=== PATIENT | female | born 1935 | race Caucasian/White ===

== ENCOUNTER 2016-12-17 12:31 | Inpatient (IN) | payer MEDICARE, BC ==
[2016-12-17] MEDS ORDERED: Nitroglycerin 0.4 MG Tab.SL SL PRN (12:59)
[2016-12-17] MEDS ORDERED: Lidocaine 2% 100 MG/5 ML Syringe IVPUSH PRN (12:59)
[2016-12-17] MEDS ORDERED: Atropine 0.1 MG/ML 10 ML Syringe IVPUSH PRN (12:59)
[2016-12-17] MEDS ORDERED: EPINEPHrine 1:10,000 1 MG/10 ML Syringe IVPUSH PRN (12:59)
[2016-12-17] MEDS ORDERED: Sodium Chloride 0.9% 5 ML Syringe FLUSH PRN (14:03)
[2016-12-17] MEDS ORDERED: Aspirin 81 MG Tab.Chew PO ONE (14:32)
[2016-12-17] MEDS ORDERED: Morphine 2 MG/ML Syringe IVPUSH PRN (14:33)
[2016-12-17] MEDS ORDERED: Sodium Chloride 0.9% 1,000 ML IV SCH ×2 (14:45→19:00)
[2016-12-17] MEDS ORDERED: Acetaminophen/HYDROcodone 325-5 MG Tab PO ONE (14:54)
[2016-12-17] MEDS ORDERED: Melatonin 3 MG Tab PO PRN (16:37)
[2016-12-17] MEDS ORDERED: Polyethylene Glycol 3350 Powder 17 GM Packet PO PRN (16:37)
[2016-12-17] MEDS: Acetaminophen/HYDROcodone 325-10 MG Tab PO PRN (18:31)
[2016-12-17] MEDS: Calcium Citrate/Vitamin D3 315 MG-250 Unit Tab PO SCH (18:31)
[2016-12-17] MEDS: predniSONE 5 MG Tab PO SCH (18:32)
[2016-12-17] MEDS: Mirtazapine 15 MG Tab PO SCH (21:06)
[2016-12-18] MEDS: Acetaminophen/HYDROcodone 325-10 MG Tab PO PRN ×4 (00:04→21:39)
[2016-12-18] MEDS: Levothyroxine 50 MCG Tab PO SCH (06:24)
[2016-12-18] MEDS: Omeprazole 20 MG Cap.CR PO SCH (06:24)
[2016-12-18] MEDS: Methylphenidate 5 MG Tab PO SCH (06:25)
[2016-12-18] MEDS: Aspirin 325 MG Tab.EC PO SCH (08:44)
[2016-12-18] MEDS: Phytonadione 100 MCG Tab PO SCH (09:31)
[2016-12-18] MEDS: B.Bifidum/B.Longum/L.Acidophilus/L.Rhamnosus (Probiotic) Cap PO SCH (09:31)
[2016-12-18] MEDS: Vitamin B6-pyridOXINE 50 MG Tab PO SCH (09:31)
[2016-12-18] MEDS: Cyanocobalamin (Vitamin B12) 500 MCG Tab PO SCH (09:31)
[2016-12-18] MEDS: Cholecalciferol (Vitamin D3) 1,000 Unit Tab PO SCH (09:31)
[2016-12-18] MEDS: Calcium Citrate/Vitamin D3 315 MG-250 Unit Tab PO SCH ×2 (09:31→17:37)
--- NOTE | 2016-12-18 13:40 | PN ---
12/18/2016 PATIENT NAME: ERNESTO HARO CHIEF COMPLAINT: Some mid anterior substernal chest pain about 2/10, that was present on admission per the patient report. BRIEF HISTORY: This elderly female 81 with multiple chronic medical conditions, was seen and evaluated yesterday at [facility]. She had some concerns of some feeling weak that she just really could not stand. She does have a history this. She has mild dysplastic syndrome requiring frequent transfusions. No other chronic medical conditions. She described her pain in chest as a pressure. She did not have any shortness of breath. No heart palpitations. No nausea. No radiating symptoms. Hemoglobin did show an 8.0, so she was admitted mainly for blood transfusions and a cardiac workup. LAB: This morning does have a white count of 20,000; hemoglobin 8.7; hematocrit 25.0; MCH 95, which is high; RDW significantly high 27. BNP 938. Troponin increased to 20.3. INR 2.5. REVIEW OF SYSTEMS: CONSTITUTIONAL: Appears weak, frail, elderly, sitting in bed, however, polite, no acute distress, lucid, able to cooperate and understand conversation. CHEST: She does have some ongoing chest pain. Nitroglycerin given and morphine. She has no nausea. No radiating symptoms. Does complain of some leg pain. PHYSICAL EXAMINATION: GENERAL: The patient is alert and oriented. VITAL SIGNS: Blood pressure right now is 116/61, heart rate is around 60, respiratory rate 14, O2 sats 96%. She is on 2 L. She is a full code right now. Weight is 115 pounds. NECK: No carotid bruits. CV: Grade 3/6 systolic murmur. S1 and S2. Regular rhythm. No carotid bruits noted. RESPIRATORY: Fibrotic crackles. This is chronic for her. Good distal pulses, radial and pedal. She has no edema. GI: Hypotonic bowel tones. DIAGNOSTICS: EKG this morning, Q-waves appear more inferior leads. Chest x-ray shows moderate cardiac enlargement, essentially unchanged. No overt CHF component. IMPRESSION/PLAN: Myocardial infarction, non-ST elevation myocardial infarction now. We will continue with aspirin. Maximum medical conservative treatment as the patient does have significant comorbidities. Not likely a candidate at this time for any invasive strategy. However, we will determine her ischemia demand. We will monitor her hemoglobin. She may need another transfusion in light of this. Monitor for any fluid overload. She may need beta-ashlyn. Long discussion with family and manager room on-call, and with the patient. The patient right now is in agreement to maximum medical conservative treatment for evolving myocardial infarction. We will trend her troponins. We will have to get echocardiogram at some point. She may have to be placed in swing bed status due to her significant weakness. We will determine that at a later point. Now, we will monitor for any reperfusion arrhythmias. While on telemetry, repeat EKG and troponins serialized. 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 OVERALL PLAN: Monitor ongoing evolving IA. May start beta-blockers. We will see what her blood pressure is today. Monitor for any reperfusion arrhythmias. Continue with aspirin. Keep her on telemetry today. On discussion with the family right now, she still wants to be full code. Risk versus benefit was explained to her in great detail. The family will still be in discussion on a day-by-day basis of this. I explained this all to her that she is not a candidate for any major interventions at this time. Family is in full cooperation and agreement with this plan. Dr. Siomara Mojica, informed. /[id number]/MODL
[2016-12-18] MEDS: predniSONE 5 MG Tab PO SCH (17:37)
[2016-12-18] MEDS: Sodium Chloride 0.9% 1,000 ML IV SCH (17:39)
[2016-12-18] MEDS: Warfarin 5 MG Tab PO SCH (17:52)
[2016-12-18] MEDS: Clopidogrel 75 MG Tab PO SCH (18:03)
[2016-12-18] MEDS ORDERED: Sodium Chloride 0.9% 1,000 ML IV SCH (20:00)
[2016-12-18] MEDS: Mirtazapine 15 MG Tab PO SCH (20:41)
[2016-12-19] MEDS: Acetaminophen/HYDROcodone 325-10 MG Tab PO PRN ×5 (01:34→18:23)
[2016-12-19] MEDS: Methylphenidate 5 MG Tab PO SCH (06:06)
[2016-12-19] MEDS: Omeprazole 20 MG Cap.CR PO SCH (06:06)
[2016-12-19] MEDS: Levothyroxine 50 MCG Tab PO SCH (06:06)
[2016-12-19] MEDS: Sodium Chloride 0.9% 1,000 ML IV SCH (07:38)
[2016-12-19] MEDS: Calcium Citrate/Vitamin D3 315 MG-250 Unit Tab PO SCH ×3 (09:12→18:23)
[2016-12-19] MEDS: Aspirin 325 MG Tab.EC PO SCH (09:12)
[2016-12-19] MEDS: Phytonadione 100 MCG Tab PO SCH (09:13)
[2016-12-19] MEDS: Vitamin B6-pyridOXINE 50 MG Tab PO SCH (09:13)
[2016-12-19] MEDS: Cholecalciferol (Vitamin D3) 1,000 Unit Tab PO SCH (09:13)
[2016-12-19] MEDS: Cyanocobalamin (Vitamin B12) 500 MCG Tab PO SCH (09:13)
[2016-12-19] MEDS: B.Bifidum/B.Longum/L.Acidophilus/L.Rhamnosus (Probiotic) Cap PO SCH (09:14)
[2016-12-19] MEDS: Potassium Chloride 10 MEQ Tab.ER PO SCH (09:14)
[2016-12-19] MEDS: Furosemide 40 MG Tab PO SCH (09:14)
[2016-12-19] MEDS: Clopidogrel 75 MG Tab PO SCH (09:21)
[2016-12-19] MEDS ORDERED: Furosemide 40 MG/4 ML VIAL IVPUSH ONE (10:01)
[2016-12-19] MEDS ORDERED: Aspirin 325 MG Tab.EC PO SCH (10:02)
[2016-12-19] MEDS ORDERED: Sodium Chloride 0.9% 5 ML Syringe FLUSH PRN (10:03)
[2016-12-19] MEDS: Metoprolol Tartrate 25 MG Tab PO SCH ×2 (10:31→20:49)
--- NOTE | 2016-12-19 10:56 | PN ---
12/19/2016 PATIENT NAME: ERNESTO HARO CHIEF COMPLAINT: Right lower lobe extremity pain with wound ulceration. However, she denies chest pain, denies shortness of breath, denies cough. Her denying chest pain is promising. HISTORY: This 81-year-old female, who does have multiple chronic medical conditions, was admitted for some weakness. It turned out she had a myocardial infarction, a quite severe troponin still around 20. Yesterday, she had a low- grade anterior substernal chest wall pain, nonradiating, it was relieved with nitroglycerin and morphine. PHYSICAL EXAMINATION: VITAL SIGNS: Temperature is 97.8, blood pressure 108/58, heart rate 60, respiratory rate 16 and O2 sats 93%, she is on 2 L. She is weighing 119, this is up approximately 4 pounds. NECK: She has no carotid bruits. No JVD. CV: Grade 3/6 systolic murmur. S1 and S2. She has a regular rhythm. RESPIRATORY: Fibrotic crackles, chronic for her. EXTREMITIES: Overall general skin condition is warm and perfusing well. She does have two ulcerations in her right lower extremity. I viewed the ulcers this morning that do have some soft slough noted with no purulent drainage, but serosanguineous. Partial thickness noted. The dressing type is a Hydrogel with an Aquacel Hydrofiber. No palpable cord in her right calf. Fair distal pulses. No edema noted. GI: Hypotonic bowel tones. Nontender. LABORATORY DATA: Troponin is 20.5, slightly up from yesterday. BNP was 938. Telemetry reports no ectopy noted. ASSESSMENT AND PLAN: 1. Myocardial infarction, now considered [id number] myocardial infarction. We will reduce aspirin from 325 to 81 and continue with Plavix 75. We will start low-dose beta-ashlyn, a tartrate, 12.5 mg to see how her blood pressure does and saline lock her fluids. She will continue on telemetry at this time. Continue with maximum medical conservative treatment. I do not believe she has any ischemia ongoing at this time. 2. Weakness. Hold off on any rehab right at this time or swing bed, but this was discussed with her. She may have to be placed in swing bed at a certain point. 3. Venous stasis ulcers, right lower extremity. These are getting debrided by Physical Therapy. SECONDARY ASSESSMENT: 1. Diastolic heart failure. We will have to assess her echocardiogram. She may need repeat since her myocardial infarction. 2. History of cellulitis, right lower extremity. 3. Bilateral pulmonary embolism history. She is on chronic anticoagulation. Therapeutic INR. 4. Major depression. 5. Anemia, which is chronic disease. 6. Thoracic back pain. She is on pain management contract. 7. Polymyalgia rheumatica. 8. History of thoracic aortic aneurysm. 9. History of giant cell arteritis. She has no headache at this time. 10.Hypertension history. Actually, the blood pressure is slightly low. We will start a beta-ashlyn. 11.Hyperlipidemia. In light of her myocardial infarction, we will start statin therapy independent of her cholesterol numbers as she made gain benefit from this. 12.Hypothyroidism. We will assess TSH level. OVERALL PLAN: Start statin therapy. Reduce aspirin. Saline lock fluids. 20 mg Lasix x1 this morning. Start a low-dose beta-ashlyn. Continue with telemetry. Discussion with family this morning, everybody is in agreement to the patient's plan. She is continuing to be full code status. /[id number]/MODL
[2016-12-19] MEDS: predniSONE 5 MG Tab PO SCH (18:24)
[2016-12-19] MEDS: Warfarin 5 MG Tab PO SCH (18:24)
[2016-12-19] MEDS: Mirtazapine 15 MG Tab PO SCH (20:47)
[2016-12-19] MEDS: cefTRIAXone 1 GM Vial IVPUSH SCH (20:51)
[2016-12-20] MEDS: Acetaminophen/HYDROcodone 325-10 MG Tab PO PRN ×3 (00:43→20:44)
[2016-12-20] MEDS: Methylphenidate 5 MG Tab PO SCH (06:21)
[2016-12-20] MEDS: Levothyroxine 50 MCG Tab PO SCH (06:21)
[2016-12-20] MEDS: Omeprazole 20 MG Cap.CR PO SCH (06:21)
[2016-12-20 08:15] LABS: CHLORIDE,CL 105 mmol/L (98-115); SODIUM,NA 140 mmol/L (136-145)
[2016-12-20] MEDS: Cyanocobalamin (Vitamin B12) 500 MCG Tab PO SCH (09:00)
[2016-12-20] MEDS: Clopidogrel 75 MG Tab PO SCH (09:00)
[2016-12-20] MEDS: Calcium Citrate/Vitamin D3 315 MG-250 Unit Tab PO SCH ×2 (09:00→17:21)
[2016-12-20] MEDS: B.Bifidum/B.Longum/L.Acidophilus/L.Rhamnosus (Probiotic) Cap PO SCH (09:00)
[2016-12-20] MEDS: Aspirin 81 MG Tab.EC PO SCH (09:04)
[2016-12-20] MEDS: Phytonadione 100 MCG Tab PO SCH (09:04)
[2016-12-20] MEDS: Cholecalciferol (Vitamin D3) 1,000 Unit Tab PO SCH (09:05)
[2016-12-20] MEDS: Vitamin B6-pyridOXINE 50 MG Tab PO SCH (09:05)
[2016-12-20] MEDS: Metoprolol Tartrate 25 MG Tab PO SCH ×2 (09:05→20:42)
[2016-12-20] MEDS ORDERED: Furosemide 40 MG/4 ML VIAL IVPUSH ONE (10:00)
--- NOTE | 2016-12-20 10:23 | PN ---
12/20/2016 PATIENT NAME: ERNESTO HARO CHIEF COMPLAINT: Today, overall progress. Feels good. Slightly weak. Denies any chest pain. No worsening shortness of breath. Her weight is up approximately 6 pounds since admission. Troponin is trending down. Overall much improvement. HISTORY: This 81-year-old female with multiple chronic medical conditions was admitted initially for weakness. She sustained a considerable myocardial infarction. Troponin was around 20, is now decreasing, so she was admitted for conservative maximal medical treatment of her myocardial infarction. The patient is full code. PHYSICAL EXAMINATION: VITAL SIGNS: Blood pressure 104/50; respiratory rate 19; O2 sats 95%, this is on 2 L; and temperature is 99.3. CONSTITUTIONAL: The patient is alert and oriented. Sitting in chair. Conversing with the family. NECK: Supple. No signs of JVD. No carotid bruits. CV: Grade 3/6 systolic murmur. Normal S1, S2. Irregular rhythm. RESPIRATORY: She has had ongoing chronic fibrotic crackles which are chronic for her. She is on Lasix every other day. GI: Nontender. Decent bowel tones. EXTREMITIES: Lower extremity; she does have a dressing intact, hydrofiber dressing to her right lower extremity due to stasis. Culture sensitive reports are back. She has no edema. LABORATORY DATA: INR is 2.6. Sodium 140, potassium 4.2, BUN 30, creatinine 0.78, troponin now is 12.9, and calcium 8.6. BNP of 938. Telemetry reports; nurses did not report any aberrancy or PVCs; however, they did hold last night's metoprolol tartrate due to hypotension, asymptomatic. ASSESSMENT AND PLAN: 1. Status post myocardial infarction. At this time [id number] myocardial infarction. She is to continue with aspirin 81 mg. Placed on Plavix on admission. Continue with low-dose beta-ashlyn tartrate 12.5 mg b.i.d. Holding parameters. Continue with telemetry. Echocardiogram, next week. She is fully coagulated with Coumadin. Starting statin therapy today. NICOLE risk score, elevated 6/7; however, we will continue with ischemia driven strategy, maximal medical treatment. 2. Weakness. Physical Therapy consultation has been placed. Most likely she could start physical therapy tomorrow; however, has ongoing wound debridement. 3. Venous stasis ulcers. Right lower extremities. Physical Therapy is doing dressing changes. Currently, she does have a hydrocele dressing. Wound culture was taken, Klebsiella oxytoca and Staph coagulase are negative. Sensitive to ceftriaxone. We will continue with ceftriaxone. SECONDARY ASSESSMENT: 1. Diastolic heart failure. Echocardiogram next week. 2. History of cellulitis. 3. Bilateral pulmonary embolism history. She is on chronic anticoagulation. Right now, she has a therapeutic INR. 4. Major depression. This seems stable. 5. Anemia of chronic disease. 6. Thoracic back pain. She is currently on a pain management contract. This is well controlled. 7. Polymyalgia rheumatica. 8. History of thoracic aortic aneurysm. 9. History of giant cell arteritis. 10.History of hypertension, currently it is slightly low; however, ongoing beta-blockers. 11.Hyperlipidemia. We will start statin therapy today as she could benefit due to recent myocardial infarction. 12.Hypothyroidism. TSH pending. OVERALL PLAN: Start statin therapy today. Lasix 40 mg x1. Continue with beta- ashlyn. Holding parameters. Continue with telemetry for 24 more hours. She is still a DNR; however, she is doing much better. We will get an echocardiogram next week, and most likely, we will place her in swing bed therapy tomorrow. /[id number]/MODL
[2016-12-20] MEDS ORDERED: Ondansetron 4 MG/2 ML SDV IVPUSH PRN (14:26)
[2016-12-20] MEDS: predniSONE 5 MG Tab PO SCH (17:22)
[2016-12-20] MEDS: Warfarin 5 MG Tab PO SCH (17:22)
[2016-12-20] MEDS: cefTRIAXone 1 GM Vial IVPUSH SCH (20:06)
[2016-12-20] MEDS: Mirtazapine 15 MG Tab PO SCH (20:43)
[2016-12-21] MEDS: Omeprazole 20 MG Cap.CR PO SCH (06:56)
[2016-12-21] MEDS: Levothyroxine 50 MCG Tab PO SCH (06:56)
[2016-12-21] MEDS: Acetaminophen/HYDROcodone 325-10 MG Tab PO PRN ×2 (07:53→12:07)
[2016-12-21] MEDS: Calcium Citrate/Vitamin D3 315 MG-250 Unit Tab PO SCH (07:55)
[2016-12-21] MEDS: Furosemide 40 MG Tab PO SCH (08:00)
[2016-12-21] MEDS: Aspirin 81 MG Tab.EC PO SCH (08:00)
[2016-12-21] MEDS: Potassium Chloride 10 MEQ Tab.ER PO SCH (08:00)
[2016-12-21] MEDS: Metoprolol Tartrate 25 MG Tab PO SCH (08:01)
[2016-12-21] MEDS: Cyanocobalamin (Vitamin B12) 500 MCG Tab PO SCH (08:02)
[2016-12-21] MEDS: Clopidogrel 75 MG Tab PO SCH (08:02)
[2016-12-21] MEDS: B.Bifidum/B.Longum/L.Acidophilus/L.Rhamnosus (Probiotic) Cap PO SCH (08:02)
[2016-12-21] MEDS: Vitamin B6-pyridOXINE 50 MG Tab PO SCH (08:03)
[2016-12-21] MEDS: Cholecalciferol (Vitamin D3) 1,000 Unit Tab PO SCH (08:03)
[2016-12-21] MEDS: Phytonadione 100 MCG Tab PO SCH (08:03)
[2016-12-21 11:20] VITALS: BP 97/43
--- NOTE | 2016-12-21 13:20 | PCM.DCSUM1 ---
Discharge Summary - Hospital Course Brief History: This 81-year-old female was admitted from the [facility] mainly due to weakness and low-grade substernal chest pain and it was noted that she did have a myocardial infarction while hospitalized. Her troponin level was quite high around 20 and she remained full code. Cardiology [place] [facility] call was notified and there was an agreement that she be treated with maximal medical conservative treatment. - Discharge Data Discharge Date: 12/21/16 Discharge Disposition: DC/Tfer W/I Hosp To Swing 61 Condition: Good - Patient Summary/Data Complications: Patient's complications included a quite significant myocardial infarction. Consults: Consultations 12/17/16 14:42 Consult to Physical Therapy [PT Evaluation and Treatment] [CONS] Routine Hospital Course: Patient's hospital course went fairly well although she did have a significant myocardial infarction, however do to comorbidities it was determined best to treat the patient for ischemia demand driven protocol with maximal medical conservative treatment and the family did agree with this. She did have a low blood pressure early on with troponin level of about 20. Beta blockers were started and this did improve her blood pressure. She did get quite weak during her hospital stay and a physical therapy consult was placed and the patient could benefit from strengthening and ambulation. She remained on telemetry and we had no reperfusion arrhythmias or PVCs noted. We continued aspirin, and Coumadin. Physical therapy did assist with venous stasis ulcer debridement and wound debridement. She did have Klebsiella oxytocin staph coagulase negative from her venous stasis ulcer right lower extremity and she was treated with sensitive to ceftriaxone. Statin therapy was started - Discharge Plan Home Medications: Home Meds Cholecalciferol (Vitamin D3) [Vitamin D3] 2,000 unit PO DAILY 08/28/13 [History] Cyanocobalamin (Vitamin B-12) [B-12 Dots] 500 mcg PO MOTUWETHFR@0900 08/28/13 [ History] Hydrocodone/Acetaminophen [Hydrocodon-Acetaminophn 10-325] 1 tab PO Q6H PRN [History] Omeprazole 20 mg PO ACBREAKFAST 08/28/13 [History] Warfarin [Coumadin] 5 mg PO DAILY@1800 05/04/15 [History] Polyethylene Glycol 3350 [MiraLAX] 1 packet PO DAILY PRN 06/01/15 [History] Calcium Carbonate/Vitamin D3 [Calcium 600-Vit D3 400 Tablet] 1 tab PO BIDMEALS 08/02/15 [History] Melatonin/Pyridoxine HCl (B6) [Melatonin 3 mg Tablet] 3 mg PO BEDTIME PRN [History] Mirtazapine [Remeron] 30 mg PO BEDTIME 12/30/15 [History] Phytonadione [Vitamin K] 100 mcg PO DAILY 12/30/15 [History] Pyridoxine HCl [Vitamin B-6] 100 mg PO DAILY 12/30/15 [History] Lactobacillus Acidophilus [Acidophilus] 1 tab PO DAILY 04/04/16 [History] predniSONE [Prednisone] 5 mg PO DAILY@1800 04/04/16 [History] Levothyroxine Sodium [Synthroid] 150 mcg PO ACBREAKFAST 09/21/16 [History] Methylphenidate HCl [Ritalin] 5 mg PO ACBREAKFAST 09/21/16 [History] Potassium Chloride [Klor-Con M20] 10 meq PO Q2D 11/24/16 [History] Denosumab [Prolia] 60 mg SUBCUT ASDIRECTED 12/17/16 [History] Epoetin Rivas [Procrit] 20,000 units SUBCUT Q7D 12/17/16 [History] Epoetin Rivas [Procrit] 40,000 unit IJ Q7D 12/17/16 [History] Filgrastim-Sndz [Zarxio] 300 mcg SUBCUT Q7D 12/17/16 [History] Furosemide [Lasix] 40 mg PO Q2D 12/17/16 [History] - Discharge Summary/Plan Comment DC Time >30 min.: Yes Discharge Summary/Plan Comment: FINAL DIAGNOSES Myocardial infarction, questionable initial STEMI versus NSTEMI, Diastolic heart failure, will get echocardiogram next week Myelodysplastic syndrome Venous stasis ulcer, right lower extremity, History of bilateral pulmonary embolism Chronic anticoagulation Anemia of chronic disease polymyalgia rheumatica Hyperlipidemia hypertension Hypothyroidism Thoracic back pain Opioid-induced constipation Depression - Patient Data Vitals - Most Recent: Last Vital Signs Temp 97.9 F 12/21/16 11:00 Pulse 56 L 12/21/16 11:00 Resp 20 12/21/16 11:00 BP 97/43 L 12/21/16 11:00 Pulse Ox 97 12/21/16 11:00 Weight - Most Recent: 119 lb 1.6 oz I&O - Last 24 hours: Intake & Output 12/20/16 12/21/16 12/21/16 22:59 06:59 14:59 Intake Total 270 50 Output Total 650 400 Balance -380 -350 Lab Results - Last 24 hrs: Laboratory Results - last 24 hr 12/21/16 12/21/16 12/21/16 Range/Units 07:00 07:00 07:00 WBC 4.1 L (5.0-10.0) 10^3/uL RBC 2.42 L (3.80-5.50) 10^6/uL Hgb 8.0 L (12.0-16.0) g/dL Hct 23.5 L (37.0-47.0) % MCV 96.8 H (82.0-92.0) fL MCH 33.1 H (27.0-31.0) pg MCHC 34.2 (32.0-36.0) g/dL RDW 27.3 H (11.5-14.5) % Plt Count 189 (150-300) 10^3/uL MPV 9.9 (7.4-10.4) fL Neut % (Auto) 43.5 L (50.0-70.0) % Lymph % (Auto) 36.5 (20.0-40.0) % Sully % (Auto) 9.5 H (2.0-8.0) % Eos % (Auto) 9.6 H (1.0-3.0) % Baso % (Auto) 0.9 (0.0-1.0) % Neut # (Auto) 1.8 L (2.5-7.0) 10^3/uL Lymph # (Auto) 1.5 (1.0-4.0) 10^3/uL Sully # (Auto) 0.4 (0.1-0.8) 10^3/uL Eos # (Auto) 0.4 H (0.1-0.3) 10^3/uL Baso # (Auto) 0.0 (0.0-0.1) 10^3/uL PT 23.2 H (8.9-11.4) SEC INR 2.2 H (0.9-1.1) Troponin I 8.19 H* (0.00-0.070) ng/mL Med Orders - Current: Current Medications Discontinued Medications Hydrocodone Bitart/Acetaminophen (Waddy 325-5 Mg) 1 tab PO ONETIME ONE Stop: 12/17/16 14:55 Last Admin: 12/17/16 15:07 Dose: 1 tab Hydrocodone Bitart/Acetaminophen (Waddy 325-10 Mg) 1 tab PO Q6H PRN PRN Reason: Pain Last Admin: 12/18/16 11:11 Dose: 1 tab Hydrocodone Bitart/Acetaminophen (Waddy 325-10 Mg) 1 tab PO Q4H PRN PRN Reason: Pain Last Admin: 12/21/16 12:07 Dose: 1 tab Aspirin (Aspirin) 324 mg PO ONETIME ONE Stop: 12/17/16 14:33 Last Admin: 12/17/16 14:43 Dose: 324 mg Aspirin (Ecotrin) 325 mg PO DAILY [facility] Last Admin: 12/19/16 09:12 Dose: Not Given Aspirin (Ecotrin) 81 mg PO DAILY [facility] Aspirin (Halfprin) 81 mg PO DAILY [facility] Last Admin: 12/21/16 08:00 Dose: 81 mg Atropine Sulfate (Atropine 0.1 Mg/Ml) 0 mg IVPUSH ASDIRECTED PRN PRN Reason: Heart Calcium Citrate (Calcium Citrate + D) 2 tab PO BIDMEALS [facility] Last Admin: 12/21/16 07:55 Dose: 2 tab Ceftriaxone Sodium (Rocephin) 1 gm IVPUSH Q24H [facility] Last Admin: 12/20/16 20:06 Dose: 1 gm Cholecalciferol (Vitamin D3) 2,000 units PO DAILY [facility] Last Admin: 12/21/16 08:03 Dose: 2,000 units Clopidogrel Bisulfate (Plavix) 75 mg PO DAILY [facility] Last Admin: 12/21/16 08:02 Dose: 75 mg Cyanocobalamin (Vitamin B12) 500 mcg PO MOTUWETHFR@0900 [facility] Last Admin: 12/21/16 08:02 Dose: 500 mcg Epinephrine HCl (Epinephrine 1:10,000) 1 mg IVPUSH ASDIRECTED PRN PRN Reason: Heart Furosemide (Lasix) 40 mg PO Q2D [facility] Last Admin: 12/21/16 08:00 Dose: 40 mg Furosemide (Lasix) 20 mg IVPUSH NOW ONE Stop: 12/19/16 10:02 Last Admin: 12/19/16 10:15 Dose: 20 mg Furosemide (Lasix) 40 mg IVPUSH NOW ONE Stop: 12/20/16 10:01 Last Admin: 12/20/16 11:05 Dose: 40 mg Sodium Chloride (Normal Saline) 1,000 mls @ 125 mls/hr IV ASDIRECTED ELVIS Stop: 12/17/16 17:00 Last Admin: 12/17/16 16:02 Dose: 125 mls/hr Sodium Chloride (Normal Saline) 1,000 mls @ 30 mls/hr IV ASDIRECTED [facility] Last Admin: 12/17/16 20:09 Dose: 30 mls/hr Sodium Chloride (Normal Saline) 1,000 mls @ 70 mls/hr IV ASDIRECTED [facility] Last Admin: 12/19/16 07:38 Dose: 70 mls/hr Lactobacillus Acidophilus/Rhamnosus (Multi-Tianna Plus) 1 cap PO DAILY [facility] Last Admin: 12/21/16 08:02 Dose: 1 cap Levothyroxine Sodium (Synthroid) 150 mcg PO ACBREAKFAST [facility] Last Admin: 12/21/16 06:56 Dose: 150 mcg Lidocaine HCl (Xylocaine 2%) 0 mg IVPUSH ASDIRECTED PRN PRN Reason: Heart Melatonin (Melatonin) 3 mg PO BEDTIME PRN PRN Reason: Insomnia Methylphenidate HCl (Ritalin) 5 mg PO ACBREAKFAST [facility] Last Admin: 12/20/16 06:21 Dose: 5 mg Metoprolol Tartrate (Lopressor) 12.5 mg PO BID [facility] Last Admin: 12/21/16 08:01 Dose: 12.5 mg Mirtazapine (Remeron) 30 mg PO BEDTIME [facility] Last Admin: 12/20/16 20:43 Dose: 30 mg Morphine Sulfate (Morphine) 1 mg IVPUSH Q2H PRN PRN Reason: Chest Pain Last Admin: 12/18/16 10:07 Dose: 1 mg Nitroglycerin (Nitrostat) 0.4 mg SL ASDIRECTED PRN PRN Reason: Heart Last Admin: 12/18/16 08:45 Dose: 0.4 mg Omeprazole (Omeprazole) 20 mg PO ACBREAKFAST [facility] Last Admin: 12/21/16 06:56 Dose: 20 mg Ondansetron HCl (Zofran) 4 mg IVPUSH Q4H PRN PRN Reason: Nausea/Vomiting Phytonadione (Vitamin K) 100 mcg PO DAILY [facility] Last Admin: 12/21/16 08:03 Dose: 100 mcg Polyethylene Glycol (Miralax) 17 gm PO DAILY PRN PRN Reason: Constipation Potassium Chloride (Klor-Con 10) 10 meq PO Q2D [facility] Last Admin: 12/21/16 08:00 Dose: 10 meq Prednisone (Prednisone) 5 mg PO DAILY@1800 [facility] Last Admin: 12/20/16 17:22 Dose: 5 mg Pyridoxine HCl (Vitamin B6-Pyridoxine) 100 mg PO DAILY [facility] Last Admin: 12/21/16 08:03 Dose: 100 mg Sodium Chloride (Syrex Flush) 5 ml FLUSH Q8HR PRN PRN Reason: Keep Vein Open Sodium Chloride (Syrex Flush) 5 ml FLUSH Q8HR PRN PRN Reason: Keep Vein Open Last Admin: 12/19/16 20:56 Dose: 5 ml Warfarin Sodium (Coumadin) 5 mg PO DAILY@1800 [facility] Last Admin: 12/20/16 17:22 Dose: 5 mg *Q Meaningful Use (DIS) - VTE *Q VTE Criteria *Q: - Stroke *Q Stroke Criteria *Q: - AMI *Q AMI Criteria *Q:
== END 2016-12-21 13:12 | disposition swing bed (61) | DRG 281 ==
LOC: INTOOBSV 12:58 → UNDOADMOB 12:58 → KA.MS 12:58 → OBSVTOIN 18:45 → KA.MS 18:45
PROVIDERS: ADMIT Physician Assistant; ATTEND Physician Assistant
PROC: 30233N1 Transfusion of Nonautologous Red Blood Cells into Peripheral Vein, Percutaneous Approach (ICD-10-PCS; principal; 2016-12-17)
DX: I51.7 Cardiomegaly (principal); D64.9 Anemia, unspecified; R07.89 Other chest pain; D46.9 Myelodysplastic syndrome, unspecified; I21.4 Non-ST elevation (NSTEMI) myocardial infarction; E78.00 Pure hypercholesterolemia, unspecified; L97.919 Non-pressure chronic ulcer of unspecified part of right lower leg with unspecified severity; I50.30 Unspecified diastolic (congestive) heart failure; L03.115 Cellulitis of right lower limb; R53.1 Weakness; I83.019 Varicose veins of right lower extremity with ulcer of unspecified site; B95.7 Other staphylococcus as the cause of diseases classified elsewhere; Z86.718 Personal history of other venous thrombosis and embolism; B96.89 Other specified bacterial agents as the cause of diseases classified elsewhere; F32.9 Major depressive disorder, single episode, unspecified; D63.8 Anemia in other chronic diseases classified elsewhere; M54.6 Pain in thoracic spine; M31.5 Giant cell arteritis with polymyalgia rheumatica; I10 Essential (primary) hypertension; E78.5 Hyperlipidemia, unspecified; E03.9 Hypothyroidism, unspecified; Z86.711 Personal history of pulmonary embolism; Z79.01 Long term (current) use of anticoagulants; Z79.4 Long term (current) use of insulin; Z79.899 Other long term (current) drug therapy; Z88.0 Allergy status to penicillin; Z88.8 Allergy status to other drugs, medicaments and biological substances
CPT/HCPCS: 36415; 36430; 84484; 86850; 86900; 86901; 86920; 86922; 87070; 87077 ×2; 87186; 97163; 97597; A9270 ×4; G0283; J7030; P9016; 80048; 83880; 84443; 85025; 85610; 93005; J0696; J1940; J2270

== ENCOUNTER 2016-12-21 09:10 | Inpatient (IN) | payer MEDICARE, BC ==
[2016-12-21] MEDS ORDERED: Ondansetron 4 MG/2 ML SDV IVPUSH PRN (12:58)
[2016-12-21] MEDS ORDERED: Polyethylene Glycol 3350 Powder 17 GM Packet PO PRN (12:58)
[2016-12-21] MEDS ORDERED: Sodium Chloride 0.9% 5 ML Syringe FLUSH PRN (12:58)
[2016-12-21] MEDS ORDERED: Morphine 2 MG/ML Syringe IVPUSH PRN (12:58)
--- NOTE | 2016-12-21 13:38 | PCM.HP ---
H&P History of Present Illness - General Date of Service: 12/21/16 Admit Problem/Dx: Admission Diagnosis/Problem Admission Diagnosis/Problem Weakness Source of Information: Patient, Old records, Provider, RN History Limitations: Reports: No limitations - History of Present Illness Initial Comments - Free Text/Narative: This 81-year-old female was initially admitted for chest pain and weakness and was determined for her to have a myocardial infarction quite significant. Due to her weakness status post AR she was placed in swing bed therapy. - Related Data Allergies/Adverse Reactions: Allergies Allergy/AdvReac Type Severity Reaction Status Date / Time erythromycin base Allergy Severe Vomiting Verified 12/17/16 16:42 [Erythromycin Base] Penicillins Allergy Unknown Hives Verified 12/17/16 16:42 Sulfa (Sulfonamide Allergy Other Verified 12/17/16 16:42 Antibiotics) sulfamethoxazole Allergy Other Verified 12/17/16 16:42 [From Bactrim] trimethoprim [From Bactrim] Allergy Other Verified 12/17/16 16:42 lenalidomide [From Revlimid] AdvReac Mild Rash Verified 12/17/16 16:42 Home Medications: Home Meds Cholecalciferol (Vitamin D3) [Vitamin D3] 2,000 unit PO DAILY 08/28/13 [History] Cyanocobalamin (Vitamin B-12) [B-12 Dots] 500 mcg PO MOTUWETHFR@0900 08/28/13 [ History] Hydrocodone/Acetaminophen [Hydrocodon-Acetaminophn 10-325] 1 tab PO Q6H PRN [History] Omeprazole 20 mg PO ACBREAKFAST 08/28/13 [History] Warfarin [Coumadin] 5 mg PO DAILY@1800 05/04/15 [History] Polyethylene Glycol 3350 [MiraLAX] 1 packet PO DAILY PRN 06/01/15 [History] Calcium Carbonate/Vitamin D3 [Calcium 600-Vit D3 400 Tablet] 1 tab PO BIDMEALS 08/02/15 [History] Melatonin/Pyridoxine HCl (B6) [Melatonin 3 mg Tablet] 3 mg PO BEDTIME PRN [History] Mirtazapine [Remeron] 30 mg PO BEDTIME 12/30/15 [History] Phytonadione [Vitamin K] 100 mcg PO DAILY 12/30/15 [History] Pyridoxine HCl [Vitamin B-6] 100 mg PO DAILY 12/30/15 [History] Lactobacillus Acidophilus [Acidophilus] 1 tab PO DAILY 04/04/16 [History] predniSONE [Prednisone] 5 mg PO DAILY@1800 04/04/16 [History] Levothyroxine Sodium [Synthroid] 150 mcg PO ACBREAKFAST 09/21/16 [History] Methylphenidate HCl [Ritalin] 5 mg PO ACBREAKFAST 09/21/16 [History] Potassium Chloride [Klor-Con M20] 10 meq PO Q2D 11/24/16 [History] Denosumab [Prolia] 60 mg SUBCUT ASDIRECTED 12/17/16 [History] Epoetin Rivas [Procrit] 20,000 units SUBCUT Q7D 12/17/16 [History] Epoetin Rivas [Procrit] 40,000 unit IJ Q7D 12/17/16 [History] Filgrastim-Sndz [Zarxio] 300 mcg SUBCUT Q7D 12/17/16 [History] Furosemide [Lasix] 40 mg PO Q2D 12/17/16 [History] Past Medical History HEENT History: Reports: Cataract, Hard of hearing, Impaired vision, Sinusitis Cardiovascular History: Reports: Blood clots/VTE/DVT, High cholesterol, PVD, SOB on exertion Respiratory History: Reports: Bronchitis, recurrent, PE, Pneumonia, recurrent, SOB, Other (see below) Other Respiratory History: Chronic use of oxygen Gastrointestinal History: Reports: Bowel obstruction, Chronic diarrhea, Fecal incontinence, GERD Genitourinary History: Reports: UTI, recurrent STOCK CHECKERER History: Reports: Endometriosis, Musculoskeletal History: Reports: Back pain, chronic, Fibromyalgia, Other (see below) Other Musculoskeletal History: POLYMYALGIA Neurological History: Reports: Vertigo Psychiatric History: Reports: None Endocrine/Metabolic History: Reports: Hypothyroidism, Osteopenia, Osteoporosis Hematologic History: Reports: Anemia, Blood transfusion(s) Immunologic History: Reports: None Oncologic (Cancer) History: Reports: None Dermatologic History: Reports: None - Infectious Disease History Infectious Disease History: Reports: Measles, Mumps - Past Surgical History HEENT Surgical History: Reports: Adenoidectomy, Cataract surgery, Tonsillectomy Cardiovascular Surgical History: Reports: None Respiratory Surgical History: Reports: None GI Surgical History: Reports: Appendectomy, Cholecystectomy, Colonoscopy, Other (see below) Other GI Surgeries/Procedures: bowel obstruction Female Surgical History: Reports: Hysterectomy Endocrine Surgical History: Reports: None Neurological Surgical History: Reports: None Musculoskeletal Surgical History: Reports: None Oncologic Surgical History: Reports: None Social & Family History - Family History Family Medical History: Noncontributory HEENT: Reports: None Cardiac: Reports: None Respiratory: Reports: None GI: Reports: None : Reports: Other (see below) (Mother with kidney disease unknown type ) OBGYN: Reports: None Musculoskeletal: Reports: None Neurological: Reports: None Psychiatric: Reports: None Endocrine/Metabolic: Reports: None Hematologic: Reports: None Immunologic: Reports: None Dermatologic: Reports: None Oncologic: Reports: Hodgkin's lymphoma - Tobacco Use Smoking Status *Q: Never Smoker Second Hand Smoke Exposure: No - Caffeine Use Caffeine Use: Reports: Coffee - Alcohol Use Days Per Week of Alcohol Use: 0 - Recreational Drug Use Recreational Drug Use: No H&P Review of Systems - Review of Systems: Review Of Systems: See Below General: Reports: weakness, fatigue, weight loss (Do to diuretic therapy) HEENT: Reports: no symptoms Pulmonary: Reports: Shortness of Breath. Denies: Cough, Sputum Cardiovascular: Reports: dyspnea on exertion. Denies: chest pain, edema, blood pressure problem Gastrointestinal: Reports: Constipation Genitourinary: Reports: no symptoms Musculoskeletal: Reports: leg pain (Leg pain due to wound much improved) Skin: Reports: wound (Right lower extremity) Psychiatric: Reports: no symptoms Neurological: Reports: Difficulty Walking, Weakness. Denies: Dizziness Hematologic/Lymphatic: Reports: anemia, easy bleeding Immunologic: Reports: no symptoms Exam - Exam Exam: See Below - Vital Signs Vital Signs: Last Vital Signs Temp 97.9 F 12/21/16 11:00 Pulse 56 L 12/21/16 11:00 Resp 20 12/21/16 11:00 BP 97/43 L 12/21/16 11:00 Pulse Ox 97 12/21/16 11:00 Weight: 119 lb 1.6 oz - Exam Quality Assessment: supplemental oxygen (Has been on chronic home oxygen for about 6 weeks) General: alert, oriented, cooperative. No: mild distress HEENT: PERRLA, Hearing intact, Mucosa moist & pink, Nares patent, Normal nasal septum, Posterior pharynx clear, Conjunctiva clear, EOMI, EACs clear, TMs clear Neck: supple, trachea midline. No: JVD Lungs: Crackles (Chronic fibrotic crackles). No: Rhonchi, Wheezing Cardiovascular: regular rate, regular rhythm, systolic murmur (3/6 systolic murmur). No: tachycardia Abdomen: hypoactive bowel sounds (Female) Exam: Deferred Rectal (Female) Exam: Deferred Back Exam: No: CVA tenderness (L), CVA tenderness (R) Extremities: normal pulses Peripheral Pulses: 2+: radial (L), radial (R) Skin: wound, incision (Healings venous stasis ulcer, requiring debridement little drainage) Neurological: reflexes equal bilateral, normal speech, sensation intact Neuro Extensive - Mental Status: alert, oriented x3, normal mood/affect, normal cognition Neuro Extensive - Motor, Sensory, Reflexes: CN II-XII intact. No: normal gait, ataxia, hemiplagia (L), hemiplagia (R) Psychiatric: alert, normal affect, normal mood *Q Meaningful Use (ADM) - VTE *Q VTE Criteria *Q: - Stroke *Q Stroke Criteria *Q: - AMI *Q AMI Criteria *Q: Problem List Initiated/Reviewed/Updated: Yes Orders Last 24hrs: Active Orders 24 hr Category Date Time Status Patient Status [ADT] Routine ADT 12/21/16 13:05 Ordered Communication Order [RC] DAILY Care 12/21/16 12:58 Active Communication Order [RC] Q8HR Care 12/21/16 12:58 Active Intake and Output [RC] 1400,2200,0600 Care 12/21/16 12:58 Active Oxygen Therapy [RC] PRN Care 12/21/16 12:58 Active RT Incentive Spirometry [RC] ASDIRECTED Care 12/21/16 12:58 Active Supplement (Dietary) [Dietary Supplements] [RC] 1400, Care 12/21/16 12:58 Active 2200 Up With Assistance [RC] ASDIRECTED Care 12/21/16 12:58 Active Consult to Physical Therapy [PT Evaluation and Cons 12/21/16 12:58 Active Treatment] [CONS] Routine Heart Healthy Diet [DIET] Diet 12/21/16 Lunch Active Acetaminophen/HYDROcodone [[place] 325-10 MG] Med 12/21/16 12:58 Ordered 1 tab PO Q4H PRN Aspirin [Halfprin] Med 12/22/16 09:00 Ordered 81 mg PO DAILY B.Bif/B.Long/L.Acidoph/L.Rhamn [Multi-Tianna Plus] Med 12/22/16 09:00 Ordered 1 cap PO DAILY Calcium Citrate/Vitamin D3 [Calcium Citrate + D] Med 12/21/16 18:00 Ordered 2 tab PO BIDMEALS Cholecalciferol (Vitamin D3) [Vitamin D3] Med 12/22/16 09:00 Ordered 2,000 units PO DAILY Clopidogrel [Plavix] Med 12/22/16 09:00 Ordered 75 mg PO DAILY Cyanocobalamin (Vitamin B12) [Vitamin B12] Med 12/24/16 09:00 Ordered 500 mcg PO MOTUWETHFR@0900 Furosemide [Lasix] Med 12/23/16 09:00 Ordered 40 mg PO Q2D Levothyroxine [Synthroid] Med 12/22/16 07:00 Ordered 150 mcg PO ACBREAKFAST Melatonin Med 12/21/16 12:58 Ordered 3 mg PO BEDTIME PRN Metoprolol Tartrate [Lopressor] Med 12/21/16 21:00 Ordered 12.5 mg PO BID Mirtazapine [Remeron] Med 12/21/16 21:00 Ordered 30 mg PO BEDTIME Morphine Med 12/21/16 12:58 Ordered 1 mg IVPUSH Q2H PRN Omeprazole Med 12/22/16 07:00 Ordered 20 mg PO ACBREAKFAST Ondansetron [Zofran] Med 12/21/16 12:58 Ordered 4 mg IVPUSH Q4H PRN Phytonadione [Vitamin K] Med 12/22/16 09:00 Ordered 100 mcg PO DAILY Polyethylene Glycol 3350 [MiraLAX] Med 12/21/16 12:58 Ordered 17 gm PO DAILY PRN Potassium Chloride [Klor-Con 10] Med 12/23/16 09:00 Ordered 10 meq PO Q2D Sodium Chloride 0.9% [Syrex Flush] Med 12/21/16 12:58 Ordered 5 ml FLUSH Q8HR PRN Vitamin B6-pyridOXINE Med 12/22/16 09:00 Ordered 100 mg PO DAILY Warfarin [Coumadin] Med 12/21/16 18:00 Ordered 5 mg PO DAILY@1800 cefTRIAXone [Rocephin] Med 12/21/16 20:15 Ordered 1 gm IVPUSH Q24H predniSONE Med 12/21/16 18:00 Ordered 5 mg PO DAILY@1800 Convert IV to Saline Lock [OM.PC] Routine Oth 12/21/16 12:58 Ordered Saline Lock Insert [OM.PC] Routine Oth 12/21/16 12:58 Ordered Resuscitation Status Routine Resus Stat 12/21/16 13:04 Ordered Medication Orders Hydrocodone Bitart/Acetaminophen ([place] 325-10 Mg) 1 tab PO Q4H PRN PRN Reason: Pain Aspirin (Halfprin) 81 mg PO DAILY [facility] Calcium Citrate (Calcium Citrate + D) 2 tab PO BIDMEALS [facility] Ceftriaxone Sodium (Rocephin) 1 gm IVPUSH Q24H [facility] Cholecalciferol (Vitamin D3) 2,000 units PO DAILY [facility] Clopidogrel Bisulfate (Plavix) 75 mg PO DAILY [facility] Cyanocobalamin (Vitamin B12) 500 mcg PO MOTUWETHFR@0900 [facility] Furosemide (Lasix) 40 mg PO Q2D [facility] Lactobacillus Acidophilus/Rhamnosus (Multi-Tianna Plus) 1 cap PO DAILY [facility] Levothyroxine Sodium (Synthroid) 150 mcg PO ACBREAKFAST [facility] Melatonin (Melatonin) 3 mg PO BEDTIME PRN PRN Reason: Insomnia Metoprolol Tartrate (Lopressor) 12.5 mg PO BID [facility] Mirtazapine (Remeron) 30 mg PO BEDTIME [facility] Morphine Sulfate (Morphine) 1 mg IVPUSH Q2H PRN PRN Reason: Chest Pain Omeprazole (Omeprazole) 20 mg PO ACBREAKFAST [facility] Ondansetron HCl (Zofran) 4 mg IVPUSH Q4H PRN PRN Reason: Nausea/Vomiting Phytonadione (Vitamin K) 100 mcg PO DAILY [facility] Polyethylene Glycol (Miralax) 17 gm PO DAILY PRN PRN Reason: Constipation Potassium Chloride (Klor-Con 10) 10 meq PO Q2D [facility] Prednisone (Prednisone) 5 mg PO DAILY@1800 [facility] Pyridoxine HCl (Vitamin B6-Pyridoxine) 100 mg PO DAILY [facility] Sodium Chloride (Syrex Flush) 5 ml FLUSH Q8HR PRN PRN Reason: Keep Vein Open Warfarin Sodium (Coumadin) 5 mg PO DAILY@1800 [facility] Assessment/Plan Comment:: Brief HISTORY OF PRESENT ILLNESS This 81-year-old female was initially admitted for chest pain and weakness and was determined for her to have a myocardial infarction quite significant. Due to her weakness status post AR she was placed in swing bed therapy. HOSPITAL COURSE WHILE ACUTE CARE STATUS Patient's hospital course went fairly well although she did have a significant myocardial infarction, however do to comorbidities it was determined best to treat the patient for ischemia demand driven protocol with maximal medical conservative treatment and the family did agree with this. She did have a low blood pressure early on with troponin level of about 20. Beta blockers were started and this did improve her blood pressure. She did get quite weak during her hospital stay and a physical therapy consult was placed and the patient could benefit from strengthening and ambulation. She remained on telemetry and we had no reperfusion arrhythmias or PVCs noted. We continued aspirin, and Coumadin. Physical therapy did assist with venous stasis ulcer debridement and wound debridement. She did have Klebsiella oxytocin staph coagulase negative from her venous stasis ulcer right lower extremity and she was treated with sensitive to ceftriaxone. Statin therapy was started. She did have some mild weight gain with slight fluid overload about 7 pounds gained however diuresis him gently this has come down quite a bit. CODE STATUS full code IMPRESSION/PLAN Myocardial infarction, post stabilization, on aspirin, anticoagulated with Coumadin due to history of PE. Started Plavix. NICOLE risk score 6/7. Started low- dose beta ashlyn tolerating well--holding parameters. Continue with telemetry. Echocardiogram scheduled next week--Tomi. Will consider ASHA inhibitor. Continue with diuresing--gentle. Do to him I could benefit from statin therapy- -seems to be tolerating new statin well Weakness, physical therapy consultation placed. Patient will benefit from swing bed therapy for gentle cardiac rehabilitation, ambulation and strength along with wound care Infection venous stasis ulcers, right lower extremity, definitive therapy with ceftriaxone due to Klebsiella oxytoca. Hypothyroidism, TSH pending CHRONIC MEDICAL PROBLEMS, History of cellulitis History of bilateral pulmonary embolism, on chronic anticoagulation--no complication Depression, seems stable anemia, chronic disease Thoracic back pain, currently on pain management contract, opioid use. No abuse Opioid-induced constipation, placed on MovanHypertension, placed on low-dose beta ashlyn, will titrate upwards toward blood pressure response Polymyalgia rheumatica History of giant cell arteritis
[2016-12-21] MEDS: Acetaminophen/HYDROcodone 325-10 MG Tab PO PRN ×2 (16:05→21:01)
[2016-12-21] MEDS: Naloxegol Oxalate 25 MG Tab PO SCH (16:29)
[2016-12-21] MEDS: Warfarin 5 MG Tab PO SCH (18:15)
[2016-12-21] MEDS: Calcium Citrate/Vitamin D3 315 MG-250 Unit Tab PO SCH (18:15)
[2016-12-21] MEDS: predniSONE 5 MG Tab PO SCH (18:16)
[2016-12-21] MEDS: Metoprolol Tartrate 25 MG Tab PO SCH (20:57)
[2016-12-21] MEDS: Mirtazapine 15 MG Tab PO SCH (20:59)
[2016-12-21] MEDS: cefTRIAXone 1 GM Vial IVPUSH SCH (21:02)
[2016-12-22] MEDS: Levothyroxine 50 MCG Tab PO SCH (06:01)
[2016-12-22] MEDS: Pantoprazole 40 MG Tab.CR PO SCH (06:02)
[2016-12-22] MEDS ORDERED: Omeprazole 20 MG Cap.CR PO SCH (07:00)
[2016-12-22] MEDS: Calcium Citrate/Vitamin D3 315 MG-250 Unit Tab PO SCH ×2 (08:41→17:25)
[2016-12-22] MEDS: Vitamin B6-pyridOXINE 50 MG Tab PO SCH (08:41)
[2016-12-22] MEDS: Metoprolol Tartrate 25 MG Tab PO SCH ×2 (08:43→20:55)
[2016-12-22] MEDS: Aspirin 81 MG Tab.EC PO SCH (08:44)
[2016-12-22] MEDS: Naloxegol Oxalate 25 MG Tab PO SCH (08:44)
[2016-12-22] MEDS: B.Bifidum/B.Longum/L.Acidophilus/L.Rhamnosus (Probiotic) Cap PO SCH (08:45)
[2016-12-22] MEDS: Phytonadione 100 MCG Tab PO SCH (08:45)
[2016-12-22] MEDS: Cholecalciferol (Vitamin D3) 1,000 Unit Tab PO SCH (08:45)
[2016-12-22] MEDS: Clopidogrel 75 MG Tab PO SCH (08:45)
[2016-12-22] MEDS: Acetaminophen/HYDROcodone 325-10 MG Tab PO PRN ×4 (09:10→20:57)
[2016-12-22] MEDS ORDERED: Sodium Chloride 0.9% 100 ML IV ONE (14:00)
--- NOTE | 2016-12-22 14:36 | PCM.PN ---
- General Info Date of Service: 12/22/16 Admission Dx/Problem (Free Text): Admission Diagnosis/Problem Admission Diagnosis/Problem Weakness History of present illness: Patient is an 81-year-old white female who was admitted to acute care secondary to chest pain and weakness-Patient sustained a myocardial infarction-quite significant. Do 2 or secondary weakness post acute [place] she was admitted to skilled care/swing bed for further rehabilitation. Patient's hospital course went fairly well-significant acute myocardial infarction but patient has significant comorbidities therefore patient treated for ischemia demand driven protocol with maximal medical conservative treatment and patient/family agreed with this treatment regimen. She did have lower blood pressures early on with troponin level of about 20. Beta blockers were started and this did help. She did get very weak during her hospital stay and a physical therapy consult was ordered for further strengthening and ambulation/ rehabilitation. Telemetry revealed no reperfusion arrhythmias or PVCs noted. Aspirin was continued as well as Coumadin. Physical therapy assisted with venous stasis ulcer debridement and wound debridement. She did have bacterial growth from her venous stasis ulcer right lower extremity and was treated with ceftriaxone. Statin therapy was started She did have some mild weight gain with slight fluid overload however diuresis resulted in decreasing the somewhat. Again, patient admitted to skilled care/swing bed for further close monitoring evaluation and treatment and physical therapy for strength building and rehabilitation. Patient noted to be quite anemic-received one blood transfusion on 12/21/16 Patient reports today: Very weak yet but does think she is getting a little stronger No real appetite Denied any chest pain, shortness breath, palpitations, abdominal pain Nurses report today: Need followup lab Functional Status: Reports: pain controlled, tolerating diet - Review of Systems General: Reports: Weakness, Fatigue, Malaise, Appetite (decreased). Denies: Fever, Chills HEENT: Reports: no symptoms Pulmonary: Reports: no symptoms Cardiovascular: Reports: No Symptoms Gastrointestinal: Reports: No symptoms Genitourinary: Reports: no symptoms Neurological: Reports: No Symptoms, Weakness (profound) Psychiatric: Reports: no symptoms - Patient Data Vitals - most recent: Last Vital Signs Temp 97.5 F 12/22/16 06:48 Pulse 100 12/22/16 08:43 Resp 20 12/22/16 06:48 BP 93/51 L 12/22/16 08:43 Pulse Ox 94 L 12/22/16 06:48 Weight - most recent: 119 lb 1.6 oz I&O - last 24 hours: Intake & Output 12/21/16 12/22/16 12/22/16 22:59 06:59 14:59 Intake Total 795 50 580 Output Total 200 1000 200 Balance 595 -950 380 Lab Results last 24 hrs: Laboratory Results - last 24 hr 12/21/16 Range/Units 07:00 Blood Type O NEGATIVE Gel Antibody Screen Negative Crossmatch See Detail Med Orders - Current: Current Medications Hydrocodone Bitart/Acetaminophen ([place] 325-10 Mg) 1 tab PO Q4H PRN PRN Reason: Pain Last Admin: 12/22/16 13:12 Dose: 1 tab Aspirin (Halfprin) 81 mg PO DAILY [facility] Last Admin: 12/22/16 08:44 Dose: 81 mg Calcium Citrate (Calcium Citrate + D) 2 tab PO BIDMEALS [facility] Last Admin: 12/22/16 08:41 Dose: 1 tab Ceftriaxone Sodium (Rocephin) 1 gm IVPUSH Q24H [facility] Last Admin: 12/21/16 21:02 Dose: 1 gm Cholecalciferol (Vitamin D3) 2,000 units PO DAILY [facility] Last Admin: 12/22/16 08:45 Dose: 2,000 units Clopidogrel Bisulfate (Plavix) 75 mg PO DAILY [facility] Last Admin: 12/22/16 08:45 Dose: 75 mg Cyanocobalamin (Vitamin B12) 500 mcg PO MOTUWETHFR@0900 [facility] Furosemide (Lasix) 40 mg PO Q2D [facility] Sodium Chloride (Normal Saline) 100 mls @ 20 mls/hr IV ONETIME@1400 ONE Stop: 12/22/16 18:59 Lactobacillus Acidophilus/Rhamnosus (Multi-Tianna Plus) 1 cap PO DAILY [facility] Last Admin: 12/22/16 08:45 Dose: 1 cap Levothyroxine Sodium (Synthroid) 150 mcg PO ACBREAKFAST [facility] Last Admin: 12/22/16 06:01 Dose: 150 mcg Melatonin (Melatonin) 3 mg PO BEDTIME PRN PRN Reason: Insomnia Metoprolol Tartrate (Lopressor) 12.5 mg PO BID [facility] Last Admin: 12/22/16 08:43 Dose: 12.5 mg Mirtazapine (Remeron) 30 mg PO BEDTIME [facility] Last Admin: 12/21/16 20:59 Dose: 30 mg Morphine Sulfate (Morphine) 1 mg IVPUSH Q2H PRN PRN Reason: Chest Pain Ondansetron HCl (Zofran) 4 mg IVPUSH Q4H PRN PRN Reason: Nausea/Vomiting [facility]op[facility]) [facility] Last Admin: 12/22/16 06:02 Dose: 40 mg Phytonadione (Vitamin K) 100 mcg PO DAILY [facility] Last Admin: 12/22/16 08:45 Dose: 100 mcg Polyethylene Glycol (Miralax) 17 gm PO DAILY PRN PRN Reason: Constipation Potassium Chloride (Klor-Con 10) 10 meq PO Q2D [facility] Prednisone (Prednisone) 5 mg PO DAILY@1800 [facility] Last Admin: 12/21/16 18:16 Dose: 5 mg Pyridoxine HCl (Vitamin B6-Pyridoxine) 100 mg PO DAILY [facility] Last Admin: 12/22/16 08:41 Dose: 100 mg Sodium Chloride (Syrex Flush) 5 ml FLUSH Q8HR PRN PRN Reason: Keep Vein Open Warfarin Sodium (Coumadin) 5 mg PO DAILY@1800 [facility] Last Admin: 12/21/16 18:15 Dose: 5 mg Discontinued Medications [facility]eprazole ([facility]ole) [facility] - Exam General: alert, oriented, cooperative, no acute distress, other (very weak, thin , pale) HEENT: Pupils equal, Pupils reactive, EOMI, Mucous membr. moist/pink, Other ( wears glasses) Neck: supple, trachea midline, no JVD, no thyromegaly. No: lymphadenopathy, thyromegaly Lungs: Normal respiratory effort, Decreased breath sounds, Crackles Cardiovascular: Regular Rhythm, Irregular Rhythm, Murmurs Abdomen: bowel sounds present, soft, no tenderness, no distension. No: rigidity , rebound, guarding, tenderness, distension Extremities: no edema Skin: warm, dry, intact Wound/Incisions: other (right lower extremity dressing intact--due for change Saturday) Neurological: no new focal deficit, other (profound generalized weakness) Psy/Mental Status: alert, normal affect, normal mood - Problem List Review Problem List Initiated/Reviewed/Updated: Yes - My Orders Last 24 Hours: My Active Orders 12/22/16 14:10 CBC WITH AUTO DIFF [HEME] Routine COMPREHENSIVE METABOLIC PN,CMP [CHEM] Routine - Assessment Assessment:: Assessment: Generalized weakness and need for strength building and rehabilitation secondary to below-profound weakness Acute myocardial infarction-clinically doing fairly well Chronic anticoagulation [id number] well Previous history of pulmonary embolus Hyperlipidemia Antilipemic therapy Venous stasis ulcers with secondary infection Cellulitis history Depression Anemia of chronic disease-await repeat lab Chronic back pain-especially thoracic Chronic [id number] Polymyalgia rheumatica Giant cell arteritis history Hypothyroidism - Plan Plan:: Plan: Reviewed present treatment regimen-continue same regimen except changes as listed below CBC, BMP today CBC in a.m. Continue physical therapy Talked with patient and family and he agree with this evaluation and treatment plan
[2016-12-22 15:24] LABS: CHLORIDE,CL 104 mmol/L (98-115); SODIUM,NA 139 mmol/L (136-145)
[2016-12-22] MEDS: predniSONE 5 MG Tab PO SCH (17:26)
[2016-12-22] MEDS: Warfarin 5 MG Tab PO SCH (17:27)
[2016-12-22] MEDS: cefTRIAXone 1 GM Vial IVPUSH SCH (20:55)
[2016-12-22] MEDS: Mirtazapine 15 MG Tab PO SCH (20:56)
[2016-12-23] MEDS: Pantoprazole 40 MG Tab.CR PO SCH (06:11)
[2016-12-23] MEDS: Acetaminophen/HYDROcodone 325-10 MG Tab PO PRN ×4 (06:11→20:35)
[2016-12-23] MEDS: Levothyroxine 50 MCG Tab PO SCH (06:11)
[2016-12-23] MEDS: Clopidogrel 75 MG Tab PO SCH (09:02)
[2016-12-23] MEDS: Cholecalciferol (Vitamin D3) 1,000 Unit Tab PO SCH (09:02)
[2016-12-23] MEDS: Aspirin 81 MG Tab.EC PO SCH (09:02)
[2016-12-23] MEDS: Naloxegol Oxalate 25 MG Tab PO SCH (09:02)
[2016-12-23] MEDS: Calcium Citrate/Vitamin D3 315 MG-250 Unit Tab PO SCH ×2 (09:02→18:02)
[2016-12-23] MEDS: Metoprolol Tartrate 25 MG Tab PO SCH ×2 (09:03→21:13)
[2016-12-23] MEDS: Vitamin B6-pyridOXINE 50 MG Tab PO SCH (09:03)
[2016-12-23] MEDS: Potassium Chloride 10 MEQ Tab.ER PO SCH (09:04)
[2016-12-23] MEDS: Furosemide 40 MG Tab PO SCH (09:04)
[2016-12-23] MEDS: B.Bifidum/B.Longum/L.Acidophilus/L.Rhamnosus (Probiotic) Cap PO SCH (09:06)
[2016-12-23] MEDS: Phytonadione 100 MCG Tab PO SCH (09:07)
[2016-12-23] MEDS: predniSONE 5 MG Tab PO SCH (18:02)
[2016-12-23] MEDS: Warfarin 5 MG Tab PO SCH (18:02)
[2016-12-23] MEDS: cefTRIAXone 1 GM Vial IVPUSH SCH (20:13)
[2016-12-23] MEDS: Mirtazapine 15 MG Tab PO SCH (21:13)
[2016-12-24] MEDS: Acetaminophen/HYDROcodone 325-10 MG Tab PO PRN ×3 (06:28→21:21)
[2016-12-24] MEDS: Levothyroxine 50 MCG Tab PO SCH (06:28)
[2016-12-24] MEDS: Pantoprazole 40 MG Tab.CR PO SCH (06:28)
[2016-12-24] MEDS: Cyanocobalamin (Vitamin B12) 500 MCG Tab PO SCH (09:10)
[2016-12-24] MEDS: Phytonadione 100 MCG Tab PO SCH (09:10)
[2016-12-24] MEDS: Aspirin 81 MG Tab.EC PO SCH (09:11)
[2016-12-24] MEDS: Vitamin B6-pyridOXINE 50 MG Tab PO SCH (09:11)
[2016-12-24] MEDS: Calcium Citrate/Vitamin D3 315 MG-250 Unit Tab PO SCH ×3 (09:11→18:07)
[2016-12-24] MEDS: Naloxegol Oxalate 25 MG Tab PO SCH (09:11)
[2016-12-24] MEDS: B.Bifidum/B.Longum/L.Acidophilus/L.Rhamnosus (Probiotic) Cap PO SCH (09:11)
[2016-12-24] MEDS: Clopidogrel 75 MG Tab PO SCH (09:11)
[2016-12-24] MEDS: Metoprolol Tartrate 25 MG Tab PO SCH ×2 (09:12→21:23)
[2016-12-24] MEDS: Cholecalciferol (Vitamin D3) 1,000 Unit Tab PO SCH (09:12)
[2016-12-24] MEDS: predniSONE 5 MG Tab PO SCH (18:03)
[2016-12-24] MEDS: Warfarin 5 MG Tab PO SCH (18:03)
[2016-12-24] MEDS: cefTRIAXone 1 GM Vial IVPUSH SCH (19:51)
[2016-12-24] MEDS: Mirtazapine 15 MG Tab PO SCH (21:24)
[2016-12-25] MEDS: Melatonin 3 MG Tab PO PRN (00:18)
[2016-12-25] MEDS: Levothyroxine 50 MCG Tab PO SCH (06:38)
[2016-12-25] MEDS: Metoprolol Tartrate 25 MG Tab PO SCH ×2 (08:25→21:13)
[2016-12-25] MEDS: Vitamin B6-pyridOXINE 50 MG Tab PO SCH (08:25)
[2016-12-25] MEDS: Cholecalciferol (Vitamin D3) 1,000 Unit Tab PO SCH (08:25)
[2016-12-25] MEDS: Cyanocobalamin (Vitamin B12) 500 MCG Tab PO SCH (08:25)
[2016-12-25] MEDS: Aspirin 81 MG Tab.EC PO SCH (08:26)
[2016-12-25] MEDS: Calcium Citrate/Vitamin D3 315 MG-250 Unit Tab PO SCH ×2 (08:26→16:59)
[2016-12-25] MEDS: Potassium Chloride 10 MEQ Tab.ER PO SCH (08:26)
[2016-12-25] MEDS: Clopidogrel 75 MG Tab PO SCH (08:27)
[2016-12-25] MEDS: Naloxegol Oxalate 25 MG Tab PO SCH (08:27)
[2016-12-25] MEDS: B.Bifidum/B.Longum/L.Acidophilus/L.Rhamnosus (Probiotic) Cap PO SCH (08:27)
[2016-12-25] MEDS: Pantoprazole 40 MG Tab.CR PO SCH (08:27)
[2016-12-25] MEDS: Furosemide 40 MG Tab PO SCH (08:27)
[2016-12-25] MEDS: Phytonadione 100 MCG Tab PO SCH (08:27)
[2016-12-25] MEDS: Acetaminophen/HYDROcodone 325-10 MG Tab PO PRN ×3 (10:36→21:14)
[2016-12-25] MEDS: Warfarin 5 MG Tab PO SCH (16:59)
[2016-12-25] MEDS: predniSONE 5 MG Tab PO SCH (16:59)
[2016-12-25] MEDS: cefTRIAXone 1 GM Vial IVPUSH SCH (20:10)
[2016-12-25] MEDS: Mirtazapine 15 MG Tab PO SCH (21:12)
[2016-12-26] MEDS: Melatonin 3 MG Tab PO PRN (01:30)
[2016-12-26] MEDS: Levothyroxine 50 MCG Tab PO SCH (06:06)
[2016-12-26] MEDS: Calcium Citrate/Vitamin D3 315 MG-250 Unit Tab PO SCH ×2 (09:09→18:52)
[2016-12-26] MEDS: Aspirin 81 MG Tab.EC PO SCH (09:09)
[2016-12-26] MEDS: Vitamin B6-pyridOXINE 50 MG Tab PO SCH (09:09)
[2016-12-26] MEDS: Cholecalciferol (Vitamin D3) 1,000 Unit Tab PO SCH (09:09)
[2016-12-26] MEDS: Metoprolol Tartrate 25 MG Tab PO SCH ×2 (09:10→20:33)
[2016-12-26] MEDS: Naloxegol Oxalate 25 MG Tab PO SCH (09:10)
[2016-12-26] MEDS: B.Bifidum/B.Longum/L.Acidophilus/L.Rhamnosus (Probiotic) Cap PO SCH (09:10)
[2016-12-26] MEDS: Cyanocobalamin (Vitamin B12) 500 MCG Tab PO SCH (09:11)
[2016-12-26] MEDS: Pantoprazole 40 MG Tab.CR PO SCH (09:11)
[2016-12-26] MEDS: Clopidogrel 75 MG Tab PO SCH (09:11)
[2016-12-26] MEDS: Phytonadione 100 MCG Tab PO SCH (09:11)
[2016-12-26] MEDS: Acetaminophen/HYDROcodone 325-10 MG Tab PO PRN ×2 (09:36→14:06)
--- NOTE | 2016-12-26 10:39 | PCM.PN ---
- General Info Date of Service: 12/26/16 - Review of Systems General: Reports: Weakness. Denies: Fever, Chills, Night Sweats HEENT: Reports: no symptoms Pulmonary: Denies: shortness of breath, cough, sputum Cardiovascular: Reports: Dyspnea on Exertion. Denies: Chest Pain, Edema Gastrointestinal: Reports: No symptoms Genitourinary: Reports: no symptoms Musculoskeletal: Reports: no symptoms Skin: Reports: pallor Neurological: Reports: Difficulty Walking (uses walker. ), Weakness, Gait Disturbance Psychiatric: Reports: no symptoms - Patient Data Vitals - most recent: Last Vital Signs Temp 96.7 F 12/26/16 06:10 Pulse 60 12/26/16 09:10 Resp 18 12/26/16 06:10 BP 114/54 L 12/26/16 09:10 Pulse Ox 95 12/26/16 08:45 Weight - most recent: 119 lb 1.6 oz I&O - last 24 hours: Intake & Output 12/25/16 12/26/16 12/26/16 22:59 06:59 14:59 Intake Total 450 100 Output Total 300 400 Balance 150 -300 Lab Results last 24 hrs: Laboratory Results - last 24 hr 12/24/16 12/26/16 Range/Units 09:05 07:05 PT 27.7 H (8.9-11.4) SEC INR 2.6 H (0.9-1.1) Blood Type Cancelled Gel Antibody Screen Cancelled Crossmatch See Detail Med Orders - Current: Current Medications Hydrocodone Bitart/Acetaminophen ([place] 325-10 Mg) 1 tab PO Q4H PRN PRN Reason: Pain Last Admin: 12/26/16 09:36 Dose: 1 tab Aspirin (Halfprin) 81 mg PO DAILY [facility] Last Admin: 12/26/16 09:09 Dose: 81 mg Calcium Citrate (Calcium Citrate + D) 1 tab PO BIDMEALS [facility] Last Admin: 12/26/16 09:09 Dose: 1 tab Ceftriaxone Sodium (Rocephin) 1 gm IVPUSH Q24H [facility] Last Admin: 12/25/16 20:10 Dose: 1 gm Cholecalciferol (Vitamin D3) 2,000 units PO DAILY [facility] Last Admin: 12/26/16 09:09 Dose: 2,000 units Clopidogrel Bisulfate (Plavix) 75 mg PO DAILY [facility] Last Admin: 12/26/16 09:11 Dose: 75 mg Cyanocobalamin (Vitamin B12) 500 mcg PO MOTUWETHFR@0900 [facility] Last Admin: 12/26/16 09:11 Dose: 500 mcg Furosemide (Lasix) 40 mg PO Q2D [facility] Last Admin: 12/25/16 08:27 Dose: 40 mg Lactobacillus Acidophilus/Rhamnosus (Multi-Tianna Plus) 1 cap PO DAILY [facility] Last Admin: 12/26/16 09:10 Dose: 1 cap Levothyroxine Sodium (Synthroid) 125 mcg PO ACBREAKFAST [facility] Last Admin: 12/26/16 06:06 Dose: 125 mcg Melatonin (Melatonin) 3 mg PO BEDTIME PRN PRN Reason: Insomnia Last Admin: 12/26/16 01:30 Dose: 3 mg Metoprolol Tartrate (Lopressor) 12.5 mg PO BID [facility] Last Admin: 12/26/16 09:10 Dose: 12.5 mg Mirtazapine (Remeron) 30 mg PO BEDTIME [facility] Last Admin: 12/25/16 21:12 Dose: 30 mg Morphine Sulfate (Morphine) 1 mg IVPUSH Q2H PRN PRN Reason: Chest Pain Ondansetron HCl (Zofran) 4 mg IVPUSH Q4H PRN PRN Reason: Nausea/Vomiting Pantoprazole Sodium (Protonix) 40 mg PO 0900 [facility] Last Admin: 12/26/16 09:11 Dose: 40 mg Phytonadione (Vitamin K) 100 mcg PO DAILY [facility] Last Admin: 12/26/16 09:11 Dose: 100 mcg Polyethylene Glycol (Miralax) 17 gm PO DAILY PRN PRN Reason: Constipation Potassium Chloride (Klor-Con 10) 10 meq PO Q2D [facility] Last Admin: 12/25/16 08:26 Dose: 10 meq Prednisone (Prednisone) 5 mg PO DAILY@1800 [facility] Last Admin: 12/25/16 16:59 Dose: 5 mg Pyridoxine HCl (Vitamin B6-Pyridoxine) 100 mg PO DAILY [facility] Last Admin: 12/26/16 09:09 Dose: 100 mg Sodium Chloride (Syrex Flush) 5 ml FLUSH Q8HR PRN PRN Reason: Keep Vein Open Last Admin: 12/25/16 20:17 Dose: 5 ml Discontinued Medications Calcium Citrate (Calcium Citrate + D) 2 tab PO BIDMEALS [facility] Last Admin: 12/24/16 18:07 Dose: 1 tab Sodium Chloride (Normal Saline) 100 mls @ 20 mls/hr IV ONETIME@1400 ONE Stop: 12/22/16 18:59 Last Admin: 12/22/16 20:56 Dose: Not Given Levothyroxine Sodium (Synthroid) 150 mcg PO ACBREAKFAST [facility] Last Admin: 12/25/16 06:38 Dose: 150 mcg Omeprazole (Omeprazole) 20 mg PO ACBREAKFAST [facility] Pantoprazole Sodium (Protonix) 40 mg PO ACBREAKFAST [facility] Last Admin: 12/24/16 06:28 Dose: 40 mg Warfarin Sodium (Coumadin) 5 mg PO DAILY@1800 [facility] Last Admin: 12/25/16 16:59 Dose: 5 mg - Exam Quality Assessment: supplemental oxygen General: alert, oriented, cooperative. No: no acute distress Neck: supple Lungs: Crackles (mild fibrotic, chronic for her. ) Cardiovascular: Regular Rate, Regular Rhythm, Murmurs. No: Tachycardia Abdomen: bowel sounds present, soft, no tenderness, no distension Back Exam: No: CVA tenderness (L), CVA tenderness (R) Extremities: no edema Neurological: no new focal deficit Psy/Mental Status: alert, normal affect, normal mood - Problem List Review Problem List Initiated/Reviewed/Updated: Yes - My Orders Last 24 Hours: My Active Orders 12/26/16 08:52 Echo Comp wo Cont [US] Routine 12/27/16 05:11 CBC WITH AUTO DIFF [HEME] Routine - Plan Plan:: Brief HISTORY OF PRESENT ILLNESS This 81-year-old female was initially admitted for chest pain and weakness and was determined for her to have a myocardial infarction quite significant. Due to her weakness status post [place] she was placed in swing bed therapy. HOSPITAL COURSE WHILE ACUTE CARE STATUS Patient's hospital course went fairly well although she did have a significant myocardial infarction, however do to comorbidities it was determined best to treat the patient for ischemia demand driven protocol with maximal medical conservative treatment and the family did agree with this. She did have a low blood pressure early on with troponin level of about 20. Beta blockers were started and this did improve her blood pressure. She did get quite weak during her hospital stay and a physical therapy consult was placed and the patient could benefit from strengthening and ambulation. She remained on telemetry and we had no reperfusion arrhythmias or PVCs noted. We continued aspirin, and Coumadin. Physical therapy did assist with venous stasis ulcer debridement and wound debridement. She did have Klebsiella oxytocin staph coagulase negative from her venous stasis ulcer right lower extremity and she was treated with sensitive to ceftriaxone. Statin therapy was started. She did have some mild weight gain with slight fluid overload about 7 pounds gained however diuresis him gently this has come down quite a bit. CODE STATUS full code IMPRESSION/PLAN Generalized weakness and need for strength building and rehabilitation secondary to below-profound weakness, also receiving wound therapy which she is responding well to. Myocardial infarction, post stabilization, on aspirin, anticoagulated with Coumadin due to history of PE. Started Plavix. NICOLE risk score 6/7. Started low- dose beta ashlyn tolerating well--holding parameters. Off telemetry. Echocardiogram today. Will consider ASHA inhibitor when BP improves. Continue with diuresing--gentle wt is now at baselind. started statin therapy. Infection venous stasis ulcers, right lower extremity, definitive therapy with ceftriaxone due to Klebsiella oxytoca--PT doing wound therapy--healing nicely. CHRONIC MEDICAL PROBLEMS, History of cellulitis History of bilateral pulmonary embolism, on chronic anticoagulation--no complication Depression, seems stable anemia, chronic disease Thoracic back pain, currently on pain management contract, opioid use. No abuse Opioid-induced constipation, placed on MovanHypertension, placed on low-dose beta ashlyn, will titrate upwards toward blood pressure response Polymyalgia rheumatica History of giant cell arteritis
[2016-12-26] MEDS ORDERED: Warfarin 5 MG Tab PO SCH (18:00)
[2016-12-26] MEDS: predniSONE 5 MG Tab PO SCH (18:52)
[2016-12-26] MEDS: cefTRIAXone 1 GM Vial IVPUSH SCH (20:30)
[2016-12-26] MEDS: Mirtazapine 15 MG Tab PO SCH (20:33)
[2016-12-27] MEDS: Melatonin 3 MG Tab PO PRN (02:54)
[2016-12-27] MEDS: Levothyroxine 50 MCG Tab PO SCH (06:10)
[2016-12-27] MEDS: Calcium Citrate/Vitamin D3 315 MG-250 Unit Tab PO SCH ×2 (08:47→18:15)
[2016-12-27] MEDS: Aspirin 81 MG Tab.EC PO SCH (08:47)
[2016-12-27] MEDS: Potassium Chloride 10 MEQ Tab.ER PO SCH (08:47)
[2016-12-27] MEDS: Furosemide 40 MG Tab PO SCH (08:48)
[2016-12-27] MEDS: Metoprolol Tartrate 25 MG Tab PO SCH ×2 (08:48→20:30)
[2016-12-27] MEDS: Naloxegol Oxalate 25 MG Tab PO SCH (08:48)
[2016-12-27] MEDS: Vitamin B6-pyridOXINE 50 MG Tab PO SCH (08:49)
[2016-12-27] MEDS: Pantoprazole 40 MG Tab.CR PO SCH (08:49)
[2016-12-27] MEDS: Cholecalciferol (Vitamin D3) 1,000 Unit Tab PO SCH (08:49)
[2016-12-27] MEDS: Cyanocobalamin (Vitamin B12) 500 MCG Tab PO SCH (08:49)
[2016-12-27] MEDS: Phytonadione 100 MCG Tab PO SCH (08:49)
[2016-12-27] MEDS: B.Bifidum/B.Longum/L.Acidophilus/L.Rhamnosus (Probiotic) Cap PO SCH (08:49)
[2016-12-27] MEDS: Clopidogrel 75 MG Tab PO SCH (08:49)
[2016-12-27] MEDS: Acetaminophen/HYDROcodone 325-10 MG Tab PO PRN ×3 (08:50→20:31)
[2016-12-27] MEDS ORDERED: Warfarin 5 MG Tab PO SCH (09:55)
[2016-12-27] MEDS: predniSONE 5 MG Tab PO SCH (18:15)
[2016-12-27] MEDS: Warfarin 2 MG Tab PO SCH (18:16)
[2016-12-27] MEDS: Mirtazapine 15 MG Tab PO SCH (20:31)
[2016-12-27] MEDS: cefTRIAXone 1 GM Vial IVPUSH SCH (20:31)
[2016-12-28] MEDS: Acetaminophen/HYDROcodone 325-10 MG Tab PO PRN ×3 (06:06→19:29)
[2016-12-28] MEDS: Levothyroxine 50 MCG Tab PO SCH (06:06)
[2016-12-28] MEDS: Aspirin 81 MG Tab.EC PO SCH (08:57)
[2016-12-28] MEDS: Calcium Citrate/Vitamin D3 315 MG-250 Unit Tab PO SCH ×2 (08:57→18:00)
[2016-12-28] MEDS: Phytonadione 100 MCG Tab PO SCH (08:59)
[2016-12-28] MEDS: Pantoprazole 40 MG Tab.CR PO SCH (08:59)
[2016-12-28] MEDS: Metoprolol Tartrate 25 MG Tab PO SCH ×2 (08:59→21:49)
[2016-12-28] MEDS: Clopidogrel 75 MG Tab PO SCH (08:59)
[2016-12-28] MEDS: Cyanocobalamin (Vitamin B12) 500 MCG Tab PO SCH (09:00)
[2016-12-28] MEDS: Vitamin B6-pyridOXINE 50 MG Tab PO SCH (09:00)
[2016-12-28] MEDS: B.Bifidum/B.Longum/L.Acidophilus/L.Rhamnosus (Probiotic) Cap PO SCH (09:00)
[2016-12-28] MEDS: Naloxegol Oxalate 25 MG Tab PO SCH (09:00)
[2016-12-28] MEDS: Cholecalciferol (Vitamin D3) 1,000 Unit Tab PO SCH (09:00)
[2016-12-28] MEDS: Warfarin 2 MG Tab PO SCH (18:00)
[2016-12-28] MEDS: predniSONE 5 MG Tab PO SCH (18:01)
[2016-12-28] MEDS: Mirtazapine 15 MG Tab PO SCH (21:50)
[2016-12-28] MEDS: Melatonin 3 MG Tab PO PRN (21:50)
[2016-12-29] MEDS: Acetaminophen/HYDROcodone 325-10 MG Tab PO PRN ×2 (07:45→21:08)
[2016-12-29] MEDS: Levothyroxine 50 MCG Tab PO SCH (07:46)
[2016-12-29] MEDS: B.Bifidum/B.Longum/L.Acidophilus/L.Rhamnosus (Probiotic) Cap PO SCH (08:35)
[2016-12-29] MEDS: Phytonadione 100 MCG Tab PO SCH (08:35)
[2016-12-29] MEDS: Clopidogrel 75 MG Tab PO SCH (08:35)
[2016-12-29] MEDS: Cholecalciferol (Vitamin D3) 1,000 Unit Tab PO SCH (08:35)
[2016-12-29] MEDS: Vitamin B6-pyridOXINE 50 MG Tab PO SCH (08:35)
[2016-12-29] MEDS: Pantoprazole 40 MG Tab.CR PO SCH (08:35)
[2016-12-29] MEDS: Potassium Chloride 10 MEQ Tab.ER PO SCH (08:36)
[2016-12-29] MEDS: Naloxegol Oxalate 25 MG Tab PO SCH (08:36)
[2016-12-29] MEDS: Metoprolol Tartrate 25 MG Tab PO SCH ×2 (08:36→21:09)
[2016-12-29] MEDS: Furosemide 40 MG Tab PO SCH (08:36)
[2016-12-29] MEDS: Aspirin 81 MG Tab.EC PO SCH (08:36)
[2016-12-29] MEDS: Calcium Citrate/Vitamin D3 315 MG-250 Unit Tab PO SCH ×2 (08:37→18:11)
[2016-12-29] MEDS: Warfarin 2 MG Tab PO SCH (18:09)
[2016-12-29] MEDS: predniSONE 5 MG Tab PO SCH (18:09)
[2016-12-29] MEDS: Mirtazapine 15 MG Tab PO SCH (21:11)
[2016-12-30] MEDS: Melatonin 3 MG Tab PO PRN ×2 (00:16→20:34)
[2016-12-30] MEDS: Acetaminophen/HYDROcodone 325-10 MG Tab PO PRN ×4 (03:40→20:38)
[2016-12-30] MEDS: Levothyroxine 50 MCG Tab PO SCH (06:17)
[2016-12-30] MEDS: Naloxegol Oxalate 25 MG Tab PO SCH (08:58)
[2016-12-30] MEDS: Pantoprazole 40 MG Tab.CR PO SCH (08:58)
[2016-12-30] MEDS: Calcium Citrate/Vitamin D3 315 MG-250 Unit Tab PO SCH ×2 (08:58→17:15)
[2016-12-30] MEDS: Cholecalciferol (Vitamin D3) 1,000 Unit Tab PO SCH (08:58)
[2016-12-30] MEDS: Phytonadione 100 MCG Tab PO SCH (08:58)
[2016-12-30] MEDS: B.Bifidum/B.Longum/L.Acidophilus/L.Rhamnosus (Probiotic) Cap PO SCH (08:58)
[2016-12-30] MEDS: Metoprolol Tartrate 25 MG Tab PO SCH ×2 (08:58→20:34)
[2016-12-30] MEDS: Vitamin B6-pyridOXINE 50 MG Tab PO SCH (08:58)
[2016-12-30] MEDS: Aspirin 81 MG Tab.EC PO SCH (09:01)
[2016-12-30] MEDS: Clopidogrel 75 MG Tab PO SCH (09:01)
[2016-12-30 10:46] LABS: CHLORIDE,CL 100 mmol/L (98-115); SODIUM,NA 135 mmol/L (136-145)
--- NOTE | 2016-12-30 15:11 | PN ---
12/30/2016 PATIENT NAME: ERNESTO HARO SUBJECTIVE: This is an 81-year-old female patient with a history of MDS, that had presented to the clinic with midsternal chest pain, and shortness of breath. She was admitted to the hospital for further evaluation and treatment. At that time, she was found to have an elevated troponin and non- STEMI OR. The patient was treated medically, she was not a candidate for cardiac stenting. The patient was placed in swing bed status. Today, she states that she is feeling fine, she has no chest pain, no shortness of breath. She says she feels really weak. She says the ulcer to her right leg is very painful when she touches it. Otherwise, she is doing pretty well. OBJECTIVE: VITAL SIGNS: Today, temperature is 97.0, pulse is 54, blood pressure is 112/61, respiratory rate is 16, oxygen saturations are 94% on 2 L nasal cannula. GENERAL: This is an elderly white female, in no acute distress. LUNGS: Sounds are diminished throughout. Clear in the upper lobes. HEART: Heart tones are regular rate and rhythm. ABDOMEN: Soft, nontender, and nondistended. Bowel sounds present x4. EXTREMITIES: Ulcer to right leg, shows no erythema, minimal drainage, appears to be healing well. LABORATORY DATA: The patient's lab work today, CBC shows a white count at 3.5, hemoglobin 10.0, platelet count at 209. The patient's chemistry panel; sodium 135, BUN 29, otherwise unremarkable. IMPRESSION AND PLAN: 1. Recent myocardial infarction. Plan, discussed with CardiologyTomi. We will continue the patient on Plavix 75 mg daily along with aspirin 81 mg daily, beta ashlyn, metoprolol tartrate 12.5 mg twice daily. We will continue with Lasix 40 mg every other day. Also, continue with Coumadin orally daily. The patient does have a history of a pulmonary embolism. The patient did have an echo obtained on 12/26/2016. Conclusion states the patient does have mild left ventricle hypertrophy. Ejection fraction was 58%. 2. Right leg ulcer. Plan: Continue with dressing change daily, per nursing staff, no infection noted, the patient has finished course of antibiotics. Healing slowly. Wound debridement per PT. 3. Chronic pain. Plan to continue with morphine 1 mg IV as needed. 4. History of hypothyroidism. Plan to continue with levothyroxine 125 mcg daily. 5. Insomnia. Plan to continue with Remeron 30 mg at bedtime, along with melatonin as needed. 6. Gastrointestinal motility and stress ulcer prophylaxis. Plan to continue with Movantik 25 mg daily for GI motility, along with Protonix 40 mg daily. 7. History of myelodysplastic syndrome. Plan to continue with prednisone 5 mg daily. /[id number]/MODL MTDD
[2016-12-30] MEDS: predniSONE 5 MG Tab PO SCH (17:15)
[2016-12-30] MEDS: Warfarin 2 MG Tab PO SCH (17:15)
[2016-12-30] MEDS: Mirtazapine 15 MG Tab PO SCH (20:37)
[2016-12-31] MEDS: Levothyroxine 50 MCG Tab PO SCH (06:24)
[2016-12-31] MEDS: Cholecalciferol (Vitamin D3) 1,000 Unit Tab PO SCH (08:42)
[2016-12-31] MEDS: Calcium Citrate/Vitamin D3 315 MG-250 Unit Tab PO SCH ×2 (08:42→18:03)
[2016-12-31] MEDS: Clopidogrel 75 MG Tab PO SCH (08:42)
[2016-12-31] MEDS: Pantoprazole 40 MG Tab.CR PO SCH (08:42)
[2016-12-31] MEDS: Potassium Chloride 10 MEQ Tab.ER PO SCH (08:42)
[2016-12-31] MEDS: Cyanocobalamin (Vitamin B12) 500 MCG Tab PO SCH (08:42)
[2016-12-31] MEDS: Aspirin 81 MG Tab.EC PO SCH (08:42)
[2016-12-31] MEDS: Metoprolol Tartrate 25 MG Tab PO SCH ×2 (08:42→20:57)
[2016-12-31] MEDS: Phytonadione 100 MCG Tab PO SCH (08:42)
[2016-12-31] MEDS: Naloxegol Oxalate 25 MG Tab PO SCH (08:42)
[2016-12-31] MEDS: Furosemide 40 MG Tab PO SCH (08:42)
[2016-12-31] MEDS: B.Bifidum/B.Longum/L.Acidophilus/L.Rhamnosus (Probiotic) Cap PO SCH (08:42)
[2016-12-31] MEDS: Vitamin B6-pyridOXINE 50 MG Tab PO SCH (08:42)
[2016-12-31] MEDS: Acetaminophen/HYDROcodone 325-10 MG Tab PO PRN ×3 (12:17→20:57)
[2016-12-31] MEDS: predniSONE 5 MG Tab PO SCH (18:03)
[2016-12-31] MEDS: Warfarin 2 MG Tab PO SCH (18:03)
[2016-12-31] MEDS: Mirtazapine 15 MG Tab PO SCH (20:58)
[2017-01-01] MEDS: Levothyroxine 50 MCG Tab PO SCH ×2 (05:11→06:41)
[2017-01-01] MEDS: Acetaminophen/HYDROcodone 325-10 MG Tab PO PRN ×3 (05:11→20:58)
[2017-01-01] MEDS: Pantoprazole 40 MG Tab.CR PO SCH (08:20)
[2017-01-01] MEDS: Clopidogrel 75 MG Tab PO SCH (08:20)
[2017-01-01] MEDS: Vitamin B6-pyridOXINE 50 MG Tab PO SCH (08:20)
[2017-01-01] MEDS: B.Bifidum/B.Longum/L.Acidophilus/L.Rhamnosus (Probiotic) Cap PO SCH (08:20)
[2017-01-01] MEDS: Aspirin 81 MG Tab.EC PO SCH (08:20)
[2017-01-01] MEDS: Metoprolol Tartrate 25 MG Tab PO SCH ×2 (08:20→20:59)
[2017-01-01] MEDS: Phytonadione 100 MCG Tab PO SCH (08:20)
[2017-01-01] MEDS: Cholecalciferol (Vitamin D3) 1,000 Unit Tab PO SCH (08:20)
[2017-01-01] MEDS: Calcium Citrate/Vitamin D3 315 MG-250 Unit Tab PO SCH ×2 (08:20→17:08)
[2017-01-01] MEDS: Naloxegol Oxalate 25 MG Tab PO SCH (08:20)
[2017-01-01] MEDS: Cyanocobalamin (Vitamin B12) 500 MCG Tab PO SCH (08:20)
[2017-01-01] MEDS: Warfarin 2 MG Tab PO SCH (17:08)
[2017-01-01] MEDS: predniSONE 5 MG Tab PO SCH (17:08)
[2017-01-01] MEDS: Melatonin 3 MG Tab PO PRN (20:58)
[2017-01-01] MEDS: Mirtazapine 15 MG Tab PO SCH (20:58)
[2017-01-02] MEDS: Acetaminophen/HYDROcodone 325-10 MG Tab PO PRN ×3 (02:24→21:04)
[2017-01-02] MEDS: Levothyroxine 50 MCG Tab PO SCH (06:14)
[2017-01-02] MEDS: Aspirin 81 MG Tab.EC PO SCH (08:35)
[2017-01-02] MEDS: Pantoprazole 40 MG Tab.CR PO SCH (08:35)
[2017-01-02] MEDS: Metoprolol Tartrate 25 MG Tab PO SCH ×2 (08:35→21:01)
[2017-01-02] MEDS: Naloxegol Oxalate 25 MG Tab PO SCH (08:35)
[2017-01-02] MEDS: B.Bifidum/B.Longum/L.Acidophilus/L.Rhamnosus (Probiotic) Cap PO SCH (08:35)
[2017-01-02] MEDS: Calcium Citrate/Vitamin D3 315 MG-250 Unit Tab PO SCH ×2 (08:35→17:46)
[2017-01-02] MEDS: Furosemide 40 MG Tab PO SCH (08:35)
[2017-01-02] MEDS: Potassium Chloride 10 MEQ Tab.ER PO SCH (08:35)
[2017-01-02] MEDS: Cholecalciferol (Vitamin D3) 1,000 Unit Tab PO SCH (08:38)
[2017-01-02] MEDS: Phytonadione 100 MCG Tab PO SCH (08:38)
[2017-01-02] MEDS: Cyanocobalamin (Vitamin B12) 500 MCG Tab PO SCH (08:38)
[2017-01-02] MEDS: Vitamin B6-pyridOXINE 50 MG Tab PO SCH (08:38)
[2017-01-02] MEDS: Clopidogrel 75 MG Tab PO SCH (08:38)
[2017-01-02] MEDS: Loperamide 2 MG Cap PO PRN ×5 (10:33→13:42)
[2017-01-02] MEDS: Warfarin 2 MG Tab PO SCH (17:46)
[2017-01-02] MEDS: predniSONE 5 MG Tab PO SCH (17:47)
[2017-01-02] MEDS: Mirtazapine 15 MG Tab PO SCH (21:04)
[2017-01-03] MEDS: Levothyroxine 50 MCG Tab PO SCH ×2 (04:30→05:59)
[2017-01-03] MEDS: Acetaminophen/HYDROcodone 325-10 MG Tab PO PRN ×3 (04:30→21:49)
[2017-01-03] MEDS: Calcium Citrate/Vitamin D3 315 MG-250 Unit Tab PO SCH ×2 (09:31→17:19)
[2017-01-03] MEDS: Aspirin 81 MG Tab.EC PO SCH (09:32)
[2017-01-03] MEDS: Vitamin B6-pyridOXINE 50 MG Tab PO SCH (09:33)
[2017-01-03] MEDS: Phytonadione 100 MCG Tab PO SCH (09:33)
[2017-01-03] MEDS: Naloxegol Oxalate 25 MG Tab PO SCH (09:33)
[2017-01-03] MEDS: Cyanocobalamin (Vitamin B12) 500 MCG Tab PO SCH (09:33)
[2017-01-03] MEDS: Cholecalciferol (Vitamin D3) 1,000 Unit Tab PO SCH (09:33)
[2017-01-03] MEDS: B.Bifidum/B.Longum/L.Acidophilus/L.Rhamnosus (Probiotic) Cap PO SCH (09:33)
[2017-01-03] MEDS: Metoprolol Tartrate 25 MG Tab PO SCH ×2 (09:34→21:50)
[2017-01-03] MEDS: Clopidogrel 75 MG Tab PO SCH (09:34)
[2017-01-03] MEDS: Pantoprazole 40 MG Tab.CR PO SCH (10:41)
[2017-01-03] MEDS: Warfarin 2 MG Tab PO SCH (17:19)
[2017-01-03] MEDS: predniSONE 5 MG Tab PO SCH (17:19)
[2017-01-03] MEDS: Mirtazapine 15 MG Tab PO SCH (21:49)
[2017-01-04] MEDS: Acetaminophen/HYDROcodone 325-10 MG Tab PO PRN ×2 (04:37→11:53)
[2017-01-04] MEDS: Levothyroxine 50 MCG Tab PO SCH ×2 (04:38→08:13)
[2017-01-04] MEDS: Loperamide 2 MG Cap PO PRN ×2 (04:45→11:53)
[2017-01-04 07:17] VITALS: BP 111/65
[2017-01-04] MEDS: Vitamin B6-pyridOXINE 50 MG Tab PO SCH (08:14)
[2017-01-04] MEDS: Clopidogrel 75 MG Tab PO SCH (08:14)
[2017-01-04] MEDS: Calcium Citrate/Vitamin D3 315 MG-250 Unit Tab PO SCH (08:14)
[2017-01-04] MEDS: Potassium Chloride 10 MEQ Tab.ER PO SCH (08:14)
[2017-01-04] MEDS: Naloxegol Oxalate 25 MG Tab PO SCH (08:14)
[2017-01-04] MEDS: Pantoprazole 40 MG Tab.CR PO SCH (08:15)
[2017-01-04] MEDS: Cholecalciferol (Vitamin D3) 1,000 Unit Tab PO SCH (08:15)
[2017-01-04] MEDS: Phytonadione 100 MCG Tab PO SCH (08:15)
[2017-01-04] MEDS: Cyanocobalamin (Vitamin B12) 500 MCG Tab PO SCH (08:15)
[2017-01-04] MEDS: Furosemide 40 MG Tab PO SCH (08:15)
[2017-01-04] MEDS: B.Bifidum/B.Longum/L.Acidophilus/L.Rhamnosus (Probiotic) Cap PO SCH (08:16)
[2017-01-04] MEDS: Aspirin 81 MG Tab.EC PO SCH (08:16)
[2017-01-04] MEDS: Metoprolol Tartrate 25 MG Tab PO SCH (08:16)
--- NOTE | 2017-01-04 10:45 | PCM.DCSUM1 ---
Discharge Summary - Hospital Course Brief History: This 81-year-old female was initially admitted into acute status do to a myocardial infarction. However after his stabilization the patient became quite weak requiring physical therapy and ongoing wound debridement with physical therapy. - Discharge Data Discharge Date: 01/04/17 Discharge Disposition: Home, Self-Care 01 Condition: Good - Patient Summary/Data Complications: Patient had no complications while in swing bed however she did suffer a myocardial infarction while in acute care. hospital course while in acute care; went fairly well although she did have a significant myocardial infarction, however do to comorbidities it was determined best to treat the patient for ischemia demand driven protocol with maximal medical conservative treatment and the family did agree with this. She did have a low blood pressure early on with troponin level of about 20. Beta blockers were started and this did improve her blood pressure. She did get quite weak during her hospital stay and a physical therapy consult was placed and the patient could benefit from strengthening and ambulation. She remained on telemetry and we had no reperfusion arrhythmias or PVCs noted. We continued aspirin, and Coumadin. Physical therapy did assist with venous stasis ulcer debridement and wound debridement. She did have Klebsiella oxytocin staph coagulase negative from her venous stasis ulcer right lower extremity and she was treated with sensitive to ceftriaxone. Statin therapy was started. She did have some mild weight gain with slight fluid overload about 7 pounds gained however she did diureses well. We did place her on Plavix, aspirin and beta ashlyn. Her thyroid was normal. She did well through physical therapy treatments. Her wounds improved greatly with e-stim to the wounds with a negative continuous HV current during debridement for pain reduction. Physical therapy notes indicated that she cleaned wound with sterile water. Completed sharps debridement to both right LE wounds with scalpel and forceps, removing <0.75 sq cm slough from medial wound and 1 sq cm of slough from larger wound. Large wound measures 3.0 cm x 2.4 cm x 0.3 cm with increased epithelial tissue. Smaller wound is 50% epithelial/10% slough/40% granulating with measurements of 1.0 cm x 0.6 cm x0.1 cm. Used lidocaine gel to reduce pain associated with debridement. Recleansed wound with sterile water and placed Aquacel Ag on woundbed, covered with Kerlex roll and completed ASHA bandage to LE for compression. Consults: Consultations 12/21/16 12:58 Consult to Physical Therapy [PT Evaluation and Treatment] [CONS] Routine Hospital Course: hospital course while in acute care; went fairly well although she did have a significant myocardial infarction, however do to comorbidities it was determined best to treat the patient for ischemia demand driven protocol with maximal medical conservative treatment and the family did agree with this. She did have a low blood pressure early on with troponin level of about 20. Beta blockers were started and this did improve her blood pressure. She did get quite weak during her hospital stay and a physical therapy consult was placed and the patient could benefit from strengthening and ambulation. She remained on telemetry and we had no reperfusion arrhythmias or PVCs noted. We continued aspirin, and Coumadin. Physical therapy did assist with venous stasis ulcer debridement and wound debridement. She did have Klebsiella oxytocin staph coagulase negative from her venous stasis ulcer right lower extremity and she was treated with sensitive to ceftriaxone. Statin therapy was started. She did have some mild weight gain with slight fluid overload about 7 pounds gained however she did diureses well. We did place her on Plavix, aspirin and beta ashlyn. Her thyroid was normal. She did well through physical therapy treatments. Her wounds improved greatly with e-stim to the wounds with a negative continuous HV current during debridement for pain reduction. Eventually she was placed in swing bed status and rehabilitated very well with physical therapy. Physical therapy notes indicated that she cleaned wound with sterile water. Completed sharps debridement to both right LE wounds with scalpel and forceps, removing <0.75 sq cm slough from medial wound and 1 sq cm of slough from larger wound. Large wound measures 3.0 cm x 2.4 cm x 0.3 cm with increased epithelial tissue. Smaller wound is 50% epithelial/10% slough/40% granulating with measurements of 1.0 cm x 0.6 cm x0.1 cm. Used lidocaine gel to reduce pain associated with debridement. Recleansed wound with sterile water and placed Aquacel Ag on woundbed, covered with Kerlex roll and completed ASHA bandage to LE for compression. - Patient Instructions Diet: Usual Diet as Tolerated Activity: As Tolerated Driving: Do Not Drive Showering/Bathing: May Shower Notify Provider of: Fever, Swelling and Redness, Drainage, Nausea and/or Vomiting Other/Special Instructions: Report any chest pain, dizziness or shortness of breath - Discharge Plan Prescriptions/Med Rec: Metoprolol Tartrate [Lopressor] 12.5 mg PO Q12HR #60 tablet Aspirin [Halfprin] 81 mg PO DAILY #90 tab.ec Clopidogrel [Plavix] 75 mg PO DAILY #90 tablet Home Medications: Home Meds Cholecalciferol (Vitamin D3) [Vitamin D3] 2,000 unit PO DAILY 08/28/13 [History] Cyanocobalamin (Vitamin B-12) [B-12 Dots] 500 mcg PO MOTUWETHFR@0900 08/28/13 [ History] Hydrocodone/Acetaminophen [Hydrocodon-Acetaminophn 10-325] 1 tab PO Q6H PRN [History] Omeprazole 20 mg PO ACBREAKFAST 08/28/13 [History] Warfarin [Coumadin] 5 mg PO DAILY@1800 05/04/15 [History] Polyethylene Glycol 3350 [MiraLAX] 1 packet PO DAILY PRN 06/01/15 [History] Calcium Carbonate/Vitamin D3 [Calcium 600-Vit D3 400 Tablet] 1 tab PO BIDMEALS 08/02/15 [History] Mirtazapine [Remeron] 30 mg PO BEDTIME 12/30/15 [History] Phytonadione [Vitamin K] 100 mcg PO DAILY 12/30/15 [History] Pyridoxine HCl [Vitamin B-6] 100 mg PO DAILY 12/30/15 [History] predniSONE [Prednisone] 5 mg PO DAILY@1800 04/04/16 [History] Levothyroxine Sodium [Synthroid] 150 mcg PO ACBREAKFAST 09/21/16 [History] Methylphenidate HCl [Ritalin] 5 mg PO ACBREAKFAST 09/21/16 [History] Potassium Chloride [Klor-Con M20] 10 meq PO Q2D 11/24/16 [History] Furosemide [Lasix] 40 mg PO Q2D 12/17/16 [History] Aspirin [Halfprin] 81 mg PO DAILY #90 tab.ec 01/04/17 [Rx] Clopidogrel [Plavix] 75 mg PO DAILY #90 tablet 01/04/17 [Rx] Metoprolol Tartrate [Lopressor] 12.5 mg PO BID #0 tablet 01/04/17 [Rx] Metoprolol Tartrate [Lopressor] 12.5 mg PO Q12HR #60 tablet 01/04/17 [Rx] Referrals: [facility] [Outside] Baljit Tracey [employer] EXEC[employer]IVE DIRECTOR [Nurse Practitioner] - 01/11/17 - Discharge Summary/Plan Comment DC Time >30 min.: Yes Discharge Summary/Plan Comment: FINAL DIAGNOSIS Weakness, much improved Myocardial infarction, metoprolol, Plavix, aspirin, Infection venous stasis ulcers Hypothyroidism CHRONIC MEDICAL PROBLEMS, Hyperlipidemia, started on statin therapy History of cellulitis History of bilateral pulmonary embolism, on chronic anticoagulation--no complication Depression, seems stable anemia, chronic disease Thoracic back pain, currently on pain management contract, opioid use. No abuse Opioid-induced constipation, placed on MovanHypertension, placed on low-dose beta ashlyn, will titrate upwards toward blood pressure response Polymyalgia rheumatica History of giant cell arteritis - Patient Data Vitals - Most Recent: Last Vital Signs Temp 97.3 F 01/04/17 07:00 Pulse 69 01/04/17 08:16 Resp 16 01/04/17 07:00 BP 111/65 01/04/17 08:16 Pulse Ox 93 L 01/04/17 07:39 Weight - Most Recent: 116 lb 12.8 oz I&O - Last 24 hours: Intake & Output 01/03/17 01/04/17 01/04/17 22:59 06:59 14:59 Intake Total 280 200 Balance 280 200 Med Orders - Current: Current Medications Hydrocodone Bitart/Acetaminophen ([place] 325-10 Mg) 1 tab PO Q4H PRN PRN Reason: Pain Last Admin: 01/04/17 04:37 Dose: 1 tab Aspirin (Halfprin) 81 mg PO DAILY [facility] Last Admin: 01/04/17 08:16 Dose: 81 mg Calcium Citrate (Calcium Citrate + D) 1 tab PO BIDMEALS [facility] Last Admin: 01/04/17 08:14 Dose: 1 tab Cholecalciferol (Vitamin D3) 2,000 units PO DAILY [facility] Last Admin: 01/04/17 08:15 Dose: 2,000 units Clopidogrel Bisulfate (Plavix) 75 mg PO DAILY [facility] Last Admin: 01/04/17 08:14 Dose: 75 mg Cyanocobalamin (Vitamin B12) 500 mcg PO MOTUWETHFR@0900 [facility] Last Admin: 01/04/17 08:15 Dose: 500 mcg Furosemide (Lasix) 40 mg PO Q2D [facility] Last Admin: 01/04/17 08:15 Dose: 40 mg Lactobacillus Acidophilus/Rhamnosus (Multi-Tianna Plus) 1 cap PO DAILY [facility] Last Admin: 01/04/17 08:16 Dose: 1 cap Levothyroxine Sodium (Synthroid) 125 mcg PO ACBREAKFAST [facility] Last Admin: 01/04/17 08:13 Dose: Not Given Loperamide HCl (Imodium) 2 mg PO ASDIRECTED PRN PRN Reason: Diarrhea Last Admin: 01/04/17 04:45 Dose: 4 mg Melatonin (Melatonin) 3 mg PO BEDTIME PRN PRN Reason: Insomnia Last Admin: 01/01/17 20:58 Dose: 3 mg Metoprolol Tartrate (Lopressor) 12.5 mg PO BID [facility] Last Admin: 01/04/17 08:16 Dose: 12.5 mg Mirtazapine (Remeron) 30 mg PO BEDTIME [facility] Last Admin: 01/03/17 21:49 Dose: 30 mg Morphine Sulfate (Morphine) 1 mg IVPUSH Q2H PRN PRN Reason: Chest Pain Ondansetron HCl (Zofran) 4 mg IVPUSH Q4H PRN PRN Reason: Nausea/Vomiting Pantoprazole Sodium (Protonix) 40 mg PO 0900 [facility] Last Admin: 01/04/17 08:15 Dose: 40 mg Phytonadione (Vitamin K) 100 mcg PO DAILY [facility] Last Admin: 01/04/17 08:15 Dose: 100 mcg Polyethylene Glycol (Miralax) 17 gm PO DAILY PRN PRN Reason: Constipation Potassium Chloride (Klor-Con 10) 10 meq PO Q2D [facility] Last Admin: 01/04/17 08:14 Dose: 10 meq Prednisone (Prednisone) 5 mg PO DAILY@1800 [facility] Last Admin: 01/03/17 17:19 Dose: 5 mg Pyridoxine HCl (Vitamin B6-Pyridoxine) 100 mg PO DAILY [facility] Last Admin: 01/04/17 08:14 Dose: 100 mg Sodium Chloride (Syrex Flush) 5 ml FLUSH Q8HR PRN PRN Reason: Keep Vein Open Last Admin: 12/25/16 20:17 Dose: 5 ml Warfarin Sodium (Coumadin) 4 mg PO DAILY@1800 [facility] Last Admin: 01/03/17 17:19 Dose: 4 mg Discontinued Medications Calcium Citrate (Calcium Citrate + D) 2 tab PO BIDMEALS [facility] Last Admin: 12/24/16 18:07 Dose: 1 tab Ceftriaxone Sodium (Rocephin) 1 gm IVPUSH Q24H [facility] Stop: 12/29/16 20:30 Last Admin: 12/27/16 20:31 Dose: 1 gm Sodium Chloride (Normal Saline) 100 mls @ 20 mls/hr IV ONETIME@1400 ONE Stop: 12/22/16 18:59 Last Admin: 12/22/16 20:56 Dose: Not Given Levothyroxine Sodium (Synthroid) 150 mcg PO ACBREAKFAST [facility] Last Admin: 12/25/16 06:38 Dose: 150 mcg Omeprazole (Omeprazole) 20 mg PO ACBREAKFAST [facility] Pantoprazole Sodium (Protonix) 40 mg PO ACBREAKFAST [facility] Last Admin: 12/24/16 06:28 Dose: 40 mg Warfarin Sodium (Coumadin) 5 mg PO DAILY@1800 [facility] Last Admin: 12/25/16 16:59 Dose: 5 mg Warfarin Sodium (Coumadin) 5 mg PO DAILY@1800 [facility] Last Admin: 12/26/16 21:37 Dose: 5 mg Warfarin Sodium (Coumadin) 4 mg PO DAILY@1800 [facility] - Exam Quality Assessment: Reports: supplemental oxygen General: Reports: alert, oriented Neck: Reports: supple Lungs: Reports: Clear to auscultation, Normal respiratory effort Cardiovascular: Reports: Regular Rate, Regular Rhythm Wound/Incisions: Reports: healing well, dressing dry and intact Neurological: Reports: no new focal deficit Psy/Mental Status: Reports: alert, normal affect, normal mood *Q Meaningful Use (DIS) - VTE *Q VTE Criteria *Q: - Stroke *Q Stroke Criteria *Q: - AMI *Q AMI Criteria *Q:
== END 2017-01-04 14:15 | disposition home or self-care (01) | DRG 947 ==
LOC: KA.MS 13:12
PROVIDERS: ADMIT Nurse Practitioner Family; ATTEND Nurse Practitioner Family
PROC: 30233N1 Transfusion of Nonautologous Red Blood Cells into Peripheral Vein, Percutaneous Approach (ICD-10-PCS; principal; 2016-12-27)
DX: R53.1 Weakness (principal); I21.3 ST elevation (STEMI) myocardial infarction of unspecified site; I83.218 Varicose veins of right lower extremity with both ulcer of other part of lower extremity and inflammation; B96.89 Other specified bacterial agents as the cause of diseases classified elsewhere; E03.9 Hypothyroidism, unspecified; E78.5 Hyperlipidemia, unspecified; F32.9 Major depressive disorder, single episode, unspecified; D64.9 Anemia, unspecified; M54.6 Pain in thoracic spine; K59.03 Drug induced constipation; T40.2X5A Adverse effect of other opioids, initial encounter; M31.5 Giant cell arteritis with polymyalgia rheumatica; Z79.899 Other long term (current) drug therapy; Z86.711 Personal history of pulmonary embolism; Z79.01 Long term (current) use of anticoagulants; Z99.81 Dependence on supplemental oxygen
CPT/HCPCS: 36415; 36416; 36430; 80053; 85018; 85025; 85610; 86850; 86900; 86901; 86920; 86922; 93306; 97110-GP; 97163-GP; 97597-GP; A9270-GY; G0283-GP; J0696; P9016

== ENCOUNTER 2017-01-08 16:16 | Inpatient (IN) | payer MEDICARE, BC ==
[2017-01-08] MEDS ORDERED: Sodium Chloride 0.9% 5 ML Syringe FLUSH PRN (17:42)
[2017-01-08] MEDS ORDERED: Ondansetron 4 MG Tab.DIS PO PRN (17:42)
[2017-01-08] MEDS ORDERED: Sodium Chloride 0.9% 300 ML IV ONE (17:48)
[2017-01-08] MEDS ORDERED: Melatonin 3 MG Tab PO PRN (21:05)
[2017-01-08] MEDS ORDERED: Potassium Chloride 20 MEQ Tab.ER PO SCH (21:15)
[2017-01-08] MEDS ORDERED: Metoprolol Tartrate 25 MG Tab ONE (22:40)
[2017-01-08] MEDS ORDERED: predniSONE 5 MG Tab ONE (22:40)
[2017-01-08] MEDS ORDERED: Warfarin 5 MG Tab ONE (22:41)
[2017-01-09] MEDS: Acetaminophen/HYDROcodone 325-10 MG Tab PO PRN ×3 (01:20→13:37)
[2017-01-09] MEDS: Sodium Chloride 0.9% 1,000 ML IV SCH (06:19)
[2017-01-09] MEDS: Levothyroxine 100 MCG Tab PO SCH (07:03)
[2017-01-09] MEDS: Levothyroxine 25 MCG Tab PO SCH (07:03)
[2017-01-09] MEDS: Omeprazole 20 MG Cap.CR PO SCH (07:03)
[2017-01-09] MEDS ORDERED: Calcium Citrate/Vitamin D3 315 MG-250 Unit Tab PO SCH (08:00)
[2017-01-09] MEDS: Aspirin 81 MG Tab.EC PO SCH (08:36)
[2017-01-09] MEDS: Metoprolol Tartrate 25 MG Tab PO SCH ×2 (08:36→20:29)
[2017-01-09] MEDS: Cyanocobalamin (Vitamin B12) 500 MCG Tab PO SCH (08:38)
[2017-01-09] MEDS: Clopidogrel 75 MG Tab PO SCH (08:38)
[2017-01-09] MEDS: Cholecalciferol (Vitamin D3) 1,000 Unit Tab PO SCH (08:38)
[2017-01-09] MEDS ORDERED: Loperamide 2 MG Cap PO PRN (10:01)
--- NOTE | 2017-01-09 12:40 | PN ---
01/09/2017 PATIENT NAME: ERNESTO HARO CHIEF COMPLAINT: Does feel better, still somewhat weak, pallor skin, her hemoglobin dropped to 7.4 today. HISTORY: I had seen this 81-year-old frail patient yesterday in the [facility]. She was brought in by her daughter. She had just recently been discharged from the hospital after suffering a myocardial infarction with a lengthy swing bed placement and stay due to weakness, receiving physical therapy also for wound debridement and E-stim to her wound. She was discharged. Few days later, she stated she started to get weak, actually started complaining of some diarrhea. 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 We have been holding her Procrit due to significant myocardial infarction. She sustained probably most likely will not start up on this for another couple weeks. She is being followed by Oncology, Dr. Richter. So, she was basically admitted for weakness, IV fluids, and more surveillance of her diarrhea and ultimately hope to be placed in a long-term care facility. LABS: Hemoglobin 7.4, this is down; white count 3.2; RBC is 2.33. Sodium 139, potassium normal 4.1, BUN 54, with a creatinine of 1.25, BUN creatinine ratio 35:1 likely prerenal as she does has some diarrhea. Calcium high 11.4. Troponin slightly elevated at 0.10. PHYSICAL EXAMINATION: VITAL SIGNS: Blood pressure 114/63, heart rate 60, temperature 97.5, she is on 2 L nasal cannula, O2 sats 96%, respiratory rate 18. GENERAL: The patient alert and oriented. She does look improved today. She is lucid. LUNGS: Fibrotic crackles left base. CV: Regular rate and rhythm. 3/6 pansystolic murmur. Good bowel tones. Good radial pulses. No edema. She does have a right leg ulcer. I examined this yesterday to her right medial aspect of her ankle. Dressing clean, dry, and intact. IMPRESSION AND PLAN: 1. Anemia refractory due to myelodysplastic syndrome. We will transfuse 2 units of packed red blood cells today very slowly. Lasix in between each unit due to her myelodysplastic syndrome and she is off her Procrit due to her history of myocardial infarction. She will need to have maintain hemoglobin above 9. 2. Dehydration, likely prerenal, contributing to her elevated calcium level. She will get some fluid today, gentle fluids, monitor for any fluid overload status. 3. Dehydration. BUN creatinine ratio 35:1, see plan below. 4. Hypercalcemia 11.4, mild likely due to dehydration. However, she does have myelodysplastic syndrome and some metabolic disorders that predisposes her probably most likely due to dehydration. We will assess PTH level asymptomatic right now, although she is quite fatigued. We will place on tele today. 5. Hypothyroidism on thyroid replacement therapy. 6. Infection venous stasis ulcers, right lower extremity. She is receiving E- stim therapy through physical therapy. 7. Recent myocardial infarction. She is post stabilization. She is on aspirin. She is also on Coumadin due to history of PA. We did start Plavix on last admission. Her troponin is elevated today; however, this is likely sequela of previous myocardial infarction. She did have a recent echocardiogram previous admission, which shows a mildly reduced ejection fraction with some mild diastolic dysfunction. However, not too bad. Does not equate with a significant troponin level she had at previous admission. Other chronic medical problems include history of cellulitis; history of pulmonary embolism, which she is on chronic anticoagulation; depression, which seems to be stable; thoracic back pain with history of opioid-induced constipation; polymyalgia rheumatica; history of giant-cell arteritis. OVERALL PLAN: Today, gentle fluids, watch for fluid overload. Add a parathyroid hormone to this morning labs. Monitor for electrolyte disturbance, placed on telemetry today, Lasix in between, the units of blood. We will push oral fluids. Likely she could be placed in long-term care tomorrow. She has agreed to this. Code status has been addressed with the patient. She is currently a full code. /[id number]/MODL
[2017-01-09] MEDS: Phytonadione 100 MCG Tab PO SCH (13:40)
[2017-01-09] MEDS: predniSONE 5 MG Tab PO SCH (18:26)
[2017-01-09] MEDS: Warfarin 5 MG Tab PO SCH (18:27)
[2017-01-09] MEDS: Mirtazapine 15 MG Tab PO SCH (20:31)
[2017-01-10] MEDS: Sodium Chloride 0.9% 1,000 ML IV SCH (01:05)
[2017-01-10] MEDS: Omeprazole 20 MG Cap.CR PO SCH (06:02)
[2017-01-10] MEDS: Levothyroxine 100 MCG Tab PO SCH (06:02)
[2017-01-10] MEDS: Levothyroxine 25 MCG Tab PO SCH (06:02)
[2017-01-10 07:51] LABS: CHLORIDE,CL 108 mmol/L (98-115); SODIUM,NA 143 mmol/L (136-145)
[2017-01-10] MEDS: Aspirin 81 MG Tab.EC PO SCH (08:34)
[2017-01-10] MEDS: Metoprolol Tartrate 25 MG Tab PO SCH ×2 (08:36→21:18)
[2017-01-10] MEDS: B.Bifidum/B.Longum/L.Acidophilus/L.Rhamnosus (Probiotic) Cap PO SCH (08:36)
[2017-01-10] MEDS: Clopidogrel 75 MG Tab PO SCH (08:37)
[2017-01-10] MEDS: Cholecalciferol (Vitamin D3) 1,000 Unit Tab PO SCH (08:38)
[2017-01-10] MEDS: Cyanocobalamin (Vitamin B12) 500 MCG Tab PO SCH (08:38)
[2017-01-10] MEDS: Phytonadione 100 MCG Tab PO SCH (08:38)
[2017-01-10] MEDS: Vitamin B6-pyridOXINE 50 MG Tab PO SCH (08:38)
[2017-01-10] MEDS: Acetaminophen/HYDROcodone 325-10 MG Tab PO PRN ×2 (13:35→20:00)
--- NOTE | 2017-01-10 15:30 | PN ---
01/10/2017 PATIENT NAME: ERNESTO HARO CHIEF COMPLAINT: Diarrhea has stopped. Overall the patient is doing better. Hemoglobin did come up more than expected after the first unit of blood transfusion, it is 9.7, we will hold off on 2nd transfusion. Otherwise, she does feel better. Less pallor to her skin. She has more color. HISTORY: This 81-year-old female, who is very frail, I had admitted her. She was brought in by her daughter for just severe weakness and diarrhea. She had suffered a myocardial infarction on the previous admission with a lengthy stay in swing bed placement, also getting wound care therapy with E-stim by Physical therapy on her right lower medial leg that appears to be doing well. She has significant chronic medical issues that have placed her in an immunocompromised state with frequent blood transfusions. We have been holding her Procrit due to recent CO, somewhat relative contraindication soon hopefully we can start that back up in a couple of weeks, so she has required some blood transfusions. LABS: Today again hemoglobin is improved from 7.4 on admission to 9.6, status post 1 unit of packed red blood cells. Sodium 143, potassium 4.5, BUN is improved to 29, and now creatinine is normal. This was elevated yesterday likely due to prerenal indices. Calcium is now improved to 10.1, it was 11.4 yesterday although I did perform a parathyroid hormone. Most likely this was a dehydration state. Troponin is 0.10, likely trending down due to previous CO and renal insufficiency, prerenal. PHYSICAL EXAMINATION: VITAL SIGNS: Temperature is normal. Blood pressure 140/78; heart rate, O2 sats are normal, she is on 2 L. LUNGS: Were fibrotic crackles. This is chronic for her. CV: 3/6 holosystolic murmur. Regular rate and rhythm though. : Good bowel tones. No distal edema. Though she does have a right leg ulcer, this is a clean, dry and dressing is intact, no longer infected. She is getting periodic E-stim treatment by physical therapy for this. She will continue with this when she gets placed in long-term care facility. IMPRESSION AND PLAN: 1. Anemia refractory due to myelodysplastic syndrome. We are holding off Procrit for another couple of weeks. She did receive 1 unit of transfusion yesterday. Hemoglobin now 9.7. I did hold Lasix yesterday due to a prerenal state. 2. Dehydration likely prerenal. This is much improved. Calcium is now normalized. She is more euvolemic. BUN creatinine ratio is almost normalized, much improved, yesterday it was 35:1. 3. Hypercalcemia. This is now normal likely due to dehydration; however, I did assess for a parathyroid level hormone that is pending. 4. Hypothyroidism. She is on thyroid replacement therapy. 5. Infectious with venous stasis ulcers. No antibiotics are needed. This is more of a debridement and E-stim, healing well. She will continue to receive physical therapy treatment at long-term care facility. 6. Recent myocardial infarction. This is post stabilization. We have her on Coumadin due to history of pulmonary embolism. Her troponin is still slightly elevated, but however, we feel this is just trending down, likely sequela from previous CO. OVERALL PLAN: She is doing well today. I could actually discharge her today, however, most likely we will discharge her tomorrow to long-term care facility. I do not anticipate more than a month needed. She is in agreement with this plan. Currently I have addressed her code status. She still wants to be a full code. She will need extensive physical therapy and occupational therapy at [facility] due to extreme weakness which has improved; however, she still has gait instability and the need for E-stim wound care to her right lower extremity. /[id number]/MODL
[2017-01-10] MEDS: Warfarin 5 MG Tab PO SCH (18:23)
[2017-01-10] MEDS: predniSONE 5 MG Tab PO SCH (18:24)
[2017-01-10] MEDS: Mirtazapine 15 MG Tab PO SCH (21:19)
[2017-01-11] MEDS: Acetaminophen/HYDROcodone 325-10 MG Tab PO PRN (01:58)
[2017-01-11] MEDS: Omeprazole 20 MG Cap.CR PO SCH (06:20)
[2017-01-11] MEDS: Levothyroxine 25 MCG Tab PO SCH (06:20)
[2017-01-11] MEDS: Levothyroxine 100 MCG Tab PO SCH (06:20)
[2017-01-11 06:49] VITALS: BP 137/73
[2017-01-11] MEDS: Aspirin 81 MG Tab.EC PO SCH (08:38)
[2017-01-11] MEDS: Metoprolol Tartrate 25 MG Tab PO SCH (08:38)
[2017-01-11] MEDS: Vitamin B6-pyridOXINE 50 MG Tab PO SCH (08:39)
[2017-01-11] MEDS: Cyanocobalamin (Vitamin B12) 500 MCG Tab PO SCH (08:39)
[2017-01-11] MEDS: Clopidogrel 75 MG Tab PO SCH (08:39)
[2017-01-11] MEDS: B.Bifidum/B.Longum/L.Acidophilus/L.Rhamnosus (Probiotic) Cap PO SCH (08:39)
[2017-01-11] MEDS: Phytonadione 100 MCG Tab PO SCH (08:40)
[2017-01-11] MEDS: Cholecalciferol (Vitamin D3) 1,000 Unit Tab PO SCH (08:40)
--- NOTE | 2017-01-14 08:22 | DISCH ---
FINAL DIAGNOSES: 1. Weakness with anemia refractory to myelodysplastic syndrome. Continue holding Procrit for the next couple of weeks until Oncology appointment at [facility]. 2. Status post 1 unit of blood transfusion. Hemoglobin 9.7 on discharge. 3. Dehydration, prerenal, much improved. 4. Hypercalcemia likely prerenal. Parathyroid hormone level normal. Calcium 11.4 on admission, normal on discharge. 5. Hypothyroidism. She is on thyroid replacement therapy. 6. Infectious venous stasis ulcers, however much improved. No antibiotics. She has completed antibiotics. She continues with debridement and E-Stim for PT. 7. Recent myocardial infarction. She is in post-stabilization phase. Troponin was 20. Recent echocardiograms showed only mildly reduced EF with only mild hypokinesia, otherwise doing well. Placed on metoprolol 12.5 mg p.o. b.i.d., she is to continue with baby aspirin. 8. History of deep venous thrombosis. She is on Coumadin also. 9. Diarrhea, improved; however, will start Lomotil. HISTORY: This 81-year-old female, very frail, she had recently been discharged from [facility] after suffering from a myocardial infarction. There she was subsequently placed in a swing bed, spent several days in a swing bed therapy for recuperation and rehabilitation, and due to her weakness and also for wound therapy. She was eventually felt like she was quite optimized; however, shortly after she went home as the day is progressed she become significantly weak, had quite a bit of diarrhea. When she had seen me at the [facility] she was quite weak, due to the diarrhea she was quite dehydrated, so we subsequently admitted her into acute care. I had spoken with her and the family, stating most likely she would have to be placed in the long-term care, so she can have more PT and OT due to her significant medical issues. The patient does have myelodysplastic syndrome, that she is requiring frequent blood transfusions. Since her WI she has been taken off Procrit as this is a relative contraindication surrounding an WI, hopefully this will be started back in a couple weeks, so she would not need so many transfusions, it is best to keep her hemoglobin above 9. HOSPITAL COURSE: The patient did receive 1 unit of packed red blood cells. Her hemoglobin on admission was 7.4, on discharge it was 9.7. She had more color to her face. She regained her strength quite rapidly. She did require IV fluids. I held her Lasix which she normally gets every other day. I also held her potassium, her diarrhea had much improved; however, she did have one mild setback with diarrhea, doubtful if it was infectious. Had a negative C. diff toxin. Appetite started picking up. She has a fall risk, she was ambulatory with a four-wheeled walker, she did quite well with this. She remains on chronic oxygen. She never became hemodynamically unstable. We will continue with her beta-ashlyn and her aspirin. She did have an elevated calcium level greater than 11 on admission, doubtful if it was primary or secondary hyperparathyroidism, PTH was pending; however, with IV fluids this was normalized. I did assess her troponin, it was slightly high at 0.10; however, that was likely trending down due to previous WI and renal insufficiency. MEDICATIONS: 1. Lomotil one tablet up to t.i.d. p.r.n. for diarrhea (newly added). 2. Lasix (on hold until provider sees the patient next week.). 3. Potassium, hold until provider sees next week. The patient can continue on all other home medications that include aspirin, Plavix, prednisone, and Coumadin. LABORATORY DATA: RBC 2.33, hemoglobin 9.6, percent of neutrophils 37%. Sodium 143, potassium 4.5, BUN 26, creatinine 0.73. GFR greater than 60. Estimated creatinine clearance around 50. Troponin is 0.10. Normal AST and ALT. Normal albumin. Normal protein. Weight on discharge 114 pounds. Temperature 97, blood pressure 137/73, heart rate 94, and O2 sats 98% on 2 L. DISPOSITION: The patient will be discharged from [facility] from acute care status. She will be transferred to a long-term care center. She will receive physical therapy, occupational therapy. She will require home oxygen. She will have to be seen with a provider next week. Labs will include CBC, BMP, also INR. RECOMMENDATIONS AT FOLLOWUP: Consider starting potassium and Lasix, diarrhea. Follow up on PTH level. MEDICAL DECISION MAKIN minutes spent on this discharge planning process, pharmacy consultation, and coordination of care. /[id number]/MODL MTDD
== END 2017-01-11 11:25 | DRG 812 ==
LOC: KA.MS 16:35
PROVIDERS: ADMIT Nurse Practitioner Family; ATTEND Nurse Practitioner Family
PROC: 30233N1 Transfusion of Nonautologous Red Blood Cells into Peripheral Vein, Percutaneous Approach (ICD-10-PCS; principal; 2017-01-09)
DX: D46.4 Refractory anemia, unspecified (principal); I50.30 Unspecified diastolic (congestive) heart failure; E86.0 Dehydration; R19.7 Diarrhea, unspecified; E83.52 Hypercalcemia; M31.5 Giant cell arteritis with polymyalgia rheumatica; E78.00 Pure hypercholesterolemia, unspecified; E03.9 Hypothyroidism, unspecified; I83.019 Varicose veins of right lower extremity with ulcer of unspecified site; Z86.711 Personal history of pulmonary embolism; I11.0 Hypertensive heart disease with heart failure; R53.82 Chronic fatigue, unspecified; M79.7 Fibromyalgia; M81.0 Age-related osteoporosis without current pathological fracture; E78.5 Hyperlipidemia, unspecified; Z86.718 Personal history of other venous thrombosis and embolism; Z88.0 Allergy status to penicillin; Z88.1 Allergy status to other antibiotic agents; Z88.8 Allergy status to other drugs, medicaments and biological substances; Z79.01 Long term (current) use of anticoagulants; Z79.82 Long term (current) use of aspirin; Z79.899 Other long term (current) drug therapy; I25.2 Old myocardial infarction; R53.1 Weakness
CPT/HCPCS: 36415; 36430; 80048; 80053; 82310; 83970; 84484; 85018; 85025; 86850; 86900; 86901; 86920; 86922; 87324; 97162-GP; 97597-GP; A9270-GY; J7030; P9016

== ENCOUNTER 2017-02-03 18:50 | Inpatient (IN) | payer MEDICARE, BC ==
[2017-02-03] MEDS ORDERED: Sodium Chloride 0.9% 1,000 ML IV ONE (18:55)
[2017-02-03] MEDS ORDERED: Ondansetron 4 MG/2 ML SDV IVPUSH ONE (18:55)
[2017-02-03] MEDS ORDERED: Sodium Chloride 0.9% 5 ML Syringe FLUSH PRN ×2 (18:55→19:10)
[2017-02-03] MEDS ORDERED: Acetaminophen 650 MG Supp RECTAL ONE (19:02)
--- NOTE | 2017-02-03 19:02 | EDM.PDOC ---
ED HPI GENERAL MEDICAL PROBLEM - General Chief Complaint: General Stated Complaint: FEVER Time Seen by Provider: 02/03/17 18:50 Source of Information: Reports: Patient, EMS, Residential Records - History of Present Illness INITIAL COMMENTS - FREE TEXT/NARRATIVE: 81 yo WF presents to ER with fever and lethagy which began today. Pt is alert but responding slowly to commands. Pt has history of MDS- Myelodysplastic syndrome. Pt without any recent illness per daughter. No cough, congestion. Pt denies any chest pain or shortness of breath. Pt had 1 episode of vomiting earlier today. Pt with chills at this time. Pt answers all questions appropriately but slow to respnd on exam Duration: Day(s): (1) Location: Reports: Generalized Severity: Moderate Improves with: Reports: None Worsens with: Reports: None Associated Symptoms: Reports: Fever/Chills, Nausea/Vomiting, Weakness. Denies: Chest Pain, Cough, cough w sputum, Rash, Seizure, Shortness of Breath, Syncope - Related Data Allergies Allergy/AdvReac Type Severity Reaction Status Date / Time erythromycin base Allergy Severe Vomiting Verified 02/03/17 19:20 [Erythromycin Base] Penicillins Allergy Unknown Hives Verified 02/03/17 19:20 Sulfa (Sulfonamide Allergy Other Verified 02/03/17 19:20 Antibiotics) sulfamethoxazole Allergy Other Verified 02/03/17 19:20 [From Bactrim] trimethoprim [From Bactrim] Allergy Other Verified 02/03/17 19:20 lenalidomide [From Revlimid] AdvReac Mild Rash Verified 02/03/17 19:20 Home Meds: Home Meds Cholecalciferol (Vitamin D3) [Vitamin D3] 2,000 unit PO DAILY 08/28/13 [History] Cyanocobalamin (Vitamin B-12) [B-12 Dots] 500 mcg PO MOTUWETHFR@0900 08/28/13 [ History] Hydrocodone/Acetaminophen [Hydrocodon-Acetaminophn 10-325] 1 tab PO Q6H PRN [History] Omeprazole 20 mg PO ACBREAKFAST 08/28/13 [History] Warfarin [Coumadin] 5 mg PO DAILY@1800 05/04/15 [History] Polyethylene Glycol 3350 [MiraLAX] 1 packet PO DAILY PRN 06/01/15 [History] Calcium Carbonate/Vitamin D3 [Calcium 600-Vit D3 400 Tablet] 1 tab PO BIDMEALS 08/02/15 [History] Mirtazapine [Remeron] 30 mg PO BEDTIME 12/30/15 [History] Phytonadione [Vitamin K] 100 mcg PO DAILY 12/30/15 [History] Pyridoxine HCl [Vitamin B-6] 100 mg PO DAILY 12/30/15 [History] predniSONE [Prednisone] 5 mg PO DAILY@1800 04/04/16 [History] Aspirin [Halfprin] 81 mg PO DAILY #90 tab.ec 01/04/17 [Rx] Clopidogrel [Plavix] 75 mg PO DAILY #90 tablet 01/04/17 [Rx] Metoprolol Tartrate [Lopressor] 12.5 mg PO BID #0 tablet 01/04/17 [Rx] Lactobacillus Acidophilus [Acidophilus Lactobacillus] 1 cap PO DAILY 01/08/17 [ History] Levothyroxine Sodium [Synthroid] 125 mcg PO ACBREAKFAST 01/08/17 [History] Loperamide [Imodium] 1 tab PO ASDIRECTED PRN 01/08/17 [History] Melatonin/Pyridoxine HCl (B6) [Melatonin 3 mg Tablet] 1 tab PO BEDTIME PRN 01/08 [History] Atropine/Diphenoxylate [Lomotil 0.025-2.5 MG] 1 tab PO TID PRN #21 tablet [Rx] Furosemide [Lasix] 40 mg PO Q2D #0 01/11/17 [Rx] Potassium Chloride [Klor-Con M20] 10 meq PO Q2D #0 01/11/17 [Rx] Past Medical History HEENT History: Reports: Cataract, Hard of Hearing, Impaired Vision, Sinusitis Cardiovascular History: Reports: Blood Clots/VTE/DVT, High Cholesterol, PVD, SOB on Exertion Respiratory History: Reports: Bronchitis, Recurrent, PE, Pneumonia, Recurrent, SOB, Other (See Below) Other Respiratory History: Chronic use of oxygen Gastrointestinal History: Reports: Bowel Obstruction, Chronic Diarrhea, Fecal Incontinence, GERD Genitourinary History: Reports: UTI, Recurrent TRAFFIC ANALYST History: Reports: Endometriosis, Musculoskeletal History: Reports: Back Pain, Chronic, Fibromyalgia, Other (See Below) Other Musculoskeletal History: POLYMYALGIA Neurological History: Reports: Vertigo Psychiatric History: Reports: None Endocrine/Metabolic History: Reports: Hypothyroidism, Osteopenia, Osteoporosis Hematologic History: Reports: Anemia, Blood Transfusion(s) Immunologic History: Reports: None Oncologic (Cancer) History: Reports: None Dermatologic History: Reports: None - Infectious Disease History Infectious Disease History: Reports: Other (See Below) Other Infectious Disease History: Unable to assess. - Past Surgical History Head Surgeries/Procedures: Reports: None HEENT Surgical History: Reports: Adenoidectomy, Cataract Surgery, Tonsillectomy GI Surgical History: Reports: Appendectomy, Cholecystectomy, Colonoscopy, Other (See Below) Endocrine Surgical History: Reports: None Neurological Surgical History: Reports: None Oncologic Surgical History: Reports: None Social & Family History - Family History Family Medical History: Noncontributory HEENT: Reports: None Cardiac: Reports: None Respiratory: Reports: None GI: Reports: None : Reports: Other (See Below) OBGYN: Reports: None Musculoskeletal: Reports: None Neurological: Reports: None Psychiatric: Reports: None Endocrine/Metabolic: Reports: None Hematologic: Reports: None Immunologic: Reports: None Dermatologic: Reports: None Oncologic: Reports: Hodgkin's Lymphoma - Tobacco Use Smoking Status *Q: Never Smoker Second Hand Smoke Exposure: No - Caffeine Use Caffeine Use: Reports: Coffee - Alcohol Use Days Per Week of Alcohol Use: 0 - Recreational Drug Use Recreational Drug Use: No ED ROS GENERAL - Review of Systems Review Of Systems: See Below Constitutional: Reports: Fever, Chills, Malaise, Weakness HEENT: Reports: No Symptoms Respiratory: Reports: No Symptoms Cardiovascular: Reports: No Symptoms Endocrine: Reports: No Symptoms GI/Abdominal: Reports: Nausea, Vomiting : Reports: No Symptoms Musculoskeletal: Reports: No Symptoms Skin: Reports: No Symptoms Neurological: Reports: No Symptoms Psychiatric: Reports: No Symptoms Hematologic/Lymphatic: Reports: No Symptoms Immunologic: Reports: No Symptoms ED EXAM, GENERAL - Physical Exam Exam: See Below Exam Limited By: No Limitations General Appearance: Alert, WD/WN, No Apparent Distress Eye Exam: Bilateral Eye: EOMI, PERRL Ears: Normal External Exam, Normal Canal, Hearing Grossly Normal, Normal TMs Ear Exam: Bilateral Ear: Auricle Normal, Canal Normal, TM normal Nose: Normal Inspection, Normal Mucosa, No Blood Throat/Mouth: Normal Inspection, Normal Lips, Normal Teeth, Normal Gums, Normal Oropharynx, Normal Voice, No Airway Compromise Head: Atraumatic, Normocephalic Neck: Normal Inspection, Supple, Non-Tender, Full Range of Motion Respiratory/Chest: No Respiratory Distress, Lungs Clear, Normal Breath Sounds, No Accessory Muscle Use, Chest Non-Tender Cardiovascular: Normal Peripheral Pulses, Regular Rate, Rhythm, No Edema, No Gallop, No JVD, No Murmur, No Rub GI/Abdominal: Normal Bowel Sounds, Soft, Non-Tender, No Organomegaly, No Distention, No Abnormal Bruit, No Mass Back Exam: Normal Inspection, Full Range of Motion, NT Extremities: Normal Inspection, Normal Range of Motion, Non-Tender, Normal Capillary Refill, No Pedal Edema Neurological: Alert, Oriented, CN II-XII Intact, Normal Reflexes, No Motor/ Sensory Deficits, Slow to Respond Psychiatric: Normal Affect, Normal Mood Skin Exam: Warm, Dry, Intact, Normal Color, No Rash Lymphatic: No Adenopathy Course - Vital Signs Last Recorded V/S: Last Vital Signs Temp 38.7 C H 02/03/17 19:23 Pulse Resp BP Pulse Ox - Orders/Labs/Meds Orders: Active Orders 24 hr Category Date Time Status Peripheral IV Care [RC] . DIRECTED Care 02/03/17 18:56 Active Chest 1V Frontal [CR] Stat Exams 02/03/17 18:55 Taken CULTURE BLOOD [BC] Stat Lab 02/03/17 19:21 Received CULTURE BLOOD [BC] Stat Lab 02/03/17 19:46 Received Sodium Chloride 0.9% [Syrex Flush] Med 02/03/17 18:55 Active 5 ml FLUSH Q8HR PRN Blood Culture x2 Reflex Set [OM.PC] Stat Oth 02/03/17 18:55 Ordered Peripheral IV Insertion Adult [OM.PC] Routine Oth 02/03/17 18:55 Ordered Medication Orders Sodium Chloride (Syrex Flush) 5 ml FLUSH Q8HR PRN PRN Reason: Keep Vein Open Labs: Laboratory Tests 02/03/17 02/03/17 02/03/17 Range/Units 18:57 18:57 19:15 WBC 7.0 (5.0-10.0) 10^3/uL RBC 3.09 L (3.80-5.50) 10^6/uL Hgb 9.3 L (12.0-16.0) g/dL Hct 27.7 L (37.0-47.0) % MCV 89.6 (82.0-92.0) fL MCH 30.1 (27.0-31.0) pg MCHC 33.6 (32.0-36.0) g/dL RDW 16.1 H (11.5-14.5) % Plt Count 264 (150-300) 10^3/uL MPV 8.3 (7.4-10.4) fL Neut % (Auto) 80.4 H (50.0-70.0) % Lymph % (Auto) 16.2 L (20.0-40.0) % Bond % (Auto) 2.1 (2.0-8.0) % Eos % (Auto) 1.1 (1.0-3.0) % Baso % (Auto) 0.2 (0.0-1.0) % Neut # (Auto) 5.7 (2.5-7.0) 10^3/uL Lymph # (Auto) 1.1 (1.0-4.0) 10^3/uL Bond # (Auto) 0.1 (0.1-0.8) 10^3/uL Eos # (Auto) 0.1 (0.1-0.3) 10^3/uL Baso # (Auto) 0.0 (0.0-0.1) 10^3/uL Sodium 138 (136-145) mmol/L Potassium 3.9 (3.3-5.3) mmol/L Chloride 103 (98-115) mmol/L Carbon Dioxide 29.6 (21.0-32.0) mmol/L BUN 28 H (6-25) mg/dL Creatinine 1.00 (0.51-1.17) mg/dL Est Cr Clr Drug Dosing 35.41 mL/min Estimated GFR (MDRD) 53 mL/min Glucose 133 H (70-110) mg/dL Lactic Acid (0.4-2.0) mmol/L Calcium 10.3 (8.7-10.3) mg/dL Total Bilirubin 1.0 (0.2-1.0) mg/dL AST 23 (15-37) U/L ALT 43 (12-78) U/L Alkaline Phosphatase 64 (46-116) IU/L Total Protein 6.3 L (6.4-8.2) g/dL Albumin 2.96 L (3.00-4.80) g/dL Specimen Type [place] Urine Color Yellow (YELLOW) Urine Appearance Clear (CLEAR) Urine pH 7.0 (5.0-9.0) Ur Specific [place] 1.015 (1.005-1.030) Urine Protein Negative (NEGATIVE) mg/dL Urine Glucose (UA) Negative (NEGATIVE) mg/dL Urine Ketones Negative (NEGATIVE) mg/dL Urine Occult Blood Negative (NEGATIVE) Urine Nitrite Negative (NEGATIVE) Urine Bilirubin Negative (NEGATIVE) Urine Urobilinogen 0.2 (0.2-1.0) E.U./dL Ur Leukocyte Esterase Negative (NEGATIVE) Urine RBC 0-5 /HPF Urine WBC Not seen /HPF Ur Epithelial Cells Not seen /LPF Urine Bacteria Not seen (NONE TO FEW) /HPF 02/03/17 Range/Units 19:21 WBC (5.0-10.0) 10^3/uL RBC (3.80-5.50) 10^6/uL Hgb (12.0-16.0) g/dL Hct (37.0-47.0) % MCV (82.0-92.0) fL MCH (27.0-31.0) pg MCHC (32.0-36.0) g/dL RDW (11.5-14.5) % Plt Count (150-300) 10^3/uL MPV (7.4-10.4) fL Neut % (Auto) (50.0-70.0) % Lymph % (Auto) (20.0-40.0) % Bond % (Auto) (2.0-8.0) % Eos % (Auto) (1.0-3.0) % Baso % (Auto) (0.0-1.0) % Neut # (Auto) (2.5-7.0) 10^3/uL Lymph # (Auto) (1.0-4.0) 10^3/uL Bond # (Auto) (0.1-0.8) 10^3/uL Eos # (Auto) (0.1-0.3) 10^3/uL Baso # (Auto) (0.0-0.1) 10^3/uL Sodium (136-145) mmol/L Potassium (3.3-5.3) mmol/L Chloride (98-115) mmol/L Carbon Dioxide (21.0-32.0) mmol/L BUN (6-25) mg/dL Creatinine (0.51-1.17) mg/dL Est Cr Clr Drug Dosing mL/min Estimated GFR (MDRD) mL/min Glucose (70-110) mg/dL Lactic Acid 1.5 (0.4-2.0) mmol/L Calcium (8.7-10.3) mg/dL Total Bilirubin (0.2-1.0) mg/dL AST (15-37) U/L ALT (12-78) U/L Alkaline Phosphatase (46-116) IU/L Total Protein (6.4-8.2) g/dL Albumin (3.00-4.80) g/dL Specimen Type Urine Color (YELLOW) Urine Appearance (CLEAR) Urine pH (5.0-9.0) Ur Specific [place] (1.005-1.030) Urine Protein (NEGATIVE) mg/dL Urine Glucose (UA) (NEGATIVE) mg/dL Urine Ketones (NEGATIVE) mg/dL Urine Occult Blood (NEGATIVE) Urine Nitrite (NEGATIVE) Urine Bilirubin (NEGATIVE) Urine Urobilinogen (0.2-1.0) E.U./dL Ur Leukocyte Esterase (NEGATIVE) Urine RBC /HPF Urine WBC /HPF Ur Epithelial Cells /LPF Urine Bacteria (NONE TO FEW) /HPF Meds: Medications Generic Name Dose Route Start Last Admin Trade Name Freq PRN Reason Stop Dose Admin Sodium Chloride 5 ml 02/03/17 18:55 Syrex Flush FLUSH Q8HR PRN Keep Vein Open Discontinued Medications Generic Name Dose Route Start Last Admin Trade Name Freq PRN Reason Stop Dose Admin Acetaminophen 975 mg 02/03/17 19:02 02/03/17 19:23 Tylenol RECTAL 02/03/17 19:03 975 mg NOW ONE Administration Sodium Chloride 1,000 mls @ 999 mls/hr 02/03/17 18:55 02/03/17 19:10 Normal Saline IV 02/03/17 19:55 999 mls/hr .BOLUS ONE Administration Ondansetron HCl 4 mg 02/03/17 18:55 02/03/17 19:22 Zofran IVPUSH 02/03/17 18:56 4 mg ONETIME ONE Administration - Radiology Interpretation Free Text/Narrative:: CXR- NAD Departure - Departure Time of Disposition: 20:23 Disposition: Admitted As Inpatient 65 Condition: fair Clinical Impression: Bacteremia, Myelodysplastic syndrome Fever Qualifiers: Fever type: unspecified Qualified Code(s): R50.9 - Fever, unspecified - Discharge Information - My Orders Last 24 Hours: My Active Orders 02/03/17 18:55 Chest 1V Frontal [CR] Stat Sodium Chloride 0.9% [Syrex Flush] 5 ml FLUSH Q8HR PRN Blood Culture x2 Reflex Set [OM.PC] Stat Peripheral IV Insertion Adult [OM.PC] Routine 02/03/17 18:56 Peripheral IV Care [RC] . DIRECTED 02/03/17 19:21 CULTURE BLOOD [BC] Stat 02/03/17 19:46 CULTURE BLOOD [BC] Stat - Assessment/Plan Last 24 Hours: My Active Orders 02/03/17 18:55 Chest 1V Frontal [CR] Stat Sodium Chloride 0.9% [Syrex Flush] 5 ml FLUSH Q8HR PRN Blood Culture x2 Reflex Set [OM.PC] Stat Peripheral IV Insertion Adult [OM.PC] Routine 02/03/17 18:56 Peripheral IV Care [RC] . DIRECTED 02/03/17 19:21 CULTURE BLOOD [BC] Stat 02/03/17 19:46 CULTURE BLOOD [BC] Stat Assessment:: 1. fever 2. rigors 3. rule out bacteremia 4. myelodysplastic syndrome Plan: 1. admit for rule out bacteremia 2. fever 3. supportive care
[2017-02-03] MEDS ORDERED: Acetaminophen 325 MG Tab PO PRN (20:25)
[2017-02-03] MEDS ORDERED: Ondansetron 4 MG/2 ML SDV IV PRN (20:25)
[2017-02-03] MEDS ORDERED: Piperacillin/Tazobactam 4.5 GM in Sodium Chloride 0.9% 100 ML IV SCH (20:30)
[2017-02-03] MEDS: Sodium Chloride 0.9% 1,000 ML IV SCH (21:47)
[2017-02-04] MEDS: Piperacillin/Tazobactam/Dext 3.375 GM in Premix Bag 1 BAG IV SCH ×5 (00:07→23:47)
[2017-02-04] MEDS: Mupirocin Oint 22 GM Tube TOP SCH ×2 (09:35→16:08)
[2017-02-04] MEDS ORDERED: Atropine/Diphenoxylate 0.025-2.5 MG Tab PO PRN (12:21)
[2017-02-04] MEDS ORDERED: Melatonin 3 MG Tab PO PRN (12:21)
[2017-02-04] MEDS: Sodium Chloride 0.9% 1,000 ML IV SCH (13:59)
[2017-02-04] MEDS ORDERED: Acetaminophen 325 MG Tab PO PRN (14:18)
[2017-02-04] MEDS: Clopidogrel 75 MG Tab PO SCH (16:12)
[2017-02-04] MEDS: Aspirin 81 MG Tab.EC PO SCH (16:12)
[2017-02-04] MEDS: Calcium Citrate/Vitamin D3 315 MG-250 Unit Tab PO SCH (18:04)
[2017-02-04] MEDS: predniSONE 5 MG Tab PO SCH (18:04)
[2017-02-04] MEDS: Warfarin 5 MG Tab PO SCH (18:04)
[2017-02-04] MEDS: Levothyroxine 50 MCG Tab PO SCH (18:04)
[2017-02-04] MEDS: B.Bifidum/B.Longum/L.Acidophilus/L.Rhamnosus (Probiotic) Cap PO SCH (18:04)
[2017-02-04] MEDS: Metoprolol Tartrate 25 MG Tab PO SCH (20:21)
[2017-02-04] MEDS: prednisoLONE Acetate 1% Ophth Susp 5 ML Bottle EYEBOTH SCH (20:21)
[2017-02-04] MEDS: Mirtazapine 15 MG Tab PO SCH (20:21)
--- NOTE | 2017-02-04 20:58 | HP ---
CHIEF COMPLAINT/HISTORY OF PRESENT ILLNESS: This is an 81-year-old female patient, who presented to the ER with fever and just feeling weak and very lethargic. The patient stated that the symptoms just started today. She feels very weak. She has a long history of MDS. Her daughter stated that she was having a fever at home. The patient denied any cough or congestion or chest pain or shortness of breath. She did have one episode of throwing up earlier in the day. The patient presents to clinic with chills, rigors, fever, just not feeling well. PAST MEDICAL HISTORY: Hypothyroidism, right leg wounds, MDS, hypertension, insomnia, anticoagulation therapy. HOME MEDICATIONS: She does take prednisolone or Pred Forte 1% eyedrops, both eyes daily; prednisone 5 mg daily; Coumadin 5 mg daily; vitamin B6 100 mg daily; potassium chloride 10 mEq every other day; vitamin K 100 mcg daily; Protonix 1 tab daily; Remeron 30 mg at bedtime; metoprolol tartrate 12.5 mg twice a day; melatonin as needed at bedtime; Synthroid 125 mcg daily; hydrocodone with acetaminophen 10/325 one tab every six hours as needed; Lasix 40 mg every other day; doxycycline 100 mg twice a day; Lomotil as needed; Jadenu 360 mg daily; vitamin B12 500 mg every Saturday, Saturday, Saturday; Plavix 75 mg daily; vitamin D3; aspirin 81 mg daily. ALLERGIES: Erythromycin, penicillin, sulfa, and Revlimid. SOCIAL/PERSONAL HISTORY: The patient is retired. She denies any alcohol or tobacco. She does currently live at [facility]. REVIEW OF SYSTEMS: CONSTITUTIONAL: The patient complains of fever, chills, rigors, very weak, tired, poor appetite, fatigue. EYES: No recent visual changes. ENT: No sinus congestion or hoarseness. CARDIOVASCULAR: No chest pain or palpitations. RESPIRATORY: No cough. No shortness of breath. GI: No vomiting, diarrhea or melena. : No dysuria or hematuria. MUSCULOSKELETAL: No new bone pain or joint swelling. INTEGUMENTARY: No rash or pruritus. NEUROLOGIC/PSYCHIATRIC: No recent headache or focal weakness. No depressive symptoms. ENDOCRINE: No heat or cold intolerances or polydipsia. HEMATOLOGIC/LYMPHATIC: No excessive bruising or lymph node swelling. ALLERGIC/IMMUNOLOGIC: No hives or recurrent infections. PHYSICAL EXAMINATION: GENERAL: This is an elderly white female, in no acute distress. She appears very weak and lethargic at this time. VITAL SIGNS: Temperature is 101.2, blood pressure is 103/43, respiratory rate is 20, oxygen saturation is 91% on 3 L. HEENT: Head is normocephalic. EOMs are intact. Pupils are equal, round, reactive to light, and accommodation. Nose is clear. No pharyngeal erythema noted. NECK: Supple. No JVD. Trachea midline. LUNGS: Sounds are clear throughout lung negron. Slightly diminished at bilateral bases. CARDIAC: Heart tones are regular, but the patient has a very loud harsh murmur on auscultation. ABDOMEN: Soft, nontender, nondistended. Bowel sounds present x4. EXTREMITIES: No joint effusions. Full range of motion. NEUROLOGIC: Grossly intact. DIAGNOSTIC: The patient's chest x-ray that was obtained on admission shows no acute diagnosis. The patient's lab work that was obtained today which is 02/04/2017, CBC shows a white count that is 6.0, hemoglobin is low at 8.0, the patient's platelet count is 213. The patient's INR today is 1.5. Chemistry panel is unremarkable. The patient's GFR is 56. Urinalysis that was obtained yesterday was unremarkable. IMPRESSION/PLAN: 1. Fever of unknown origin with rigors. Plan: We will continue with Zosyn IV every six hours along with vancomycin IV to pharmacy to dose. Continue with IV fluids of normal saline at 75 mL/h. Blood cultures pending. 2. Hypothyroidism. Plan: Continue with levothyroxine 125 mg daily. 3. Right leg ulcer/wound. Plan: We will start patient putting some Bactroban three times a day on the wound. Dressing change per nursing staff. 4. Recent nausea. Plan: She can have Zofran as needed. We will continue with Protonix in the morning daily. 5. History of MDS. Plan: Continue with prednisone 5 mg daily. Jadenu 350 mg daily. 6. History of hypertension. Plan: Continue with Lasix 40 mg every other day. Metoprolol 12.5 mg twice a day. 7. History of insomnia. Plan: Continue with Remeron 30 mg at bedtime. 8. History of anticoagulation therapy. Plan: Continue with Coumadin as ordered. The patient's INR is 1.5. 9. Anemia. Plan: The patient's hemoglobin is low at 8.0. Transfuse 1 unit PRBCs. We will repeat a CBC in the morning. /[id number]/MODL MTDD
[2017-02-04] MEDS: Acetaminophen/HYDROcodone 325-10 MG Tab PO PRN (22:27)
[2017-02-05] MEDS: Piperacillin/Tazobactam/Dext 3.375 GM in Premix Bag 1 BAG IV SCH ×4 (05:09→22:02)
[2017-02-05] MEDS: Pantoprazole 40 MG Tab.CR PO SCH ×2 (05:10→06:07)
[2017-02-05] MEDS: Levothyroxine 50 MCG Tab PO SCH ×2 (05:11→06:07)
[2017-02-05] MEDS ORDERED: DEFERASIROX PO SCH (09:00)
[2017-02-05] MEDS ORDERED: prednisoLONE Acetate 1% Ophth Susp 5 ML Bottle EYEBOTH SCH (09:00)
[2017-02-05] MEDS: Aspirin 81 MG Tab.EC PO SCH (09:19)
[2017-02-05] MEDS: Mupirocin Oint 22 GM Tube TOP SCH (09:19)
[2017-02-05] MEDS: Potassium Chloride 10 MEQ Tab.ER PO SCH (09:20)
[2017-02-05] MEDS: Furosemide 40 MG Tab PO SCH (09:20)
[2017-02-05] MEDS: prednisoLONE Acetate 1% Ophth Susp 5 ML Bottle EYEBOTH SCH ×2 (09:21→20:41)
[2017-02-05] MEDS: Clopidogrel 75 MG Tab PO SCH (09:21)
[2017-02-05] MEDS: Cholecalciferol (Vitamin D3) 1,000 Unit Tab PO SCH (09:22)
[2017-02-05] MEDS: Cyanocobalamin (Vitamin B12) 500 MCG Tab PO SCH (09:22)
[2017-02-05] MEDS: Metoprolol Tartrate 25 MG Tab PO SCH ×2 (09:22→20:42)
[2017-02-05] MEDS: Phytonadione 100 MCG Tab PO SCH (09:22)
[2017-02-05] MEDS: Vitamin B6-pyridOXINE 50 MG Tab PO SCH (09:24)
[2017-02-05] MEDS: Acetaminophen/HYDROcodone 325-10 MG Tab PO PRN ×2 (09:24→22:08)
[2017-02-05] MEDS ORDERED: Sodium Chloride 0.9% 1,000 ML IV SCH (10:00)
[2017-02-05] MEDS: Calcium Citrate/Vitamin D3 315 MG-250 Unit Tab PO SCH ×2 (11:46→17:32)
--- NOTE | 2017-02-05 11:56 | PN ---
02/05/2017 PATIENT NAME: ERNESTO HARO SUBJECTIVE: The patient states she is still not feeling the best. She has not had any more fevers with rigors, but she just feels wiped out. She just does not feel well at all. OBJECTIVE: VITAL SIGNS: Today, temperature is 97.8, pulse is 65, blood pressure is 126/67, respiratory rate is 20, oxygen saturations on 2 L nasal cannula is 96%. GENERAL: This is an elderly white female in no acute distress. She does appear very weak and fatigued. HEART: Heart tones, she does have a very loud harsh murmur on exam. LUNGS: Sounds are clear in upper lobes, diminished at bilateral bases. ABDOMEN: Soft, nontender, nondistended. Bowel sounds present x4. EXTREMITIES: No pedal edema noted on exam. LABORATORY DATA: The patient's lab work that was obtained today. CBC shows a white count low at 3.9, hemoglobin 9.3. Chemistry panel is unremarkable. GFR stable at 58. Total protein is low at 5.4. Albumin is low at 2.35. Otherwise, everything is within normal range. IMPRESSION AND PLAN: 1. Recent fever of unknown origin with rigors. Plan: We are going to continue patient on IV antibiotic therapy of Zosyn IV every 6 hours along with vancomycin IV. Pharmacy will dose the vancomycin. We are going to decrease the patient's IV fluids slightly today. She has been receiving normal saline at 75 mL an hour, and I will decrease that to 50 mL an hour. Blood cultures are pending, no growth at this point. The patient's white count has come down to 3.9, which is improvement. 2. Hypothyroidism. Plan: Continue with levothyroxine 125 mcg daily. 3. Right leg ulcer wound to her right hernandez. Plan: We are going to discontinue the patient's doxycycline. There is no surrounding erythema. We will continue with Bactroban ointment just once a day to the wound with dressing change per nursing staff. 4. Recent nausea. Plan: Much improved. She has had no episodes of emesis. We will continue with Zofran as needed along with some Protonix, she takes in the morning daily. 5. History of myelodysplastic syndromes. Plan: We will continue with prednisone 5 mg daily. Her Jadenu is on hold at this time. 6. History of hypertension. Plan: Continue with Lasix 40 mg every other day. She does take metoprolol tartrate 12.5 mg twice a day. Blood pressure has been stable. 7. History of insomnia. Plan: Continue with Remeron 30 mg at bedtime. 8. History of deep venous thrombosis/blood clots. Plan: We will continue with Coumadin as ordered. Her INR was slightly low yesterday at 1.5. We will recheck an INR tomorrow morning. We will continue with Coumadin at current dosing. 9. Anemia. Plan: The patient's hemoglobin yesterday was low at 8.0. We transfused 1 unit of packed RBCs yesterday. Her CBC today showed improvement that her hemoglobin is up to 9.3. 10.Hypokalemia. Plan: The patient's potassium level today is low at 3.5. I am going to give her one time dose of potassium chloride 20 mEq p.o. We will recheck a basic metabolic panel tomorrow morning along with a CBC. /[id number]/MODL
[2017-02-05] MEDS ORDERED: Potassium Chloride 20 MEQ Tab.ER PO ONE (12:00)
[2017-02-05] MEDS: Sodium Chloride 0.9% 1,000 ML IV SCH (13:21)
[2017-02-05] MEDS: Warfarin 5 MG Tab PO SCH (17:32)
[2017-02-05] MEDS: predniSONE 5 MG Tab PO SCH (17:33)
[2017-02-05] MEDS: B.Bifidum/B.Longum/L.Acidophilus/L.Rhamnosus (Probiotic) Cap PO SCH (17:33)
[2017-02-05] MEDS: Mirtazapine 15 MG Tab PO SCH (20:41)
[2017-02-06] MEDS: Piperacillin/Tazobactam/Dext 3.375 GM in Premix Bag 1 BAG IV SCH ×4 (05:18→22:38)
[2017-02-06] MEDS: Pantoprazole 40 MG Tab.CR PO SCH (06:20)
[2017-02-06] MEDS: Levothyroxine 50 MCG Tab PO SCH (06:20)
[2017-02-06] MEDS: Acetaminophen/HYDROcodone 325-10 MG Tab PO PRN ×3 (07:28→22:38)
[2017-02-06] MEDS: Aspirin 81 MG Tab.EC PO SCH (08:59)
[2017-02-06] MEDS: Mupirocin Oint 22 GM Tube TOP SCH (08:59)
[2017-02-06] MEDS: Clopidogrel 75 MG Tab PO SCH (09:00)
[2017-02-06] MEDS: prednisoLONE Acetate 1% Ophth Susp 5 ML Bottle EYEBOTH SCH (09:00)
[2017-02-06] MEDS: Cyanocobalamin (Vitamin B12) 500 MCG Tab PO SCH (09:00)
[2017-02-06] MEDS: Metoprolol Tartrate 25 MG Tab PO SCH ×2 (09:01→20:21)
[2017-02-06] MEDS: Phytonadione 100 MCG Tab PO SCH (09:01)
[2017-02-06] MEDS: Cholecalciferol (Vitamin D3) 1,000 Unit Tab PO SCH (09:01)
[2017-02-06] MEDS: Vitamin B6-pyridOXINE 50 MG Tab PO SCH (09:01)
[2017-02-06] MEDS: Calcium Citrate/Vitamin D3 315 MG-250 Unit Tab PO SCH ×3 (11:01→17:41)
--- NOTE | 2017-02-06 11:31 | PCM.PN ---
- General Info Date of Service: 02/06/17 Functional Status: Reports: pain controlled, tolerating diet, ambulating, urinating. Denies: new symptoms - Review of Systems General: Reports: Weakness, Fatigue, Malaise, Appetite (Improving). Denies: Fever, Chills Pulmonary: Reports: cough (more of a tickle). Denies: shortness of breath, sputum Cardiovascular: Reports: Edema. Denies: Chest Pain Gastrointestinal: Denies: Abdominal pain, Decreased appetite, Nausea - Patient Data Vitals - most recent: Last Vital Signs Temp 96.6 F 02/06/17 06:46 Pulse 64 02/06/17 09:01 Resp 20 02/06/17 06:46 BP 134/78 02/06/17 09:01 Pulse Ox 96 02/06/17 06:46 Weight - most recent: 117 lb 3 oz I&O - last 24 hours: Intake & Output 02/05/17 02/06/17 02/06/17 22:59 06:59 14:59 Intake Total 1208 470 232 Balance 1208 470 232 Lab Results last 24 hrs: Laboratory Results - last 24 hr 02/06/17 02/06/17 02/06/17 Range/Units 07:20 07:20 07:20 WBC 3.5 L (5.0-10.0) 10^3/uL RBC 3.27 L (3.80-5.50) 10^6/uL Hgb 9.5 L (12.0-16.0) g/dL Hct 28.8 L (37.0-47.0) % MCV 88.3 (82.0-92.0) fL MCH 29.1 (27.0-31.0) pg MCHC 33.0 (32.0-36.0) g/dL RDW 15.5 H (11.5-14.5) % Plt Count 159 (150-300) 10^3/uL MPV 8.7 (7.4-10.4) fL Neut % (Auto) 49.2 L (50.0-70.0) % Lymph % (Auto) 35.9 (20.0-40.0) % Rabun % (Auto) 6.5 (2.0-8.0) % Eos % (Auto) 7.9 H (1.0-3.0) % Baso % (Auto) 0.5 (0.0-1.0) % Neut # (Auto) 1.7 L (2.5-7.0) 10^3/uL Lymph # (Auto) 1.3 (1.0-4.0) 10^3/uL Rabun # (Auto) 0.2 (0.1-0.8) 10^3/uL Eos # (Auto) 0.3 (0.1-0.3) 10^3/uL Baso # (Auto) 0.0 (0.0-0.1) 10^3/uL PT 22.8 H (8.9-11.4) SEC INR 2.2 H (0.9-1.1) Sodium 146 H (136-145) mmol/L Potassium 3.5 (3.3-5.3) mmol/L Chloride 111 (98-115) mmol/L Carbon Dioxide 25.0 (21.0-32.0) mmol/L BUN 17 (6-25) mg/dL Creatinine 0.90 (0.51-1.17) mg/dL Est Cr Clr Drug Dosing 40.44 mL/min Estimated GFR (MDRD) 60 mL/min Glucose 82 (70-110) mg/dL Calcium 8.7 (8.7-10.3) mg/dL Med Orders - Current: Current Medications Acetaminophen (Tylenol) 650 mg PO Q6H PRN PRN Reason: Pain (Mild 1-3)/fever Hydrocodone Bitart/Acetaminophen ([place] 325-10 Mg) 1 tab PO Q6H PRN PRN Reason: Pain Last Admin: 02/06/17 07:28 Dose: 1 tab Aspirin (Halfprin) 81 mg PO DAILY [facility] Last Admin: 02/06/17 08:59 Dose: 81 mg Calcium Citrate (Calcium Citrate + D) 2 tab PO BID@1200,1800 [facility] Last Admin: 02/06/17 11:01 Dose: 2 tab Cholecalciferol (Vitamin D3) 2,000 units PO DAILY [facility] Last Admin: 02/06/17 09:01 Dose: 2,000 units Clopidogrel Bisulfate (Plavix) 75 mg PO DAILY [facility] Last Admin: 02/06/17 09:00 Dose: 75 mg Cyanocobalamin (Vitamin B12) 500 mcg PO MOTUWETHFR@0900 [facility] Last Admin: 02/06/17 09:00 Dose: 500 mcg Diphenoxylate HCl/Atropine (Lomotil 0.025-2.5 Mg) 1 tab PO TID PRN PRN Reason: Diarrhea Furosemide (Lasix) 40 mg PO Q2D [facility] Last Admin: 02/05/17 09:20 Dose: 40 mg Piperacillin/Tazobactam/ (Dextrose 3.375 gm/ Premix) 50 mls @ 100 mls/hr IV Q6H [facility] Last Admin: 02/06/17 11:01 Dose: 100 mls/hr Vancomycin HCl 0.75 gm/ Sodium (Chloride) 250 mls @ 166.667 mls/hr IV Q24H [facility] Last Admin: 02/05/17 19:46 Dose: 166.667 mls/hr Lactobacillus Acidophilus/Rhamnosus (Multi-Tianna Plus) 1 cap PO DAILY@1800 [facility] Last Admin: 02/05/17 17:33 Dose: 1 cap Levothyroxine Sodium (Synthroid) 125 mcg PO ACBREAKFAST [facility] Last Admin: 02/06/17 06:20 Dose: 125 mcg Melatonin (Melatonin) 3 mg PO BEDTIME PRN PRN Reason: Insomnia Metoprolol Tartrate (Lopressor) 12.5 mg PO BID [facility] Last Admin: 02/06/17 09:01 Dose: 12.5 mg Mirtazapine (Remeron) 30 mg PO BEDTIME [facility] Last Admin: 02/05/17 20:41 Dose: 30 mg Mupirocin (Bactroban Oint) 0 gm TOP DAILY [facility] Last Admin: 02/06/17 08:59 Dose: Not Given Ondansetron HCl (Zofran) 4 mg IV Q6H PRN PRN Reason: Nausea/Vomiting Pantoprazole Sodium (Protonix) 40 mg PO ACBREAKFAST [facility] Last Admin: 02/06/17 06:20 Dose: 40 mg Phytonadione (Vitamin K) 100 mcg PO DAILY [facility] Last Admin: 02/06/17 09:01 Dose: 100 mcg Potassium Chloride (Klor-Con 10) 10 meq PO Q2D [facility] Last Admin: 02/05/17 09:20 Dose: 10 meq Prednisolone Acetate (Pred Forte 1% Ophth Susp) 0 ml EYEBOTH DAILY [facility] Stop: 02/12/17 09:01 Last Admin: 02/06/17 09:00 Dose: 1 drop Prednisone (Prednisone) 5 mg PO DAILY@1800 [facility] Last Admin: 02/05/17 17:33 Dose: 5 mg Pyridoxine HCl (Vitamin B6-Pyridoxine) 100 mg PO DAILY [facility] Last Admin: 02/06/17 09:01 Dose: 100 mg Sodium Chloride (Syrex Flush) 5 ml FLUSH Q8HR PRN PRN Reason: Keep Vein Open Vancomycin HCl (Pharmacy To Dose - Vancomycin) 1 dose .XX ASDIRECTED [facility] Warfarin Sodium (Coumadin) 5 mg PO DAILY@1800 [facility] Last Admin: 02/05/17 17:32 Dose: 5 mg Discontinued Medications Acetaminophen (Tylenol) 975 mg RECTAL NOW ONE Stop: 02/03/17 19:03 Last Admin: 02/03/17 19:23 Dose: 975 mg Acetaminophen (Tylenol) 650 mg PO Q4H PRN PRN Reason: Pain (Mild 1-3)/fever Last Admin: 02/04/17 09:54 Dose: 650 mg Doxycycline Hyclate (Vibramycin) 100 mg PO BID [facility] Stop: 02/05/17 09:01 Last Admin: 02/04/17 20:21 Dose: 100 mg Sodium Chloride (Normal Saline) 1,000 mls @ 999 mls/hr IV .BOLUS ONE Stop: 02/03/17 19:55 Last Admin: 02/03/17 19:10 Dose: 999 mls/hr Piperacillin Sod/Tazobactam (Sod 4.5 gm/ Sodium Chloride) 100 mls @ 200 mls/hr IV Q6H [facility] Last Admin: 02/03/17 22:34 Dose: Not Given Vancomycin HCl 1 gm/ Sodium (Chloride) 250 mls @ 167 mls/hr IV ONETIME ONE Stop: 02/03/17 21:56 Last Admin: 02/03/17 21:46 Dose: 167 mls/hr Sodium Chloride (Normal Saline) 1,000 mls @ 50 mls/hr IV ASDIRECTED [facility] Last Admin: 02/05/17 13:21 Dose: 50 mls/hr Sodium Chloride (Normal Saline) 1,000 mls @ 50 mls/hr IV ASDIRECTED [facility] Mupirocin (Bactroban Oint) 0 gm TOP TID [facility] Last Admin: 02/04/17 16:08 Dose: Not Given Ondansetron HCl (Zofran) 4 mg IVPUSH ONETIME ONE Stop: 02/03/17 18:56 Last Admin: 02/03/17 19:22 Dose: 4 mg Potassium Chloride (Klor-Con M20) 20 meq PO ONETIME ONE Stop: 02/05/17 12:01 Last Admin: 02/05/17 11:50 Dose: 20 meq Prednisolone Acetate (Pred Forte 1% Ophth Susp) 0 ml EYEBOTH DAILY [facility] Prednisolone Acetate (Pred Forte 1% Ophth Susp) 0 ml EYEBOTH BID [facility] Stop: 02/05/17 21:01 Last Admin: 02/05/17 20:41 Dose: 1 drop Sodium Chloride (Syrex Flush) 5 ml FLUSH Q8HR PRN PRN Reason: Keep Vein Open Vancomycin HCl (Pharmacy To Dose - Vancomycin) 1 dose .XX ASDIRECTED [facility] - Exam Quality Assessment: supplemental oxygen (2 liters nasal cannula), DVT prophylaxis (Warfarin) General: alert, oriented, cooperative, no acute distress Lungs: Normal respiratory effort, Crackles (Faint crackles to left lower lobes- clears with cough), Other (All other lung negron clear throughout except LLL) Cardiovascular: Regular Rate, Regular Rhythm Abdomen: bowel sounds present, soft, no tenderness, no distension Extremities: edema (trace edema to BLE) Skin: warm, dry Neurological: normal speech Psy/Mental Status: alert, normal affect, normal mood - Problem List Review Problem List Initiated/Reviewed/Updated: Yes - Plan Plan:: PRIMARY ASSESSMENT/PLAN: Fever of unknown origin, resolving. Blood cultures x 2 negative. Urine culture negative. Chest x-ray shows no acute process. WBC improving to 3.5 which is nearing patient's baseline. Continue IV zosyn and vancomycin. Discontinue IV fluids as patient is tolerating oral fluids well. Right lower leg wound. Continue bactroban ointment daily with dressing change. Doxycycline has been discontinued. Nausea, resolved. Generalized weakness and deconditioning. Patient is to be up moving around today with assistance. Depression in remission. PHQ9 score of 7 and JOMAR score of 1. Discussion with patient reveals no feelings of depression. Family reviewed PHQ9 with patient recently and score was 4. Patient is on remeron, but this is for insomnia. 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 Hgb 9.5. She has received 1 unit of PRBCs since admission. Repeat CBC in AM. Hypokalemia, resolved. K 3.5. She is on oral potassium every 2 days. BMP in AM. SECONDARY ASSESSMENT/PLAN: Hypothyroidism. Continue levothyroxine. Myelodysplastic syndrome. Continue prednisone. Continue holding Jadenu. Hypertension, stable. Continue lopressor BID. History of combined congestive heart failure. Ejection fraction 75% with normal left ventricle size, hyperdynamic systolic function, and mild diastolic dysfunction on ECHO March 2015. Continue lasix every other day. CAD. Continue plavix. History of hypercholestrolemia. Insomnia. Continue remeron. History of DVT and PE. Continue coumadin. INR improved to 2.2. Repeat INR in AM. GERD. Continue protonix. Polymalgia rheumatica. Chronic fatigue. Chronic back pain, on pain contract agreement. DVT prophylaxis. On coumadin, INR 2.2. Overall plan: Discontinue IV fluids. Continue IV antibiotics as source of infection not known. She could benefit from 3-4 more days of antibiotics. Increase physical activity today.
[2017-02-06] MEDS: B.Bifidum/B.Longum/L.Acidophilus/L.Rhamnosus (Probiotic) Cap PO SCH (17:39)
[2017-02-06] MEDS: Warfarin 5 MG Tab PO SCH (17:39)
[2017-02-06] MEDS: predniSONE 5 MG Tab PO SCH (17:39)
[2017-02-06] MEDS: Mirtazapine 15 MG Tab PO SCH (20:25)
[2017-02-07] MEDS: Levothyroxine 50 MCG Tab PO SCH ×2 (05:42→06:13)
[2017-02-07] MEDS: Pantoprazole 40 MG Tab.CR PO SCH ×2 (05:42→06:13)
[2017-02-07] MEDS: Piperacillin/Tazobactam/Dext 3.375 GM in Premix Bag 1 BAG IV SCH ×2 (05:42→10:10)
[2017-02-07 06:12] VITALS: BP 143/69
[2017-02-07 08:08] LABS: CHLORIDE,CL 109 mmol/L (98-115); SODIUM,NA 144 mmol/L (136-145)
[2017-02-07] MEDS: Acetaminophen/HYDROcodone 325-10 MG Tab PO PRN (08:40)
[2017-02-07] MEDS: Potassium Chloride 10 MEQ Tab.ER PO SCH (08:41)
[2017-02-07] MEDS: Aspirin 81 MG Tab.EC PO SCH (08:41)
[2017-02-07] MEDS: Furosemide 40 MG Tab PO SCH (08:42)
[2017-02-07] MEDS: Metoprolol Tartrate 25 MG Tab PO SCH (08:42)
[2017-02-07] MEDS: Clopidogrel 75 MG Tab PO SCH (08:43)
[2017-02-07] MEDS: prednisoLONE Acetate 1% Ophth Susp 5 ML Bottle EYEBOTH SCH (08:43)
[2017-02-07] MEDS: Vitamin B6-pyridOXINE 50 MG Tab PO SCH (08:44)
[2017-02-07] MEDS: Cyanocobalamin (Vitamin B12) 500 MCG Tab PO SCH (08:44)
[2017-02-07] MEDS: Mupirocin Oint 22 GM Tube TOP SCH (08:44)
[2017-02-07] MEDS: Cholecalciferol (Vitamin D3) 1,000 Unit Tab PO SCH (08:45)
[2017-02-07] MEDS: Phytonadione 100 MCG Tab PO SCH (08:46)
[2017-02-07] MEDS: Calcium Citrate/Vitamin D3 315 MG-250 Unit Tab PO SCH (11:46)
--- NOTE | 2017-02-07 15:57 | DISCH ---
02/07/2017PATIENT NAME: ERNESTO HARO SUBJECTIVE: This is an 81-year-old female patient from [facility], who was admitted to the hospital on 02/03/2017 because of complaints of fever, lethargy, and not responding, and responding very slowly to commands. She has a previous history of myelodysplastic syndrome. She had been doing fairly well at home. She denied having a cough or congestion. No chest pain or shortness of breath. She had one episode of vomiting earlier in the day. She did have some chills at the time of admission. She answers all questions appropriately at the time of admission. PAST MEDICAL HISTORY: Positive for cataract extraction, DVT, high cholesterol levels, peripheral vascular disease, chronic ulcer of the right lower extremity as a consequence of PVD and venous insufficiency, shortness of breath, recurrent bronchitis, recurrent PE, and chronic use of oxygen. She also has had a history of adenoidectomy, cataract surgery, tonsillectomy, appendectomy, cholecystectomy, colonoscopy, etc. The patient has history of hypothyroidism, osteopenia, osteoporosis, and myelodysplastic syndrome requiring frequent blood transfusions as often as every two weeks. She has a history of recent AK as well as recurrent pneumonia, and chronic diarrhea without obstruction, GERD, and polymyalgia rheumatica. Her medication list has been reviewed. OBJECTIVE: The patient is admitted to the hospital and treated with IV vancomycin and Zosyn. Her condition improved. Temperature remained normal. Pulse is good. Vital signs are stable. Pain was improved. Diarrhea is getting better. Fatigue and malaise also improved. Her edema of the lower extremities improved. The ulcer of the right lower leg also was improving. On 02/07/2017, the patient's current medical condition had improved quite nicely. She was ready for discharge to the care home. LABORATORY DATA: Her lab data initially; white count on admission was 6000. Today it was 3.6, hemoglobin was 8 on admission. On discharge was 9.7 with 1 unit of packed cells being given during her admission here. Platelet count was 178 on discharge. 213 on admission. Her electrolytes remained normal. Kidney functions remained normal. Her vital signs also remained normal. Intake/output is also good. MEDICATIONS: The patient is being discharged today on the following medications; Tylenol 650 mg q.8 hours on a p.r.n. basis; hydrocodone with acetaminophen 325, 10 mg q.6 hours on a p.r.n. basis; enteric coated aspirin 81 mg daily; calcium citrate 2 tablets b.i.d.; vitamin D3 2000 units daily; Plavix 75 mg daily; B12 500 mcg daily; Lomotil 1 tablet up to three times a day as necessary for diarrhea; Lasix to 40 mg every other day; probiotic one capsule daily; Synthroid 125 mcg daily; melatonin 3 mg at bedtime on a p.r.n. basis; metoprolol 12.5 mg once a day; mirtazapine which is the Remeron 15 mg at bedtime; Zofran 4 mg on a p.r.n. basis p.o.; pantoprazole 40 mg daily; vitamin K 100 mcg daily; prednisolone acetate 1% eye drops, both eyes once a day; prednisone 5 mg daily; pyridoxine B6 100 mg daily. OVERALL PLAN: The patient will be seen in followup in one week. Continued follow up will be advised. The patient's condition is precarious and rehab potential is poor. The patient will also take levofloxacin 250 mg daily for five days. /[id number]/MODL
--- NOTE | 2017-03-11 07:52 | PN ---
03/08/2017PATIENT NAME: ERNESTO HARO ADDENDUM: FINAL DIAGNOSES: 1. Fever, improved. 2. Lethargy, improved. 3. History of myelodysplastic syndrome, stable. 4. History of hypercholesteremia, stable. 5. History of anemia, stable. 6. History of peripheral vascular disease, stable. 7. History of chronic ulcer of the right lower extremity. 8. History of venous insufficiency. 9. History of recurrent bronchitis and recurrent pulmonary embolism. 10.Chronic use of oxygen for hypoxemia. 11.Status post adenoidectomy, cataract surgery, tonsillectomy, appendectomy, cholecystectomy, and colonoscopy. 12.History of hypothyroidism. 13.History of osteopenia. 14.History of osteoporosis. 15.History of polymyalgia rheumatica. /[id number]/MODL
== END 2017-02-07 12:00 | DRG 593 ==
LOC: KA.ED 18:50 → OBSVTOIN 20:24 → KA.MS 20:24 → INTOOBSV 20:24
PROVIDERS: ADMIT Physician Assistant Medical; ATTEND Physician Assistant
PROC: 30253N1 (ICD-10-PCS; principal; 2017-02-04)
DX: R78.81 Bacteremia (principal); L97.919 Non-pressure chronic ulcer of unspecified part of right lower leg with unspecified severity; I50.42 Chronic combined systolic (congestive) and diastolic (congestive) heart failure; D46.9 Myelodysplastic syndrome, unspecified; E78.00 Pure hypercholesterolemia, unspecified; I73.9 Peripheral vascular disease, unspecified; Z99.81 Dependence on supplemental oxygen; Z86.711 Personal history of pulmonary embolism; M85.80 Other specified disorders of bone density and structure, unspecified site; M81.0 Age-related osteoporosis without current pathological fracture; I25.2 Old myocardial infarction; K21.9 Gastro-esophageal reflux disease without esophagitis; M35.3 Polymyalgia rheumatica; E03.9 Hypothyroidism, unspecified; Z79.899 Other long term (current) drug therapy; G47.00 Insomnia, unspecified; F32.9 Major depressive disorder, single episode, unspecified; D46.4 Refractory anemia, unspecified; I11.0 Hypertensive heart disease with heart failure; Z86.718 Personal history of other venous thrombosis and embolism; Z79.01 Long term (current) use of anticoagulants; M54.9 Dorsalgia, unspecified; G89.29 Other chronic pain; R11.0 Nausea
CPT/HCPCS: 36415; 71010; 80053; 81001; 83605; 85025; 87040 ×2; 87086; 96361; 96374; 99285; A9270; J2405; J7030; 36430; 80048; 80202; 85610; 85730; 86850; 86900; 86901; 86920; 86922; 87324; J2543; J3370; J7050; P9016

== ENCOUNTER 2017-03-21 17:28 | Inpatient (IN) | payer MEDICARE, BC ==
[2017-03-21] MEDS ORDERED: Sodium Chloride 0.9% 1,000 ML IV ONE ×2 (17:52→17:53)
[2017-03-21] MEDS ORDERED: Sodium Chloride 0.9% 5 ML Syringe FLUSH PRN ×2 (17:53→19:55)
[2017-03-21] MEDS ORDERED: Ondansetron 4 MG/2 ML SDV IVPUSH ONE (17:53)
--- NOTE | 2017-03-21 18:09 | EDM.PDOC ---
ED HPI GENERAL MEDICAL PROBLEM - General Chief Complaint: General Stated Complaint: DEHYDRATED??? Time Seen by Provider: 03/21/17 17:45 Source of Information: Reports: Patient History Limitations: Reports: No Limitations - History of Present Illness INITIAL COMMENTS - FREE TEXT/NARRATIVE: 81 YO WF with PMH or myelodysplastic disorder who presents to ER feeling weak with associated nausea/vomiting. Pt was sitting outside today for approximately 1 hour and when she came inside she began to feel bad. Pt was found to have low grade fever 100 here in ER. Pt denies any chest pain, shortness of breath, cough or congestion. Pt has had history of UTI but currently denies dysuria or urinary frequency. Onset: Today Onset Date: 03/21/17 Onset Time: 15:00 Location: Reports: Generalized Severity: Mild Improves with: Reports: None Worsens with: Reports: None Associated Symptoms: Reports: Fever/Chills, Loss of Appetite, Malaise, Nausea/ Vomiting. Denies: Confusion, Chest Pain, Cough, cough w sputum, Headaches, Rash , Seizure, Shortness of Breath, Syncope - Related Data Allergies Allergy/AdvReac Type Severity Reaction Status Date / Time erythromycin base Allergy Severe Vomiting Verified 03/21/17 19:59 [Erythromycin Base] Penicillins Allergy Unknown Hives Verified 03/21/17 19:59 Sulfa (Sulfonamide Allergy Other Verified 03/21/17 19:59 Antibiotics) sulfamethoxazole Allergy Other Verified 03/21/17 19:59 [From Bactrim] trimethoprim [From Bactrim] Allergy Other Verified 03/21/17 19:59 lenalidomide [From Revlimid] AdvReac Mild Rash Verified 03/21/17 19:59 Home Meds: Home Meds Cholecalciferol (Vitamin D3) [Vitamin D3] 2,000 unit PO DAILY 08/28/13 [History] Cyanocobalamin (Vitamin B-12) [B-12 Dots] 500 mcg PO MOTUWETHFR 08/28/13 [ History] Hydrocodone/Acetaminophen [Hydrocodon-Acetaminophn 10-325] 1 tab PO Q4H PRN [History] Warfarin [Coumadin] 5 mg PO ASDIRECTED 05/04/15 [History] Calcium Carbonate/Vitamin D3 [Calcium 600-Vit D3 400 Tablet] 1 tab PO BIDMEALS 08/02/15 [History] Mirtazapine [Remeron] 15 mg PO BEDTIME 12/30/15 [History] Phytonadione [Vitamin K] 100 mcg PO DAILY 12/30/15 [History] Pyridoxine HCl [Vitamin B-6] 100 mg PO DAILY 12/30/15 [History] Aspirin [Halfprin] 81 mg PO DAILY #90 tab.ec 01/04/17 [Rx] Lactobacillus Acidophilus [Acidophilus Lactobacillus] 1 cap PO DAILY 01/08/17 [ History] Levothyroxine Sodium [Synthroid] 125 mcg PO ACBREAKFAST 01/08/17 [History] Melatonin/Pyridoxine HCl (B6) [Melatonin 3 mg Tablet] 1 tab PO BEDTIME PRN 01/08 [History] Furosemide [Lasix] 40 mg PO Q2D #0 01/11/17 [Rx] Potassium Chloride [Klor-Con M20] 10 meq PO Q2D #0 01/11/17 [Rx] Deferasirox [Jadenu] 500 mg PO DAILY 02/03/17 [History] Pantoprazole Sodium [Protonix] 20 mg PO ACBREAKFAST 02/03/17 [History] Atropine/Diphenoxylate [Lomotil 0.025-2.5 MG] 1 tab PO ASDIRECTED PRN 02/21/17 [ History] Metoprolol Tartrate [Lopressor] 12.5 mg PO DAILY 02/21/17 [History] Warfarin [Coumadin] 7.5 mg PO ASDIRECTED 02/21/17 [History] Non-Formulary Medication [NF Drug] 1 drop EYEBOTH DAILY 03/21/17 [History] predniSONE [Nolvia] 4 mg PO DAILY 03/21/17 [History] Past Medical History HEENT History: Reports: Cataract, Hard of Hearing, Impaired Vision, Sinusitis Cardiovascular History: Reports: Blood Clots/VTE/DVT, High Cholesterol, PVD, SOB on Exertion Respiratory History: Reports: Bronchitis, Recurrent, PE, Pneumonia, Recurrent, SOB, Other (See Below) Other Respiratory History: Chronic use of oxygen Gastrointestinal History: Reports: Bowel Obstruction, Chronic Diarrhea, Fecal Incontinence, GERD Genitourinary History: Reports: UTI, Recurrent MOHEL History: Reports: Endometriosis, Musculoskeletal History: Reports: Back Pain, Chronic, Fibromyalgia, Other (See Below) Other Musculoskeletal History: POLYMYALGIA Neurological History: Reports: Vertigo Psychiatric History: Reports: None Endocrine/Metabolic History: Reports: Hypothyroidism, Osteopenia, Osteoporosis Hematologic History: Reports: Anemia, Blood Transfusion(s) Immunologic History: Reports: None Oncologic (Cancer) History: Reports: None Dermatologic History: Reports: None - Infectious Disease History Infectious Disease History: Reports: Other (See Below) Other Infectious Disease History: Unable to assess. - Past Surgical History Head Surgeries/Procedures: Reports: None HEENT Surgical History: Reports: Adenoidectomy, Cataract Surgery, Tonsillectomy GI Surgical History: Reports: Appendectomy, Cholecystectomy, Colonoscopy, Other (See Below) Endocrine Surgical History: Reports: None Neurological Surgical History: Reports: None Oncologic Surgical History: Reports: None Social & Family History - Family History Family Medical History: Noncontributory HEENT: Reports: None Cardiac: Reports: None Respiratory: Reports: None GI: Reports: None : Reports: Other (See Below) OBGYN: Reports: None Musculoskeletal: Reports: None Neurological: Reports: None Psychiatric: Reports: None Endocrine/Metabolic: Reports: None Hematologic: Reports: None Immunologic: Reports: None Dermatologic: Reports: None Oncologic: Reports: Hodgkin's Lymphoma - Tobacco Use Smoking Status *Q: Never Smoker Second Hand Smoke Exposure: No - Caffeine Use Caffeine Use: Reports: Coffee - Alcohol Use Days Per Week of Alcohol Use: 0 - Recreational Drug Use Recreational Drug Use: No ED ROS GENERAL - Review of Systems Review Of Systems: See Below Constitutional: Reports: Fever, Chills, Malaise HEENT: Reports: No Symptoms Respiratory: Reports: No Symptoms Cardiovascular: Reports: No Symptoms Endocrine: Reports: No Symptoms GI/Abdominal: Reports: No Symptoms : Reports: No Symptoms Musculoskeletal: Reports: No Symptoms Skin: Reports: No Symptoms Neurological: Reports: No Symptoms Psychiatric: Reports: No Symptoms Hematologic/Lymphatic: Reports: No Symptoms Immunologic: Reports: No Symptoms ED EXAM, GENERAL - Physical Exam Exam: See Below Exam Limited By: No Limitations General Appearance: Alert, WD/WN, No Apparent Distress Nose: Normal Inspection, Normal Mucosa, No Blood Throat/Mouth: Normal Inspection, Normal Lips, Normal Teeth, Normal Gums, Normal Oropharynx, Normal Voice, No Airway Compromise Head: Atraumatic, Normocephalic Neck: Normal Inspection, Supple, Non-Tender, Full Range of Motion Respiratory/Chest: No Respiratory Distress, Lungs Clear, Normal Breath Sounds, No Accessory Muscle Use, Chest Non-Tender Cardiovascular: Normal Peripheral Pulses, Regular Rate, Rhythm, No Edema, No Gallop, No JVD, No Murmur, No Rub GI/Abdominal: Normal Bowel Sounds, Soft, Non-Tender, No Organomegaly, No Distention, No Abnormal Bruit, No Mass Back Exam: Normal Inspection Extremities: Normal Inspection, Normal Range of Motion, Non-Tender, Normal Capillary Refill, No Pedal Edema Neurological: Alert, Oriented, CN II-XII Intact, Normal Cognition, Normal Gait, Normal Reflexes, No Motor/Sensory Deficits Psychiatric: Normal Affect, Normal Mood Lymphatic: No Adenopathy EKG INTERPRETATION EKG Date: 03/21/17 Time: 18:12 Rhythm: NSR Rate (Beats/Min): 96 [place]: Normal P-Wave: Present QRS: Normal ST-T: Normal QT: Normal Comparison: NA - No Prior EKG Course - Vital Signs Last Recorded V/S: Last Vital Signs Temp 37.7 C 03/21/17 19:52 Pulse 84 03/21/17 19:52 Resp 24 H 03/21/17 19:52 BP 101/59 L 03/21/17 19:52 Pulse Ox 95 03/21/17 19:55 - Orders/Labs/Meds Orders: Active Orders 24 hr Category Date Time Status EKG Documentation Completion [RC] ASDIRECTED Care 03/21/17 17:54 Inactive Peripheral IV Care [RC] . DIRECTED Care 03/21/17 17:54 Inactive Chest 1V Frontal [CR] Stat Exams 03/21/17 17:53 Taken CULTURE BLOOD [BC] Stat Lab 03/21/17 17:55 Received CULTURE BLOOD [BC] Stat Lab 03/21/17 18:30 Received Medication Orders Acetaminophen (Tylenol) 650 mg PO Q4H PRN PRN Reason: Pain (Mild 1-3)/fever Levofloxacin/Dextrose 500 mg/ (Premix) 100 mls @ 100 mls/hr IV Q24H [facility] Last Admin: 03/21/17 20:11 Dose: 100 mls/hr Sodium Chloride (Normal Saline) 1,000 mls @ 75 mls/hr IV ASDIRECTED [facility] Last Admin: 03/21/17 20:11 Dose: 75 mls/hr Ondansetron HCl (Zofran) 4 mg IV Q6H PRN PRN Reason: Nausea/Vomiting Sodium Chloride (Syrex Flush) 5 ml FLUSH Q8HR PRN PRN Reason: Keep Vein Open Labs: Laboratory Tests 03/21/17 03/21/17 03/21/17 Range/Units 17:55 17:55 17:55 WBC 5.6 (5.0-10.0) 10^3/uL RBC 3.14 L (3.80-5.50) 10^6/uL Hgb 9.3 L (12.0-16.0) g/dL Hct 27.0 L (37.0-47.0) % MCV 86.1 (82.0-92.0) fL MCH 29.7 (27.0-31.0) pg MCHC 34.5 (32.0-36.0) g/dL RDW 16.7 H (11.5-14.5) % Plt Count 223 (150-300) 10^3/uL MPV 8.8 (7.4-10.4) fL Neut % (Auto) 84.7 H (50.0-70.0) % Lymph % (Auto) 8.4 L (20.0-40.0) % [place] % (Auto) 1.2 L (2.0-8.0) % Eos % (Auto) 5.4 H (1.0-3.0) % Baso % (Auto) 0.3 (0.0-1.0) % Neut # (Auto) 4.7 (2.5-7.0) 10^3/uL Lymph # (Auto) 0.5 L (1.0-4.0) 10^3/uL [place] # (Auto) 0.1 (0.1-0.8) 10^3/uL Eos # (Auto) 0.3 (0.1-0.3) 10^3/uL Baso # (Auto) 0.0 (0.0-0.1) 10^3/uL PT 33.1 H (8.9-11.4) SEC INR 3.1 H (0.9-1.1) APTT 37.4 H (20.8-31.2) SEC Sodium 137 (136-145) mmol/L Potassium 4.6 (3.3-5.3) mmol/L Chloride 102 (98-115) mmol/L Carbon Dioxide 26.9 (21.0-32.0) mmol/L BUN 26 H (6-25) mg/dL Creatinine 0.79 (0.51-1.17) mg/dL Est Cr Clr Drug Dosing 44.03 mL/min Estimated GFR (MDRD) > 60 mL/min Glucose 144 H (70-110) mg/dL Calcium 9.1 (8.7-10.3) mg/dL Total Bilirubin 1.8 H (0.2-1.0) mg/dL AST 76 H (15-37) U/L ALT 160 H (12-78) U/L Alkaline Phosphatase 318 H (46-116) IU/L Creatine Kinase 13 L (26-276) U/L CK-MB (CK-2) < 0.50 (0.00-4.30) ng/mL Troponin I 0.05 (0.00-0.070) ng/mL Total Protein 6.9 (6.4-8.2) g/dL Albumin 2.93 L (3.00-4.80) g/dL Lipase 113 (73-393) U/L Specimen Type Urine Color (YELLOW) Urine Appearance (CLEAR) Urine pH (5.0-9.0) Ur Specific [place] (1.005-1.030) Urine Protein (NEGATIVE) mg/dL Urine Glucose (UA) (NEGATIVE) mg/dL Urine Ketones (NEGATIVE) mg/dL Urine Occult Blood (NEGATIVE) Urine Nitrite (NEGATIVE) Urine Bilirubin (NEGATIVE) Urine Urobilinogen (0.2-1.0) E.U./dL Ur Leukocyte Esterase (NEGATIVE) Urine RBC /HPF Urine WBC /HPF Ur Epithelial Cells /LPF Urine Bacteria (NONE TO FEW) /HPF 03/21/17 Range/Units 18:25 WBC (5.0-10.0) 10^3/uL RBC (3.80-5.50) 10^6/uL Hgb (12.0-16.0) g/dL Hct (37.0-47.0) % MCV (82.0-92.0) fL MCH (27.0-31.0) pg MCHC (32.0-36.0) g/dL RDW (11.5-14.5) % Plt Count (150-300) 10^3/uL MPV (7.4-10.4) fL Neut % (Auto) (50.0-70.0) % Lymph % (Auto) (20.0-40.0) % [place] % (Auto) (2.0-8.0) % Eos % (Auto) (1.0-3.0) % Baso % (Auto) (0.0-1.0) % Neut # (Auto) (2.5-7.0) 10^3/uL Lymph # (Auto) (1.0-4.0) 10^3/uL [place] # (Auto) (0.1-0.8) 10^3/uL Eos # (Auto) (0.1-0.3) 10^3/uL Baso # (Auto) (0.0-0.1) 10^3/uL PT (8.9-11.4) SEC INR (0.9-1.1) APTT (20.8-31.2) SEC Sodium (136-145) mmol/L Potassium (3.3-5.3) mmol/L Chloride (98-115) mmol/L Carbon Dioxide (21.0-32.0) mmol/L BUN (6-25) mg/dL Creatinine (0.51-1.17) mg/dL Est Cr Clr Drug Dosing mL/min Estimated GFR (MDRD) mL/min Glucose (70-110) mg/dL Calcium (8.7-10.3) mg/dL Total Bilirubin (0.2-1.0) mg/dL AST (15-37) U/L ALT (12-78) U/L Alkaline Phosphatase (46-116) IU/L Creatine Kinase (26-276) U/L CK-MB (CK-2) (0.00-4.30) ng/mL Troponin I (0.00-0.070) ng/mL Total Protein (6.4-8.2) g/dL Albumin (3.00-4.80) g/dL Lipase (73-393) U/L Specimen Type Urincc Urine Color Yellow (YELLOW) Urine Appearance Clear (CLEAR) Urine pH 6.0 (5.0-9.0) Ur Specific [place] 1.015 (1.005-1.030) Urine Protein 30 H (NEGATIVE) mg/dL Urine Glucose (UA) Negative (NEGATIVE) mg/dL Urine Ketones Negative (NEGATIVE) mg/dL Urine Occult Blood Trace-intact H (NEGATIVE) Urine Nitrite Negative (NEGATIVE) Urine Bilirubin Negative (NEGATIVE) Urine Urobilinogen 0.2 (0.2-1.0) E.U./dL Ur Leukocyte Esterase Negative (NEGATIVE) Urine RBC 0-5 /HPF Urine WBC 0-5 /HPF Ur Epithelial Cells Few /LPF Urine Bacteria Few (NONE TO FEW) /HPF Meds: Medications Generic Name Dose Route Start Last Admin Trade Name Eleanor PRN Reason Stop Dose Admin Acetaminophen 650 mg 03/21/17 19:55 Tylenol PO Q4H PRN Pain (Mild 1-3)/fever Levofloxacin/Dextrose 500 mg/ 100 mls @ 100 mls/hr 03/21/17 20:00 03/21/17 20 :11 Premix IV 100 mls/hr Q24H ELVIS Administration Sodium Chloride 1,000 mls @ 75 mls/hr 03/21/17 20:00 03/21/17 20:11 Normal Saline IV 75 mls/hr ASDIRECTED ELVIS Administration Ondansetron HCl 4 mg 03/21/17 19:55 Zofran IV Q6H PRN Nausea/Vomiting Sodium Chloride 5 ml 03/21/17 19:55 Syrex Flush FLUSH Q8HR PRN Keep Vein Open Discontinued Medications Generic Name Dose Route Start Last Admin Trade Name Eleanor PRN Reason Stop Dose Admin Acetaminophen 1,000 mg 03/21/17 18:13 03/21/17 18:38 Tylenol Extra Strength PO 03/21/17 18:14 1,000 mg ONETIME ONE Administration Sodium Chloride 1,000 mls @ 999 mls/hr 03/21/17 17:52 03/21/17 18:10 Normal Saline IV 03/21/17 18:52 999 mls/hr .BOLUS ONE Administration Sodium Chloride 1,000 mls @ 999 mls/hr 03/21/17 17:53 Normal Saline IV 03/21/17 18:53 .BOLUS ONE Ondansetron HCl 4 mg 03/21/17 17:53 03/21/17 18:09 Zofran IVPUSH 03/21/17 17:54 4 mg ONETIME ONE Administration Sodium Chloride 5 ml 03/21/17 17:53 Syrex Flush FLUSH Q8HR PRN Keep Vein Open - Radiology Interpretation Free Text/Narrative:: CXR- NAD Departure - Departure Time of Disposition: 20:42 Disposition: Admitted As Inpatient 65 Condition: Good Clinical Impression: Urinary tract infection Qualifiers: Urinary tract infection type: acute cystitis Hematuria presence: without hematuria Qualified Code(s): N30.00 - Acute cystitis without hematuria Fever Qualifiers: Fever type: unspecified Qualified Code(s): R50.9 - Fever, unspecified - Discharge Information - My Orders Last 24 Hours: My Active Orders 03/21/17 17:53 Chest 1V Frontal [CR] Stat 03/21/17 17:54 EKG Documentation Completion [RC] ASDIRECTED Peripheral IV Care [RC] . DIRECTED 03/21/17 17:55 CULTURE BLOOD [BC] Stat 03/21/17 18:30 CULTURE BLOOD [BC] Stat - Assessment/Plan Last 24 Hours: My Active Orders 03/21/17 17:53 Chest 1V Frontal [CR] Stat 03/21/17 17:54 EKG Documentation Completion [RC] ASDIRECTED Peripheral IV Care [RC] . DIRECTED 03/21/17 17:55 CULTURE BLOOD [BC] Stat 03/21/17 18:30 CULTURE BLOOD [BC] Stat Assessment:: 1. vomiting 2. urinary tract infection 3. malaise
[2017-03-21] MEDS ORDERED: Acetaminophen 500 MG Tab PO ONE (18:13)
[2017-03-21 18:34] LABS: CHLORIDE,CL 102 mmol/L (98-115); SODIUM,NA 137 mmol/L (136-145)
[2017-03-21] MEDS ORDERED: Ondansetron 4 MG/2 ML SDV IV PRN (19:55)
[2017-03-21] MEDS ORDERED: Sodium Chloride 0.9% 1,000 ML IV SCH (20:00)
[2017-03-21] MEDS: Levofloxacin/Dextrose 5%-Water 500 MG in Premix Bag 1 BAG IV SCH (20:11)
[2017-03-21] MEDS ORDERED: Mirtazapine 15 MG Tab ONE (22:17)
[2017-03-21] MEDS: Mirtazapine 15 MG Tab PO SCH (22:18)
[2017-03-21] MEDS: Acetaminophen/HYDROcodone 325-10 MG Tab PO PRN (22:18)
[2017-03-21] MEDS: Melatonin 3 MG Tab PO PRN (22:18)
[2017-03-22] MEDS: Acetaminophen 325 MG Tab PO PRN ×2 (06:45→17:11)
[2017-03-22 08:05] LABS: CHLORIDE,CL 103 mmol/L (98-115); SODIUM,NA 135 mmol/L (136-145)
[2017-03-22] MEDS ORDERED: Atropine/Diphenoxylate 0.025-2.5 MG Tab PO PRN (08:43)
[2017-03-22] MEDS ORDERED: Furosemide 40 MG/4 ML VIAL IVPUSH SCH (08:49)
[2017-03-22] MEDS ORDERED: EXJADE 500 MG PO SCH ×2 (09:00→11:30)
[2017-03-22] MEDS: PREDNISOLONE ACETATE 1% EYEBOTH SCH (09:33)
[2017-03-22] MEDS: B.Bifidum/B.Longum/L.Acidophilus/L.Rhamnosus (Probiotic) Cap PO SCH (09:33)
[2017-03-22] MEDS: Cyanocobalamin (Vitamin B12) 500 MCG Tab PO SCH (09:33)
[2017-03-22] MEDS: Omeprazole 20 MG Cap.CR PO SCH (09:34)
[2017-03-22] MEDS: Aspirin 81 MG Tab.EC PO SCH (09:34)
[2017-03-22] MEDS: Cholecalciferol (Vitamin D3) 1,000 Unit Tab PO SCH (09:34)
[2017-03-22] MEDS: Metoprolol Tartrate 25 MG Tab PO SCH (09:37)
[2017-03-22] MEDS ORDERED: Levothyroxine 100 MCG Tab PO SCH (10:00)
[2017-03-22] MEDS: Albuterol/Ipratropium 3.0-0.5 MG/3 ML Neb Soln NEB SCH ×3 (10:32→22:12)
[2017-03-22] MEDS: Levothyroxine 25 MCG Tab PO SCH (11:41)
[2017-03-22] MEDS: Vitamin B6-pyridOXINE 50 MG Tab PO SCH (11:41)
[2017-03-22] MEDS: Phytonadione 100 MCG Tab PO SCH (11:42)
[2017-03-22] MEDS: Levothyroxine 100 MCG Tab PO SCH (11:44)
[2017-03-22] MEDS: Calcium Citrate/Vitamin D3 315 MG-250 Unit Tab PO SCH ×2 (11:44→18:15)
--- NOTE | 2017-03-22 15:10 | HP ---
CHIEF COMPLAINT: Malaise, nausea, vomiting, fever. HISTORY OF PRESENT ILLNESS: The patient was sitting outside in the sun for about an hour. When she came back inside, she started feeling sick and she was nauseated, she ended up throwing up. She felt warm. She just was not feeling well. She was brought to the emergency room for further evaluation and treatment at that time. Urinalysis was unremarkable. Chest x-ray did show a possible right basilar infiltrate. The patient was given IV fluids in the emergency room and admitted at that time. PAST MEDICAL HISTORY: The patient does have a history of MDS, CHF, hypothyroidism, hypertension, insomnia, paroxysmal atrial fibrillation. MEDICATIONS: The patient takes Tylenol as needed. She has DuoNeb as needed, aspirin 81 mg daily. She takes a calcium citrate with vitamin D daily, vitamin D3 tablet daily. She takes vitamin B12 of 500 mcg Saturday through Saturday. She also has Lomotil as needed for diarrhea. She takes Lasix 40 mg every other day. She takes some hydrocodone as needed. She also takes probiotics one capsule daily. She takes levothyroxine 125 mcg daily. She takes 3 mg melatonin at bedtime for sleep. She takes metoprolol tartrate 12.5 mg daily. She takes Remeron 15 mg at bedtime. She takes omeprazole 20 mg daily prior to breakfast, Zofran as needed, vitamin K 100 mcg daily, potassium chloride 10 mEq every other day, prednisone 4 mg daily, vitamin B6 of 100 mg daily, and Coumadin dose depending on INR Clinic. ALLERGIES: Erythromycin, penicillin, sulfa, and Revlimid. SOCIAL/PERSONAL HISTORY: The patient does currently live at the group home here in [place]. She is . She does not smoke tobacco products or drink alcohol beverages. REVIEW OF SYSTEMS: CONSTITUTIONAL: The patient complains of weakness, fatigue, poor appetite, fever. EYES: No recent visual changes. ENT: No sinus congestion or hoarseness. CARDIOVASCULAR: No chest pain or palpitations. RESPIRATORY: No cough. No shortness of breath. GI: No vomiting, diarrhea or melena. : No dysuria or hematuria. MUSCULOSKELETAL: No new bone pain or joint swelling. INTEGUMENTARY: No rash or pruritus. NEUROLOGIC/PSYCHIATRIC: No recent headache or focal weakness. No depressive symptoms. ENDOCRINE: No heat or cold intolerances or polydipsia. HEMATOLOGIC/LYMPHATIC: No excessive bruising or lymph node swelling. ALLERGIC/IMMUNOLOGIC: No hives or recurrent infections. PHYSICAL EXAMINATION: GENERAL: This is an elderly white female, in no acute distress. She does look pale in appearance. VITAL SIGNS: Stable. Temperature is 99.0, pulse is 85, blood pressure is 98/44, respiratory rate 24, oxygen saturation on 2 L nasal cannula is 95%. HEENT: Head is normocephalic. EOMs are intact. Pupils are equal, round, reactive to light and accommodation. Bilateral tympanic membranes are intact. Nose is clear. No pharyngeal erythema. NECK: Supple. No JVD. Trachea midline. LUNGS: Clear on the left. Diminished at the left base. She does have fine crackles to the right mid lung down to the base of the right lung. CARDIAC: The patient has a loud murmur. ABDOMEN: Soft, nontender, nondistended. Bowel sounds present x4. EXTREMITIES: The patient is somewhat stiff with range of motion, but she does have limited range of motion all four extremities. No joint effusions noted. NEUROLOGIC: Grossly intact. She is forgetful someone at time. DIAGNOSTIC: Lab work that was obtained in the emergency room. CBC showed white count of 5.6, hemoglobin 9.3. The patient's PT was 33.1, INR 3.1, PTT 37.4. Chemistry panel showed BUN slightly elevated at 26. AST 76, ALT 160, alkaline phosphatase 318. The patient's troponin was negative. Albumin was low at 2.93. Lipase within normal range at 113. Total protein within normal range at 6.9. CK-MB was also negative. Urine showed few bacteria, trace of blood, some protein, otherwise unremarkable. The patient's chest x-ray report reads impression: Bibasilar atelectasis and possible right base infiltrate. IMPRESSION/PLAN: 1. Possible right lower lobe infiltrate with bibasilar atelectasis. Plan: We are going to have the patient on IV antibiotic therapy of Levaquin 500 mg IV daily along with DuoNeb every 6 hours. Oxygen as needed. 2. 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 Plan: The patient's hemoglobin today on repeat lab work shows hemoglobin low at 7.2. We then transfuse the patient 1 unit of packed RBCs today. Repeat a CBC in the morning. 3. Nausea and vomiting. Plan: This is improved. She does have Zofran IV ordered as needed. The patient did receive IV fluids 2 L boluses of normal saline in the emergency room. 4. Elevated LFTs. The patient's liver function tests were elevated. We are going to repeat those labs today. The patient's AST was 76, ALT 160, and alkaline phosphatase was 318. CHRONIC CONDITIONS: 1. MDS. Plan: Continue with prednisone 4 mg daily. The patient was also taken Jadenu 500 mg daily at home. We will also continue daily. 2. Congestive heart failure. Plan: Continue with Lasix 40 mg orally every other day. We will give the patient Lasix 20 mg IV after her unit of blood today. The patient's troponin was negative along with her CK-MB was also negative. 3. Hypothyroidism. Plan, continue with levothyroxine 100 mcg daily. 4. Hypertension. Plan: Continue with metoprolol tartrate 12.5 mg daily. 5. Insomnia. Plan: Continue with melatonin 3 mg at bedtime along with Remeron 15 mg at bedtime. 6. Paroxysmal atrial fibrillation. Plan: Continue with Coumadin as ordered. The patient's INR today is 2.2. 7. Scabbed wound to left lower extremity. Plan: Wound appears to be healing well. We will leave it open to air. /[id number]/MODL
[2017-03-22] MEDS ORDERED: predniSONE 1 MG Tab PO SCH (18:00)
[2017-03-22] MEDS: Warfarin 5 MG Tab PO SCH (18:15)
[2017-03-22] MEDS: Levofloxacin/Dextrose 5%-Water 500 MG in Premix Bag 1 BAG IV SCH (20:43)
[2017-03-22] MEDS: Mirtazapine 15 MG Tab PO SCH (20:44)
[2017-03-22] MEDS: Melatonin 3 MG Tab PO PRN (22:09)
[2017-03-22] MEDS: Acetaminophen/HYDROcodone 325-10 MG Tab PO PRN (22:09)
[2017-03-23] MEDS: Levothyroxine 25 MCG Tab PO SCH (06:17)
[2017-03-23] MEDS: Omeprazole 20 MG Cap.CR PO SCH (06:17)
[2017-03-23] MEDS: Levothyroxine 100 MCG Tab PO SCH (06:17)
[2017-03-23] MEDS: Albuterol/Ipratropium 3.0-0.5 MG/3 ML Neb Soln NEB SCH ×4 (06:18→22:14)
[2017-03-23] MEDS: Acetaminophen/HYDROcodone 325-10 MG Tab PO PRN ×2 (06:30→22:25)
[2017-03-23 08:10] LABS: CHLORIDE,CL 103 mmol/L (98-115); SODIUM,NA 136 mmol/L (136-145)
[2017-03-23] MEDS: B.Bifidum/B.Longum/L.Acidophilus/L.Rhamnosus (Probiotic) Cap PO SCH (09:46)
[2017-03-23] MEDS: Potassium Chloride 10 MEQ Tab.ER PO SCH (09:46)
[2017-03-23] MEDS: Aspirin 81 MG Tab.EC PO SCH (09:46)
[2017-03-23] MEDS: Cholecalciferol (Vitamin D3) 1,000 Unit Tab PO SCH (09:47)
[2017-03-23] MEDS: Metoprolol Tartrate 25 MG Tab PO SCH (09:47)
[2017-03-23] MEDS: Phytonadione 100 MCG Tab PO SCH (09:47)
[2017-03-23] MEDS: Furosemide 40 MG Tab PO SCH (09:47)
[2017-03-23] MEDS: Vitamin B6-pyridOXINE 50 MG Tab PO SCH (09:47)
[2017-03-23] MEDS: PREDNISOLONE ACETATE 1% EYEBOTH SCH (09:52)
--- NOTE | 2017-03-23 12:28 | PN ---
03/23/2017 PATIENT NAME: ERNESTO HARO SUBJECTIVE: This is an 81-year-old female patient who has a long history of MDS, who was at home, she was sitting outside for about an hour in the sun and the heat and the humidity, and she went back inside, she just was not feeling well. She felt like she had a fever. She just felt nauseated and that she did have a small emesis. She was brought to the emergency room for further evaluation and treatment. At that time, the patient was found to be febrile. She had a fever of 101.7, so she was admitted at that time. Her chest x-ray did show possible right lower lobe infiltrate. Today, she states that she is feeling much better. She denies any shortness of breath or cough. She says she is slowly getting a little appetite back. She is able the eat. She states she has not thrown up since she has been in the hospital. She is up with standby assist, walking with a walker in the room. The patient does appear little bit to be slightly jaundiced on appearance. OBJECTIVE: VITAL SIGNS: Today, temperature is 98.6, pulse is 67, blood pressure is 133/72, respiratory rate is 18, oxygen saturations on 2 L nasal cannula is 95%. GENERAL: This is an elderly white female, in no acute distress. She does appear slightly jaundiced on appearance. HEART: Heart tones are distant. Slightly irregular pulse at times. LUNGS: Sounds are clear in the upper lobes, diminished at bilateral bases. Right lower lobe is more diminished than the left, and she does have some rhonchi to her right lower lobe. ABDOMEN: Soft, nontender, nondistended. Bowel sounds present x4. EXTREMITIES: No pedal edema noted on exam. LABORATORY DATA: The patient's lab work that was obtained today. CBC shows a white count within normal range at 5.0, hemoglobin is up today to 8.7, platelet count is 159. The patient's INR today is 2.0. The patient's chemistry panel is unremarkable except for total bilirubin that is elevated at 3.2. Liver function tests were elevated. Her AST is 59, ALT is 125, and alkaline phosphatase is 242. The patient's total protein is low at 5.6 and albumin is low at 2.45. IMPRESSION AND PLAN: 1. Right lower lobe infiltrate with bibasilar atelectasis, per Radiology. Plan: We are going to continue the patient on Levaquin 500 mg IV daily. She has been afebrile since she was seen originally in the emergency room. We will continue with DuoNebs every 6 hours. Oxygen as needed. The patient's white count today is 5.0. 2. 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 Plan: The patient's hemoglobin yesterday was low at 7.2. We did transfuse her with 1 unit of packed RBCs. Today, her hemoglobin is at 8.7. She seems to be feeling better. We will repeat a CBC in the morning. 3. Nausea and vomiting. Plan: The patient, she does have Zofran ordered. She has had no further nausea or vomiting since she has been admitted. She has some Zofran IV ordered as needed. 4. Elevated liver function tests along with elevated bilirubin. Plan: The patient's liver function tests have been elevated. They are slightly improving. She is slightly jaundiced with an elevated bilirubin. We are going to obtain an abdominal and pelvic CAT scan today with contrast for further evaluation and treatment of the patient's elevated liver function tests. CHRONIC CONDITIONS: 1. Myelodysplastic syndrome. Plan: We will continue with prednisone. We will decrease it today from 4 mg to 3 mg daily, to see if this helps with her liver function tests. We are still holding the patient's Jadenu at this time. 2. Congestive heart failure. Plan: Continue with Lasix 40 mg orally every other day. The patient's troponins have come back negative. CK-MB was also negative. 3. Hypothyroidism. Plan: Continue with levothyroxine 100 mcg daily. 4. Hypertension. Plan: Continue with metoprolol tartrate 12.5 mg daily. 5. Insomnia. Plan: Continue with melatonin 3 mg at bedtime along with Remeron 15 mg at bedtime. 6. Paroxysmal atrial fibrillation. Plan: Continue with Coumadin as ordered. The patient's INR today was 2.3. 7. Scab wound to left lower extremity. Plan: Wounds appears to be healing well. It is scabbed over. We will leave the wound open to air. /[id number]/MODL MTDD
[2017-03-23] MEDS: Calcium Citrate/Vitamin D3 315 MG-250 Unit Tab PO SCH ×2 (13:12→17:30)
[2017-03-23] MEDS ORDERED: Iopamidol 612 MG/ML 75 ML Bottle IV ONE (15:03)
[2017-03-23] MEDS ORDERED: Sodium Chloride 0.9% 50 ML SDV FLUSH SCH (15:15)
[2017-03-23] MEDS: Warfarin 5 MG Tab PO SCH (17:29)
[2017-03-23] MEDS: Levofloxacin/Dextrose 5%-Water 500 MG in Premix Bag 1 BAG IV SCH (19:59)
[2017-03-23] MEDS: Mirtazapine 15 MG Tab PO SCH (21:17)
[2017-03-23] MEDS: Melatonin 3 MG Tab PO PRN (22:25)
[2017-03-24] MEDS: Albuterol/Ipratropium 3.0-0.5 MG/3 ML Neb Soln NEB SCH ×5 (06:02→22:05)
[2017-03-24] MEDS: Levothyroxine 25 MCG Tab PO SCH (06:14)
[2017-03-24] MEDS: Levothyroxine 100 MCG Tab PO SCH (06:14)
[2017-03-24] MEDS: Omeprazole 20 MG Cap.CR PO SCH (06:14)
[2017-03-24 08:03] LABS: CHLORIDE,CL 101 mmol/L (98-115); SODIUM,NA 137 mmol/L (136-145)
[2017-03-24] MEDS: Aspirin 81 MG Tab.EC PO SCH (08:48)
[2017-03-24] MEDS: Phytonadione 100 MCG Tab PO SCH (08:48)
[2017-03-24] MEDS: B.Bifidum/B.Longum/L.Acidophilus/L.Rhamnosus (Probiotic) Cap PO SCH (08:48)
[2017-03-24] MEDS: Vitamin B6-pyridOXINE 50 MG Tab PO SCH (08:48)
[2017-03-24] MEDS: Metoprolol Tartrate 25 MG Tab PO SCH (08:49)
[2017-03-24] MEDS: Cholecalciferol (Vitamin D3) 1,000 Unit Tab PO SCH (08:50)
[2017-03-24] MEDS: PREDNISOLONE ACETATE 1% EYEBOTH SCH (08:51)
[2017-03-24] MEDS: Calcium Citrate/Vitamin D3 315 MG-250 Unit Tab PO SCH ×2 (11:49→17:36)
--- NOTE | 2017-03-24 13:04 | PN ---
03/24/2017 PATIENT NAME: ERNESTO HARO SUBJECTIVE: This is an 81-year-old female patient with a long history of MDS, who was brought to the emergency room with concerns about fever, nausea, vomiting, just not feeling well. X-ray revealed that the patient did have a right lower lobe infiltrate per Radiology. The patient also had elevated liver function tests. Today now, she states that her appetite is a little better. She is eating her breakfast. She denies any nausea, vomiting, or abdominal pain. She denies any cough. She states that she is a little tired today. OBJECTIVE: VITAL SIGNS: Today, temperature is 97.9, pulse is 70, blood pressure is 133/74, respiratory rate is 18, oxygen saturations are 95% on 2 L nasal cannula. ABDOMEN: Soft, nontender, and nondistended. Bowel sounds present x4. HEART: Tones are regular rate and rhythm. No murmurs identified. LUNGS: Sounds are clear in the upper lobes and diminished at bilateral bases. She does have some fine crackles with some rhonchi in her right lower base. EXTREMITIES: No pedal edema noted. DIAGNOSTICS: The patient's lab work that was obtained today, the patient's CBC shows a white count at 4.5, hemoglobin 8.7, platelet count at 170. The patient's INR today is 2.1. Chemistry panel is unremarkable, except for the patient's total bilirubin is 3.2, AST is 58, ALT is 124, alk phos is 264, albumin is low at 2.36, and total protein low at 6.0. The patient had a CT of her abdomen and pelvis performed yesterday to further evaluate the patient's elevated LFTs, the impression reads per Radiology: Portal mesenteric venous hypertension. Development of moderate splenomegaly since last exam. No discrete liver abnormality. No liver lesions. No extrahepatic biliary obstruction. Minimal periportal edema. Bilateral nephrolithiasis. Bladder calculus. Early aneurysmal dilation of abdominal aorta. Diffuse atheromatous calcifications. This was read by Dr. Alfonso Rose. IMPRESSION AND PLAN: 1. Right lower lobe infiltrate with bibasilar atelectasis per Radiology. Plan, we are going to continue the patient on Levaquin 500 mg IV daily. She had been afebrile since admission. We will continue with DuoNeb every 6 hours and oxygen as needed. 2. 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 Plan, the patient's hemoglobin today is 8.7, we are going to transfuse one more unit of packed RBCs. It is recommended by Dr. Richter in Oncology to keep her hemoglobin greater than 9. We will repeat a CBC in the morning. 3. Nausea and vomiting upon admission. Plan, this has been resolved since admission. She does have some Zofran ordered that she can take as needed. 4. Portal mesenteric venous hypertension with elevated LFTs and bilirubin. Plan, the patient's CAT scan yesterday did show portal mesenteric venous hypertension. The patient is slightly jaundiced on exam. We will continue the patient on prednisone 3 mg daily to help with bilirubin. Also, she is on beta-ashlyn, metoprolol tartrate 12.5 mg daily. We will continue to hold patient's Jadenu at this time. CHRONIC CONDITIONS: 1. Myelodysplastic syndrome. Plan, we will continue with the patient's prednisone 3 mg daily. We will continue to hold the Jadenu at this time. We are going to transfuse 1 unit of packed RBCs today. The patient does have some splenomegaly noted on CT exam. 2. Congestive heart failure. Plan, continue with Lasix 40 mg orally every other day. The patient's troponins that were recently done along with her CK-MB were all negative. 3. Hypothyroidism. Plan, continue with levothyroxine 100 mcg daily. 4. Hypertension. Plan, continue with metoprolol tartrate 12.5 mg daily. 5. Insomnia. Plan, continue with melatonin 3 mg at bedtime along with Remeron 15 mg at bedtime. 6. Paroxysmal atrial fibrillation. Plan, continue with Coumadin as ordered. The patient's INR was 2.3 today. 7. Scabbed wound to left lower extremity. Plan, this seems to be healing well. We will continue to monitor. We will leave it open to air. /[id number]/MODL
[2017-03-24] MEDS: Acetaminophen/HYDROcodone 325-10 MG Tab PO PRN (14:22)
[2017-03-24] MEDS: Warfarin 5 MG Tab PO SCH (17:36)
[2017-03-24] MEDS: predniSONE 1 MG Tab PO SCH (17:37)
[2017-03-24] MEDS: Levofloxacin/Dextrose 5%-Water 500 MG in Premix Bag 1 BAG IV SCH (19:46)
[2017-03-24] MEDS: Mirtazapine 15 MG Tab PO SCH (20:37)
[2017-03-24] MEDS: Melatonin 3 MG Tab PO PRN (22:55)
[2017-03-25] MEDS: Acetaminophen/HYDROcodone 325-10 MG Tab PO PRN ×2 (02:05→17:00)
[2017-03-25] MEDS: Albuterol/Ipratropium 3.0-0.5 MG/3 ML Neb Soln NEB SCH ×4 (05:46→22:12)
[2017-03-25] MEDS: Levothyroxine 25 MCG Tab PO SCH (06:03)
[2017-03-25] MEDS: Levothyroxine 100 MCG Tab PO SCH (06:03)
[2017-03-25] MEDS: Omeprazole 20 MG Cap.CR PO SCH (06:03)
[2017-03-25] MEDS ORDERED: Iopamidol 612 MG/ML 75 ML Bottle IV ONE (07:55)
[2017-03-25] MEDS: Cyanocobalamin (Vitamin B12) 500 MCG Tab PO SCH (08:00)
[2017-03-25] MEDS: Metoprolol Tartrate 25 MG Tab PO SCH (08:01)
[2017-03-25] MEDS: Aspirin 81 MG Tab.EC PO SCH (08:01)
[2017-03-25] MEDS: Furosemide 40 MG Tab PO SCH (08:02)
[2017-03-25] MEDS: Vitamin B6-pyridOXINE 50 MG Tab PO SCH (08:02)
[2017-03-25] MEDS: Phytonadione 100 MCG Tab PO SCH (08:02)
[2017-03-25] MEDS: Cholecalciferol (Vitamin D3) 1,000 Unit Tab PO SCH (08:02)
[2017-03-25] MEDS: Potassium Chloride 10 MEQ Tab.ER PO SCH (08:02)
[2017-03-25] MEDS: PREDNISOLONE ACETATE 1% EYEBOTH SCH (08:03)
[2017-03-25] MEDS: B.Bifidum/B.Longum/L.Acidophilus/L.Rhamnosus (Probiotic) Cap PO SCH (08:06)
[2017-03-25 08:07] LABS: CHLORIDE,CL 105 mmol/L (98-115); SODIUM,NA 141 mmol/L (136-145)
--- NOTE | 2017-03-25 11:43 | PN ---
03/25/2017 PATIENT NAME: ERNESTO HARO SUBJECTIVE: This is an 81-year-old female patient who has a long history of MDS. She was at home, and she was sitting outside in the hot sun and humidity and when she came back in and she just was not feeling well. She was having a fever. She was nauseated and did have one emesis. She was brought to the emergency room for further evaluation and treatment. At that time, a chest x- ray revealed that the patient did have an infiltrate to her right lower lobe. The patient was admitted at that time. The patient today says she has no cough. No shortness of breath. She feels okay. She says she is weak, but her strength is improving every day. She denies any nausea or vomiting or abdominal pain. OBJECTIVE: VITAL SIGNS: Today, temperature is 97.7, pulse is 69, blood pressure is 125/72, respiratory rate is 20, oxygen saturation 95% on 2 L nasal cannula. GENERAL: This is an elderly white female, in no acute distress. HEART: Tones are regular rate and rhythm. No murmurs identified. ABDOMEN: Soft, nontender, nondistended. Bowel sounds present x4. LUNGS: Sounds are clear throughout lung bases except for right lower lobe. There is still some rhonchi noted with deep inspiration. No pedal edema noted. LABORATORY DATA: The patient's lab work that was obtained today. The patient's CBC shows a white count at 4.2, hemoglobin 9.3. INR of 2.5. Chemistry panel is unremarkable except for her total bilirubin is elevated at 2.5, this improved from yesterday when was 3.2. The patient's AST is 40, ALT is 106, alkaline phosphatase is 254. The patient's total bilirubin is 6.0 and albumin is low at 2.34. These are improved from yesterday. IMPRESSION AND PLAN: 1. Right lower lobe infiltrate with bibasilar atelectasis per Radiology. Plan: We are going to continue the patient on Levaquin 500 mg IV daily. We will continue with DuoNebs every 6 hours. We will use oxygen as needed. We will schedule a repeat chest x-ray tomorrow morning to assess for resolution of right lower lobe infiltrate. 2. 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 Plan: The patient's hemoglobin is stable today at 9.3. She has required 2 units of packed RBCs to get the hemoglobin to this level. It was Dr. Richter recommendations from Oncology to keep her hemoglobin greater than 9. We will recheck a CBC in the morning. 3. Nausea, vomiting upon admission. Plan: The patient has had no emesis since admission. She has been doing well. No nausea. We will continue with Zofran as needed. 4. Portal mesenteric venous hypertension with elevated LFTs and bilirubin. Plan: The patient's CT scan that we did on Saturday did show portal mesenteric venous hypertension. The patient is slightly jaundiced on exam, but this is improving. We will continue the patient on 3 mg of prednisone daily. We will also continue the patient on beta-ashlyn, metoprolol tartrate 12.5 mg twice daily. We will continue to hold patient's Jadenu. The patient's lab work today is slightly improved. Her total bilirubin is down to 2.5 today, this has improved from 3.2 yesterday. ALT is down to 40 today, it was 58 yesterday. ALT is down to 107 today, yesterday it was 124, and alkaline phosphatase is staying stable at 254. CHRONIC CONDITIONS: 1. Myelodysplastic syndrome. Plan: We will continue the patient on prednisone 3 mg daily. We will continue to hold Jadenu at this time. We will order an iron level today. The patient was transfused 1 unit of packed RBCs yesterday. The patient does have splenomegaly noted on recent CT exam. 2. Congestive heart failure. Plan: We will continue the patient on Lasix 40 mg orally every other day. The patient's troponins when she came in along with CK-MB were all negative. 3. Hypothyroidism. Plan: Continue with levothyroxine 100 mcg daily. 4. Hypertension. Plan: Continue with metoprolol tartrate 12.5 mg daily. 5. Insomnia. Plan: Continue with melatonin 3 mg at bedtime along with Remeron 50 mg at bedtime. 6. Paroxysmal atrial fibrillation. Plan: Continue with Coumadin as ordered. INR today is stable at 2.5. 7. Scabbed wound to the left lower extremity. Plan: This seems to be healing really well. We will continue to monitor. We will leave it open to air. OVERALL PLAN: The patient is doing well. Hemoglobin stable at 9.3 after 2 units of packed RBCs were transfused. The patient no longer has any fever. No cough. Pneumonia seems to be improved with the Levaquin. The patient does have some portal mesenteric hypertension on her recent CT scan. The patient's liver function test and bilirubin seems to be declining down and improving daily. We will continue to monitor. /[id number]/MODL MTDD
[2017-03-25] MEDS: Calcium Citrate/Vitamin D3 315 MG-250 Unit Tab PO SCH ×2 (12:54→17:02)
[2017-03-25] MEDS: predniSONE 1 MG Tab PO SCH (17:03)
[2017-03-25] MEDS ORDERED: Warfarin 5 MG Tab PO SCH (18:00)
[2017-03-25] MEDS: Levofloxacin/Dextrose 5%-Water 500 MG in Premix Bag 1 BAG IV SCH (20:46)
[2017-03-25] MEDS: Mirtazapine 15 MG Tab PO SCH (20:53)
[2017-03-25] MEDS: Melatonin 3 MG Tab PO PRN (20:53)
[2017-03-26] MEDS: Acetaminophen/HYDROcodone 325-10 MG Tab PO PRN (00:46)
[2017-03-26] MEDS: Albuterol/Ipratropium 3.0-0.5 MG/3 ML Neb Soln NEB SCH ×2 (05:56→11:09)
[2017-03-26] MEDS: Levothyroxine 100 MCG Tab PO SCH (06:12)
[2017-03-26] MEDS: Omeprazole 20 MG Cap.CR PO SCH (06:12)
[2017-03-26] MEDS: Levothyroxine 25 MCG Tab PO SCH (06:12)
[2017-03-26 07:50] LABS: CHLORIDE,CL 102 mmol/L (98-115); SODIUM,NA 138 mmol/L (136-145)
[2017-03-26] MEDS: Aspirin 81 MG Tab.EC PO SCH (08:47)
[2017-03-26] MEDS: Vitamin B6-pyridOXINE 50 MG Tab PO SCH (08:47)
[2017-03-26] MEDS: Metoprolol Tartrate 25 MG Tab PO SCH (08:48)
[2017-03-26] MEDS: Cyanocobalamin (Vitamin B12) 500 MCG Tab PO SCH (08:48)
[2017-03-26] MEDS: Cholecalciferol (Vitamin D3) 1,000 Unit Tab PO SCH (08:49)
[2017-03-26] MEDS: B.Bifidum/B.Longum/L.Acidophilus/L.Rhamnosus (Probiotic) Cap PO SCH (08:49)
[2017-03-26] MEDS: Phytonadione 100 MCG Tab PO SCH (08:50)
[2017-03-26 11:18] VITALS: BP 137/84
[2017-03-26] MEDS: Calcium Citrate/Vitamin D3 315 MG-250 Unit Tab PO SCH (11:18)
--- NOTE | 2017-03-27 08:08 | DISCH ---
FINAL DIAGNOSES: 1. Right lower lobe infiltrate with bibasilar atelectasis. Atelectasis remains, however, right lower lobe infiltrate considerable clinical resolvement, also normal on chest x-ray. 2. 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 She received 2 units packed red blood cells. Hemoglobin on discharge 10.1. 3. Nausea and vomiting. This has resolved. 4. Portal mesenteric venous hypertension with elevated LFTs and bilirubin. This has improved. She will continue with prednisone along with blood pressure medicines. 5. Iron overload. Iron is 183, range is 35 to 145, placed back on her Jadenu. Other chronic medical conditions include myelodysplastic syndrome; congestive heart failure, chronic; hypothyroidism; hypertension; insomnia; paroxysmal atrial fibrillation. HISTORY: This 81-year-old female who has been in and out of hospital recently and does have a long history of MDS requiring frequent blood transfusions due to her anemia. She is a resident of a long-term care center, which she was recently placed in the spring. Actually, she was at home at this time, and she was sitting outside in the hot sun, humidity. She came back in, and she was not feeling well. She did have a fever of 101+ when she came into the emergency room. Chest x-ray at that time did show an infiltrate to right lower lobe. She was started on antibiotics of Levaquin 500 mg, and she did not have any shortness of breath at that time. Patient's lab work on admission showed a white count of 5.6, hemoglobin 9.3, INR 3.1. Chemistry panel demonstrated BUN slightly elevated 26, AST 76, ALT 160, alkaline phosphatase 318. Troponins were negative. Low albumin at 2.9, lipase normal at 113, CK-MB was normal. UA showed few bacteria, trace of blood, some protein. Chest x-ray did report out bibasilar atelectasis with possible right base infiltrate. Again, she was started on Levaquin. She did receive 2 units of transfusion during this admission. HOSPITAL COURSE: Hospital course went well. She was given 500 mg IV Levaquin daily. She did receive 2 units of packed red blood cells. She will continue with oxygen. Her hemoglobin responded to 10.1 upon discharge. She did have some mild nausea and vomiting; however, this did improve with fluids and Zofran. Due to her elevated LFTs, those were repeated. They did trend those. She was continued with her steroids. For her congestive heart failure, the Lasix 40 mg every other day was given; however, she did receive an extra 20 mg after her first unit of blood. Other diagnostics: CT of the abdomen and pelvis performed did show portal mesenteric venous hypertension with development of moderate splenomegaly; however, no discrete liver abnormality, no liver lesions, no extrahepatic biliary obstruction. She did have some minimal periportal edema with some bilateral nephrosis with a bladder calculus. She continued to improve in her oxygenation and her cough. A repeat chest x-ray did not demonstrate any ailyn pneumonia. LABORATORY DATA ON DISCHARGE: White count 4.5, hematocrit 29.6, percent neutrophils 50%. INR slightly elevated at 2.7. Sodium, potassium, BUN, creatinine normal. We were trending liver functions. AST peaked at 59, it was 41 on discharge. ALT peaked at 125, it was trending down at 98 on discharge. Alkaline phosphatase peaked at 264, it was the same on discharge. Albumin 2.5. DISCHARGE MEDICATIONS: Levaquin 750 mg p.o. daily x5 days (newly added). The patient can continue on all other home medications including her prednisone. DISPOSITION: The patient will be discharged back to [facility]. She is to report any fever, any increase in weakness, or any increase in shortness of breath or cough. FOLLOW-UP RECOMMENDATIONS: Repeating liver functions AST, ALT, and alkaline phosphatase in 1 week. 64 minutes was spent on this discharge planning, process, and care coordination. /[id number]/MODL
== END 2017-03-26 11:35 | DRG 206 ==
LOC: KA.ED 17:28 → KA.MS 19:30
PROVIDERS: ADMIT Physician Assistant Medical; ATTEND Physician Assistant
PROC: 30233N1 Transfusion of Nonautologous Red Blood Cells into Peripheral Vein, Percutaneous Approach (ICD-10-PCS; principal; 2017-03-22)
DX: N30.00 Acute cystitis without hematuria (principal); R50.9 Fever, unspecified; R53.81 Other malaise; J98.11 Atelectasis; K76.6 Portal hypertension; R91.8 Other nonspecific abnormal finding of lung field; E83.111 Hemochromatosis due to repeated red blood cell transfusions; I50.9 Heart failure, unspecified; I48.0 Paroxysmal atrial fibrillation; D46.9 Myelodysplastic syndrome, unspecified; Z86.718 Personal history of other venous thrombosis and embolism; D63.8 Anemia in other chronic diseases classified elsewhere; R11.2 Nausea with vomiting, unspecified; E03.9 Hypothyroidism, unspecified; G47.00 Insomnia, unspecified; Z88.8 Allergy status to other drugs, medicaments and biological substances; Z79.899 Other long term (current) drug therapy; Z79.01 Long term (current) use of anticoagulants
CPT/HCPCS: 36415; 71010; 80053; 81001; 82550; 82553; 83690; 84484; 85025; 85610; 85730; 87040 ×2; 93005; 96361; 96374; 99285; A9270; J2405; J7030; 36430; 71020; 74177; 80048; 80076; 82962; 83540; 86850; 86900; 86901; 86920; 86922; 94640; 99284; J1940; J1956; P9016; Q9967

== ENCOUNTER 2017-11-12 16:33 | Observation (INO) | payer MEDICARE, BC ==
--- NOTE | 2017-11-12 17:14 | EDM.PDOC ---
ED HPI GENERAL MEDICAL PROBLEM - General Chief Complaint: General Stated Complaint: LOW HEMOGLOBIN Time Seen by Provider: 11/12/17 16:36 Source of Information: Reports: Patient, Family History Limitations: Reports: No Limitations - History of Present Illness INITIAL COMMENTS - FREE TEXT/NARRATIVE: Patient is an 82-year-old female who presents to the emergency department this afternoon from the [facility] with a complaint of low hemoglobin and weakness. Patient was found to have low level values this a.m. According to the correction nurses patient was hypotensive and they decided to transfer her to the emergency department. Patient has a chronic history of anemia and multiple transfusions. Patient denies chest pain, shortness of breath, headache , dizziness, nausea, vomiting, diarrhea, blood in stool or urine, or any recent falls. Onset: Gradual Severity: Mild Improves with: Reports: None Worsens with: Reports: None Associated Symptoms: Reports: No Other Symptoms - Related Data Allergies Allergy/AdvReac Type Severity Reaction Status Date / Time erythromycin base Allergy Severe Vomiting Verified 11/12/17 16:56 [Erythromycin Base] Penicillins Allergy Unknown Hives Verified 11/12/17 16:56 Sulfa (Sulfonamide Allergy Other Verified 11/12/17 16:56 Antibiotics) sulfamethoxazole Allergy Other Verified 11/12/17 16:56 [From Bactrim] trimethoprim [From Bactrim] Allergy Other Verified 11/12/17 16:56 lenalidomide [From Revlimid] AdvReac Mild Rash Verified 11/12/17 16:56 Home Meds: Home Meds Cholecalciferol (Vitamin D3) [Vitamin D3] 2,000 unit PO DAILY 08/28/13 [History] Cyanocobalamin (Vitamin B-12) [B-12 Dots] 500 mcg PO MOTUWETHFR@0800 08/28/13 [ History] Calcium Carbonate/Vitamin D3 [Calcium 600-Vit D3 400 Tablet] 1 tab PO BID@1200, 1800 08/02/15 [History] Mirtazapine [Remeron] 15 mg PO BEDTIME 12/30/15 [History] Phytonadione [Vitamin K] 100 mcg PO DAILY 12/30/15 [History] Pyridoxine HCl [Vitamin B-6] 100 mg PO DAILY 12/30/15 [History] Aspirin [Halfprin] 81 mg PO DAILY #90 tab.ec 01/04/17 [Rx] Lactobacillus Acidophilus [Acidophilus Lactobacillus] 1 cap PO DAILY 01/08/17 [ History] Levothyroxine Sodium [Synthroid] 125 mcg PO ACBREAKFAST 01/08/17 [History] Melatonin/Pyridoxine HCl (B6) [Melatonin 3 mg Tablet] 3 mg PO BEDTIME PRN [History] Furosemide [Lasix] 40 mg PO Q2D #0 01/11/17 [Rx] Potassium Chloride [Klor-Con M20] 10 meq PO Q2D #0 01/11/17 [Rx] Deferasirox [Jadenu] 1,000 mg PO DAILY@0600 02/03/17 [History] Pantoprazole Sodium [Protonix] 20 mg PO ACBREAKFAST 02/03/17 [History] Atropine/Diphenoxylate [Lomotil 0.025-2.5 MG] 1 tab PO TID PRN 02/21/17 [History ] Metoprolol Tartrate [Lopressor] 12.5 mg PO DAILY 02/21/17 [History] Warfarin [Coumadin] 7.5 mg PO MO@1800 02/21/17 [History] Polyvinyl Alcohol [Artificial Tears] 1 drop EYEBOTH TID PRN 03/22/17 [History] Warfarin [Coumadin] 5 mg PO SUTUWETHFRSA@1800 03/22/17 [History] predniSONE [Prednisone] 3 mg PO DAILY@1800 03/22/17 [History] prednisoLONE Acetate [Pred Forte 1% Ophth Susp] 1 drop EYEBOTH DAILY@0600 [History] Allopurinol [Zyloprim] 100 mg PO DAILY 07/23/17 [History] Denosumab [Prolia] 60 mg SUBCUT ASDIRECTED 07/23/17 [History] oxyCODONE 5 mg PO BID 07/23/17 [History] Past Medical History HEENT History: Reports: Cataract, Hard of Hearing, Impaired Vision, Sinusitis Cardiovascular History: Reports: Blood Clots/VTE/DVT, High Cholesterol, PVD, SOB on Exertion Respiratory History: Reports: Bronchitis, Recurrent, PE, Pneumonia, Recurrent, SOB Other Respiratory History: Chronic use of oxygen Gastrointestinal History: Reports: Bowel Obstruction, Chronic Diarrhea, Fecal Incontinence, GERD Genitourinary History: Reports: UTI, Recurrent [employer] History: Reports: Endometriosis, Musculoskeletal History: Reports: Back Pain, Chronic, Fibromyalgia, Other (See Below) Other Musculoskeletal History: POLYMYALGIA Neurological History: Reports: Vertigo Psychiatric History: Reports: None Endocrine/Metabolic History: Reports: Hypothyroidism, Osteopenia, Osteoporosis Hematologic History: Reports: Anemia, Blood Transfusion(s), Other (See Below) Other Hematologic History: Myelodysplastic Syndrome Immunologic History: Reports: None Oncologic (Cancer) History: Reports: None Dermatologic History: Reports: None - Infectious Disease History Infectious Disease History: Reports: Other (See Below) Other Infectious Disease History: Unable to assess. - Past Surgical History Head Surgeries/Procedures: Reports: None HEENT Surgical History: Reports: Adenoidectomy, Cataract Surgery, Tonsillectomy GI Surgical History: Reports: Appendectomy, Cholecystectomy, Colonoscopy, Other (See Below) Endocrine Surgical History: Reports: None Neurological Surgical History: Reports: None Oncologic Surgical History: Reports: None Social & Family History - Family History Family Medical History: Noncontributory HEENT: Reports: None Cardiac: Reports: None Respiratory: Reports: None GI: Reports: None : Reports: Other (See Below) OBGYN: Reports: None Musculoskeletal: Reports: None Neurological: Reports: None Psychiatric: Reports: None Endocrine/Metabolic: Reports: None Hematologic: Reports: None Immunologic: Reports: None Dermatologic: Reports: None Oncologic: Reports: Hodgkin's Lymphoma - Tobacco Use Smoking Status *Q: Never Smoker Second Hand Smoke Exposure: No - Caffeine Use Caffeine Use: Reports: Coffee - Alcohol Use Days Per Week of Alcohol Use: 0 - Recreational Drug Use Recreational Drug Use: No ED ROS GENERAL - Review of Systems Review Of Systems: ROS reveals no pertinent complaints other than HPI. Constitutional: Reports: Weakness HEENT: Reports: No Symptoms Respiratory: Reports: No Symptoms Cardiovascular: Reports: No Symptoms Endocrine: Reports: No Symptoms GI/Abdominal: Reports: No Symptoms : Reports: No Symptoms Musculoskeletal: Reports: No Symptoms Skin: Reports: No Symptoms Neurological: Reports: No Symptoms Psychiatric: Reports: No Symptoms Hematologic/Lymphatic: Reports: No Symptoms, Anemia Immunologic: Reports: No Symptoms ED EXAM, GENERAL - Physical Exam Exam: See Below Exam Limited By: No Limitations General Appearance: Alert, WD/WN, No Apparent Distress Eye Exam: Bilateral Eye: Normal Inspection Nose: Normal Inspection, Normal Mucosa, No Blood Throat/Mouth: Normal Inspection, Normal Oropharynx, No Airway Compromise Head: Atraumatic, Normocephalic Neck: Normal Inspection Respiratory/Chest: No Respiratory Distress, Lungs Clear, Normal Breath Sounds, No Accessory Muscle Use, Chest Non-Tender Cardiovascular: Regular Rate, Rhythm, Systolic Murmur GI/Abdominal: Normal Bowel Sounds, Soft, Non-Tender, No Organomegaly, No Distention, No Abnormal Bruit, No Mass Back Exam: Normal Inspection. No: CVA Tenderness (L), CVA Tenderness (R) Extremities: Normal Inspection, No Pedal Edema Neurological: Alert, Oriented, Normal Cognition Psychiatric: Normal Affect, Normal Mood Skin Exam: Warm, Dry, Intact, Normal Color, No Rash Lymphatic: No Adenopathy Course - Vital Signs Last Recorded V/S: Last Vital Signs Temp 98.6 F 11/12/17 16:57 Pulse 68 11/12/17 16:57 Resp 18 11/12/17 16:57 BP 121/49 L 11/12/17 16:57 Pulse Ox 86 L 11/12/17 16:57 - Orders/Labs/Meds Orders: Active Orders 24 hr Category Date Time Status CBC WITH AUTO DIFF [HEME] Stat Lab 11/12/17 17:02 Ordered COMPREHENSIVE METABOLIC PN,CMP [CHEM] Stat Lab 11/12/17 17:02 Ordered - Re-Assessments/Exams Free Text/Narrative Re-Assessment/Exam: 11/12/17 17:42 Patient afebrile, nontoxic appearing, vital signs stable, patient denies chest pain or shortness of breath. Family is at bedside. Discussed case with Dr. Daily and the need for transfusion. He felt the patient would be admitted for observation pending transfusion when available. Departure - Departure Time of Disposition: 17:43 Disposition: Refer to Observation Condition: Fair Clinical Impression: Anemia Qualifiers: Anemia type: unspecified type Qualified Code(s): D64.9 - Anemia, unspecified - Discharge Information Referrals: Siomara Mojica MD [Primary Care Provider] - Forms: ED Department Discharge - My Orders Last 24 Hours: My Active Orders 11/12/17 17:02 CBC WITH AUTO DIFF [HEME] Stat COMPREHENSIVE METABOLIC PN,CMP [CHEM] Stat - Assessment/Plan Last 24 Hours: My Active Orders 11/12/17 17:02 CBC WITH AUTO DIFF [HEME] Stat COMPREHENSIVE METABOLIC PN,CMP [CHEM] Stat Assessment:: Anemia Plan: Admitted for observation to Dr. Daily
[2017-11-12] MEDS ORDERED: Warfarin 5 MG Tab PO SCH (21:00)
[2017-11-12] MEDS ORDERED: Potassium Chloride 20 MEQ Tab.ER PO SCH (21:00)
[2017-11-12] MEDS ORDERED: Furosemide 40 MG Tab PO SCH (21:00)
[2017-11-12] MEDS ORDERED: Melatonin 3 MG Tab PO PRN (21:30)
[2017-11-12] MEDS: oxyCODONE 5 MG Tab PO SCH (21:53)
[2017-11-12] MEDS: Mirtazapine 15 MG Tab PO SCH (21:54)
[2017-11-12] MEDS: prednisoLONE Acetate 1% Ophth Susp 5 ML Bottle EYEBOTH SCH (21:57)
[2017-11-13] MEDS: oxyCODONE 5 MG Tab PO SCH ×3 (05:40→20:22)
[2017-11-13] MEDS ORDERED: Non-Formulary Medication 1 Each (Levothyroxine Sodium [Synthroid] 125 MCG) PO SCH (07:30)
[2017-11-13] MEDS: Levothyroxine 100 MCG Tab PO SCH (07:51)
[2017-11-13] MEDS: Omeprazole 20 MG Cap.CR PO SCH (07:51)
[2017-11-13] MEDS: Levothyroxine 25 MCG Tab PO SCH (07:51)
--- NOTE | 2017-11-13 08:00 | HP ---
11/12/2017PATIENT NAME: ERNESTO HARO PATIENT PROFILE: The patient is an 82-year-old patient from [place], [place], who presented to the emergency room this afternoon from the nursing facility and complained of low hemoglobin and weakness. The patient was found to have low levels of hemoglobin this morning. The patient's hemoglobin was found to be 5.8 and white count was 2.8. The patient does have a history of myelodysplastic syndrome and chronic anemia. 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 Previous history of coronary artery disease, congestive heart failure, and myocardial infarction. ALLERGIES: Penicillin, Bactrim, erythromycin, Revlimid. Family History: Nil significant. CURRENT MEDICATIONS: Include oxycodone IR 5 mg two times a day as necessary, acetaminophen 60 mg every 4 hours as necessary, allopurinol 100 mg one time a day, Exjade 500 mg tablets two tablets once a day, prednisolone acetate ophthalmic suspension one drop twice a day to both eyes, Artificial Tears on a p.r.n. basis, prednisone 2 mg daily, melatonin 3 mg at bedtime, Remeron 15 mg at bedtime, Protonix 20 mg daily, warfarin 5 mg once a day, levothyroxine 125 mcg daily, aspirin 81 mg daily, Lasix 40 every other day, potassium chloride 10 mEq every other day, lactobacillus probiotic one tab daily, vitamin K 100 mcg daily, pyridoxine 100 mg daily, calcium cholecalciferol 2000, vitamin D 2000 units daily, calcium with carbonate 600 mg of calcium and vitamin D 400 units daily. Prolia injections. SOCIAL/FAMILY HISTORY: Patient lives in town. Her daughter also lives in town. PAST SURGICAL HISTORY: Includes adenoidectomy, cataract surgery, tonsillectomy, appendectomy, cholecystectomy, colonoscopy. She also has had vertebroplasty. REVIEW OF SYSTEMS: HEAD AND NECK: No complaints. EYES: No complaints. EARS, NOSE, AND THROAT: No complaints. GENERAL: Complaints of weakness. CHEST: No complaints of chest pain. LUNGS: No complaints of breathing difficulty. ABDOMEN: No complaints. EXTREMITIES: Complaints of edema and aching. NEUROLOGICAL: No complaints. UROLOGICAL: No complaints. PHYSICAL EXAMINATION: GENERAL: Reveals a very pleasant, elderly patient, appears to be pale. VITAL SIGNS: As follow: Her height is 5 feet 4 inches, weight 140 pounds, temperature 98.6, pulse 89, blood pressure 127/94, oxygen saturation 95%. HEAD: Negative. EYES: Arcus senilis. Conjunctivae pale. EARS, NOSE, AND THROAT: Normal. NECK: Supple. Full range of motion. No midline swelling. LUNGS: Clinically clear to percussion and auscultation. HEART: Regular rhythm. No thrills, no murmurs. ABDOMEN: Soft. EXTREMITIES: Normal. NEUROLOGIC: Grossly intact. The patient does have edema of the lower extremities. FINAL DIAGNOSES: 1. Severe anemia caused from myelodysplastic syndrome. 2. Anemia is complicated by the development of antidotes. 3. Leukopenia. 4. Other medical history is positive for history of pulmonary embolism, history of DVT, history of varicose veins, history of left lower extremity ulcers, history of polymyalgia rheumatica, history of thoracic aortic aneurysm, history of acute lumbar pain due to compression fractures. 5. History of vertebroplasty. 6. History of neutropenia. 7. History of chronic fatigue. 8. History of ankle edema. 9. History of iron overload due to repeat red blood cell transfusion. 10.History of coronary artery disease. history of myocardial infarction. 11.History of combined systolic and diastolic heart failure. PLAN: Would be to admit this patient for observation and transfuse this patient. Unfortunately, her condition is complicated by the development of antidotes to packed cells, therefore the sample would have to be sent to [place] and an appropriate match would have to be obtained from [place]. We will also discuss with her about continuing the need for RBCs, if she wants to make a decision regarding ongoing care of anemia, etc. /[id number]/MODL MTDD
[2017-11-13] MEDS: Aspirin 81 MG Tab.EC PO SCH (08:17)
[2017-11-13] MEDS: Cyanocobalamin (Vitamin B12) 500 MCG Tab PO SCH (08:17)
[2017-11-13] MEDS: B.Bifidum/B.Longum/L.Acidophilus/L.Rhamnosus (Probiotic) Cap PO SCH (08:18)
[2017-11-13] MEDS: Allopurinol 100 MG Tab PO SCH (08:19)
[2017-11-13] MEDS: Cholecalciferol (Vitamin D3) 1,000 Unit Tab PO SCH (08:19)
[2017-11-13] MEDS: Phytonadione 100 MCG Tab PO SCH (08:19)
[2017-11-13] MEDS ORDERED: Furosemide 40 MG Tab PO SCH (09:00)
[2017-11-13] MEDS ORDERED: Potassium Chloride 20 MEQ Tab.ER PO SCH (09:00)
[2017-11-13] MEDS ORDERED: Potassium Chloride 10 MEQ Tab.ER PO SCH (09:16)
[2017-11-13] MEDS: Vitamin B6-pyridOXINE 50 MG Tab PO SCH (09:25)
[2017-11-13] MEDS: prednisoLONE Acetate 1% Ophth Susp 5 ML Bottle EYEBOTH SCH ×3 (09:28→20:24)
--- NOTE | 2017-11-13 10:19 | PCM.PN ---
- General Info Date of Service: 11/13/17 Functional Status: Reports: Pain Controlled, Tolerating Diet, Urinating, New Symptoms (Significant weakness). Denies: Ambulating - Review of Systems General: Reports: Weakness HEENT: Reports: No Symptoms Pulmonary: Reports: No Symptoms Cardiovascular: Reports: No Symptoms Gastrointestinal: Reports: No Symptoms Genitourinary: Reports: Incontinence (Incontinence at times) Musculoskeletal: Reports: No Symptoms Skin: Reports: Pallor Neurological: Reports: Pre-Existing Deficit, Difficulty Walking, Weakness, Gait Disturbance. Denies: Tremors, Change in Speech Psychiatric: Reports: No Symptoms - Patient Data Vitals - Most Recent: Last Vital Signs Temp 98.6 F 11/13/17 06:26 Pulse 76 11/13/17 06:26 Resp 18 11/13/17 06:26 BP 101/48 L 11/13/17 06:26 Pulse Ox 92 L 11/13/17 08:00 Weight - Most Recent: 140 lb 12.8 oz I&O - Last 24 Hours: Intake & Output 11/12/17 11/13/17 11/13/17 22:59 06:59 14:59 Intake Total 150 Balance 150 Lab Results Last 24 Hours: Laboratory Results - last 24 hr 11/13/17 Range/Units 07:40 PT TNP INR 2.0 H (0.9-1.1) Med Orders - Current: Current Medications Allopurinol (Zyloprim) 100 mg PO DAILY [facility] Last Admin: 11/13/17 08:19 Dose: 100 mg Aspirin (Halfprin) 81 mg PO DAILY [facility] Last Admin: 11/13/17 08:17 Dose: 81 mg Calcium Citrate (Calcium Citrate + D) 2 tab PO BID@1200,1800 [facility] Cholecalciferol (Vitamin D3) 2,000 units PO DAILY [facility] Last Admin: 11/13/17 08:19 Dose: 2,000 units Cyanocobalamin (Vitamin B12) 500 mcg PO MOTUWETHFR@0800 [facility] Last Admin: 11/13/17 08:17 Dose: 500 mcg Furosemide (Lasix) 40 mg PO Q2D [facility] Last Admin: 11/13/17 09:25 Dose: 40 mg Lactobacillus Acidophilus/Rhamnosus (Multi-Tianna Plus) 1 cap PO DAILY [facility] Last Admin: 11/13/17 08:18 Dose: 1 cap Levothyroxine Sodium (Synthroid) 100 mcg PO DAILY@0730 [facility] Last Admin: 11/13/17 07:51 Dose: 100 mcg Levothyroxine Sodium (Levothyroxine) 25 mcg PO DAILY@0730 [facility] Last Admin: 11/13/17 07:51 Dose: 25 mcg Melatonin (Melatonin) 3 mg PO BEDTIME PRN PRN Reason: INSOMNIA Mirtazapine (Remeron) 15 mg PO BEDTIME [facility] Last Admin: 11/12/17 21:54 Dose: 15 mg Non-FormJadenu 1 (,000 Mg) 1,000 mg PO DAILY@0600 [facility] Omeprazole (Omeprazole) 20 mg PO ACBREAKFAST [facility] Last Admin: 11/13/17 07:51 Dose: 20 mg Oxycodone HCl (Oxycodone) 5 mg PO BID [facility] Last Admin: 11/13/17 09:27 Dose: Not Given Phytonadione (Vitamin K) 100 mcg PO DAILY [facility] Last Admin: 11/13/17 08:19 Dose: 100 mcg Potassium Chloride (Klor-Con 10) 10 meq PO Q2D [facility] Last Admin: 11/13/17 09:26 Dose: 10 meq Prednisolone Acetate (Pred Forte 1% Ophth Susp) 0 ml EYEBOTH BID [facility] Last Admin: 11/13/17 09:28 Dose: Not Given Prednisone (Prednisone) 2 mg PO DAILY@1800 [facility] Pyridoxine HCl (Vitamin B6-Pyridoxine) 100 mg PO DAILY [facility] Last Admin: 11/13/17 09:25 Dose: 100 mg Warfarin Sodium (Coumadin) 2.5 mg PO Fr@1800 [facility] Warfarin Sodium (Coumadin) 5 mg PO SuMoTuWeThSa@1800 [facility] Last Admin: 11/12/17 21:57 Dose: Not Given Discontinued Medications Furosemide (Lasix) 40 mg PO Q2D [facility] Last Admin: 11/13/17 03:46 Dose: Not Given Potassium Chloride (Klor-Con M20) 10 meq PO Q2D [facility] Last Admin: 11/13/17 03:45 Dose: Not Given Potassium Chloride (Klor-Con M20) 10 meq PO Q2D [facility] - Exam Quality Assessment: No: Supplemental Oxygen General: Alert, Oriented, Cooperative, No Acute Distress Neck: Supple Lungs: Clear to Auscultation, Normal Respiratory Effort Cardiovascular: Regular Rate, Regular Rhythm GI/Abdominal Exam: No: No Distention (Female) Exam: Deferred Back Exam: No: CVA Tenderness (L), CVA Tenderness (R) Extremities: No Pedal Edema Neurological: No New Focal Deficit Psy/Mental Status: Alert, Normal Affect, Normal Mood - Problem List Review Problem List Initiated/Reviewed/Updated: Yes - Plan Plan:: HISTORY 82-year-old female was in admitted due to weakness due to significant anemia. She is a resident of a long-term care center presented to the ED for low hemoglobin 5.8 and overall profound weakness. Patient is being followed closely by hematology oncology for her myelodysplastic syndrome and chronic anemia and has been receiving multiple blood transfusions now with developing antibodies which delays necessitating blood transfusions in a timely manner. Diagnosis Anemia Generalized weakness Hypothyroidism MDS Hypertension HfpEF History of MA CAD HLD insomnia History of DVTs and PE GERD Renal insufficiency Polymalgia rheumatica. Depression GCA Lumbago with compression fractures Hx of iron overload Hx Gout PLAN: HEMATOLOGY: Refractory anemia due to myelodysplastic syndrome, Hgb/Hct 6.1/ 18.7 RBC 2.1, WBC 3.1 with eosinophilia, will require blood transfusion however with antibodies could delay. Transfuse 2 Units slowly continue with home loop diuretic PULMONARY: POX 92% room air, lungs CTA, currently on diuretic therapy CV: Stable combined congestive heart failure. Ejection fraction 75% with normal left ventricle size, hyperdynamic systolic function, and mild diastolic dysfunction Continue lasix, On chronic anticoagulation with con-conmittent vitamin K, history of PE/DVT, Cont with ASA, INR 2.0, FLUIDS, ELECTROLYTES, AND RENAL: All dehydration today, start gentle IV fluids , continue by mouth, sodium, calcium and potassium normal. BUN/creatinine ratio 26:1--slightly prerenal ENDOCRINE: Acquired hypothyroidism, on thyroid replacement therapy GI: No vomiting, tolerating by mouth, will add gentle IV fluids. PPI therapy INFECTIOUS DISEASE: Immunocompromised host, decreased WBC, on chronic steroids, no fever, infection, MAP adequate HEALTH MAINTENANCE: On PPI for GERD, anticoagulation, melatonin daily at bedtime OVERALL PLAN: Continue hospitalization due to weakness, IV fluids gentle, transfused 2 units packed red blood cells upon availability. Start discussion with possible hospice referral, will consult with [facility]'s credit risk review officer oncologist at some point for recommendations since patient is requiring more frequently multiple blood transfusions/blood products with difficulties with autoantibodies
[2017-11-13] MEDS: EXJADE 500 MG PO SCH (11:12)
[2017-11-13] MEDS: Calcium Citrate/Vitamin D3 315 MG-250 Unit Tab PO SCH ×2 (11:19→17:48)
[2017-11-13] MEDS ORDERED: Sodium Chloride 0.9% 500 ML IV SCH (12:15)
[2017-11-13] MEDS ORDERED: predniSONE 1 MG Tab PO SCH (18:00)
[2017-11-13] MEDS ORDERED: Warfarin 5 MG Tab PO SCH (19:00)
[2017-11-13] MEDS: Mirtazapine 15 MG Tab PO SCH (20:21)
[2017-11-14] MEDS: oxyCODONE 5 MG Tab PO SCH (06:05)
[2017-11-14] MEDS: EXJADE 500 MG PO SCH (06:06)
[2017-11-14 06:12] VITALS: BP 114/59
[2017-11-14] MEDS: Omeprazole 20 MG Cap.CR PO SCH (07:47)
[2017-11-14] MEDS: Levothyroxine 25 MCG Tab PO SCH (07:47)
[2017-11-14] MEDS: Levothyroxine 100 MCG Tab PO SCH (07:48)
[2017-11-14] MEDS: Cyanocobalamin (Vitamin B12) 500 MCG Tab PO SCH (07:49)
[2017-11-14] MEDS: Aspirin 81 MG Tab.EC PO SCH (09:58)
[2017-11-14] MEDS: Cholecalciferol (Vitamin D3) 1,000 Unit Tab PO SCH (09:59)
[2017-11-14] MEDS: Phytonadione 100 MCG Tab PO SCH (09:59)
[2017-11-14] MEDS: Vitamin B6-pyridOXINE 50 MG Tab PO SCH (10:00)
[2017-11-14] MEDS: B.Bifidum/B.Longum/L.Acidophilus/L.Rhamnosus (Probiotic) Cap PO SCH (10:00)
[2017-11-14] MEDS: Allopurinol 100 MG Tab PO SCH (10:00)
[2017-11-14] MEDS: prednisoLONE Acetate 1% Ophth Susp 5 ML Bottle EYEBOTH SCH (10:03)
[2017-11-14] MEDS ORDERED: oxyCODONE 5 MG Tab PO SCH (18:00)
[2017-11-15] MEDS ORDERED: Warfarin 2.5 MG Tab PO SCH (18:00)
== END 2017-11-14 11:00 ==
LOC: KA.ED 16:33 → KA.MS 17:44
PROVIDERS: ADMIT Physician Assistant Surgical; ATTEND Family Medicine
DX: D46.9 Myelodysplastic syndrome, unspecified (principal); E78.00 Pure hypercholesterolemia, unspecified; E03.9 Hypothyroidism, unspecified; F32.9 Major depressive disorder, single episode, unspecified; I25.10 Atherosclerotic heart disease of native coronary artery without angina pectoris; I11.0 Hypertensive heart disease with heart failure; I50.40 Unspecified combined systolic (congestive) and diastolic (congestive) heart failure; I25.2 Old myocardial infarction; Z86.711 Personal history of pulmonary embolism; Z88.0 Allergy status to penicillin; Z88.1 Allergy status to other antibiotic agents; Z88.8 Allergy status to other drugs, medicaments and biological substances; Z79.899 Other long term (current) drug therapy; Z79.01 Long term (current) use of anticoagulants; Z79.82 Long term (current) use of aspirin; Z86.718 Personal history of other venous thrombosis and embolism
CPT/HCPCS: 36415; 80053; 85025; 85610; 99284; 99285; A9270-GY; J7040

== ENCOUNTER 2017-11-20 21:32 | Inpatient (IN) | payer MEDICARE, BC ==
--- NOTE | 2017-11-20 21:35 | EDM.PDOC ---
ED HPI GENERAL MEDICAL PROBLEM - General Chief Complaint: General Stated Complaint: fever/nausea Time Seen by Provider: 11/20/17 21:34 Source of Information: Reports: Patient, Family, Long Term Records History Limitations: Reports: No Limitations - History of Present Illness INITIAL COMMENTS - FREE TEXT/NARRATIVE: 82 YO WF presents to ER complaining of generalized weakness with nausea/ vomiting which began tonight. Pt was seen in [place] yesterday by Dr Ashley Mojica for fever and diagnosed with UTI. Pt reports she took her first dose of antibiotics today but started to feel worse at dinner tonight. Pt had a documented 102.0 temp at skilled nursing tonight prompting ER visit. Pt denies chest pain but states she is chronically short of breath and on supplemental O2 at skilled nursing mostly all the time. Pt with history of chronic anemia due to Myelodysplastic disorder requiring weekly blood transfusions. Onset Date: 11/19/17 Duration: Day(s): (2) Location: Reports: Generalized Severity: Moderate Improves with: Reports: None Worsens with: Reports: None Associated Symptoms: Reports: Cough, Fever/Chills, Loss of Appetite, Malaise, Nausea/Vomiting, Shortness of Breath, Weakness. Denies: Chest Pain, cough w sputum, Diaphoresis, Headaches, Rash, Seizure, Syncope - Related Data Allergies Allergy/AdvReac Type Severity Reaction Status Date / Time erythromycin base Allergy Severe Vomiting Verified 11/20/17 21:35 [Erythromycin Base] Penicillins Allergy Unknown Hives Verified 11/20/17 21:35 Sulfa (Sulfonamide Allergy Other Verified 11/20/17 21:35 Antibiotics) sulfamethoxazole Allergy Other Verified 11/20/17 21:35 [From Bactrim] trimethoprim [From Bactrim] Allergy Other Verified 11/20/17 21:35 lenalidomide [From Revlimid] AdvReac Mild Rash Verified 11/20/17 21:35 Home Meds: Home Meds Cholecalciferol (Vitamin D3) [Vitamin D3] 2,000 unit PO DAILY 08/28/13 [History] Cyanocobalamin (Vitamin B-12) [B-12 Dots] 500 mcg PO MOTUWETHFR@0800 08/28/13 [ History] Calcium Carbonate/Vitamin D3 [Calcium 600-Vit D3 400 Tablet] 1 tab PO BID@1200, 1800 08/02/15 [History] Mirtazapine [Remeron] 15 mg PO BEDTIME 12/30/15 [History] Phytonadione [Vitamin K] 100 mcg PO DAILY 12/30/15 [History] Pyridoxine HCl [Vitamin B-6] 100 mg PO DAILY 12/30/15 [History] Aspirin [Halfprin] 81 mg PO DAILY #90 tab.ec 01/04/17 [Rx] Lactobacillus Acidophilus [Acidophilus Lactobacillus] 1 cap PO DAILY 01/08/17 [ History] Levothyroxine Sodium [Synthroid] 125 mcg PO ACBREAKFAST 01/08/17 [History] Melatonin/Pyridoxine HCl (B6) [Melatonin 3 mg Tablet] 3 mg PO BEDTIME PRN [History] Furosemide [Lasix] 40 mg PO Q2D #0 01/11/17 [Rx] Potassium Chloride [Klor-Con M20] 10 meq PO Q2D #0 01/11/17 [Rx] Deferasirox [Jadenu] 1,000 mg PO DAILY@0600 02/03/17 [History] Pantoprazole Sodium [Protonix] 20 mg PO ACBREAKFAST 02/03/17 [History] Warfarin [Coumadin] 5 mg PO SUMOTUWETHSA 03/22/17 [History] predniSONE [Prednisone] 2 mg PO DAILY@1800 03/22/17 [History] prednisoLONE Acetate [Pred Forte 1% Ophth Susp] 1 drop EYEBOTH BID 03/22/17 [ History] Allopurinol [Zyloprim] 100 mg PO DAILY 07/23/17 [History] Denosumab [Prolia] 60 mg SUBCUT ASDIRECTED 07/23/17 [History] oxyCODONE 5 mg PO BID 07/23/17 [History] Warfarin [Coumadin] 2.5 mg PO FR 11/12/17 [History] Past Medical History HEENT History: Reports: Cataract, Hard of Hearing, Impaired Vision, Sinusitis Cardiovascular History: Reports: Blood Clots/VTE/DVT, High Cholesterol, PVD, SOB on Exertion Respiratory History: Reports: Bronchitis, Recurrent, PE, Pneumonia, Recurrent, SOB Other Respiratory History: Chronic use of oxygen Gastrointestinal History: Reports: Bowel Obstruction, Chronic Diarrhea, Fecal Incontinence, GERD Genitourinary History: Reports: UTI, Recurrent SINGLE END SEWER History: Reports: Endometriosis, Musculoskeletal History: Reports: Back Pain, Chronic, Fibromyalgia, Other (See Below) Other Musculoskeletal History: POLYMYALGIA Neurological History: Reports: Vertigo Psychiatric History: Reports: Depression Endocrine/Metabolic History: Reports: Hypothyroidism, Osteopenia, Osteoporosis Hematologic History: Reports: Anemia, Blood Transfusion(s), Other (See Below) Other Hematologic History: Myelodysplastic Syndrome Immunologic History: Reports: None Oncologic (Cancer) History: Reports: None Dermatologic History: Reports: None - Infectious Disease History Infectious Disease History: Reports: Other (See Below) Other Infectious Disease History: Unable to assess. - Past Surgical History Head Surgeries/Procedures: Reports: None HEENT Surgical History: Reports: Adenoidectomy, Cataract Surgery, Tonsillectomy GI Surgical History: Reports: Appendectomy, Cholecystectomy, Colonoscopy, Other (See Below) Endocrine Surgical History: Reports: None Neurological Surgical History: Reports: None Oncologic Surgical History: Reports: None Social & Family History - Family History Family Medical History: Noncontributory HEENT: Reports: None Cardiac: Reports: None Respiratory: Reports: None GI: Reports: None : Reports: Other (See Below) OBGYN: Reports: None Musculoskeletal: Reports: None Neurological: Reports: None Psychiatric: Reports: None Endocrine/Metabolic: Reports: None Hematologic: Reports: None Immunologic: Reports: None Dermatologic: Reports: None Oncologic: Reports: Hodgkin's Lymphoma - Tobacco Use Smoking Status *Q: Never Smoker Second Hand Smoke Exposure: No - Caffeine Use Caffeine Use: Reports: Coffee, Tea - Alcohol Use Days Per Week of Alcohol Use: 0 - Recreational Drug Use Recreational Drug Use: No ED ROS GENERAL - Review of Systems Review Of Systems: See Below Constitutional: Reports: Fever, Chills, Malaise, Weakness HEENT: Reports: No Symptoms Respiratory: Reports: Shortness of Breath, Cough Cardiovascular: Reports: No Symptoms Endocrine: Reports: No Symptoms GI/Abdominal: Reports: Nausea, Vomiting : Reports: Frequency Musculoskeletal: Reports: No Symptoms Skin: Reports: No Symptoms Neurological: Reports: No Symptoms Psychiatric: Reports: No Symptoms Hematologic/Lymphatic: Reports: Anemia Immunologic: Reports: No Symptoms ED EXAM, GENERAL - Physical Exam Exam: See Below Exam Limited By: No Limitations General Appearance: Alert, WD/WN, No Apparent Distress Ears: Normal External Exam, Normal Canal, Hearing Grossly Normal, Normal TMs Ear Exam: Bilateral Ear: Auricle Normal, Canal Normal, TM normal Nose: Normal Inspection, Normal Mucosa, No Blood Throat/Mouth: Normal Inspection, Normal Lips, Normal Teeth, Normal Gums, Normal Oropharynx, Normal Voice, No Airway Compromise Head: Atraumatic, Normocephalic Neck: Normal Inspection, Supple, Non-Tender, Full Range of Motion Respiratory/Chest: No Respiratory Distress, Lungs Clear, Normal Breath Sounds, No Accessory Muscle Use, Chest Non-Tender Cardiovascular: Normal Peripheral Pulses, Regular Rate, Rhythm, No Edema, No Gallop, No JVD, No Rub, Systolic Murmur GI/Abdominal: Normal Bowel Sounds, Soft, Non-Tender, No Organomegaly, No Distention, No Abnormal Bruit, No Mass Back Exam: Normal Inspection, Full Range of Motion, NT Extremities: Normal Inspection, Normal Range of Motion, Non-Tender, No Pedal Edema, Normal Capillary Refill, Pedal Edema Neurological: Alert, Oriented, CN II-XII Intact, Normal Cognition, Normal Gait, Normal Reflexes, No Motor/Sensory Deficits Psychiatric: Normal Affect, Normal Mood Skin Exam: Warm, Dry, Intact, Normal Color, No Rash Lymphatic: No Adenopathy EKG INTERPRETATION EKG Date: 11/20/17 Time: 22:31 Rhythm: NSR Rate (Beats/Min): 89 Hastings: LAD-Left Hastings Deviation P-Wave: Present QRS: Normal ST-T: Normal QT: Normal Course - Vital Signs Last Recorded V/S: Last Vital Signs Temp 38.1 C 11/20/17 21:35 Pulse 94 11/20/17 21:35 Resp 24 H 11/20/17 21:35 BP 118/57 L 11/20/17 21:35 Pulse Ox 92 L 11/20/17 21:35 - Orders/Labs/Meds Orders: Active Orders 24 hr Category Date Time Status EKG Documentation Completion [RC] ASDIRECTED Care 11/20/17 21:48 Active Chest 1V Frontal [CR] Stat Exams 11/20/17 21:42 Ordered CULTURE BLOOD [BC] Stat Lab 11/20/17 21:36 Ordered CULTURE BLOOD [BC] Stat Lab 11/20/17 21:50 Received URINALYSIS W/MICROSCOPIC [UA W/MICROSCOPIC] [URIN] Stat Lab 11/20/17 21:35 Ordered Sodium Chloride 0.9% [Normal Saline] 1,000 ml Med 11/20/17 21:45 Active IV ASDIRECTED Blood Culture x2 Reflex Set [OM.PC] Stat Oth 11/20/17 21:35 Ordered EKG 12 Lead [EK] Routine Ther 11/20/17 21:47 Ordered Medication Orders Sodium Chloride (Normal Saline) 1,000 mls @ 150 mls/hr IV ASDIRECTED ELVIS Last Admin: 11/20/17 22:08 Dose: 150 mls/hr Labs: Laboratory Tests 11/20/17 11/20/17 11/20/17 Range/Units 21:50 21:50 21:50 WBC 5.4 (5.0-10.0) 10^3/uL RBC 2.22 L (3.80-5.50) 10^6/uL Hgb 6.3 L* (12.0-16.0) g/dL Hct 19.3 L* (37.0-47.0) % MCV 86.7 (82.0-92.0) fL MCH 28.5 (27.0-31.0) pg MCHC 32.9 (32.0-36.0) g/dL RDW 15.2 H (11.5-14.5) % Plt Count 170 (150-300) 10^3/uL MPV 9.6 (7.4-10.4) fL Neut % (Auto) 86.9 H (50.0-70.0) % Lymph % (Auto) 9.0 L (20.0-40.0) % Adams % (Auto) 1.1 L (2.0-8.0) % Eos % (Auto) 2.9 (1.0-3.0) % Baso % (Auto) 0.1 (0.0-1.0) % Neut # (Auto) 4.6 (2.5-7.0) 10^3/uL Lymph # (Auto) 0.5 L (1.0-4.0) 10^3/uL Adams # (Auto) 0.1 (0.1-0.8) 10^3/uL Eos # (Auto) 0.2 (0.1-0.3) 10^3/uL Baso # (Auto) 0.0 (0.0-0.1) 10^3/uL Sodium 144 (136-145) mmol/L Potassium 3.5 (3.3-5.3) mmol/L Chloride 107 (98-115) mmol/L Carbon Dioxide 25.2 (21.0-32.0) mmol/L BUN 29 H (6-25) mg/dL Creatinine 1.20 H (0.51-1.17) mg/dL Est Cr Clr Drug Dosing 30.67 mL/min Estimated GFR (MDRD) 43 mL/min Glucose 148 H (70-110) mg/dL Lactic Acid 1.6 (0.4-2.0) mmol/L Calcium 8.6 L (8.7-10.3) mg/dL Total Bilirubin 0.9 (0.2-1.0) mg/dL AST 24 (15-37) U/L ALT 39 (12-78) U/L Alkaline Phosphatase 71 (46-116) IU/L Creatine Kinase (26-276) U/L CK-MB (CK-2) (0.00-4.30) ng/mL Troponin I (0.00-0.070) ng/mL B-Natriuretic Peptide (0-100) pg/mL Total Protein 6.0 L (6.4-8.2) g/dL Albumin 3.17 (3.00-4.80) g/dL 11/20/17 Range/Units 21:50 WBC (5.0-10.0) 10^3/uL RBC (3.80-5.50) 10^6/uL Hgb (12.0-16.0) g/dL Hct (37.0-47.0) % MCV (82.0-92.0) fL MCH (27.0-31.0) pg MCHC (32.0-36.0) g/dL RDW (11.5-14.5) % Plt Count (150-300) 10^3/uL MPV (7.4-10.4) fL Neut % (Auto) (50.0-70.0) % Lymph % (Auto) (20.0-40.0) % Adams % (Auto) (2.0-8.0) % Eos % (Auto) (1.0-3.0) % Baso % (Auto) (0.0-1.0) % Neut # (Auto) (2.5-7.0) 10^3/uL Lymph # (Auto) (1.0-4.0) 10^3/uL Adams # (Auto) (0.1-0.8) 10^3/uL Eos # (Auto) (0.1-0.3) 10^3/uL Baso # (Auto) (0.0-0.1) 10^3/uL Sodium (136-145) mmol/L Potassium (3.3-5.3) mmol/L Chloride (98-115) mmol/L Carbon Dioxide (21.0-32.0) mmol/L BUN (6-25) mg/dL Creatinine (0.51-1.17) mg/dL Est Cr Clr Drug Dosing mL/min Estimated GFR (MDRD) mL/min Glucose (70-110) mg/dL Lactic Acid (0.4-2.0) mmol/L Calcium (8.7-10.3) mg/dL Total Bilirubin (0.2-1.0) mg/dL AST (15-37) U/L ALT (12-78) U/L Alkaline Phosphatase (46-116) IU/L Creatine Kinase 19 L (26-276) U/L CK-MB (CK-2) 0.30 (0.00-4.30) ng/mL Troponin I 0.10 H* (0.00-0.070) ng/mL B-Natriuretic Peptide 487 H (0-100) pg/mL Total Protein (6.4-8.2) g/dL Albumin (3.00-4.80) g/dL Meds: Medications Generic Name Dose Route Start Last Admin Trade Name Freq PRN Reason Stop Dose Admin Sodium Chloride 1,000 mls @ 150 mls/hr 11/20/17 21:45 11/20/17 22:08 Normal Saline IV 150 mls/hr ASDIRECTED ELVIS Administration - Radiology Interpretation Free Text/Narrative:: CXR- NAD Departure - Departure Time of Disposition: 23:04 Disposition: Admitted As Inpatient 65 Condition: Poor Clinical Impression: UTI, Urinary tract infectious disease, Elevated troponin I level, Renal insufficiency, mild Anemia Qualifiers: Anemia type: other cause - Discharge Information Referrals: Siomara Mojica MD [Primary Care Provider] - Forms: ED Department Discharge - My Orders Last 24 Hours: My Active Orders 11/20/17 21:35 URINALYSIS W/MICROSCOPIC [UA W/MICROSCOPIC] [URIN] Stat Blood Culture x2 Reflex Set [OM.PC] Stat 11/20/17 21:36 CULTURE BLOOD [BC] Stat 11/20/17 21:42 Chest 1V Frontal [CR] Stat 11/20/17 21:45 Sodium Chloride 0.9% [Normal Saline] 1,000 ml IV ASDIRECTED 11/20/17 21:47 EKG 12 Lead [EK] Routine 11/20/17 21:48 EKG Documentation Completion [RC] ASDIRECTED 11/20/17 21:50 CULTURE BLOOD [BC] Stat - Assessment/Plan Last 24 Hours: My Active Orders 11/20/17 21:35 URINALYSIS W/MICROSCOPIC [UA W/MICROSCOPIC] [URIN] Stat Blood Culture x2 Reflex Set [OM.PC] Stat 11/20/17 21:36 CULTURE BLOOD [BC] Stat 11/20/17 21:42 Chest 1V Frontal [CR] Stat 11/20/17 21:45 Sodium Chloride 0.9% [Normal Saline] 1,000 ml IV ASDIRECTED 11/20/17 21:47 EKG 12 Lead [EK] Routine 11/20/17 21:48 EKG Documentation Completion [RC] ASDIRECTED 11/20/17 21:50 CULTURE BLOOD [BC] Stat Assessment:: 1. Profound Anemia 2. Urinary tract infection 3. Elevated/Equivocal trop I 4. Renal insufficiency Plan: 1. Admit to Dr Mojica 2. levaquin 500mg IV QD 3. traNSFUSE 2 units PRBC 4. supportive care 5. serial trop I
[2017-11-20] MEDS ORDERED: Sodium Chloride 0.9% 1,000 ML IV SCH (21:45)
[2017-11-20] MEDS ORDERED: Sodium Chloride 0.9% 5 ML Syringe FLUSH PRN (22:58)
[2017-11-20] MEDS ORDERED: Ondansetron 4 MG/2 ML SDV IV PRN (22:58)
[2017-11-20] MEDS ORDERED: Acetaminophen 325 MG Tab PO PRN (22:58)
[2017-11-20] MEDS ORDERED: Levofloxacin/Dextrose 5%-Water 500 MG in Premix Bag 1 BAG IV ONE (23:02)
[2017-11-20] MEDS: Sodium Chloride 0.9% 1,000 ML IV SCH (23:51)
[2017-11-21] MEDS: Sodium Chloride 0.9% 1,000 ML IV SCH ×2 (06:02→15:32)
--- NOTE | 2017-11-21 10:44 | PCM.HP ---
H&P History of Present Illness - General Date of Service: 11/21/17 Admit Problem/Dx: Admission Diagnosis/Problem Admission Diagnosis/Problem Urinary tract infection Source of Information: Patient, Old Records, RN History Limitations: Reports: No Limitations Right Feet Pain Score (Numeric/FACES): 3 - Related Data Allergies/Adverse Reactions: Allergies Allergy/AdvReac Type Severity Reaction Status Date / Time erythromycin base Allergy Severe Vomiting Verified 11/20/17 21:35 [Erythromycin Base] Penicillins Allergy Unknown Hives Verified 11/20/17 21:35 Sulfa (Sulfonamide Allergy Other Verified 11/20/17 21:35 Antibiotics) sulfamethoxazole Allergy Other Verified 11/20/17 21:35 [From Bactrim] trimethoprim [From Bactrim] Allergy Other Verified 11/20/17 21:35 lenalidomide [From Revlimid] AdvReac Mild Rash Verified 11/20/17 21:35 Home Medications: Home Meds Cholecalciferol (Vitamin D3) [Vitamin D3] 2,000 unit PO DAILY 08/28/13 [History] Cyanocobalamin (Vitamin B-12) [B-12 Dots] 500 mcg PO MOTUWETHFR@0800 08/28/13 [ History] Calcium Carbonate/Vitamin D3 [Calcium 600-Vit D3 400 Tablet] 1 tab PO BID@1200, 1800 08/02/15 [History] Mirtazapine [Remeron] 15 mg PO BEDTIME 12/30/15 [History] Phytonadione [Vitamin K] 100 mcg PO DAILY 12/30/15 [History] Pyridoxine HCl [Vitamin B-6] 100 mg PO DAILY 12/30/15 [History] Aspirin [Halfprin] 81 mg PO DAILY #90 tab.ec 01/04/17 [Rx] Lactobacillus Acidophilus [Acidophilus Lactobacillus] 1 cap PO DAILY 01/08/17 [ History] Levothyroxine Sodium [Synthroid] 125 mcg PO ACBREAKFAST 01/08/17 [History] Melatonin/Pyridoxine HCl (B6) [Melatonin 3 mg Tablet] 3 mg PO BEDTIME PRN [History] Pantoprazole Sodium [Protonix] 20 mg PO ACBREAKFAST 02/03/17 [History] Warfarin [Coumadin] 5 mg PO SUMOTUWETHSA@1800 03/22/17 [History] predniSONE [Prednisone] 2 mg PO DAILY@1800 03/22/17 [History] prednisoLONE Acetate [Pred Forte 1% Ophth Susp] 1 drop EYEBOTH BID 03/22/17 [ History] Allopurinol [Zyloprim] 100 mg PO DAILY 07/23/17 [History] Denosumab [Prolia] 60 mg SUBCUT ASDIRECTED 07/23/17 [History] oxyCODONE 5 mg PO BID 07/23/17 [History] Warfarin [Coumadin] 2.5 mg PO FR@1800 11/12/17 [History] Acetaminophen 650 mg PO Q4H PRN 11/21/17 [History] Cephalexin 500 mg PO BID 11/21/17 [History] Deferasirox [Exjade] 1,000 mg PO DAILY@0600 11/21/17 [History] Furosemide [Lasix] 40 mg PO Q48H 11/21/17 [History] Potassium Chloride [Klor-Con M20] 10 meq PO Q48H 11/21/17 [History] Urea [Urea] 1 applic TOP DAILY 11/21/17 [History] Past Medical History HEENT History: Reports: Cataract, Hard of Hearing, Impaired Vision, Sinusitis Cardiovascular History: Reports: Blood Clots/VTE/DVT, Heart Murmur, High Cholesterol, PVD, SOB on Exertion, Other (See Below) Other Cardiovascular History: on coumadin Respiratory History: Reports: Bronchitis, Recurrent, PE, Pneumonia, Recurrent, SOB Other Respiratory History: Chronic use of oxygen Gastrointestinal History: Reports: Bowel Obstruction, Chronic Diarrhea, Fecal Incontinence, GERD Genitourinary History: Reports: UTI, Recurrent, Other (See Below) Other Genitourinary History: currnet dx of uti [employer] History: Reports: Endometriosis, Musculoskeletal History: Reports: Back Pain, Chronic, Fibromyalgia, Other (See Below) Other Musculoskeletal History: POLYMYALGIA Neurological History: Reports: Vertigo Psychiatric History: Reports: Depression Endocrine/Metabolic History: Reports: Hypothyroidism, Osteopenia, Osteoporosis Hematologic History: Reports: Anemia, Anticoagulation Therapy, Blood Transfusion (s), Other (See Below) Other Hematologic History: Myelodysplastic Syndrome Immunologic History: Reports: None Oncologic (Cancer) History: Reports: None Dermatologic History: Reports: None - Infectious Disease History Infectious Disease History: Reports: Chicken Pox Other Infectious Disease History: Unable to assess. - Past Surgical History Head Surgeries/Procedures: Reports: None HEENT Surgical History: Reports: Adenoidectomy, Cataract Surgery, Tonsillectomy GI Surgical History: Reports: Appendectomy, Cholecystectomy, Colonoscopy, Other (See Below) Endocrine Surgical History: Reports: None Neurological Surgical History: Reports: None Oncologic Surgical History: Reports: None Social & Family History - Family History Family Medical History: Noncontributory HEENT: Reports: None Cardiac: Reports: None Respiratory: Reports: None GI: Reports: None : Reports: Other (See Below) OBGYN: Reports: None Musculoskeletal: Reports: None Neurological: Reports: None Psychiatric: Reports: None Endocrine/Metabolic: Reports: None Hematologic: Reports: None Immunologic: Reports: None Dermatologic: Reports: None Oncologic: Reports: Hodgkin's Lymphoma - Tobacco Use Smoking Status *Q: Never Smoker Second Hand Smoke Exposure: No - Caffeine Use Caffeine Use: Reports: Coffee, Tea - Alcohol Use Days Per Week of Alcohol Use: 0 - Recreational Drug Use Recreational Drug Use: No H&P Review of Systems - Review of Systems: Review Of Systems: See Below General: Reports: Fever, Malaise, Weakness, Fatigue, Diaphoresis HEENT: Reports: No Symptoms Pulmonary: Reports: Shortness of Breath ([place] shortness of breath, on home oxygen). Denies: Cough Cardiovascular: Denies: Chest Pain, Palpitations, Orthopnea, PND, Edema, Syncope Gastrointestinal: Reports: No Symptoms Genitourinary: Reports: No Symptoms Musculoskeletal: Reports: No Symptoms Skin: Reports: Bruising Psychiatric: Denies: Confusion, Depression Neurological: Reports: Pre-Existing Deficit, Difficulty Walking, Weakness, Gait Disturbance. Denies: Confusion, Dizziness Hematologic/Lymphatic: Reports: Anemia, Easy Bleeding Immunologic: Reports: Other (Significant allergies) Exam - Exam Exam: See Below - Vital Signs Vital Signs: Last Vital Signs Temp 99.5 F 11/21/17 05:54 Pulse 84 11/21/17 05:54 Resp 22 H 11/21/17 05:54 BP 115/67 11/21/17 05:54 Pulse Ox 95 11/21/17 05:54 Weight: 140 lb - Exam Quality Assessment: Supplemental Oxygen (Pox 95% on 3 L nasal cannula). No: Urinary Catheter General: Alert, Oriented, Cooperative, Lethargic HEENT: Hearing Intact, Other (Dry mucous membranes). No: Mucosa Moist & [place] Neck: No: JVD Lungs: Clear to Auscultation, Normal Respiratory Effort. No: Crackles, Rales Cardiovascular: Regular Rate, Regular Rhythm, Normal S1, Normal S2, Systolic Murmur GI/Abdominal Exam: Normal Bowel Sounds, Soft. No: Distended Rectal (Female) Exam: Deferred Back Exam: No: CVA Tenderness (L), CVA Tenderness (R) Extremities: No: Pedal Edema Skin: Warm, Dry, Intact Neurological: Normal Speech Neuro Extensive - Mental Status: Alert, Oriented x3, Normal Mood/Affect Neuro Extensive - Motor, Sensory, Reflexes: CN II-XII Intact Psychiatric: Alert, Normal Affect, Normal Mood - Patient Data Lab Results Last 24 hrs: Laboratory Results - last 24 hr 11/21/17 11/21/17 Range/Units 06:15 06:15 PT 18.5 H D (8.9-11.4) SEC INR 1.8 H (0.9-1.1) Troponin I 0.10 H* (0.00-0.070) ng/mL Result Diagrams: 11/23/17 08:00 11/23/17 16:15 *Q Meaningful Use (ADM) - VTE *Q VTE Criteria *Q: - Stroke *Q Stroke Criteria *Q: - AMI *Q AMI Criteria *Q: Problem List Initiated/Reviewed/Updated: Yes Orders Last 24hrs: Active Orders 24 hr Category Date Time Status Patient Status [ADT] Routine ADT 11/20/17 22:58 Ordered Oxygen Therapy [RC] QSHIFT Care 11/20/17 22:58 Active Up With Assistance [RC] DAILY Care 11/20/17 22:58 Active Vital Signs [RC] 0300,0700,1100,1500,1900,2300 Care 11/20/17 22:58 Active 2 Gram Sodium Diet [DIET] Diet 11/21/17 Breakfast Active CULTURE URINE [RM] Stat Lab 11/20/17 22:35 Received Acetaminophen [Tylenol] Med 11/20/17 22:58 Active 650 mg PO Q4H PRN Ondansetron [Zofran] Med 11/20/17 22:58 Active 4 mg IV Q6H PRN Sodium Chloride 0.9% [Normal Saline] 1,000 ml Med 11/20/17 23:00 Active IV ASDIRECTED Sodium Chloride 0.9% [Syrex Flush] Med 11/20/17 22:58 Active 5 ml FLUSH Q8HR PRN Peripheral IV Insertion Adult [OM.PC] Routine Oth 11/20/17 22:58 Ordered Resuscitation Status Routine Resus Stat 11/20/17 22:58 Ordered Medication Orders Acetaminophen (Tylenol) 650 mg PO Q4H PRN PRN Reason: Pain (Mild 1-3)/fever Sodium Chloride (Normal Saline) 1,000 mls @ 100 mls/hr IV ASDIRECTED [facility] Last Admin: 11/21/17 06:02 Dose: 100 mls/hr Infusion: 11/21/17 06:02 Dose: 100 mls/hr Admin: 11/20/17 23:51 Dose: 100 mls/hr Ondansetron HCl (Zofran) 4 mg IV Q6H PRN PRN Reason: Nausea/Vomiting Last Admin: 11/21/17 08:52 Dose: 4 mg Sodium Chloride (Syrex Flush) 5 ml FLUSH Q8HR PRN PRN Reason: Keep Vein Open Assessment/Plan Comment:: HISTORY OF PRESENT ILLNESS 82 YO WF who is a resident of a long-term care center was admitted last night through the ED complaining of generalized weakness with nausea/vomiting which began earlier that evening. She was diagnosed yesterday with UTI after she had developed a fever. She was placed on antibiotics however the patient stated after she ate she started feeling quite worse. Temp at [place] documented 102.0. In the ED she denied any chest pain although her troponin was slightly elevated. Pt with history of chronic anemia due to Myelodysplastic disorder followed closely by hematology oncology requiring frequent weekly blood transfusions and has subsequently developed antibiotics. Hospice was entertained however the family has up to this point refused. She was given Levaquin and orders for transfusion Received 1 unit packed red blood cells on November 16 Pertinent ED findings Hemoglobin 6.3 Elevated cardio biomarkers UTI Update, patient required further workup interventions after admission to the floor from the ED such as medication review and reconciliation, workup for possible delayed blood transfusion reaction Hospital Diagnosis Anemia Urinary tract infection Profound weakness Questionable delayed immune-mediated transfusion reaction Chronic medical conditions Hypothyroidism MDS Hypertension HFpEF History of DE CAD HLD insomnia History of DVTs and PE GERD Renal insufficiency Polymalgia rheumatica. Depression GCA Lumbago with compression fractures Hx of iron overload Hx Gout PLAN: HEMATOLOGY: Refractory anemia due to myelodysplastic syndrome, Hgb/Hct 6.3/ 19.3 RBC 2.2, WBC 5.4 with neutrophilia, Questionable delayed immune mediated transfusing reaction--specially since receiving incompatibility/developing antibodies, order haptoglobin/Retic today will require blood transfusion specially in the settings of elevated cardio biomarkers--however with antibodies could delay transfusion. Currently hospital has standing orders from oncologist regarding transfusions PULMONARY: POX 95% to L/NC lungs CTA, CV: Troponin slightly elevated, likely reciprocal/inflammatory however likely no intervention since denies CP, EKG NSR with older inferior lead changes, Stable combined congestive heart failure. Ejection fraction 75% with normal left ventricle size, hyperdynamic systolic function, and mild diastolic dysfunction gentle balance between diuretics and fluids as she is dehydrated today, On chronic anticoagulation with con-conmittent vitamin K, history of PE/ DVT, Cont with ASA, INR 1.8, FLUIDS, ELECTROLYTES, AND RENAL: Exam demonstrates prerenal condition BUN/ creatinine ratio 24:1 continue IV fluids for now, reduce this evening. gentle IV fluids, oral intake down due to nausea, sodium, poassium normal. Calcium 8.6 ENDOCRINE: Acquired hypothyroidism, on thyroid replacement therapy GI: No vomiting, however nausea, Zofran, IV fluids. PPI therapy, slow fluids down tonight INFECTIOUS DISEASE: Immunocompromised host, UTI symptoms, continue renal-dose Levaquin decreased WBC, on chronic steroids, fever improving, MAP adequate. On probiotic HEALTH MAINTENANCE: On PPI for GERD, anticoagulation, melatonin daily at bedtime CODE STATUS, DO NOT RESUSCITATE, has refused hospice referral previous admission OVERALL PLAN: Continue inpatient stay, transfusion upon hospital availability, change fluids rate tonight, IV antibiotics, patient DNR status, add haptoglobin/ reticulocyte count, may need work-up for possible delay transfusion reaction
[2017-11-21] MEDS: DEFERASIROX PO SCH (11:16)
[2017-11-21] MEDS ORDERED: Sodium Chloride 0.9% 250 ML IV ONE (11:30)
[2017-11-21] MEDS: Cholecalciferol (Vitamin D3) 1,000 Unit Tab PO SCH (12:25)
[2017-11-21] MEDS: oxyCODONE 5 MG Tab PO SCH ×2 (12:26→20:31)
[2017-11-21] MEDS: Aspirin 81 MG Tab.EC PO SCH (12:27)
[2017-11-21] MEDS: Allopurinol 100 MG Tab PO SCH (12:27)
[2017-11-21] MEDS: Phytonadione 100 MCG Tab PO SCH (12:28)
[2017-11-21] MEDS: Cyanocobalamin (Vitamin B12) 500 MCG Tab PO SCH (12:28)
[2017-11-21] MEDS: Omeprazole 20 MG Cap.CR PO SCH (12:28)
[2017-11-21] MEDS: B.Bifidum/B.Longum/L.Acidophilus/L.Rhamnosus (Probiotic) Cap PO SCH (12:29)
[2017-11-21] MEDS: Calcium Citrate/Vitamin D3 315 MG-250 Unit Tab PO SCH ×2 (12:29→17:41)
[2017-11-21] MEDS: Levothyroxine 50 MCG Tab PO SCH (12:41)
[2017-11-21] MEDS: Vitamin B6-pyridOXINE 50 MG Tab PO SCH (12:42)
[2017-11-21] MEDS: prednisoLONE Acetate 1% Ophth Susp 5 ML Bottle EYEBOTH SCH ×2 (12:43→20:32)
[2017-11-21] MEDS: Levofloxacin/Dextrose 5%-Water 50 ML IV SCH (16:13)
[2017-11-21] MEDS: predniSONE 1 MG Tab PO SCH (17:42)
[2017-11-21] MEDS: Warfarin 5 MG Tab PO SCH (17:42)
[2017-11-21] MEDS ORDERED: Sodium Chloride 0.9% 1,000 ML IV SCH (20:00)
[2017-11-21] MEDS: Mirtazapine 15 MG Tab PO SCH (20:31)
[2017-11-22] MEDS: DEFERASIROX PO SCH (06:01)
[2017-11-22] MEDS: Levothyroxine 50 MCG Tab PO SCH (07:40)
[2017-11-22] MEDS: Omeprazole 20 MG Cap.CR PO SCH (07:42)
[2017-11-22] MEDS: Cyanocobalamin (Vitamin B12) 500 MCG Tab PO SCH (08:06)
[2017-11-22] MEDS: Aspirin 81 MG Tab.EC PO SCH (08:06)
[2017-11-22] MEDS: B.Bifidum/B.Longum/L.Acidophilus/L.Rhamnosus (Probiotic) Cap PO SCH (08:07)
[2017-11-22] MEDS: Allopurinol 100 MG Tab PO SCH (08:07)
[2017-11-22] MEDS: Cholecalciferol (Vitamin D3) 1,000 Unit Tab PO SCH (08:07)
[2017-11-22] MEDS: prednisoLONE Acetate 1% Ophth Susp 5 ML Bottle EYEBOTH SCH ×2 (08:08→20:46)
[2017-11-22] MEDS: Phytonadione 100 MCG Tab PO SCH (08:08)
[2017-11-22] MEDS: Vitamin B6-pyridOXINE 50 MG Tab PO SCH (08:08)
[2017-11-22] MEDS: oxyCODONE 5 MG Tab PO SCH ×2 (08:09→20:47)
[2017-11-22] MEDS ORDERED: Sodium Chloride 0.9% 5 ML Syringe FLUSH PRN (10:39)
--- NOTE | 2017-11-22 10:42 | PCM.PN ---
- General Info Date of Service: 11/22/17 Functional Status: Reports: Tolerating Diet. Denies: New Symptoms - Review of Systems General: Reports: Weakness HEENT: Reports: No Symptoms Pulmonary: Reports: Shortness of Breath (Chronic shortness of breath). Denies: Cough, Sputum, Wheezing Cardiovascular: Denies: Chest Pain, Palpitations, Orthopnea, Edema Gastrointestinal: Reports: No Symptoms Genitourinary: Reports: No Symptoms Skin: Reports: Pallor Neurological: Reports: Weakness, Gait Disturbance. Denies: Dizziness, Pre- Existing Deficit, Change in Speech Psychiatric: Reports: Mood Lability - Patient Data Vitals - Most Recent: Last Vital Signs Temp 99.0 F 11/22/17 06:29 Pulse 82 11/22/17 06:29 Resp 20 11/22/17 06:29 BP 95/50 L 11/22/17 06:29 Pulse Ox 91 L 11/22/17 06:29 Weight - Most Recent: 145 lb 4.8 oz I&O - Last 24 Hours: Intake & Output 11/21/17 11/22/17 11/22/17 22:59 06:59 14:59 Intake Total 1251 360 Output Total 600 350 Balance 651 10 Lab Results Last 24 Hours: Laboratory Results - last 24 hr 11/21/17 11/21/17 Range/Units 06:15 06:15 Absolute Retic 0.0159 L (0.0200-0.1000) Percent Retic 0.7 (0.3-2.2) % Haptoglobin 139 (44-215) mg/dL Med Orders - Current: Current Medications Acetaminophen (Tylenol) 650 mg PO Q4H PRN PRN Reason: Pain Allopurinol (Zyloprim) 100 mg PO DAILY [facility] Last Admin: 11/22/17 08:07 Dose: 100 mg Aspirin (Halfprin) 81 mg PO DAILY [facility] Last Admin: 11/22/17 08:06 Dose: 81 mg Calcium Citrate (Calcium Citrate + D) 2 tab PO BID@1200,1800 [facility] Last Admin: 11/21/17 17:41 Dose: 1 tab Cholecalciferol (Vitamin D3) 2,000 units PO DAILY [facility] Last Admin: 11/22/17 08:07 Dose: 2,000 units Cyanocobalamin (Vitamin B12) 500 mcg PO MOTUWETHFR@0800 [facility] Last Admin: 11/22/17 08:06 Dose: 500 mcg Sodium Chloride (Normal Saline) 1,000 mls @ 100 mls/hr IV ASDIRECTED [facility] Last Admin: 11/21/17 15:32 Dose: 100 mls/hr Sodium Chloride (Normal Saline) 1,000 mls @ 40 mls/hr IV ASDIRECTED [facility] Last Admin: 11/21/17 20:04 Dose: 40 mls/hr Levofloxacin/Dextrose (Levaquin In D5w 250 Mg/50 Ml) 50 mls @ 50 mls/hr IV Q24H [facility] Last Admin: 11/21/17 16:13 Dose: 50 mls/hr Lactobacillus Acidophilus/Rhamnosus (Multi-Tianna Plus) 1 cap PO DAILY [facility] Last Admin: 11/22/17 08:07 Dose: 1 cap Levothyroxine Sodium (Synthroid) 125 mcg PO ACBREAKFAST [facility] Last Admin: 11/22/17 07:40 Dose: 125 mcg Melatonin (Melatonin) 3 mg PO BEDTIME PRN PRN Reason: Insomnia Mirtazapine (Remeron) 15 mg PO BEDTIME [facility] Last Admin: 11/21/17 20:31 Dose: 15 mg Omeprazole (Omeprazole) 20 mg PO ACBREAKFAST [facility] Last Admin: 11/22/17 07:42 Dose: 20 mg Ondansetron HCl (Zofran) 4 mg IVPUSH Q6H PRN PRN Reason: Nausea/Vomiting Oxycodone HCl (Oxycodone) 5 mg PO BID [facility] Last Admin: 11/22/17 08:09 Dose: 5 mg Deferasirox [Exjade] (500 Mg Tab) 2 each PO DAILY@0600 [facility] Last Admin: 11/22/17 06:01 Dose: 2 each Phytonadione (Vitamin K) 100 mcg PO DAILY [facility] Last Admin: 11/22/17 08:08 Dose: 100 mcg Prednisolone Acetate (Pred Forte 1% Ophth Susp) 0 ml EYEBOTH BID [facility] Last Admin: 11/22/17 08:08 Dose: 1 drop Prednisone (Prednisone) 2 mg PO DAILY@1800 [facility] Last Admin: 11/21/17 17:42 Dose: 2 mg Pyridoxine HCl (Vitamin B6-Pyridoxine) 100 mg PO DAILY [facility] Last Admin: 11/22/17 08:08 Dose: 100 mg Sodium Chloride (Syrex Flush) 5 ml FLUSH Q8HR PRN PRN Reason: Keep Vein Open Urea (Urea 20% Crm) 0 gm TOP DAILY [facility] Last Admin: 11/22/17 08:08 Dose: 1 applic Warfarin Sodium (Coumadin) 2.5 mg PO FR@1800 [facility] Warfarin Sodium (Coumadin) 5 mg PO SUMOTUWETHSA@1800 [facility] Last Admin: 11/21/17 17:42 Dose: 5 mg Discontinued Medications Acetaminophen (Tylenol) 650 mg PO Q4H PRN PRN Reason: Pain (Mild 1-3)/fever Sodium Chloride (Normal Saline) 1,000 mls @ 150 mls/hr IV ASDIRECTED [facility] Last Infusion: 11/20/17 23:40 Dose: 100 mls/hr Levofloxacin/Dextrose 500 mg/ (Premix) 100 mls @ 100 mls/hr IV ONETIME ONE Stop: 11/21/17 00:01 Last Admin: 11/20/17 23:43 Dose: 100 mls/hr Sodium Chloride (Normal Saline) 250 mls @ 999 mls/hr IV ONETIME ONE Stop: 11/21/17 11:45 Last Admin: 11/21/17 11:30 Dose: 999 mls/hr Ondansetron HCl (Zofran) 4 mg IV Q6H PRN PRN Reason: Nausea/Vomiting Last Admin: 11/21/17 08:52 Dose: 4 mg - Exam Quality Assessment: Supplemental Oxygen General: Alert, Oriented, No Acute Distress Neck: Supple Lungs: Other (Fibrotic crackles chronic) Cardiovascular: Regular Rhythm, Murmurs GI/Abdominal Exam: No Distention Extremities: No Pedal Edema Skin: Warm, Dry, Intact Psy/Mental Status: Alert, Normal Affect, Normal Mood - Problem List Review Problem List Initiated/Reviewed/Updated: Yes - My Orders Last 24 Hours: My Active Orders 11/21/17 10:40 Acetaminophen [Tylenol] 650 mg PO Q4H PRN 11/21/17 11:00 Patient's Own Medication [Ptom] 2 each PO DAILY@0600 11/21/17 11:30 Allopurinol [Zyloprim] 100 mg PO DAILY Aspirin [Halfprin] 81 mg PO DAILY B.Bif/B.Long/L.Acidoph/L.Rhamn [Multi-Tianna Plus] 1 cap PO DAILY Cholecalciferol (Vitamin D3) [Vitamin D3] 2,000 units PO DAILY Cyanocobalamin (Vitamin B12) [Vitamin B12] 500 mcg PO MOTUWETHFR@0800 Levothyroxine [Synthroid] 125 mcg PO ACBREAKFAST Omeprazole 20 mg PO ACBREAKFAST Phytonadione [Vitamin K] 100 mcg PO DAILY Urea [Urea 20% Crm] 0 gm TOP DAILY Vitamin B6-pyridOXINE 100 mg PO DAILY prednisoLONE Acetate [Pred Forte 1% Ophth Susp] 0 ml EYEBOTH BID 11/21/17 11:45 oxyCODONE 5 mg PO BID 11/21/17 12:00 Calcium Citrate/Vitamin D3 [Calcium Citrate + D] 2 tab PO BID@1200,1800 11/21/17 16:00 Levofloxacin/Dextrose 5%-Water [Levaquin in D5W 250 MG/50 ML] 50 ml IV Q24H 11/21/17 18:00 Warfarin [Coumadin] 5 mg PO SUMOTUWETHSA@1800 predniSONE 2 mg PO DAILY@1800 11/21/17 20:00 Sodium Chloride 0.9% [Normal Saline] 1,000 ml IV ASDIRECTED 11/21/17 21:00 Melatonin 3 mg PO BEDTIME PRN Mirtazapine [Remeron] 15 mg PO BEDTIME 11/22/17 18:00 Warfarin [Coumadin] 2.5 mg PO FR@1800 - Plan Plan:: HISTORY OF PRESENT ILLNESS 82 YO WF who is a resident of a long-term care center was admitted last night through the ED complaining of generalized weakness with nausea/vomiting which began earlier that evening. She was diagnosed yesterday with UTI after she had developed a fever. She was placed on antibiotics however the patient stated after she ate she started feeling quite worse. Temp at [place] documented 102.0. In the ED she denied any chest pain although her troponin was slightly elevated. Pt with history of chronic anemia due to Myelodysplastic disorder followed closely by hematology oncology requiring frequent weekly blood transfusions and has subsequently developed antibiotics. Hospice was entertained however the family has up to this point refused. She was given Levaquin and orders for transfusion Received 1 unit packed red blood cells on November 16 Pertinent ED findings Hemoglobin 6.3 Elevated cardio biomarkers UTI Update, still awaiting initial blood transfusion, Long discussion with [facility] lab pathologist on phone yesterday regarding possible delayed immune mediated transfusion reaction. She noted strong possibility however she will work patient up for this. She also noted ongoing difficulty/complexities regarding autoantibodies making it progressively difficult future transfusions including further delays. Hospital Diagnosis Anemia, retic demonstrating hypoproliferative state, normal haptoglobin, Urinary tract infection Profound weakness Questionable delayed immune-mediated transfusion reaction Chronic medical conditions Hypothyroidism MDS Hypertension HFpEF History of [place] CAD HLD insomnia History of DVTs and PE GERD Renal insufficiency Polymalgia rheumatica. Depression GCA Lumbago with compression fractures Hx of iron overload Hx Gout PLAN: HEMATOLOGY: Refractory anemia due to myelodysplastic syndrome, Hgb/Hct 6.3/ 19.3 RBC 2.2, WBC 5.4 with neutrophilia, Questionable delayed immune mediated transfusing reaction--specially since receiving incompatibility/developing antibodies, order haptoglobin/Retic today will require blood transfusion specially in the settings of elevated cardio biomarkers--however with antibodies could delay transfusion. Currently hospital has standing orders from oncologist regarding transfusions. Low retic demonstrating hypoproliferative state--concerning. normal haptoglobin, will add LDH PULMONARY: POX 95% to L/NC lungs chronic fibrotic crackles, CV: Troponin slightly elevated, likely reciprocal/inflammatory, denies CP, EKG NSR with older inferior lead changes, Stable combined congestive heart failure. Ejection fraction 75% with normal left ventricle size, hyperdynamic systolic function, and mild diastolic dysfunction, yesterday there was gentle balance between diuretics and fluids as her initial prerenal picture. However will saline lock fluids today as long as she can tolerate orals. Continue holding Lasix for now. On chronic anticoagulation with con-conmittent vitamin K, history of PE/DVT, Cont with ASA, INR 1.8, ongoing hypotension FLUIDS, ELECTROLYTES, AND RENAL: Exam demonstrates proved in prerenal condition , BUN/creatinine ratio 24:1 saline lock IV. PO intake improving, sodium, poassium normal. Calcium 8.6. T holding Lasix but may need to restart gently soon ENDOCRINE: Acquired hypothyroidism, on thyroid replacement therapy GI: No vomiting, proved in nausea, Zofran, saline lock IV, PPI therapy, INFECTIOUS DISEASE: Immunocompromised host, no UTI symptoms, continue renal- dose Levaquin,decreased WBC, on chronic steroids, no fever, MAP minimal, On probiotic HEALTH MAINTENANCE: On PPI for GERD, anticoagulation, melatonin daily at bedtime CODE STATUS, DO NOT RESUSCITATE, has refused hospice referral previous admission OVERALL PLAN: Continue inpatient stay, transfusion upon hospital availability, saline lock IVs, labs a.m., patient DNR status, add haptoglobin/reticulocyte count, Ongoing w/u for possible delayed immune-mediated transfusion reaction. Discussion with patient on what this means and the future difficulty/delay of blood transfusions.
[2017-11-22] MEDS: Calcium Citrate/Vitamin D3 315 MG-250 Unit Tab PO SCH ×2 (12:00→18:04)
[2017-11-22] MEDS: Levofloxacin/Dextrose 5%-Water 50 ML IV SCH (15:52)
[2017-11-22] MEDS ORDERED: Warfarin 2.5 MG Tab PO SCH (18:00)
[2017-11-22] MEDS: predniSONE 1 MG Tab PO SCH (18:04)
[2017-11-22] MEDS: Mirtazapine 15 MG Tab PO SCH (20:47)
[2017-11-22] MEDS: Melatonin 3 MG Tab PO PRN (22:14)
[2017-11-22] MEDS: Acetaminophen 325 MG Tab PO PRN (22:14)
[2017-11-22] MEDS ORDERED: LORazepam 2 MG/ML SDV IVPUSH ONE (22:45)
[2017-11-22] MEDS ORDERED: LORazepam 2 MG/ML SDV ONE (22:48)
[2017-11-22] MEDS ORDERED: Furosemide 40 MG/4 ML VIAL IVPUSH ONE (23:10)
[2017-11-23] MEDS: prednisoLONE Acetate 1% Ophth Susp 5 ML Bottle EYEBOTH SCH ×3 (06:13→20:33)
[2017-11-23] MEDS: DEFERASIROX PO SCH (06:14)
[2017-11-23] MEDS: Levothyroxine 50 MCG Tab PO SCH (08:00)
[2017-11-23] MEDS: Omeprazole 20 MG Cap.CR PO SCH (08:00)
[2017-11-23] MEDS: Ondansetron 4 MG/2 ML SDV IVPUSH PRN (08:02)
[2017-11-23] MEDS ORDERED: Furosemide 40 MG/4 ML VIAL IVPUSH ONE (09:32)
[2017-11-23] MEDS: Acetaminophen 325 MG Tab PO PRN (09:51)
[2017-11-23] MEDS: Allopurinol 100 MG Tab PO SCH (10:17)
[2017-11-23] MEDS: Aspirin 81 MG Tab.EC PO SCH (10:17)
[2017-11-23] MEDS: Phytonadione 100 MCG Tab PO SCH (10:18)
[2017-11-23] MEDS: oxyCODONE 5 MG Tab PO SCH ×2 (10:21→20:28)
[2017-11-23] MEDS: Cholecalciferol (Vitamin D3) 1,000 Unit Tab PO SCH (10:24)
[2017-11-23] MEDS: B.Bifidum/B.Longum/L.Acidophilus/L.Rhamnosus (Probiotic) Cap PO SCH (10:24)
[2017-11-23] MEDS: Vitamin B6-pyridOXINE 50 MG Tab PO SCH (10:24)
--- NOTE | 2017-11-23 10:39 | PCM.PN ---
- General Info Date of Service: 11/23/17 Subjective Update: Patient's daughter at bedside during rounds. She notes that patient's breathing improved until about 6 am and then it became labored again. Functional Status: Reports: Pain Controlled, Urinating. Denies: Tolerating Diet Pain Score: 0 - Review of Systems General: Reports: Weakness, Fatigue, Malaise. Denies: Fever, Chills, Appetite Pulmonary: Reports: Shortness of Breath, Cough Cardiovascular: Denies: Chest Pain, Edema Neurological: Denies: Confusion Psychiatric: Denies: Anxiety - Patient Data Vitals - Most Recent: Last Vital Signs Temp 100.3 F 11/23/17 09:51 Pulse 100 11/23/17 09:45 Resp 28 H 11/23/17 09:45 BP 131/79 11/23/17 09:45 Pulse Ox 96 11/23/17 09:45 Weight - Most Recent: 140 lb 12.8 oz I&O - Last 24 Hours: Intake & Output 11/22/17 11/23/17 11/23/17 22:59 06:59 14:59 Intake Total 150 150 Output Total 2000 Balance 150 -1850 Lab Results Last 24 Hours: Laboratory Results - last 24 hr 11/22/17 11/22/17 11/23/17 Range/Units 23:30 23:30 08:00 WBC 7.2 5.2 (5.0-10.0) 10^3/uL RBC 2.60 L 2.31 L (3.80-5.50) 10^6/uL Hgb 7.3 L 6.6 L* (12.0-16.0) g/dL Hct 22.9 L 20.0 L (37.0-47.0) % MCV 87.9 86.6 (82.0-92.0) fL MCH 27.9 28.6 (27.0-31.0) pg MCHC 31.8 L 33.0 (32.0-36.0) g/dL RDW 16.1 H 16.4 H (11.5-14.5) % Plt Count 224 166 (150-300) 10^3/uL MPV 10.5 H 10.1 (7.4-10.4) fL Neut % (Auto) 72.0 H 68.5 (50.0-70.0) % Lymph % (Auto) 17.7 L 22.5 (20.0-40.0) % [place] % (Auto) 2.3 3.9 (2.0-8.0) % Eos % (Auto) 7.6 H 4.8 H (1.0-3.0) % Baso % (Auto) 0.4 0.3 (0.0-1.0) % Neut # (Auto) 5.2 3.6 (2.5-7.0) 10^3/uL Lymph # (Auto) 1.3 1.2 (1.0-4.0) 10^3/uL [place] # (Auto) 0.2 0.2 (0.1-0.8) 10^3/uL Eos # (Auto) 0.5 H 0.2 (0.1-0.3) 10^3/uL Baso # (Auto) 0.0 0.0 (0.0-0.1) 10^3/uL Sodium 143 (136-145) mmol/L Potassium 3.6 (3.3-5.3) mmol/L Chloride 107 (98-115) mmol/L Carbon Dioxide 23.4 (21.0-32.0) mmol/L BUN 25 (6-25) mg/dL Creatinine 1.23 H (0.51-1.17) mg/dL Est Cr Clr Drug Dosing 29.93 mL/min Estimated GFR (MDRD) 42 mL/min Glucose 166 H (70-110) mg/dL Calcium 9.3 (8.7-10.3) mg/dL Total Bilirubin 0.6 (0.2-1.0) mg/dL AST 29 (15-37) U/L ALT 43 (12-78) U/L Alkaline Phosphatase 73 (46-116) IU/L Troponin I 0.24 H* (0.00-0.070) ng/mL B-Natriuretic Peptide 1210 H (0-100) pg/mL Total Protein 6.7 (6.4-8.2) g/dL Albumin 3.31 (3.00-4.80) g/dL 11/23/17 Range/Units 08:00 WBC (5.0-10.0) 10^3/uL RBC (3.80-5.50) 10^6/uL Hgb (12.0-16.0) g/dL Hct (37.0-47.0) % MCV (82.0-92.0) fL MCH (27.0-31.0) pg MCHC (32.0-36.0) g/dL RDW (11.5-14.5) % Plt Count (150-300) 10^3/uL MPV (7.4-10.4) fL Neut % (Auto) (50.0-70.0) % Lymph % (Auto) (20.0-40.0) % [place] % (Auto) (2.0-8.0) % Eos % (Auto) (1.0-3.0) % Baso % (Auto) (0.0-1.0) % Neut # (Auto) (2.5-7.0) 10^3/uL Lymph # (Auto) (1.0-4.0) 10^3/uL [place] # (Auto) (0.1-0.8) 10^3/uL Eos # (Auto) (0.1-0.3) 10^3/uL Baso # (Auto) (0.0-0.1) 10^3/uL Sodium (136-145) mmol/L Potassium (3.3-5.3) mmol/L Chloride (98-115) mmol/L Carbon Dioxide (21.0-32.0) mmol/L BUN (6-25) mg/dL Creatinine (0.51-1.17) mg/dL Est Cr Clr Drug Dosing mL/min Estimated GFR (MDRD) mL/min Glucose (70-110) mg/dL Calcium (8.7-10.3) mg/dL Total Bilirubin (0.2-1.0) mg/dL AST (15-37) U/L ALT (12-78) U/L Alkaline Phosphatase (46-116) IU/L Troponin I 2.93 H* (0.00-0.070) ng/mL B-Natriuretic Peptide (0-100) pg/mL Total Protein (6.4-8.2) g/dL Albumin (3.00-4.80) g/dL Med Orders - Current: Current Medications Acetaminophen (Tylenol) 650 mg PO Q4H PRN PRN Reason: Pain Last Admin: 03/24/18 09:51 Dose: 650 mg Allopurinol (Zyloprim) 100 mg PO DAILY [facility] Last Admin: 11/23/17 10:17 Dose: 100 mg Aspirin (Halfprin) 81 mg PO DAILY [facility] Last Admin: 11/23/17 10:17 Dose: 81 mg Calcium Citrate (Calcium Citrate + D) 2 tab PO BID@1200,1800 [facility] Last Admin: 11/22/17 18:04 Dose: 1 tab Cholecalciferol (Vitamin D3) 2,000 units PO DAILY [facility] Last Admin: 11/23/17 10:24 Dose: Not Given Cyanocobalamin (Vitamin B12) 500 mcg PO MOTUWETHFR@0800 [facility] Last Admin: 11/22/17 08:06 Dose: 500 mcg Lactobacillus Acidophilus/Rhamnosus (Multi-Tianna Plus) 1 cap PO DAILY [facility] Last Admin: 11/23/17 10:24 Dose: Not Given Levothyroxine Sodium (Synthroid) 125 mcg PO ACBREAKFAST [facility] Last Admin: 11/23/17 08:00 Dose: 125 mcg Melatonin (Melatonin) 3 mg PO BEDTIME PRN PRN Reason: Insomnia Last Admin: 11/22/17 22:14 Dose: 3 mg Mirtazapine (Remeron) 15 mg PO BEDTIME [facility] Last Admin: 11/22/17 20:47 Dose: 15 mg Omeprazole (Omeprazole) 20 mg PO ACBREAKFAST [facility] Last Admin: 11/23/17 08:00 Dose: 20 mg Ondansetron HCl (Zofran) 4 mg IVPUSH Q6H PRN PRN Reason: Nausea/Vomiting Last Admin: 11/23/17 08:02 Dose: 4 mg Oxycodone HCl (Oxycodone) 5 mg PO BID [facility] Last Admin: 11/23/17 10:21 Dose: 5 mg Deferasirox [Exjade] (500 Mg Tab) 2 each PO DAILY@0600 [facility] Last Admin: 11/23/17 06:14 Dose: 2 each Phytonadione (Vitamin K) 100 mcg PO DAILY [facility] Last Admin: 11/23/17 10:18 Dose: 100 mcg Prednisolone Acetate (Pred Forte 1% Ophth Susp) 0 ml EYEBOTH BID [facility] Last Admin: 11/23/17 10:03 Dose: Not Given Prednisone (Prednisone) 2 mg PO DAILY@1800 [facility] Last Admin: 11/22/17 18:04 Dose: 2 mg Pyridoxine HCl (Vitamin B6-Pyridoxine) 100 mg PO DAILY [facility] Last Admin: 11/23/17 10:24 Dose: Not Given Sodium Chloride (Syrex Flush) 5 ml FLUSH Q8HR PRN PRN Reason: Keep Vein Open Urea (Urea 20% Crm) 0 gm TOP DAILY [facility] Last Admin: 11/23/17 10:18 Dose: 1 applic Warfarin Sodium (Coumadin) 2.5 mg PO FR@1800 [facility] Last Admin: 11/22/17 18:04 Dose: 2.5 mg Warfarin Sodium (Coumadin) 5 mg PO SUMOTUWETHSA@1800 [facility] Last Admin: 11/21/17 17:42 Dose: 5 mg Discontinued Medications Acetaminophen (Tylenol) 650 mg PO Q4H PRN PRN Reason: Pain (Mild 1-3)/fever Furosemide (Lasix) 40 mg IVPUSH NOW ONE Stop: 11/22/17 23:11 Last Admin: 11/22/17 23:14 Dose: 40 mg Furosemide (Lasix) 20 mg IVPUSH NOW ONE Stop: 11/23/17 09:33 Last Admin: 11/23/17 10:11 Dose: 20 mg Sodium Chloride (Normal Saline) 1,000 mls @ 150 mls/hr IV [facility] Last Infusion: 11/20/17 23:40 Dose: 100 mls/hr Levofloxacin/Dextrose 500 mg/ (Premix) 100 mls @ 100 mls/hr IV ONETIME ONE Stop: 11/21/17 00:01 Last Admin: 11/20/17 23:43 Dose: 100 mls/hr Sodium Chloride (Normal Saline) 1,000 mls @ 100 mls/hr IV [facility] Last Admin: 11/21/17 15:32 Dose: 100 mls/hr Sodium Chloride (Normal Saline) 1,000 mls @ 40 mls/hr IV [facility] Last Admin: 11/21/17 20:04 Dose: 40 mls/hr Sodium Chloride (Normal Saline) 250 mls @ 999 mls/hr IV ONETIME ONE Stop: 11/21/17 11:45 Last Admin: 11/21/17 11:30 Dose: 999 mls/hr Levofloxacin/Dextrose (Levaquin In D5w 250 Mg/50 Ml) 50 mls @ 50 mls/hr IV Q24H [facility] Last Admin: 11/22/17 15:52 Dose: 50 mls/hr Lorazepam (Ativan) 0.25 mg IVPUSH ONETIME ONE Stop: 11/22/17 22:46 Last Admin: 11/22/17 22:59 Dose: 0.25 mg Lorazepam (Ativan) Confirm Administered Dose 2 mg .ROUTE .STK-MED ONE Stop: 11/22/17 22:49 Last Admin: 11/22/17 23:00 Dose: Not Given Ondansetron HCl (Zofran) 4 mg IV Q6H PRN PRN Reason: Nausea/Vomiting Last Admin: 11/21/17 08:52 Dose: 4 mg Sodium Chloride (Syrex Flush) 5 ml FLUSH Q8HR PRN PRN Reason: Keep Vein Open - Exam Quality Assessment: Supplemental Oxygen (97% at 3 liters per nasal cannula), Urine Catheter (clear yellow returns), DVT Prophylaxis (On warfarin) General: Alert, Oriented, Cooperative, Mild Distress Neck: JVD (mild to moderate JVD) Lungs: Other (effort labored with slight retractions noted, lung negron coarse throughout). No: Wheezing Cardiovascular: Regular Rate, No Murmurs, Tachycardia (90-100) GI/Abdominal Exam: Soft, Non-Tender Extremities: No Pedal Edema. No: Mottled Skin: Warm, Dry, Other (ashen ) Neurological: Normal Speech Psy/Mental Status: Alert, Normal Affect, Normal Mood. No: Anxious EKG INTERPRETATION EKG Date: 11/22/17 Time: 22:59 Rhythm: Other (Sinus tachycardia) Rate (Beats/Min): 116 Willard: LAD-Left Willard Deviation P-Wave: Present QRS: Normal ST-T: Depressed (slight depression in V5, otherwise no changes) QT: Normal Comparison: Change From Previous EKG - Problem List Review Problem List Initiated/Reviewed/Updated: Yes - My Orders Last 24 Hours: My Active Orders 11/22/17 22:47 Chest 2V [CR] Routine EKG 12 Lead [EK] Routine 11/22/17 22:48 EKG Documentation Completion [RC] ASDIRECTED 11/22/17 23:11 Urinary Catheter Assessment [RC] ASDIRECTED 11/22/17 23:15 Manuel Catheter Insertion [Insert Urinary Catheter] [OM.PC] Q24H 11/22/17 23:32 Telemetry Monitoring [Cardiac Monitoring] [RC] Q4H 11/22/17 23:33 Chest 1V Frontal [CR] Routine 11/23/17 08:12 Daily Weight [Height and Weight] [RC] 0700 Intake and Output Strict [RC] 0600,1400,2200 11/23/17 16:00 BASIC METABOLIC PANEL,BMP [CHEM] Routine TROPONIN I [CHEM] Routine - Plan Plan:: HPI: This is an 82 year old female who is a resident of a long-term care facility that was admitted through the ED for complaints of generalized weakness with nausea and vomiting that began earlier that evening. She was diagnosed the day prior with a UTI and placed on antibiotics. She reported that she felt worse after starting the antibiotics and was found to have a temperature of 102.0 F. Patient was found to have a slightly elevated troponin in the ED, but denied chest pain. 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 She has been requiring frequent weekly blood transfusions and has developed subsequent antibodies. She last received 1 unit of PRBCs on 11/16/17. Her hemoglobin in the ER was 6.3. Update: Call received from nursing last evening around 2200 with concerns of patient having chest pain, shortness of breath and worsening lung sounds. Orders given at that time for CBC, CMP, troponin, BNP, EKG, chest x-ray and place on telemetry. She was given a one time dose of lasix 40 mg IV, which improved her symptoms significantly. She had been placed on oxygen via nasal cannula at that time as well. Patient had her daughter at the bedside. PRIMARY ASSESSMENT/PLAN: Cardiogenic pulmonary edema secondary to acute NSTEMI from probable demand ischemia. BNP 1210. Troponin 0.24 with repeat this morning of 2.93. EKG revealing sinus tachycardia with ST depression in lead V5, however no other ST segment changes noted. Telemetry revealing heart rate of 75-120 bpm in sinus. Chest x-ray revealed interstitial edema and bibasilar airspace disease. Manuel catheter in place with 2000 mL out in 8 hour period after first lasix dose. Will gently diurese with lasix 20 mg IV x 1 now. If needed, we can repeat a 20 mg IV dose in a few hours. Potassium 3.6. Continue I & O. Weight down 5 pounds, which is back to baseline. Continue daily weights. Patient is on warfarin. Will hold off on further medical management of the PA at this time that would include IV heparin, beta-ashyln, etc as long discussion held with patient and her daughter regarding her fragile condition and their wish to hold off. She is a DNR/DNI, however did visit with them about possibly changing her to comfort cares. They would like some time to discuss this. Repeat troponin at 1600. 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 Plan as noted above. ECHO (2015) systolic function hyperdynamic, EF 75%, mild diastolic dysfunction. Hypotension, borderline. BP 105/60. Will continue to monitor this closely given gentle diuresing. CKD stage 3, stable. Creatinine 1.23, GFR 42. Repeat BMP at 1600. 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 Hgb 6.6. There is 1 unit of PRBCs available in [place] that is compatible. Will have unit transferred here, however given her current fragile state will not give blood at this time for concern of worsening current fluid overload status. Discussed with patient and daughter that after this transfusion they and their dry placer machine operator/oncologist will need to decide if it is worth risking transfusing with possible antibodies present. UTI, resolved. Urine culture showing no growth. Will discontinue IV levaquin as to not stress the kidneys or worsen fluid overload. Will continue to monitor for return of infection. Generalized weakness. Questionable delayed immune-mediated transfusion reaction. SECONDARY ASSESSMENT/PLAN: History of DVTs and PE. INR at 1600. History of hypertension. History of PA. Coronary artery disease. History of hyperlipidemia. Insomnia. Continue melatonin and mirtazipine. GERD. Continue omeprazole. Depression. Giant cell arteritis. Lumbago with compression fractures. History of gout. History of iron overload. Polymyalgia rheumatica. DVT prophylaxis. On warfarin. Overall treatment plan: As mentioned above, long discussion held with patient and daughter regarding her current fragile condition. Will give one time dose of IV lasix and repeat labs at 1600. No transfusion of blood today given fragile state, but will get the blood here in case it is able to be given. Will continue to monitor intake & output along with cardiac and respiratory status. Discussed with patient and family that at any time they decide they would like her to be comfort cares only we can help them with that. Will await their decision.
[2017-11-23] MEDS: Calcium Citrate/Vitamin D3 315 MG-250 Unit Tab PO SCH ×2 (13:34→19:34)
[2017-11-23] MEDS ORDERED: Heparin Sodium/D5W 25,000 UNITS/250 ML BAG IV SCH (18:00)
--- NOTE | 2017-11-23 18:34 | PCM.SN ---
- Free Text/Narrative Note: Phone call received from nurse regarding current labs including troponin of 3.36. Patient asymptomatic in regards to chest pain or shortness of breath. BP 79/43, pulse 76, respirations 24, oxygen saturation of 96% on 4 liters per nasal cannula. EKG obtained at that time showing normal sinus rhythm at 79 bpm, left axis deviation, inferior infarct age undetermined, no ST segment elevation noted. Call placed to brokerage branch manager, Dr. aRza, at regarding patient's condition. Patient and family do not wish to transfer or have intervention performed. However, they would be willing to do IV heparin or IV dopamine until the rest of her children arrive. Dr. Raza advises against IV heparin since her hemoglobin is only 6.6. She stated we could do dopamine or dobutamine drip to keep her pressures up. She notes there is nothing further that can be done. Discussed with patient and daughter that she is in cardiogenic shock at this time. Discussed that we can do a dopamine drip to keep her blood pressures up until her family arrives, however it will most likely not change the outcome of her current situation. Patient and daughter verbalize understanding and wish to proceed with dopamine drip until family arrives. At which time, they will consider comfort care status. Discussed with patient that we will continue to do our best to keep her comfortable in the interim. Discussed the use of morphine for pain or difficulty breathing. Will repeat troponin, hemoglobin, and obtain a lactic acid at 1999.
[2017-11-23] MEDS: DOPamine/Dextrose 5%-Water 400 MG/250 ML BAG IV SCH (19:05)
[2017-11-23] MEDS: Mirtazapine 15 MG Tab PO SCH (20:28)
[2017-11-23] MEDS: predniSONE 1 MG Tab PO SCH (20:29)
[2017-11-23] MEDS: Warfarin 5 MG Tab PO SCH (20:29)
[2017-11-24] MEDS: DEFERASIROX PO SCH (06:26)
[2017-11-24] MEDS: Ondansetron 4 MG/2 ML SDV IVPUSH PRN (07:45)
[2017-11-24] MEDS: Omeprazole 20 MG Cap.CR PO SCH (07:48)
[2017-11-24] MEDS: Levothyroxine 50 MCG Tab PO SCH (07:48)
[2017-11-24] MEDS: Aspirin 81 MG Tab.EC PO SCH (09:45)
[2017-11-24] MEDS: Phytonadione 100 MCG Tab PO SCH (09:45)
[2017-11-24] MEDS: prednisoLONE Acetate 1% Ophth Susp 5 ML Bottle EYEBOTH SCH ×2 (09:45→21:06)
[2017-11-24] MEDS: Allopurinol 100 MG Tab PO SCH (09:45)
[2017-11-24] MEDS: oxyCODONE 5 MG Tab PO SCH ×2 (09:48→21:05)
--- NOTE | 2017-11-24 10:49 | PCM.PN ---
- General Info Date of Service: 11/24/17 Subjective Update: Patient states she is very tired. Patient's daughter states the patient rested well last night. Functional Status: Reports: Pain Controlled, Tolerating Diet, Urinating - Review of Systems General: Reports: Weakness, Fatigue. Denies: Fever Pulmonary: Denies: Shortness of Breath, Cough Cardiovascular: Denies: Chest Pain, Edema Gastrointestinal: Denies: Nausea Genitourinary: Reports: Other (slight discomfort from the catheter) Neurological: Reports: Weakness. Denies: Confusion, Trouble Speaking Psychiatric: Denies: Confusion, Anxiety - Patient Data Vitals - Most Recent: Last Vital Signs Temp 98.8 F 11/24/17 08:15 Pulse 77 11/24/17 06:14 Resp 20 11/24/17 06:14 BP 105/57 L 11/24/17 09:15 Pulse Ox 94 L 11/24/17 08:41 Weight - Most Recent: 140 lb I&O - Last 24 Hours: Intake & Output 11/23/17 11/24/17 11/24/17 22:59 06:59 14:59 Intake Total 840 0 Output Total 400 700 Balance 440 -700 Lab Results Last 24 Hours: Laboratory Results - last 24 hr 11/23/17 11/23/17 11/23/17 Range/Units 16:15 16:15 21:05 Hgb (12.0-16.0) g/dL PT 19.5 H (8.9-11.4) SEC INR 2.0 H (0.9-1.1) Sodium 142 (136-145) mmol/L Potassium 3.6 (3.3-5.3) mmol/L Chloride 105 (98-115) mmol/L Carbon Dioxide 28.5 (21.0-32.0) mmol/L BUN 28 H (6-25) mg/dL Creatinine 1.34 H (0.51-1.17) mg/dL Est Cr Clr Drug Dosing 27.47 mL/min Estimated GFR (MDRD) 38 mL/min Glucose 105 (70-110) mg/dL Lactic Acid (0.4-2.0) mmol/L Calcium 8.5 L (8.7-10.3) mg/dL Troponin I 3.36 H* 2.46 H* (0.00-0.070) ng/mL 11/23/17 11/23/17 Range/Units 21:05 21:05 Hgb 6.1 L* (12.0-16.0) g/dL PT (8.9-11.4) SEC INR (0.9-1.1) Sodium (136-145) mmol/L Potassium (3.3-5.3) mmol/L Chloride (98-115) mmol/L Carbon Dioxide (21.0-32.0) mmol/L BUN (6-25) mg/dL Creatinine (0.51-1.17) mg/dL Est Cr Clr Drug Dosing mL/min Estimated GFR (MDRD) mL/min Glucose (70-110) mg/dL Lactic Acid 1.0 (0.4-2.0) mmol/L Calcium (8.7-10.3) mg/dL Troponin I (0.00-0.070) ng/mL Med Orders - Current: Current Medications Acetaminophen (Tylenol) 650 mg PO Q4H PRN PRN Reason: Pain Last Admin: 11/23/17 09:51 Dose: 650 mg Allopurinol (Zyloprim) 100 mg PO DAILY [facility] Last Admin: 11/24/17 09:45 Dose: 100 mg Aspirin (Halfprin) 81 mg PO DAILY [facility] Last Admin: 11/24/17 09:45 Dose: 81 mg Calcium Citrate (Calcium Citrate + D) 2 tab PO BID@1200,1800 [facility] Last Admin: 11/23/17 19:34 Dose: Not Given Cholecalciferol (Vitamin D3) 2,000 units PO DAILY [facility] Last Admin: 11/23/17 10:24 Dose: Not Given Cyanocobalamin (Vitamin B12) 500 mcg PO MOTUWETHFR@0800 [facility] Last Admin: 11/22/17 08:06 Dose: 500 mcg Dopamine HCl/Dextrose (Dopamine In D5w 400 Mg/250 Ml) 400 mg in 250 mls @ 4.79 mls/hr IV TITRATE ELVIS; 2 MCG/KG/MIN PRN Reason: Protocol Last Titration: 11/23/17 22:09 Dose: 4 mcg/kg/min, 9.58 mls/hr Lactobacillus Acidophilus/Rhamnosus (Multi-Tianna Plus) 1 cap PO DAILY [facility] Last Admin: 11/23/17 10:24 Dose: Not Given Levothyroxine Sodium (Synthroid) 125 mcg PO ACBREAKFAST [facility] Last Admin: 11/24/17 07:48 Dose: 125 mcg Melatonin (Melatonin) 3 mg PO BEDTIME PRN PRN Reason: Insomnia Last Admin: 11/22/17 22:14 Dose: 3 mg Mirtazapine (Remeron) 15 mg PO BEDTIME [facility] Last Admin: 11/23/17 20:28 Dose: 15 mg Omeprazole (Omeprazole) 20 mg PO ACBREAKFAST [facility] Last Admin: 11/24/17 07:48 Dose: 20 mg Ondansetron HCl (Zofran) 4 mg IVPUSH Q6H PRN PRN Reason: Nausea/Vomiting Last Admin: 11/24/17 07:45 Dose: 4 mg Oxycodone HCl (Oxycodone) 5 mg PO BID [facility] Last Admin: 11/24/17 09:48 Dose: 5 mg Deferasirox [Exjade] (500 Mg Tab) 2 each PO DAILY@0600 [facility] Last Admin: 11/24/17 06:26 Dose: 2 each Phytonadione (Vitamin K) 100 mcg PO DAILY [facility] Last Admin: 11/24/17 09:45 Dose: 100 mcg Prednisolone Acetate (Pred Forte 1% Ophth Susp) 0 ml EYEBOTH BID [facility] Last Admin: 11/24/17 09:45 Dose: 1 drop Prednisone (Prednisone) 2 mg PO DAILY@1800 [facility] Last Admin: 11/23/17 20:29 Dose: 2 mg Pyridoxine HCl (Vitamin B6-Pyridoxine) 100 mg PO DAILY [facility] Last Admin: 11/23/17 10:24 Dose: Not Given Sodium Chloride (Syrex Flush) 5 ml FLUSH Q8HR PRN PRN Reason: Keep Vein Open Urea (Urea 20% Crm) 0 gm TOP DAILY [facility] Last Admin: 11/24/17 09:45 Dose: 1 applic Warfarin Sodium (Coumadin) 2.5 mg PO FR@1800 [facility] Last Admin: 11/22/17 18:04 Dose: 2.5 mg Warfarin Sodium (Coumadin) 5 mg PO SUMOTUWETHSA@1800 [facility] Last Admin: 11/23/17 20:29 Dose: 5 mg Discontinued Medications Acetaminophen (Tylenol) 650 mg PO Q4H PRN PRN Reason: Pain (Mild 1-3)/fever Furosemide (Lasix) 40 mg IVPUSH NOW ONE Stop: 11/22/17 23:11 Last Admin: 11/22/17 23:14 Dose: 40 mg Furosemide (Lasix) 20 mg IVPUSH NOW ONE Stop: 11/23/17 09:33 Last Admin: 11/23/17 10:11 Dose: 20 mg Sodium Chloride (Normal Saline) 1,000 mls @ 150 mls/hr IV ASDIRECTED [facility] Last Infusion: 11/20/17 23:40 Dose: 100 mls/hr Levofloxacin/Dextrose 500 mg/ (Premix) 100 mls @ 100 mls/hr IV ONETIME ONE Stop: 11/21/17 00:01 Last Admin: 11/20/17 23:43 Dose: 100 mls/hr Sodium Chloride (Normal Saline) 1,000 mls @ 100 mls/hr IV ASDIRECTED [facility] Last Admin: 11/21/17 15:32 Dose: 100 mls/hr Sodium Chloride (Normal Saline) 1,000 mls @ 40 mls/hr IV ASDIRECTED [facility] Last Admin: 11/21/17 20:04 Dose: 40 mls/hr Sodium Chloride (Normal Saline) 250 mls @ 999 mls/hr IV ONETIME ONE Stop: 11/21/17 11:45 Last Admin: 11/21/17 11:30 Dose: 999 mls/hr Levofloxacin/Dextrose (Levaquin In D5w 250 Mg/50 Ml) 50 mls @ 50 mls/hr IV Q24H [facility] Last Admin: 11/22/17 15:52 Dose: 50 mls/hr Heparin Sodium/Dextrose () 25,000 units in 250 mls @ 8 mls/hr IV TITRATE [facility] PRN Reason: Protocol Lorazepam (Ativan) 0.25 mg IVPUSH ONETIME ONE Stop: 11/22/17 22:46 Last Admin: 11/22/17 22:59 Dose: 0.25 mg Lorazepam (Ativan) Confirm Administered Dose 2 mg .ROUTE .STK-MED ONE Stop: 11/22/17 22:49 Last Admin: 11/22/17 23:00 Dose: Not Given Ondansetron HCl (Zofran) 4 mg IV Q6H PRN PRN Reason: Nausea/Vomiting Last Admin: 11/21/17 08:52 Dose: 4 mg Sodium Chloride (Syrex Flush) 5 ml FLUSH Q8HR PRN PRN Reason: Keep Vein Open - Exam Quality Assessment: Supplemental Oxygen (94% on 5 liters per nasal cannula), Urine Catheter (clear yellow returns), DVT Prophylaxis (On warfarin) General: Alert, Oriented, Cooperative, No Acute Distress Lungs: Clear to Auscultation (Right lung negron), Normal Respiratory Effort, Crackles (coarse crackles to left lung negron). No: Stridor, Wheezing Cardiovascular: Regular Rate, Regular Rhythm, Murmurs (aortic murmur noted) Extremities: No Pedal Edema. No: Mottled Skin: Warm, Dry Neurological: Normal Speech Psy/Mental Status: Alert, Normal Affect, Normal Mood. No: Anxious - Problem List Review Problem List Initiated/Reviewed/Updated: Yes - My Orders Last 24 Hours: My Active Orders 11/23/17 17:30 EKG 12 Lead [EK] Routine 11/23/17 18:30 DOPamine/Dextrose 5%-Water [DOPamine in D5W 400 MG/250 ML] 400 mg in 250 ml IV TITRATE - Plan Plan:: HPI: This is an 82 year old female who is a resident of a long-term care facility that was admitted through the ED for complaints of generalized weakness with nausea and vomiting that began earlier that evening. She was diagnosed the day prior with a UTI and placed on antibiotics. She reported that she felt worse after starting the antibiotics and was found to have a temperature of 102.0 F. Patient was found to have a slightly elevated troponin in the ED, but denied chest pain. 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 She has been requiring frequent weekly blood transfusions and has developed subsequent antibodies. She last received 1 unit of PRBCs on 11/16/17. Her hemoglobin in the ER was 6.3. Update: Patient rested well last night. She is on 5 liters per nasal cannula, which is increased from yesterday. She is on the dopamaine drip at 4 mcg/kg/min with a BP of 98/44. Family at bedside and all 4 children present for rounds this morning. PRIMARY ASSESSMENT/PLAN: Cardiogenic shock secondary to cardiogenic pulmonary edema related to NSTEMI from ischemic demand. Last evening troponin down to 2.46. No further episodes of chest pain. She continues on telemetry and a dopamine drip at this time. Extensive discussion held with patient and family this morning in regards to DNR /DNI versus comfort measures and what each entails. At this time, patient alert and oriented x 3 and able to make her wishes known. She would like to continue with the dopamine drip for now. She does not wish to go back to the snf and/or have Hospice. She does not wish to have any further lab draws. Discussed the angela catheter and at this time will leave in place as she is quite weak. 24 hour output of 1700 mL. 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 Unable to treat with lasix at this time given current hypotensive state and patient wavering on DNR versus comfort care status. Hypotension. Continue with dopamine drip until patient and family decides this is no longer wanted. CKD stage 3. Yesterday afternoon BUN 28, creatinine 1.34, GFR 38. 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 Hgb last evening 6.1. No further blood transfusions given patient's fragile fluid overload state. Family aware and agrees. UTI, resolved. Lactic acid 1.0. Generalized weakness. Questionable delayed immune-mediated transfusion reaction. SECONDARY ASSESSMENT/PLAN: History of DVTs and PE. INR 2.0. Continuing coumadin at this time. History of hypertension. History of MT. CAD. History of hyperlipidemia. Insomnia. Continue melatonin and mirtazipine. GERD. Continue omeprazole. Depression. Giant cell arteritis. Lumbago with compression fractures. History of gout. History of iron overload. Polymyalgia rheumatica. DVT prophylaxis. On warfarin. Overall treatment plan: Extensive discussion held with patient and family during rounds (approximately 25 minutes) about the current state of the patient and expected course. At this time, patient wishes to continue with dopamine drip until it is no longer effective. She wishes to stay here and be kept comfortable. Will discontinue all non-essential medications at this time.
[2017-11-24] MEDS: Warfarin 5 MG Tab PO SCH (17:26)
[2017-11-24] MEDS: predniSONE 1 MG Tab PO SCH (17:26)
[2017-11-24] MEDS: DOPamine/Dextrose 5%-Water 400 MG/250 ML BAG IV SCH (19:06)
[2017-11-24] MEDS: Melatonin 3 MG Tab PO PRN (21:06)
[2017-11-24] MEDS: Mirtazapine 15 MG Tab PO SCH (21:06)
[2017-11-25] MEDS: Levothyroxine 50 MCG Tab PO SCH (07:11)
[2017-11-25] MEDS: Omeprazole 20 MG Cap.CR PO SCH (07:11)
[2017-11-25] MEDS: oxyCODONE 5 MG Tab PO SCH ×2 (08:28→21:45)
[2017-11-25] MEDS: Phytonadione 100 MCG Tab PO SCH (08:28)
[2017-11-25] MEDS: prednisoLONE Acetate 1% Ophth Susp 5 ML Bottle EYEBOTH SCH ×2 (08:29→21:42)
[2017-11-25] MEDS ORDERED: Lidocaine 2% 100 MG/5 ML Syringe IVPUSH PRN (09:00)
[2017-11-25] MEDS ORDERED: Nitroglycerin 0.4 MG Tab.SL SL PRN (09:00)
[2017-11-25] MEDS ORDERED: Atropine 0.1 MG/ML 10 ML Syringe IVPUSH PRN (09:00)
[2017-11-25] MEDS ORDERED: EPINEPHrine 1:10,000 1 MG/10 ML Syringe IVPUSH PRN (09:00)
[2017-11-25] MEDS ORDERED: Glycopyrrolate 1 MG Tab PO PRN (09:16)
--- NOTE | 2017-11-25 09:36 | PCM.PN ---
- General Info Date of Service: 11/25/17 Subjective Update: Patient stating she would like the dopamine turned off this evening. She states she is hoping to just "fall asleep and go". Functional Status: Reports: Pain Controlled, Tolerating Diet, Urinating. Denies : New Symptoms Pain Score: 0 - Review of Systems General: Reports: Weakness, Fatigue, Malaise. Denies: Fever Pulmonary: Denies: Shortness of Breath Cardiovascular: Denies: Chest Pain, Edema Gastrointestinal: Denies: Abdominal Pain, Nausea Genitourinary: Reports: No Symptoms Neurological: Denies: Confusion Psychiatric: Denies: Confusion, Anxiety - Patient Data Vitals - Most Recent: Last Vital Signs Temp 98.1 F 11/25/17 09:17 Pulse 83 11/25/17 09:17 Resp 16 11/25/17 09:17 BP 104/57 L 11/25/17 09:17 Pulse Ox 100 11/25/17 09:17 Weight - Most Recent: 140 lb I&O - Last 24 Hours: Intake & Output 11/24/17 11/25/17 11/25/17 22:59 06:59 14:59 Intake Total 950 66 Output Total 1300 875 Balance -350 -809 Med Orders - Current: Current Medications Acetaminophen (Tylenol) 650 mg PO Q4H PRN PRN Reason: Pain Last Admin: 11/23/17 09:51 Dose: 650 mg Atropine Sulfate (Atropine 0.1 Mg/Ml) 0 mg IVPUSH ASDIRECTED PRN PRN Reason: Heart Epinephrine HCl (Epinephrine 1:10,000) 1 mg IVPUSH ASDIRECTED PRN PRN Reason: Heart Glycopyrrolate (Robinul) 1 mg PO TID PRN PRN Reason: Other Dopamine HCl/Dextrose (Dopamine In D5w 400 Mg/250 Ml) 400 mg in 250 mls @ 4.79 mls/hr IV TITRATE ELVIS; 2 MCG/KG/MIN PRN Reason: Protocol Last Admin: 11/24/17 19:06 Dose: 4 mcg/kg/min, 9.58 mls/hr Lidocaine HCl (Xylocaine 2%) 0 mg IVPUSH ASDIRECTED PRN PRN Reason: Heart Melatonin (Melatonin) 3 mg PO BEDTIME PRN PRN Reason: Insomnia Last Admin: 11/24/17 21:06 Dose: 3 mg Mirtazapine (Remeron) 15 mg PO BEDTIME [facility] Last Admin: 11/24/17 21:06 Dose: 15 mg Nitroglycerin (Nitrostat) 0.4 mg SL ASDIRECTED PRN PRN Reason: Heart Ondansetron HCl (Zofran) 4 mg IVPUSH Q6H PRN PRN Reason: Nausea/Vomiting Last Admin: 11/24/17 07:45 Dose: 4 mg Oxycodone HCl (Oxycodone) 5 mg PO BID [facility] Last Admin: 11/25/17 08:28 Dose: 5 mg Prednisolone Acetate (Pred Forte 1% Ophth Susp) 0 ml EYEBOTH BID [facility] Last Admin: 11/25/17 08:29 Dose: 1 drop Sodium Chloride (Syrex Flush) 5 ml FLUSH Q8HR PRN PRN Reason: Keep Vein Open Urea (Urea 20% Crm) 0 gm TOP DAILY [facility] Last Admin: 11/25/17 08:29 Dose: 1 applic Discontinued Medications Acetaminophen (Tylenol) 650 mg PO Q4H PRN PRN Reason: Pain (Mild 1-3)/fever Allopurinol (Zyloprim) 100 mg PO DAILY [facility] Last Admin: 11/24/17 09:45 Dose: 100 mg Aspirin (Halfprin) 81 mg PO DAILY [facility] Last Admin: 11/24/17 09:45 Dose: 81 mg Calcium Citrate (Calcium Citrate + D) 2 tab PO BID@1200,1800 [facility] Last Admin: 11/23/17 19:34 Dose: Not Given Cholecalciferol (Vitamin D3) 2,000 units PO DAILY [facility] Last Admin: 11/23/17 10:24 Dose: Not Given Cyanocobalamin (Vitamin B12) 500 mcg PO MOTUWETHFR@0800 [facility] Last Admin: 11/22/17 08:06 Dose: 500 mcg Furosemide (Lasix) 40 mg IVPUSH NOW ONE Stop: 11/22/17 23:11 Last Admin: 11/22/17 23:14 Dose: 40 mg Furosemide (Lasix) 20 mg IVPUSH NOW ONE Stop: 11/23/17 09:33 Last Admin: 11/23/17 10:11 Dose: 20 mg Sodium Chloride (Normal Saline) 1,000 mls @ 150 mls/hr IV ASDIRECTED [facility] Last Infusion: 11/20/17 23:40 Dose: 100 mls/hr Levofloxacin/Dextrose 500 mg/ (Premix) 100 mls @ 100 mls/hr IV ONETIME ONE Stop: 11/21/17 00:01 Last Admin: 11/20/17 23:43 Dose: 100 mls/hr Sodium Chloride (Normal Saline) 1,000 mls @ 100 mls/hr IV ASDIRECTED [facility] Last Admin: 11/21/17 15:32 Dose: 100 mls/hr Sodium Chloride (Normal Saline) 1,000 mls @ 40 mls/hr IV ASDIRECTED [facility] Last Admin: 11/21/17 20:04 Dose: 40 mls/hr Sodium Chloride (Normal Saline) 250 mls @ 999 mls/hr IV ONETIME ONE Stop: 11/21/17 11:45 Last Admin: 11/21/17 11:30 Dose: 999 mls/hr Levofloxacin/Dextrose (Levaquin In D5w 250 Mg/50 Ml) 50 mls @ 50 mls/hr IV Q24H [facility] Last Admin: 11/22/17 15:52 Dose: 50 mls/hr Heparin Sodium/Dextrose () 25,000 units in 250 mls @ 8 mls/hr IV TITRATE [facility] PRN Reason: Protocol Lactobacillus Acidophilus/Rhamnosus (Multi-Tianna Plus) 1 cap PO DAILY [facility] Last Admin: 11/23/17 10:24 Dose: Not Given Levothyroxine Sodium (Synthroid) 125 mcg PO ACBREAKFAST [facility] Last Admin: 11/25/17 07:11 Dose: 125 mcg Lorazepam (Ativan) 0.25 mg IVPUSH ONETIME ONE Stop: 11/22/17 22:46 Last Admin: 11/22/17 22:59 Dose: 0.25 mg Lorazepam (Ativan) Confirm Administered Dose 2 mg .ROUTE .STK-MED ONE Stop: 11/22/17 22:49 Last Admin: 11/22/17 23:00 Dose: Not Given Omeprazole (Omeprazole) 20 mg PO ACBREAKFAST [facility] Last Admin: 11/25/17 07:11 Dose: 20 mg Ondansetron HCl (Zofran) 4 mg IV Q6H PRN PRN Reason: Nausea/Vomiting Last Admin: 11/21/17 08:52 Dose: 4 mg Deferasirox [Exjade] (500 Mg Tab) 2 each PO DAILY@0600 [facility] Last Admin: 11/24/17 06:26 Dose: 2 each Phytonadione (Vitamin K) 100 mcg PO DAILY [facility] Last Admin: 11/25/17 08:28 Dose: 100 mcg Prednisone (Prednisone) 2 mg PO DAILY@1800 [facility] Last Admin: 11/24/17 17:26 Dose: 2 mg Pyridoxine HCl (Vitamin B6-Pyridoxine) 100 mg PO DAILY [facility] Last Admin: 11/23/17 10:24 Dose: Not Given Sodium Chloride (Syrex Flush) 5 ml FLUSH Q8HR PRN PRN Reason: Keep Vein Open Warfarin Sodium (Coumadin) 2.5 mg PO FR@1800 [facility] Last Admin: 11/22/17 18:04 Dose: 2.5 mg Warfarin Sodium (Coumadin) 5 mg PO SUMOTUWETHSA@1800 [facility] Last Admin: 11/24/17 17:26 Dose: 5 mg - Exam Quality Assessment: Supplemental Oxygen (5 liters per nasal cannula), Urine Catheter (clear yellow returns). No: DVT Prophylaxis General: Alert, Oriented, Cooperative, No Acute Distress Lungs: Normal Respiratory Effort, Decreased Breath Sounds (throughout), Crackles (left lung negron) Cardiovascular: Regular Rate, Regular Rhythm, Murmurs (aortic murmur) Extremities: No Pedal Edema. No: Mottled Skin: Warm, Dry, Other (ashen/jaundiced appearance) Neurological: Normal Speech Psy/Mental Status: Alert, Normal Affect, Normal Mood. No: Anxious, Agitated - Problem List Review Problem List Initiated/Reviewed/Updated: Yes - My Orders Last 24 Hours: My Active Orders 11/24/17 15:13 Communication Order [RC] 0700,1900 11/25/17 09:00 Atropine [Atropine 0.1 MG/ML] 0 mg IVPUSH ASDIRECTED PRN EPINEPHrine [EPINEPHrine 1:10,000] 1 mg IVPUSH ASDIRECTED PRN Lidocaine 2% [Xylocaine 2%] 0 mg IVPUSH ASDIRECTED PRN Nitroglycerin [Nitrostat] 0.4 mg SL ASDIRECTED PRN 11/25/17 09:15 Comfort Measures [OM.PC] Routine Code Status [Resuscitation Status] Routine 11/25/17 09:16 Glycopyrrolate [Robinul] 1 mg PO TID PRN 11/25/17 09:17 Vital Signs [RC] Q4H 11/25/17 Lunch Regular Diet [DIET] - Plan Plan:: HPI: This is an 82 year old female who is a resident of a long-term care facility that was admitted through the ED for complaints of generalized weakness with nausea and vomiting that began earlier that evening. She was diagnosed the day prior with a UTI and placed on antibiotics. She reported that she felt worse after starting the antibiotics and was found to have a temperature of 102.0 F. Patient was found to have a slightly elevated troponin in the ED, but denied chest pain. 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 She has been requiring frequent weekly blood transfusions and has developed subsequent antibodies. She last received 1 unit of PRBCs on 11/16/17. Her hemoglobin in the ER was 6.3. Update: Patient wishing to turn off the dopamine drip at 1700 and be kept comfortable. Family at bedside and aware of patient's wishes. PRIMARY ASSESSMENT/PLAN: Cardiogenic shock secondary to cardiogenic pulmonary edema related to NSTEMI from ischemic demand. Dopamine drip will be continued until 1700 per patient wishes. This along with telemetry can be discontinued at that time. Comfort measures will be put in place, code status changed to reflect this. Robinul as needed for secretions. Morphine IV as needed for pain and shortness of breath. Ativan IV as needed for anxiety. Oxygen as needed for comfort. All non- essential medications were discontinued. Kept in place melatonin and mirtazipine at bedtime along with oxycodone BID for pain. Will continue with the angela catheter. 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 Hypotension. Plan as above. CKD stage 3. Most recent BUN 28, creatinine 1.34, GFR 38. 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 Last hgb of 6.1. UTI, resolved. Lactic acid 1.0. SECONDARY ASSESSMENT/PLAN: History of DVTs and PE. Coumadin discontinued. History of hypertension. History of DC. CAD. History of hyperlipidemia. Insomnia. Continue melatonin and mirtazipine. GERD. Discontinued omeprazole. Zofran IV as needed for nausea. Depression. Giant cell arteritis. Lumbago with compression fractures. History of gout. History of iron overload. Polymyalgia rheumatica. DVT prophylaxis. Comfort measures only. Overall treatment plan: Patient wishes to have the dopamine turned off at 1700 and wants to be kept comfortable at that time.
[2017-11-25] MEDS ORDERED: LORazepam 2 MG/ML SDV IVPUSH PRN (09:39)
[2017-11-25] MEDS ORDERED: Morphine 2 MG/ML Syringe IVPUSH PRN (09:42)
[2017-11-25] MEDS: Mirtazapine 15 MG Tab PO SCH (21:42)
[2017-11-25] MEDS ORDERED: Morphine 4 MG/ML Syringe SUBCUT PRN (23:15)
--- NOTE | 2017-11-26 09:52 | PCM.PN ---
- General Info Date of Service: 11/26/17 Functional Status: Reports: Pain Controlled (Pain controlled via subcutaneous morphine), Tolerating Diet (Desired and ate a muffin this morning) - Review of Systems General: Reports: Weakness, Fatigue, Malaise HEENT: Reports: No Symptoms, Headaches Pulmonary: Reports: No Symptoms Gastrointestinal: Reports: No Symptoms Genitourinary: Reports: Other (Manuel catheter--dignity) Skin: Reports: Pallor - Patient Data Vitals - Most Recent: Last Vital Signs Temp 99.1 F 11/25/17 14:40 Pulse 74 11/25/17 14:40 Resp 16 11/25/17 14:40 BP 114/58 L 11/25/17 14:40 Pulse Ox 97 11/25/17 17:00 Weight - Most Recent: 140 lb I&O - Last 24 Hours: Intake & Output 11/25/17 11/26/17 11/26/17 22:59 06:59 14:59 Intake Total 428 Output Total 400 Balance 28 Benja Results Last 24 Hours: Microbiology 11/20/17 22:55 Aerobic Blood Culture - Final Blood - Venous - Lab Draw NO GROWTH AFTER 5 DAYS Anaerobic Blood Culture - Final NO GROWTH AFTER 5 DAYS 11/20/17 21:50 Aerobic Blood Culture - Final Blood - Venous NO GROWTH AFTER 5 DAYS Anaerobic Blood Culture - Final NO GROWTH AFTER 5 DAYS Med Orders - Current: Current Medications Acetaminophen (Tylenol) 650 mg PO Q4H PRN PRN Reason: Pain Last Admin: 11/23/17 09:51 Dose: 650 mg Glycopyrrolate (Robinul) 1 mg PO TID PRN PRN Reason: secretions Dopamine HCl/Dextrose (Dopamine In D5w 400 Mg/250 Ml) 400 mg in 250 mls @ 4.79 mls/hr IV TITRATE [facility]VIS; Protocol Last Admin: 11/24/17 19:06 Dose: 4 mcg/kg/min, 9.58 mls/hr Lorazepam (Ativan) 1 mg IVPUSH Q4H PRN PRN Reason: Anxiety Melatonin (Melatonin) 3 mg PO BEDTIME PRN PRN Reason: Insomnia Last Admin: 11/24/17 21:06 Dose: 3 mg Mirtazapine (Remeron) 15 mg PO BEDTIME [facility]VIS Last Admin: 11/25/17 21:42 Dose: 15 mg Morphine Sulfate (Morphine) 2 mg SUBCUT Q1H PRN PRN Reason: pain/sob Last Admin: 11/25/17 23:34 Dose: 2 mg Ondansetron HCl (Zofran) 4 mg IVPUSH Q6H PRN PRN Reason: Nausea/Vomiting Last Admin: 11/24/17 07:45 Dose: 4 mg Oxycodone HCl (Oxycodone) 5 mg PO BID [facility] Last Admin: 11/25/17 21:45 Dose: Not Given Prednisolone Acetate (Pred Forte 1% Ophth Susp) 0 ml EYEBOTH BID [facility] Last Admin: 11/25/17 21:42 Dose: 1 drop Sodium Chloride (Syrex Flush) 5 ml FLUSH Q8HR PRN PRN Reason: Keep Vein Open Urea (Urea 20% Crm) 0 gm TOP DAILY [facility] Last Admin: 11/25/17 08:29 Dose: 1 applic Discontinued Medications Acetaminophen (Tylenol) 650 mg PO Q4H PRN PRN Reason: Pain (Mild 1-3)/fever Allopurinol (Zyloprim) 100 mg PO DAILY [facility] Last Admin: 11/24/17 09:45 Dose: 100 mg Aspirin (Halfprin) 81 mg PO DAILY [facility] Last Admin: 11/24/17 09:45 Dose: 81 mg Atropine Sulfate (Atropine 0.1 Mg/Ml) 0 mg IVPUSH ASDIRECTED PRN PRN Reason: Heart Calcium Citrate (Calcium Citrate + D) 2 tab PO BID@1200,1800 [facility] Last Admin: 11/23/17 19:34 Dose: Not Given Cholecalciferol (Vitamin D3) 2,000 units PO DAILY [facility] Last Admin: 11/23/17 10:24 Dose: Not Given Cyanocobalamin (Vitamin B12) 500 mcg PO MOTUWETHFR@0800 [facility] Last Admin: 11/22/17 08:06 Dose: 500 mcg Epinephrine HCl (Epinephrine 1:10,000) 1 mg IVPUSH ASDIRECTED PRN PRN Reason: Heart Furosemide (Lasix) 40 mg IVPUSH NOW ONE Stop: 11/22/17 23:11 Last Admin: 11/22/17 23:14 Dose: 40 mg Furosemide (Lasix) 20 mg IVPUSH NOW ONE Stop: 11/23/17 09:33 Last Admin: 11/23/17 10:11 Dose: 20 mg Sodium Chloride (Normal Saline) 1,000 mls @ 150 mls/hr IV ASDIRECTED [facility] Last Infusion: 11/20/17 23:40 Dose: 100 mls/hr Levofloxacin/Dextrose 500 mg/ (Premix) 100 mls @ 100 mls/hr IV ONETIME ONE Stop: 11/21/17 00:01 Last Admin: 11/20/17 23:43 Dose: 100 mls/hr Sodium Chloride (Normal Saline) 1,000 mls @ 100 mls/hr IV ASDIRECTED [facility] Last Admin: 11/21/17 15:32 Dose: 100 mls/hr Sodium Chloride (Normal Saline) 1,000 mls @ 40 mls/hr IV ASDIRECTED [facility] Last Admin: 11/21/17 20:04 Dose: 40 mls/hr Sodium Chloride (Normal Saline) 250 mls @ 999 mls/hr IV ONETIME ONE Stop: 11/21/17 11:45 Last Admin: 11/21/17 11:30 Dose: 999 mls/hr Levofloxacin/Dextrose (Levaquin In D5w 250 Mg/50 Ml) 50 mls @ 50 mls/hr IV Q24H [facility] Last Admin: 11/22/17 15:52 Dose: 50 mls/hr Heparin Sodium/Dextrose () 25,000 units in 250 mls @ 8 mls/hr IV TITRATE [facility]; Protocol Lactobacillus Acidophilus/Rhamnosus (Multi-Tianna Plus) 1 cap PO DAILY [facility] Last Admin: 11/23/17 10:24 Dose: Not Given Levothyroxine Sodium (Synthroid) 125 mcg PO ACBREAKFAST [facility] Last Admin: 11/25/17 07:11 Dose: 125 mcg Lidocaine HCl (Xylocaine 2%) 0 mg IVPUSH ASDIRECTED PRN PRN Reason: Heart Lorazepam (Ativan) 0.25 mg IVPUSH ONETIME ONE Stop: 11/22/17 22:46 Last Admin: 11/22/17 22:59 Dose: 0.25 mg Lorazepam (Ativan) Confirm Administered Dose 2 mg .ROUTE .STK-MED ONE Stop: 11/22/17 22:49 Last Admin: 11/22/17 23:00 Dose: Not Given Morphine Sulfate (Morphine) 2 mg IVPUSH Q1H PRN PRN Reason: pain/sob Nitroglycerin (Nitrostat) 0.4 mg SL ASDIRECTED PRN PRN Reason: Heart Omeprazole (Omeprazole) 20 mg PO ACBREAKFAST [facility] Last Admin: 11/25/17 07:11 Dose: 20 mg Ondansetron HCl (Zofran) 4 mg IV Q6H PRN PRN Reason: Nausea/Vomiting Last Admin: 11/21/17 08:52 Dose: 4 mg Deferasirox [Exjade] (500 Mg Tab) 2 each PO DAILY@0600 [facility] Last Admin: 11/24/17 06:26 Dose: 2 each Phytonadione (Vitamin K) 100 mcg PO DAILY [facility] Last Admin: 11/25/17 08:28 Dose: 100 mcg Prednisone (Prednisone) 2 mg PO DAILY@1800 [facility] Last Admin: 11/24/17 17:26 Dose: 2 mg Pyridoxine HCl (Vitamin B6-Pyridoxine) 100 mg PO DAILY [facility] Last Admin: 11/23/17 10:24 Dose: Not Given Sodium Chloride (Syrex Flush) 5 ml FLUSH Q8HR PRN PRN Reason: Keep Vein Open Warfarin Sodium (Coumadin) 2.5 mg PO FR@1800 [facility] Last Admin: 11/22/17 18:04 Dose: 2.5 mg Warfarin Sodium (Coumadin) 5 mg PO SUMOTUWETHSA@1800 [facility] Last Admin: 11/24/17 17:26 Dose: 5 mg - Exam Quality Assessment: Supplemental Oxygen General: Alert, Oriented, Cooperative, No Acute Distress, Sedated HEENT: No: Pupils Equal Neck: Supple Lungs: Crackles Cardiovascular: Regular Rate GI/Abdominal Exam: Soft Psy/Mental Status: Alert, Labile Mood - Problem List Review Problem List Initiated/Reviewed/Updated: Yes - Plan Plan:: HPI: This is an 82 year old female who is a resident of a long-term care facility that was admitted through the ED for complaints of generalized weakness with nausea and vomiting that began earlier that evening. She was diagnosed the day prior with a UTI and placed on antibiotics. She reported that she felt worse after starting the antibiotics and was found to have a temperature of 102.0 F. Patient was found to have a slightly elevated troponin in the ED, but denied chest pain. 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 She has been requiring frequent weekly blood transfusions and has developed subsequent antibodies. She last received 1 unit of PRBCs on 11/16/17. Her hemoglobin in the ER was 6.3. Update: IV was lost during night, was able to eat more often this morning. Dopamine/pressor was discontinued. Patient DO NOT RESUSCITATE/Comfort Care PRIMARY ASSESSMENT/PLAN: Cardiogenic shock resolved, MAP adequate without pressors. Comfort measures All non-essential medications were discontinued. 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 Most recent BUN 28, creatinine 1.34, GFR 38. 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 Last hgb of 6.1. No longer lab draws UTI, resolved. SECONDARY ASSESSMENT/PLAN: History of DVTs and PE. Coumadin discontinued. History of hypertension. History of AL. CAD. History of hyperlipidemia. Insomnia. Continue melatonin and mirtazipine. GERD. Discontinued omeprazole. Zofran IV as needed for nausea. Depression. Giant cell arteritis. Lumbago with compression fractures. History of gout. History of iron overload. Polymyalgia rheumatica. DVT prophylaxis. Comfort measures only. Overall treatment plan: Discussion with family regarding treatment plan, morphine anal, discussed hospice here at [facility], discussed long-term care bed situation along with payment source. Comfort Care, family is in agreement with plan.
[2017-11-26] MEDS: oxyCODONE 5 MG Tab PO SCH (10:07)
[2017-11-26] MEDS: prednisoLONE Acetate 1% Ophth Susp 5 ML Bottle EYEBOTH SCH (10:07)
[2017-11-26] MEDS ORDERED: Morphine 2 MG/ML Syringe SUBCUT PRN (10:15)
[2017-11-26] MEDS ORDERED: Bisacodyl 10 MG Supp RECTAL PRN (10:21)
[2017-11-26 12:37] VITALS: BP 95/42
--- NOTE | 2017-11-26 13:23 | PCM.DCSUM1 ---
Discharge Summary - Hospital Course Brief History: 82 year old female who is a resident of a long-term care facility that was initially admitted through the ED in acute care status for complaints of generalized weakness with nausea and vomiting. Due to MDS patient has had multiple blood transfusions however she was requiring a more frequently- -thus has developed subsequent antibodies making any future transfusions more difficult for compatibility especially the possibility of a delayed immune blood transfusion reaction. She last received 1 unit of PRBCs on 11/16/17. Her hemoglobin in the ER was 6.3. She was diagnosed the day prior with a UTI and placed on antibiotics. She reported that she felt worse after starting the antibiotics and was found to have a temperature of 102.0 Patient was found to have a slightly elevated troponin in the ED, but denied chest pain. During her acute care stay she did have ongoing heart failure with subsequent non-STEMI with cardiogenic shock requiring pressors did improve her situation clinically however however the family eventually decided to discontinue pressures in place her comfort care. Family opted private pay swing bed here at [facility] - Discharge Data Discharge Date: 11/26/17 Discharge Disposition: DC/Red W/I [facility] [place] [id number] Condition: Good - Discharge Plan Home Medications: Home Meds Cholecalciferol (Vitamin D3) [Vitamin D3] 2,000 unit PO DAILY 08/28/13 [History] Cyanocobalamin (Vitamin B-12) [B-12 Dots] 500 mcg PO MOTUWETHFR@0800 08/28/13 [ History] Calcium Carbonate/Vitamin D3 [Calcium 600-Vit D3 400 Tablet] 1 tab PO BID@1200, 1800 08/02/15 [History] Mirtazapine [Remeron] 15 mg PO BEDTIME 12/30/15 [History] Phytonadione [Vitamin K] 100 mcg PO DAILY 12/30/15 [History] Pyridoxine HCl [Vitamin B-6] 100 mg PO DAILY 12/30/15 [History] Aspirin [Halfprin] 81 mg PO DAILY #90 tab.ec 01/04/17 [Rx] Lactobacillus Acidophilus [Acidophilus Lactobacillus] 1 cap PO DAILY 01/08/17 [ History] Levothyroxine Sodium [Synthroid] 125 mcg PO ACBREAKFAST 01/08/17 [History] Melatonin/Pyridoxine HCl (B6) [Melatonin 3 mg Tablet] 3 mg PO BEDTIME PRN [History] Pantoprazole Sodium [Protonix] 20 mg PO ACBREAKFAST 02/03/17 [History] Warfarin [Coumadin] 5 mg PO SUMOTUWETHSA@1800 03/22/17 [History] predniSONE [Prednisone] 2 mg PO DAILY@1800 03/22/17 [History] prednisoLONE Acetate [Pred Forte 1% Ophth Susp] 1 drop EYEBOTH BID 03/22/17 [ History] Allopurinol [Zyloprim] 100 mg PO DAILY 07/23/17 [History] Denosumab [Prolia] 60 mg SUBCUT ASDIRECTED 07/23/17 [History] oxyCODONE 5 mg PO BID 07/23/17 [History] Warfarin [Coumadin] 2.5 mg PO FR@1800 11/12/17 [History] Acetaminophen 650 mg PO Q4H PRN 11/21/17 [History] Cephalexin 500 mg PO BID 11/21/17 [History] Deferasirox [Exjade] 1,000 mg PO DAILY@0600 11/21/17 [History] Furosemide [Lasix] 40 mg PO Q48H 11/21/17 [History] Potassium Chloride [Klor-Con M20] 10 meq PO Q48H 11/21/17 [History] Urea 1 applic TOP DAILY 11/21/17 [History] Forms: ED Department Discharge - Discharge Summary/Plan Comment DC Time >30 min.: Yes Discharge Summary/Plan Comment: Disposition to the patient's weakness and anemia refractory to blood transfusions long discussion with patient and they desire swing bed private pay and remain at [facility] Final diagnosis Weakness, profound Anemia, due to mild dysplastic syndrome Cardiogenic shock resolved, 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 - Patient Data Vitals - Most Recent: Last Vital Signs Temp 97.6 F 11/26/17 07:00 Pulse 64 11/26/17 07:00 Resp 20 11/26/17 07:00 BP 95/42 L 11/26/17 07:00 Pulse Ox 97 11/26/17 09:00 Weight - Most Recent: 140 lb I&O - Last 24 hours: Intake & Output 11/25/17 11/26/17 11/26/17 22:59 06:59 14:59 Intake Total 428 100 Output Total 400 375 Balance 28 -275 BEBA Results - Last 24 hrs: Microbiology 11/20/17 22:55 Aerobic Blood Culture - Final Blood - Venous - Lab Draw NO GROWTH AFTER 5 DAYS Anaerobic Blood Culture - Final NO GROWTH AFTER 5 DAYS 11/20/17 21:50 Aerobic Blood Culture - Final Blood - Venous NO GROWTH AFTER 5 DAYS Anaerobic Blood Culture - Final NO GROWTH AFTER 5 DAYS Med Orders - Current: Current Medications Discontinued Medications Acetaminophen (Tylenol) 650 mg PO Q4H PRN PRN Reason: Pain (Mild 1-3)/fever Acetaminophen (Tylenol) 650 mg PO Q4H PRN PRN Reason: Pain Last Admin: 11/23/17 09:51 Dose: 650 mg Allopurinol (Zyloprim) 100 mg PO DAILY [facility] Last Admin: 11/24/17 09:45 Dose: 100 mg Aspirin (Halfprin) 81 mg PO DAILY [facility] Last Admin: 11/24/17 09:45 Dose: 81 mg Atropine Sulfate (Atropine 0.1 Mg/Ml) 0 mg IVPUSH ASDIRECTED PRN PRN Reason: Heart Bisacodyl (Dulcolax) 10 mg RECTAL DAILY PRN PRN Reason: Constipation Calcium Citrate (Calcium Citrate + D) 2 tab PO BID@1200,1800 [facility] Last Admin: 11/23/17 19:34 Dose: Not Given Cholecalciferol (Vitamin D3) 2,000 units PO DAILY [facility] Last Admin: 11/23/17 10:24 Dose: Not Given Cyanocobalamin (Vitamin B12) 500 mcg PO MOTUWETHFR@0800 [facility] Last Admin: 11/22/17 08:06 Dose: 500 mcg Epinephrine HCl (Epinephrine 1:10,000) 1 mg IVPUSH ASDIRECTED PRN PRN Reason: Heart Furosemide (Lasix) 40 mg IVPUSH NOW ONE Stop: 11/22/17 23:11 Last Admin: 11/22/17 23:14 Dose: 40 mg Furosemide (Lasix) 20 mg IVPUSH NOW ONE Stop: 11/23/17 09:33 Last Admin: 11/23/17 10:11 Dose: 20 mg Glycopyrrolate (Robinul) 1 mg PO TID PRN PRN Reason: secretions Sodium Chloride (Normal Saline) 1,000 mls @ 150 mls/hr IV ASDIRECTED [facility] Last Infusion: 11/20/17 23:40 Dose: 100 mls/hr Levofloxacin/Dextrose 500 mg/ (Premix) 100 mls @ 100 mls/hr IV ONETIME ONE Stop: 11/21/17 00:01 Last Admin: 11/20/17 23:43 Dose: 100 mls/hr Sodium Chloride (Normal Saline) 1,000 mls @ 100 mls/hr IV ASDIRECTED [facility] Last Admin: 11/21/17 15:32 Dose: 100 mls/hr Sodium Chloride (Normal Saline) 1,000 mls @ 40 mls/hr IV ASDIRECTED [facility] Last Admin: 11/21/17 20:04 Dose: 40 mls/hr Sodium Chloride (Normal Saline) 250 mls @ 999 mls/hr IV ONETIME ONE Stop: 11/21/17 11:45 Last Admin: 11/21/17 11:30 Dose: 999 mls/hr Levofloxacin/Dextrose (Levaquin In D5w 250 Mg/50 Ml) 50 mls @ 50 mls/hr IV Q24H [facility] Last Admin: 11/22/17 15:52 Dose: 50 mls/hr Heparin Sodium/Dextrose () 25,000 units in 250 mls @ 8 mls/hr IV TITRATE [facility]; Protocol Dopamine HCl/Dextrose (Dopamine In D5w 400 Mg/250 Ml) 400 mg in 250 mls @ 4.79 mls/hr IV TITRATE [facility]; Protocol Last Admin: 11/24/17 19:06 Dose: 4 mcg/kg/min, 9.58 mls/hr Lactobacillus Acidophilus/Rhamnosus (Multi-Tianna Plus) 1 cap PO DAILY [facility] Last Admin: 11/23/17 10:24 Dose: Not Given Levothyroxine Sodium (Synthroid) 125 mcg PO ACBREAKFAST [facility] Last Admin: 11/25/17 07:11 Dose: 125 mcg Lidocaine HCl (Xylocaine 2%) 0 mg IVPUSH ASDIRECTED PRN PRN Reason: Heart Lorazepam (Ativan) 0.25 mg IVPUSH ONETIME ONE Stop: 11/22/17 22:46 Last Admin: 11/22/17 22:59 Dose: 0.25 mg Lorazepam (Ativan) Confirm Administered Dose 2 mg .ROUTE .STK-MED ONE Stop: 11/22/17 22:49 Last Admin: 11/22/17 23:00 Dose: Not Given Lorazepam (Ativan) 1 mg IVPUSH Q4H PRN PRN Reason: Anxiety Melatonin (Melatonin) 3 mg PO BEDTIME PRN PRN Reason: Insomnia Last Admin: 11/24/17 21:06 Dose: 3 mg Mirtazapine (Remeron) 15 mg PO BEDTIME [facility] Last Admin: 11/25/17 21:42 Dose: 15 mg Morphine Sulfate (Morphine) 2 mg IVPUSH Q1H PRN PRN Reason: pain/sob Morphine Sulfate (Morphine) 2 mg SUBCUT Q1H PRN PRN Reason: pain/sob Last Admin: 11/25/17 23:34 Dose: 2 mg Morphine Sulfate (Morphine) 2 mg SUBCUT Q1H PRN PRN Reason: pain/sob Nitroglycerin (Nitrostat) 0.4 mg SL ASDIRECTED PRN PRN Reason: Heart Omeprazole (Omeprazole) 20 mg PO ACBREAKFAST [facility] Last Admin: 11/25/17 07:11 Dose: 20 mg Ondansetron HCl (Zofran) 4 mg IV Q6H PRN PRN Reason: Nausea/Vomiting Last Admin: 11/21/17 08:52 Dose: 4 mg Ondansetron HCl (Zofran) 4 mg IVPUSH Q6H PRN PRN Reason: Nausea/Vomiting Last Admin: 11/24/17 07:45 Dose: 4 mg Oxycodone HCl (Oxycodone) 5 mg PO BID [facility] Last Admin: 11/26/17 10:07 Dose: 5 mg Deferasirox [Exjade] (500 Mg Tab) 2 each PO DAILY@0600 [facility] Last Admin: 11/24/17 06:26 Dose: 2 each Phytonadione (Vitamin K) 100 mcg PO DAILY [facility] Last Admin: 11/25/17 08:28 Dose: 100 mcg Prednisolone Acetate (Pred Forte 1% Ophth Susp) 0 ml EYEBOTH BID [facility] Last Admin: 11/26/17 10:07 Dose: 1 drop Prednisone (Prednisone) 2 mg PO DAILY@1800 [facility] Last Admin: 11/24/17 17:26 Dose: 2 mg Pyridoxine HCl (Vitamin B6-Pyridoxine) 100 mg PO DAILY [facility] Last Admin: 11/23/17 10:24 Dose: Not Given Sodium Chloride (Syrex Flush) 5 ml FLUSH Q8HR PRN PRN Reason: Keep Vein Open Sodium Chloride (Syrex Flush) 5 ml FLUSH Q8HR PRN PRN Reason: Keep Vein Open Urea (Urea 20% Crm) 0 gm TOP DAILY [facility] Last Admin: 11/26/17 10:08 Dose: 1 applic Warfarin Sodium (Coumadin) 2.5 mg PO FR@1800 [facility] Last Admin: 11/22/17 18:04 Dose: 2.5 mg Warfarin Sodium (Coumadin) 5 mg PO SUMOTUWETHSA@1800 [facility] Last Admin: 11/24/17 17:26 Dose: 5 mg
== END 2017-11-26 11:15 | disposition swing bed (61) | DRG 811 ==
LOC: KA.ED 21:32 → KA.MS 22:55 → UNDODISIN 11-26 11:15
PROVIDERS: ADMIT Physician Assistant Medical; ATTEND Family Medicine
DX: D63.8 Anemia in other chronic diseases classified elsewhere (principal); T80.9 Unspecified complication following infusion, transfusion and therapeutic injection; C94.6 Myelodysplastic disease, not elsewhere classified; R74.8 Abnormal levels of other serum enzymes; M35.3 Polymyalgia rheumatica; E78.00 Pure hypercholesterolemia, unspecified; I21.4 Non-ST elevation (NSTEMI) myocardial infarction; R57.0 Cardiogenic shock; N28.9 Disorder of kidney and ureter, unspecified; N39.0 Urinary tract infection, site not specified; I50.30 Unspecified diastolic (congestive) heart failure; I13.0 Hypertensive heart and chronic kidney disease with heart failure and stage 1 through stage 4 chronic kidney disease, or unspecified chronic kidney disease; D46.4 Refractory anemia, unspecified; Z79.82 Long term (current) use of aspirin; R53.1 Weakness; N18.3 Chronic kidney disease, stage 3 (moderate); Z99.81 Dependence on supplemental oxygen; I95.9 Hypotension, unspecified; E78.5 Hyperlipidemia, unspecified; E03.9 Hypothyroidism, unspecified; I25.10 Atherosclerotic heart disease of native coronary artery without angina pectoris; K21.9 Gastro-esophageal reflux disease without esophagitis; E86.0 Dehydration; F32.9 Major depressive disorder, single episode, unspecified; M31.5 Giant cell arteritis with polymyalgia rheumatica; R01.1 Cardiac murmur, unspecified; I25.2 Old myocardial infarction; Z51.5 Encounter for palliative care; Z79.899 Other long term (current) drug therapy; Z88.0 Allergy status to penicillin; Z88.2 Allergy status to sulfonamides; Z88.8 Allergy status to other drugs, medicaments and biological substances; Z86.73 Personal history of transient ischemic attack (TIA), and cerebral infarction without residual deficits; Z79.01 Long term (current) use of anticoagulants; Z66 Do not resuscitate
CPT/HCPCS: 36415; 51702; 71045; 80048; 80053; 81001; 82550; 82553; 83010; 83605; 83880; 84484; 85018; 85025; 85045; 85610; 87040; 87086; 93005; 96360; 99284; 99285; A9270-GY; J1265; J1940; J1956; J2060; J2270; J2405; J7030

== ENCOUNTER 2017-11-26 10:20 | Inpatient (IN) | payer MEDICARE, BC ==
[2017-11-26] MEDS ORDERED: Melatonin 3 MG Tab PO PRN (11:18)
[2017-11-26] MEDS ORDERED: Sodium Chloride 0.9% 5 ML Syringe FLUSH PRN (11:18)
[2017-11-26] MEDS ORDERED: Glycopyrrolate 1 MG Tab PO PRN (11:18)
[2017-11-26] MEDS ORDERED: Bisacodyl 10 MG Supp RECTAL PRN (11:18)
[2017-11-26] MEDS ORDERED: Acetaminophen 325 MG Tab PO PRN (11:18)
--- NOTE | 2017-11-26 13:17 | PCM.HP ---
H&P History of Present Illness - General Date of Service: 11/26/17 Admit Problem/Dx: Admission Diagnosis/Problem Admission Diagnosis/Problem Anemia Source of Information: Family, Old Records, RN History Limitations: Reports: No Limitations - History of Present Illness Initial Comments - Free Text/Narative: 82 year old female who is a resident of a long-term care facility that was initially admitted through the ED in acute care status for complaints of generalized weakness with nausea and vomiting. Due to MDS patient has had multiple blood transfusions however she was requiring a more frequently--thus has developed subsequent antibodies making any future transfusions more difficult for compatibility especially the possibility of a delayed immune blood transfusion reaction. She last received 1 unit of PRBCs on 11/16/17. Her hemoglobin in the ER was 6.3. She was diagnosed the day prior with a UTI and placed on antibiotics. She reported that she felt worse after starting the antibiotics and was found to have a temperature of 102.0 Patient was found to have a slightly elevated troponin in the ED, but denied chest pain. During her acute care stay she did have ongoing heart failure with subsequent non-STEMI with cardiogenic shock requiring pressors did improve her situation clinically however however the family eventually decided to discontinue pressures in place her comfort care. Family opted private pay swing bed here at [facility] - Related Data Allergies/Adverse Reactions: Allergies Allergy/AdvReac Type Severity Reaction Status Date / Time erythromycin base Allergy Severe Vomiting Verified 11/27/17 18:28 [Erythromycin Base] Penicillins Allergy Unknown Hives Verified 11/27/17 18:28 Sulfa (Sulfonamide Allergy Other Verified 11/27/17 18:28 Antibiotics) sulfamethoxazole Allergy Other Verified 11/27/17 18:28 [From Bactrim] trimethoprim [From Bactrim] Allergy Other Verified 11/27/17 18:28 lenalidomide [From Revlimid] AdvReac Mild Rash Verified 11/27/17 18:28 Home Medications: Home Meds Cholecalciferol (Vitamin D3) [Vitamin D3] 2,000 unit PO DAILY 08/28/13 [History] Cyanocobalamin (Vitamin B-12) [B-12 Dots] 500 mcg PO MOTUWETHFR@0800 08/28/13 [ History] Calcium Carbonate/Vitamin D3 [Calcium 600-Vit D3 400 Tablet] 1 tab PO BID@1200, 1800 08/02/15 [History] Mirtazapine [Remeron] 15 mg PO BEDTIME 12/30/15 [History] Phytonadione [Vitamin K] 100 mcg PO DAILY 12/30/15 [History] Pyridoxine HCl [Vitamin B-6] 100 mg PO DAILY 12/30/15 [History] Aspirin [Halfprin] 81 mg PO DAILY #90 tab.ec 01/04/17 [Rx] Lactobacillus Acidophilus [Acidophilus Lactobacillus] 1 cap PO DAILY 01/08/17 [ History] Levothyroxine Sodium [Synthroid] 125 mcg PO ACBREAKFAST 01/08/17 [History] Melatonin/Pyridoxine HCl (B6) [Melatonin 3 mg Tablet] 3 mg PO BEDTIME PRN [History] Pantoprazole Sodium [Protonix] 20 mg PO ACBREAKFAST 02/03/17 [History] Warfarin [Coumadin] 5 mg PO SUMOTUWETHSA@1800 03/22/17 [History] predniSONE [Prednisone] 2 mg PO DAILY@1800 03/22/17 [History] prednisoLONE Acetate [Pred Forte 1% Ophth Susp] 1 drop EYEBOTH BID 03/22/17 [ History] Allopurinol [Zyloprim] 100 mg PO DAILY 07/23/17 [History] Denosumab [Prolia] 60 mg SUBCUT ASDIRECTED 07/23/17 [History] oxyCODONE 5 mg PO BID 07/23/17 [History] Warfarin [Coumadin] 2.5 mg PO FR@1800 11/12/17 [History] Acetaminophen 650 mg PO Q4H PRN 11/21/17 [History] Cephalexin 500 mg PO BID 11/21/17 [History] Deferasirox [Exjade] 1,000 mg PO DAILY@0600 11/21/17 [History] Furosemide [Lasix] 40 mg PO Q48H 11/21/17 [History] Potassium Chloride [Klor-Con M20] 10 meq PO Q48H 11/21/17 [History] Urea 1 applic TOP DAILY 11/21/17 [History] Past Medical History HEENT History: Reports: Cataract, Hard of Hearing, Impaired Vision, Sinusitis Cardiovascular History: Reports: Blood Clots/VTE/DVT, Heart Murmur, High Cholesterol, PVD, SOB on Exertion, Other (See Below) Other Cardiovascular History: on coumadin Respiratory History: Reports: Bronchitis, Recurrent, PE, Pneumonia, Recurrent, SOB Other Respiratory History: Chronic use of oxygen Gastrointestinal History: Reports: Bowel Obstruction, Chronic Diarrhea, Fecal Incontinence, GERD Genitourinary History: Reports: UTI, Recurrent, Other (See Below) Other Genitourinary History: currnet dx of uti [employer] History: Reports: Endometriosis, Musculoskeletal History: Reports: Back Pain, Chronic, Fibromyalgia, Other (See Below) Other Musculoskeletal History: POLYMYALGIA Neurological History: Reports: Vertigo Psychiatric History: Reports: Depression Endocrine/Metabolic History: Reports: Hypothyroidism, Osteopenia, Osteoporosis Hematologic History: Reports: Anemia, Anticoagulation Therapy, Blood Transfusion (s), Other (See Below) Other Hematologic History: Myelodysplastic Syndrome Immunologic History: Reports: None Oncologic (Cancer) History: Reports: None Dermatologic History: Reports: None - Infectious Disease History Infectious Disease History: Reports: Chicken Pox Other Infectious Disease History: Unable to assess. - Past Surgical History Head Surgeries/Procedures: Reports: None HEENT Surgical History: Reports: Adenoidectomy, Cataract Surgery, Tonsillectomy GI Surgical History: Reports: Appendectomy, Cholecystectomy, Colonoscopy, Other (See Below) Endocrine Surgical History: Reports: None Neurological Surgical History: Reports: None Oncologic Surgical History: Reports: None Social & Family History - Family History HEENT: Reports: None Cardiac: Reports: AL (Father heart disease) GI: Reports: None : Reports: Other (See Below) OBGYN: Reports: None Musculoskeletal: Reports: None Neurological: Reports: None Psychiatric: Reports: None Endocrine/Metabolic: Reports: None Hematologic: Reports: None Immunologic: Reports: None Dermatologic: Reports: None Oncologic: Reports: Hodgkin's Lymphoma - Tobacco Use Smoking Status *Q: Never Smoker Second Hand Smoke Exposure: No - Caffeine Use Caffeine Use: Reports: Coffee, Tea - Alcohol Use Days Per Week of Alcohol Use: 0 - Recreational Drug Use Recreational Drug Use: No H&P Review of Systems - Review of Systems: Review Of Systems: See Below General: Reports: Malaise, Weakness Pulmonary: Denies: Shortness of Breath, Cough, Sputum Cardiovascular: Denies: Chest Pain Gastrointestinal: Denies: Constipation, Distension Genitourinary: Reports: Other (Indwelling Manuel catheterization--dignity) Musculoskeletal: Reports: Other (Generalize pain seems well controlled with low- dose morphine) Neurological: Reports: Pre-Existing Deficit, Weakness, Gait Disturbance Hematologic/Lymphatic: Reports: Anemia, Easy Bruising Exam - Exam Exam: See Below - Vital Signs Weight: 140 lb - Exam Quality Assessment: Supplemental Oxygen General: Sedated Neck: Supple Lungs: Crackles Cardiovascular: Regular Rhythm GI/Abdominal Exam: Soft (Female) Exam: Deferred Back Exam: No: CVA Tenderness (L), CVA Tenderness (R) Extremities: Pedal Edema Neurological: Normal Speech Neuro Extensive - Mental Status: Alert Psychiatric: Alert, Labile Mood Problem List Initiated/Reviewed/Updated: Yes Orders Last 24hrs: Active Orders 24 hr Category Date Time Status Patient Status [ADT] Routine ADT 11/26/17 11:21 Ordered Communication Order [RC] QID Care 11/26/17 11:18 Active Manuel Catheter Insertion [Insert Urinary Catheter] [OM. Care 11/26/17 11:18 Ordered PC] Q24H Oxygen Therapy [RC] .PRN Care 11/26/17 11:18 Active Up With Assistance [RC] ASDIRECTED Care 11/26/17 11:18 Active Urinary Catheter Assessment [RC] 0100,0900,1700 Care 11/26/17 11:18 Active Vital Signs [RC] .PRN Care 11/26/17 11:18 Active Regular Diet [DIET] Diet 11/26/17 Lunch Active Acetaminophen [Tylenol] Med 11/26/17 11:18 Active 650 mg PO Q4H PRN Glycopyrrolate [Robinul] Med 11/26/17 11:18 Active 1 mg PO TID PRN Melatonin Med 11/26/17 11:18 Active 3 mg PO BEDTIME PRN Mirtazapine [Remeron] Med 11/26/17 21:00 Active 15 mg PO BEDTIME Morphine Med 11/26/17 11:18 Active 2 mg SUBCUT Q1H PRN Urea [Urea 20% Crm] Med 11/27/17 09:00 Active 0 gm TOP DAILY prednisoLONE Acetate [Pred Forte 1% Ophth Susp] Med 11/26/17 21:00 Active 0 ml EYEBOTH BID Comfort Measures [OM.PC] Routine Oth 11/26/17 11:18 Ordered Comfort Measures [OM.PC] Routine Oth 11/26/17 11:22 Ordered Code Status [Resuscitation Status] Routine Resus Stat 11/26/17 11:23 Ordered Medication Orders Acetaminophen (Tylenol) 650 mg PO Q4H PRN PRN Reason: Pain Glycopyrrolate (Robinul) 1 mg PO TID PRN PRN Reason: secretions Melatonin (Melatonin) 3 mg PO BEDTIME PRN PRN Reason: Insomnia Mirtazapine (Remeron) 15 mg PO BEDTIME [facility] Morphine Sulfate (Morphine) 2 mg SUBCUT Q1H PRN PRN Reason: pain/sob Prednisolone Acetate (Pred Forte 1% Ophth Susp) 0 ml EYEBOTH BID [facility] Urea (Urea 20% Crm) 0 gm TOP DAILY [facility] Assessment/Plan Comment:: HISTORY OF PRESENT ILLNESS 82 year old female who is a resident of a long-term care facility that was initially admitted through the ED in acute care status for complaints of generalized weakness with nausea and vomiting. Due to MDS patient has had multiple blood transfusions however she was requiring a more frequently--thus has developed subsequent antibodies making any future transfusions more difficult for compatibility especially the possibility of a delayed immune blood transfusion reaction. She last received 1 unit of PRBCs on 11/16/17. Her hemoglobin in the ER was 6.3. She was diagnosed the day prior with a UTI and placed on antibiotics. She reported that she felt worse after starting the antibiotics and was found to have a temperature of 102.0 Patient was found to have a slightly elevated troponin in the ED, but denied chest pain. During her acute care stay she did have ongoing heart failure with subsequent non-STEMI with cardiogenic shock requiring pressors did improve her situation clinically however however the family eventually decided to discontinue pressures in place her comfort care. Family opted private pay swing bed here at [facility] PRIMARY ASSESSMENT/PLAN: Anemia, profound, comfort measures, forego all blood transfusions Cardiogenic shock resolved, MAP adequate without pressors. Comfort measures All non-essential medications were discontinued. 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 Most recent BUN 28, creatinine 1.34, GFR 38. 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 Last hgb of 6.1. No longer lab draws UTI, resolved. SECONDARY ASSESSMENT/PLAN: History of DVTs and PE. Coumadin discontinued. History of hypertension. History of AL. CAD. History of hyperlipidemia. Insomnia. Continue melatonin and mirtazipine. GERD. Discontinued omeprazole. Zofran IV as needed for nausea. Depression. Giant cell arteritis. Lumbago with compression fractures. History of gout. History of iron overload. Polymyalgia rheumatica. DVT prophylaxis. Comfort measures only. Overall treatment plan: Discussion with family regarding treatment plan, comfort measures, placed in swing bed private pay. family is in agreement with plan.
[2017-11-26] MEDS ORDERED: Ondansetron 4 MG Tab.DIS PO PRN (14:58)
[2017-11-26] MEDS: Morphine 2 MG/ML Syringe SUBCUT PRN ×2 (17:21→21:56)
[2017-11-26] MEDS ORDERED: prednisoLONE Acetate 1% Ophth Susp 5 ML Bottle EYEBOTH SCH (21:00)
[2017-11-26] MEDS ORDERED: oxyCODONE 5 MG Tab PO SCH (21:00)
[2017-11-26] MEDS ORDERED: Mirtazapine 15 MG Tab PO SCH (21:00)
[2017-11-26] MEDS: PREDNISOLONE ACETATE 1% EYEBOTH SCH (21:52)
[2017-11-26 22:52] VITALS: BP 85/45
[2017-11-27] MEDS: Morphine 2 MG/ML Syringe SUBCUT PRN ×5 (01:34→16:46)
[2017-11-27] MEDS ORDERED: UREA 20% TOP SCH (09:00)
[2017-11-27] MEDS: PREDNISOLONE ACETATE 1% EYEBOTH SCH (09:09)
--- NOTE | 2017-12-02 09:35 | PCM.DCSUM1 ---
Discharge Summary - Hospital Course Brief History: 82 year old female who is a resident of a long-term care facility that was initially admitted through the ED in acute care status for complaints of generalized weakness with nausea and vomiting. Due to MDS patient has had multiple blood transfusions however she was requiring a more frequently- -thus has developed subsequent antibodies making any future transfusions more difficult for compatibility especially the possibility of a delayed immune blood transfusion reaction. She last received 1 unit of PRBCs on 11/16/17. Her hemoglobin in the ER was 6.3. She was diagnosed the day prior with a UTI and placed on antibiotics. She reported that she felt worse after starting the antibiotics and was found to have a temperature of 102.0 Patient was found to have a slightly elevated troponin in the ED, but denied chest pain. During her acute care stay she did have ongoing heart failure with subsequent non-STEMI with cardiogenic shock requiring pressors did improve her situation clinically however the family eventually decided to discontinue pressures in place her one point and in comfort cares and then decided to place her into hospice care. - Discharge Data Discharge Date: 12/01/17 Discharge Disposition: 20 Condition: Serious - Patient Summary/Data Complications: Patient did lose her IUD while in swing bed however since placed in hospice care only palliative care treatment was given. Hospital Course: Patient's hospital course in hospice care went as expected. Patient was managed by the hospice nurse regarding any anxiety and pain control medications. Patient began to have decreased oral intake less responsiveness over time--however she was conversing with family and friends up until approximately 48 hours prior to her . Family held salter was close by her upon her . 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 CKD stage 3 - Discharge Plan Home Medications: Home Meds Cholecalciferol (Vitamin D3) [Vitamin D3] 2,000 unit PO DAILY 08/28/13 [History] Cyanocobalamin (Vitamin B-12) [B-12 Dots] 500 mcg PO MOTUWETHFR@0800 08/28/13 [ History] Calcium Carbonate/Vitamin D3 [Calcium 600-Vit D3 400 Tablet] 1 tab PO BID@1200, 1800 08/02/15 [History] Mirtazapine [Remeron] 15 mg PO BEDTIME 12/30/15 [History] Phytonadione [Vitamin K] 100 mcg PO DAILY 12/30/15 [History] Pyridoxine HCl [Vitamin B-6] 100 mg PO DAILY 12/30/15 [History] Aspirin [Halfprin] 81 mg PO DAILY #90 tab.ec 01/04/17 [Rx] Lactobacillus Acidophilus [Acidophilus Lactobacillus] 1 cap PO DAILY 01/08/17 [ History] Levothyroxine Sodium [Synthroid] 125 mcg PO ACBREAKFAST 01/08/17 [History] Melatonin/Pyridoxine HCl (B6) [Melatonin 3 mg Tablet] 3 mg PO BEDTIME PRN [History] Pantoprazole Sodium [Protonix] 20 mg PO ACBREAKFAST 02/03/17 [History] Warfarin [Coumadin] 5 mg PO SUMOTUWETHSA@1800 03/22/17 [History] predniSONE [Prednisone] 2 mg PO DAILY@1800 03/22/17 [History] prednisoLONE Acetate [Pred Forte 1% Ophth Susp] 1 drop EYEBOTH BID 03/22/17 [ History] Allopurinol [Zyloprim] 100 mg PO DAILY 07/23/17 [History] Denosumab [Prolia] 60 mg SUBCUT ASDIRECTED 07/23/17 [History] oxyCODONE 5 mg PO BID 07/23/17 [History] Warfarin [Coumadin] 2.5 mg PO FR@1800 11/12/17 [History] Acetaminophen 650 mg PO Q4H PRN 11/21/17 [History] Cephalexin 500 mg PO BID 11/21/17 [History] Deferasirox [Exjade] 1,000 mg PO DAILY@0600 11/21/17 [History] Furosemide [Lasix] 40 mg PO Q48H 11/21/17 [History] Potassium Chloride [Klor-Con M20] 10 meq PO Q48H 11/21/17 [History] Urea 1 applic TOP DAILY 11/21/17 [History] - Discharge Summary/Plan Comment DC Time >30 min.: No - Patient Data Vitals - Most Recent: Last Vital Signs Temp 98.3 F 11/26/17 22:51 Pulse 96 11/26/17 22:51 Resp 20 11/26/17 15:08 BP 85/45 L 11/26/17 22:51 Pulse Ox 60 L 11/27/17 06:41 Weight - Most Recent: 140 lb Med Orders - Current: Current Medications Discontinued Medications Acetaminophen (Tylenol) 650 mg PO Q4H PRN PRN Reason: Pain Bisacodyl (Dulcolax) 10 mg RECTAL DAILY PRN PRN Reason: Constipation Last Admin: 11/26/17 15:10 Dose: 10 mg Glycopyrrolate (Robinul) 1 mg PO TID PRN PRN Reason: secretions Melatonin (Melatonin) 3 mg PO BEDTIME PRN PRN Reason: Insomnia Mirtazapine (Remeron) 15 mg PO BEDTIME [facility] Last Admin: 11/26/17 21:51 Dose: 15 mg Morphine Sulfate (Morphine) 2 mg SUBCUT Q1H PRN PRN Reason: pain/sob Last Admin: 11/27/17 16:46 Dose: 2 mg Ondansetron HCl (Zofran Odt) 4 mg PO Q4H PRN PRN Reason: Nausea/Vomiting Oxycodone HCl (Oxycodone) 5 mg PO BID [facility] PtomPrednisolone Acetate 1% Ophth Susp 5 Ml Bottle 0 each EYEBOTH BID [facility] Last Admin: 11/27/17 09:09 Dose: Not Given PtomUrea 20% (Cream 85 Gm Tube) 0 each TOP DAILY [facility] Last Admin: 11/27/17 09:09 Dose: Not Given Prednisolone Acetate (Pred Forte 1% Ophth Susp) 0 ml EYEBOTH BID [facility] Sodium Chloride (Syrex Flush) 5 ml FLUSH Q8HR PRN PRN Reason: Keep Vein Open Urea (Urea 20% Crm) 0 gm TOP DAILY [facility]
== END 2017-11-27 16:45 | disposition expired | DRG 951 ==
LOC: UNDOADMIN 11:15 → KA.MS 11:15 → UNDODISIN 11-27 16:45
PROVIDERS: ADMIT Nurse Practitioner Family; ATTEND Family Medicine
DX: Z51.5 Encounter for palliative care (principal); I50.43 Acute on chronic combined systolic (congestive) and diastolic (congestive) heart failure; I13.0 Hypertensive heart and chronic kidney disease with heart failure and stage 1 through stage 4 chronic kidney disease, or unspecified chronic kidney disease; M48.56XA Collapsed vertebra, not elsewhere classified, lumbar region, initial encounter for fracture; D63.8 Anemia in other chronic diseases classified elsewhere; D46.9 Myelodysplastic syndrome, unspecified; R57.0 Cardiogenic shock; N18.3 Chronic kidney disease, stage 3 (moderate); F32.9 Major depressive disorder, single episode, unspecified; E03.9 Hypothyroidism, unspecified; I25.2 Old myocardial infarction; I25.10 Atherosclerotic heart disease of native coronary artery without angina pectoris; E78.5 Hyperlipidemia, unspecified; G47.00 Insomnia, unspecified; K21.9 Gastro-esophageal reflux disease without esophagitis; M31.5 Giant cell arteritis with polymyalgia rheumatica; R01.1 Cardiac murmur, unspecified; Z79.899 Other long term (current) drug therapy; Z99.81 Dependence on supplemental oxygen; Z79.01 Long term (current) use of anticoagulants; Z86.718 Personal history of other venous thrombosis and embolism; Z88.8 Allergy status to other drugs, medicaments and biological substances; Z93.6 Other artificial openings of urinary tract status
CPT/HCPCS: A9270-GY; J2270

== ENCOUNTER 2017-11-27 16:45 | Inpatient (IN) | payer OTHER, MEDICARE, BC ==
[2017-11-27] MEDS ORDERED: Acetaminophen 325 MG Tab PO PRN (18:45)
[2017-11-27] MEDS ORDERED: Bisacodyl 10 MG Supp RECTAL PRN (18:45)
[2017-11-27] MEDS ORDERED: Melatonin 3 MG Tab PO PRN (18:46)
[2017-11-27] MEDS ORDERED: LORazepam 0.5 MG Tab PO PRN (18:46)
[2017-11-27] MEDS ORDERED: Mirtazapine 15 MG Tab PO PRN (18:49)
[2017-11-27] MEDS ORDERED: Glycopyrrolate 1 MG Tab PO PRN (18:50)
[2017-11-27] MEDS: Morphine Oral Concentrate 20 MG/ML 30 ML Bottle PO PRN ×2 (19:12→22:57)
[2017-11-27] MEDS: Morphine Oral Concentrate 20 MG/ML 30 ML Bottle PO SCH (20:34)
[2017-11-28] MEDS: Morphine Oral Concentrate 20 MG/ML 30 ML Bottle PO SCH ×3 (00:55→07:37)
[2017-11-28] MEDS: Morphine Oral Concentrate 20 MG/ML 30 ML Bottle PO PRN (01:54)
[2017-11-28] MEDS ORDERED: MORPHINE 20 MG/ML PO SCH (09:59)
[2017-11-28] MEDS ORDERED: LORAZEPAM 0.5 MG PO PRN (09:59)
[2017-11-28] MEDS ORDERED: BISACODYL 10 MG RECTAL PRN (10:00)
[2017-11-28] MEDS ORDERED: ACETAMINOPHEN 325 MG PO PRN (10:00)
[2017-11-28] MEDS ORDERED: MIRTAZAPINE 15 MG PO PRN (10:15)
[2017-11-28] MEDS ORDERED: MELATONIN 3 MG PO PRN (10:15)
[2017-11-28] MEDS: MORPHINE 20 MG/ML PO PRN ×4 (10:28→21:19)
[2017-11-28] MEDS: LORAZEPAM 0.5 MG PO PRN ×3 (12:40→21:23)
[2017-11-28] MEDS: MORPHINE 20 MG/ML PO SCH ×4 (12:40→23:51)
[2017-11-28] MEDS ORDERED: ONDANSETRON 4 MG PO PRN (12:50)
[2017-11-29] MEDS: MORPHINE 20 MG/ML PO SCH ×5 (03:10→20:11)
[2017-11-29] MEDS: MORPHINE 20 MG/ML PO PRN ×4 (04:56→22:13)
[2017-11-29] MEDS: LORAZEPAM 0.5 MG PO PRN ×4 (05:03→22:13)
[2017-11-29] MEDS: DOCUSATE SODIUM PO SCH (08:51)
[2017-11-29] MEDS: SENNOSIDES PO SCH (08:51)
[2017-11-29] MEDS ORDERED: MELATONIN 3 MG PO PRN (09:15)
[2017-11-29] MEDS ORDERED: ACETAMINOPHEN 325 MG PO PRN (09:30)
[2017-11-30] MEDS: MORPHINE 20 MG/ML PO SCH ×6 (00:19→19:58)
[2017-11-30] MEDS: LORAZEPAM 0.5 MG PO PRN ×5 (02:29→20:00)
[2017-11-30] MEDS: MORPHINE 20 MG/ML PO PRN ×3 (02:30→22:24)
[2017-11-30] MEDS: SENNOSIDES PO SCH (08:11)
[2017-11-30] MEDS: DOCUSATE SODIUM PO SCH (08:11)
[2017-12-01] MEDS: MORPHINE 20 MG/ML PO SCH ×5 (00:04→16:06)
[2017-12-01] MEDS: LORAZEPAM 0.5 MG PO PRN ×5 (00:04→16:07)
[2017-12-01] MEDS: MORPHINE 20 MG/ML PO PRN ×5 (02:29→18:16)
[2017-12-01] MEDS: GLYCOPYRROLATE 1 MG PO PRN ×2 (07:55→16:09)
[2017-12-01] MEDS: SENNOSIDES PO SCH (09:36)
[2017-12-01] MEDS: DOCUSATE SODIUM PO SCH (09:36)
== END 2017-12-01 18:45 | disposition expired ==
LOC: KA.MS 16:45 → UNDOADMIN 16:45 → KA.MS 11-28 15:16
PROVIDERS: ADMIT Nurse Practitioner Family; ATTEND Family Medicine
DX: I21.9 Acute myocardial infarction, unspecified (principal); D46.9 Myelodysplastic syndrome, unspecified; Z51.5 Encounter for palliative care; Z88.2 Allergy status to sulfonamides; Z88.8 Allergy status to other drugs, medicaments and biological substances; Z66 Do not resuscitate